=== PATIENT | female | born 1940 | race American Indian/Alaskan Native ===

== ENCOUNTER 2017-02-20 14:07 | Inpatient (IN) | payer OTHER, MEDICARE ==
[~2017-02-20 14:07] MED LIST: NACL 0.9% IR ONE; NEO SYNEPHRINE/NS Syringe(OR USE) IV ONE
--- NOTE | 2017-02-20 14:57 | Emergency Department Report ---
Chief Complaint: Abdominal Pain Stated Complaint: ABD PAIN Time Seen by Provider: 02/20/17 14:52 - HPI History of Present Illness: PT c/o constipation and intermittent abd pain x 1 week pt states she took a laxative but did not have relief - ROS Review of Systems: - vomiting + constipation - Exam Vital Signs: Vital Signs 02/20/17 14:32 Temperature 98 F Pulse Rate 111 H Respiratory 18 Rate Blood Pressure 106/73 O2 Sat by Pulse 98 Oximetry Physical Exam: pt looks well, non toxic abd is soft and non tender to palpation MSE screening note: Focused history and physical exam performed. Due to findings the following was ordered: labs, xr ED Disposition for MSE Condition: Stable Instructions: Abdominal Pain (ED)
[2017-02-20 15:29] LABS: Hematocrit 35.2 % (30.3-42.9); Hemoglobin 11.7 gm/dl (10.1-14.3); Mean Corpuscular HGB Conc 33 % (30-34); Mean Corpuscular Hemoglobin 28 pg (28-32); Mean Corpuscular Volume 85 fl (79-97); Platelet Count 322 K/mm3 (140-440); Red Blood Count 4.13 M/mm3 (3.65-5.03); Red Cell Distribution Width 15.8 % (13.2-15.2)
[2017-02-20 15:33] LABS: White Blood Count 38.5 K/mm3 (4.5-11.0)
[2017-02-20 15:38] LABS: Albumin 3.6 g/dL (3.9-5); Albumin/Globulin Ratio 1.1 %; BUN/Creatinine Ratio 29.37; Bilirubin,Total 1.2 mg/dL (0.1-1.2); Calcium 8.9 mg/dL (8.4-10.2); Chloride 93.4 mmol/L (98-107); Potassium 3.5 mmol/L (3.6-5.0); Total Protein 6.9 g/dL (6.3-8.2)
[2017-02-20 15:40] LABS: Bilirubin,Urine NEG (Negative); Blood,Urine MOD (Negative); Ketones,Urine TR mg/dL (Negative); Leukocyte Esterase,Urine MOD (Negative); Mucus,Urine FEW /HPF; Nitrite,Urine NEG (Negative)
[2017-02-20] MEDS ORDERED: NACL 0.9% 1000 ML 1,000 ML IV ONE ×2 (16:48→20:09)
[2017-02-20 17:43] LABS: Basophils % (Manual) 0 % (0.0-1.8); Blastocytes % (Manual) 0 %; Eosinophils % (Manual) 0 % (0.0-4.3)
[2017-02-20 17:49] LABS: Anisocytosis 1+; Diff Status Complete; Platelet Estimate Consistent w Auto; Poikilocytosis Few
[2017-02-20 17:50] LABS: Smudge Cells 2+
--- NOTE | 2017-02-20 19:50 | Emergency Department Report ---
HPI - General Chief Complaint: Abdominal Pain Time Seen by Provider: 02/20/17 14:52 - HPI HPI: Abdominal pain for the past 3 days, accompanied by constipation. she describes the pain as 10/10, aching, right lower quadrant, radiating to periumbilical area. Patient denies any vomiting but has nausea. Patient with history of leukemia, not yet started on chemotherapy, her oncologist is DR. Pascual Barcenas, she also has high blood pressure stated 3 days ago she started having constipation first took some laxative for constipation and then started having bad severe abdominal pain, unable to be relieved with otc medications. Patient denies any fever, chills she is compliant with her medications. ED Past Medical Hx - Past Medical History Previous Medical History?: Yes Hx Hypertension: Yes Hx Asthma: Yes Additional medical history: Leukemia - Surgical History Past Surgical History?: Yes Additional Surgical History: Thyroidectomy, Hysterectomy - Social History Smoking Status: Former Smoker Substance Use Type: Alcohol, Prescribed - Medications Home Medications: Home Medications Medication Instructions Recorded Confirmed Last Taken Type Fluticasone/Salmeterol [Advair 1 puff IH BID 02/20/17 02/20/17 Unknown History Diskus 100-50 mcg] Losartan [Cozaar] 125 mg PO QDAY 02/20/17 02/20/17 Unknown History ED Review of Systems ROS: Stated complaint: ABD PAIN Other details as noted in HPI Physical Exam - Physical Exam Vital Signs: Vital Signs 02/20/17 02/20/17 02/20/17 14:32 17:52 19:09 Temperature 98 F 98.9 F 99.5 F Pulse Rate 111 H 96 H 88 Respiratory 18 18 20 Rate Blood Pressure 106/73 Blood Pressure 115/65 123/61 [Right] O2 Sat by Pulse 98 98 98 Oximetry Physical Exam: Gen. alert and oriented 3 in no distress Head atraumatic normocephalic Eyes PERR LA EOMI Chest regular rate and rhythm normal S1-S2 lungs clear bilaterally Abdomen soft nondistended, or right lower quadrant tenderness, no guarding Back no point tenderness paravertebral tenderness Neuro no focal deficit. Psych normal mood. ED Course Vital Signs 02/20/17 02/20/17 02/20/17 14:32 17:52 19:09 Temperature 98 F 98.9 F 99.5 F Pulse Rate 111 H 96 H 88 Respiratory 18 18 20 Rate Blood Pressure 106/73 Blood Pressure 115/65 123/61 [Right] O2 Sat by Pulse 98 98 98 Oximetry - Reevaluation(s) Reevaluation #1: 02/20/17 20:08 Spoke with the radiologist on the phone, he suspects acute appendicitis with abscess. I will consult general surgery. 02/20/17 21:29 I discussed this case with surgery on-call Dr. Anthony, who recommended taking the patient to the operating room. He also asked hospitalist to admit patient. ED Medical Decision Making - Lab Data Result diagrams: 02/20/17 15:05 02/20/17 15:05 Critical Care Time: Yes Critical care time in (mins) excluding proc time.: 45 Critical care attestation.: If time is entered above; I have spent that time in minutes in the direct care of this critically ill patient, excluding procedure time. ED Disposition Clinical Impression: Acute appendicitis Disposition: DC-09 OP ADMIT IP TO THIS HOSP Is pt being admited?: Yes Does the pt Need Aspirin: No Condition: Stable Instructions: Abdominal Pain (ED) Referrals: LOTUS SEGOVIA MD [Primary Care Provider] - 3-5 Days
--- NOTE | 2017-02-20 20:04 | Cat Scan Report ---
FINAL REPORT PROCEDURE: CT ABDOMEN PELVIS WO CON TECHNIQUE: Computerized axial tomography of the abdomen and pelvis was performed without intravenous contrast. This study is performed without intravascular contrast material and its sensitivity for abdominal and pelvic pathology, including neoplasms, inflammation, abscess, free fluid, thrombosis, arterial dissection and infarction, is reduced compared with a contrast enhanced study. HISTORY: abd pain COMPARISON: No prior studies are available for comparison. FINDINGS: Lower Lung lozano: Minimal dependent atelectasis visualized. Lung bases otherwise are clear. There is a small amount of pericardial fluid or pericardial thickening partially visualized. Upper Abdomen: There is a low-density nodule anteriorly in the left lobe of the liver measuring 2.5 centimeters which appears to represent a hepatic cyst. Two low-density nodules are also seen in the right lobe of the liver, 1 centrally inferiorly measuring 12 millimeters and a 3rd inferiorly adjacent to the gallbladder fossa measuring 8 millimeters both of which appear to represent small hepatic cysts. The gallbladder, the adrenal glands, the pancreas and the spleen are unremarkable. Kidneys, Ureters and Urinary bladder: 9 millimeter low-density nodule seen in the midportion of the renal cortex of the right kidney laterally which appears represent a small renal cortical cyst. Kidneys ureters and urinary bladder otherwise are unremarkable. Retroperitoneum: Atherosclerotic changes are seen in the abdominal aorta. No aneurysm is visualized. Nonspecific subcentimeter lymph nodes are seen in the retroperitoneum. No pathologically enlarged lymph nodes are identified. Bowel: There is a large amount of inflammatory change in the mesentery in the mid pelvis posteriorly. There is wall thickening seen in the sigmoid colon. There is a tubular structure projecting medially from the cecum which may represent a markedly distended appendix with wall thickening and diffuse inflammatory change. The diameter of this structure measures 1.6 centimeters. At the tip of this structure presumed to be the appendix there is a fluid collection with an air-fluid level extending over approximately 3.3 x 5.1 centimeters suggesting an abscess. I do not see free intraperitoneal gas. There is additional small density with an air-fluid level seen on image 174 series 2 measuring approximately 1.4 centimeters which may represent additional abscess or extension of the above-mentioned abscess. There is moderate mesenteric adenopathy. This may be reactive. I do not see evidence of bowel obstruction. No ascites is visualized. Reproductive organs: Uterus is surgically absent. No abnormal adnexal masses are seen. Other: There is moderate thoracolumbar scoliosis convex the left apex in the lower thoracic spine convex to the right apex mid lumbar spine. IMPRESSION: Inflammatory process seen in the pelvis as described. This may represent appendicitis with abscess as described. Malignancy in a loop of bowel with perforation and abscess formation is felt to be less likely. As described above 3.3 x 5.1 centimeter abscess is suspected although there may be a smaller daughter abscess or extension of the larger abscess. Please see above image reference number. Oscar of the sigmoid colon and rectum are thickened suggesting reactive process. Moderate mesenteric adenopathy may be reactive. Lymphoma or metastatic disease cannot be excluded. Small amount of pericardial fluid or pericardial thickening present. Hepatic and renal cortical cysts are suspected as described. Prior hysterectomy. Scoliosis..
[2017-02-20] MEDS ORDERED: ZOSYN/NS 4.5GM/100ML 4.5 GM/100 ML VIAL IV ONE (20:08)
[2017-02-20 21:31] LABS: INR 1.1 (0.87-1.13)
[2017-02-20 21:32] LABS: Partial Thromboplastin Time 26.4 Sec. (24.2-36.6)
--- NOTE | 2017-02-20 21:33 | History and Physical Report ---
History of Present Illness Date of examination: 02/20/17 Date of admission: 02/20/17 Chief complaint: Abdominal pain History of present illness: Patient is 76-year-old history of hypertension, asthma and leukemia. She presents with abdominal pain. Abdominal pain is sharp, of intensity 10 out of 10, generalized abdominal pain. There was no radiation. Abdominal pain associated with nausea but no vomiting. Pain was getting worse therefore went to see primary care physician, who was unavailable. She eventually came to the emergency department for evaluation. In ED, a CT of the abdomen showed abnormal findings suggesting for related appendicitis with abscess formation. She is being admitted for urgent surgery and further management. Past History Past Medical History: hypertension, other (asthma, leukemia) Past Surgical History: thyroidectomy, hysterectomy Social history: Lives alone, full code. denies: smoking, alcohol abuse Family history: no significant family history Medications and Allergies Allergies Allergy/AdvReac Type Severity Reaction Status Date / Time No Known Allergies Allergy Verified 02/20/17 17:36 Home Medications Medication Instructions Recorded Confirmed Last Taken Type Fluticasone/Salmeterol [Advair 1 puff IH BID 02/20/17 02/20/17 Unknown History Diskus 100-50 mcg] Losartan [Cozaar] 125 mg PO QDAY 02/20/17 02/20/17 Unknown History Active Meds: Active Medications Sodium Chloride (Nacl 0.9% 1000 Ml) 1,000 mls @ 125 mls/hr IV ONCE ONE Stop: 02/21/17 04:08 Last Admin: 02/20/17 20:34 Dose: 125 mls/hr Review of Systems All systems: negative (no fever, no chest pain, no cough, no vomiting. All other systems reviewed and are negative) Exam - Physical Exam Narrative exam: Gen appearance: ot in acute distress HEENT: normocephalic, atraumatic Neck:supple, no JVD, ADRIANA Lungs: clear to auscultation bilaterally, no crackles or wheezes Heart :S1 and S2 regular, no murmurs, rubs or gallop Abdomen: Soft, mild tender mid abdomen, no rebound tenderness, bowel sounds present Extremities :no edema no clubbing or cyanosis Neuro: Awake, alert oriented 3, no focal neurological signs Psych: normal mood - Constitutional Vitals: Temp Pulse Resp BP Pulse Ox 99.5 F 103 H 19 120/67 98 02/20/17 19:09 02/20/17 20:40 02/20/17 20:40 02/20/17 20:40 02/20/17 20:40 Results - Labs CBC & Chem 7: 02/20/17 15:05 02/20/17 15:05 Labs: Laboratory Last Values WBC 38.5 K/mm3 (4.5-11.0) H 02/20/17 15:05 RBC 4.13 M/mm3 (3.65-5.03) 02/20/17 15:05 Hgb 11.7 gm/dl (10.1-14.3) 02/20/17 15:05 Hct 35.2 % (30.3-42.9) 02/20/17 15:05 MCV 85 fl (79-97) 02/20/17 15:05 MCH 28 pg (28-32) 02/20/17 15:05 MCHC 33 % (30-34) 02/20/17 15:05 RDW 15.8 % (13.2-15.2) H 02/20/17 15:05 Plt Count 322 K/mm3 (140-440) 02/20/17 15:05 Lymph % (Auto) [place] 02/20/17 15:05 Lymph # [place] 02/20/17 15:05 Add Manual Diff Complete 02/20/17 15:05 Total Counted 200 02/20/17 15:05 Seg Neuts % (Manual) 10.5 % (40.0-70.0) L 02/20/17 15:05 Band Neutrophils % 14.5 % 02/20/17 15:05 Lymphocytes % (Manual) 59.0 % (13.4-35.0) H 02/20/17 15:05 Reactive Lymphs % (Man) 11.5 % 02/20/17 15:05 Monocytes % (Manual) 4.5 % (0.0-7.3) 02/20/17 15:05 Eosinophils % (Manual) 0 % (0.0-4.3) 02/20/17 15:05 Basophils % (Manual) 0 % (0.0-1.8) 02/20/17 15:05 Metamyelocytes % 0 % 02/20/17 15:05 Myelocytes % 0 % 02/20/17 15:05 Promyelocytes % 0 % 02/20/17 15:05 Blast Cells % 0 % 02/20/17 15:05 Nucleated RBC % Not Reportable 02/20/17 15:05 Seg Neutrophils # Man 4.0 K/mm3 (1.8-7.7) 02/20/17 15:05 Band Neutrophils # 5.6 K/mm3 02/20/17 15:05 Lymphocytes # (Manual) 22.7 K/mm3 (1.2-5.4) H 02/20/17 15:05 Abs React Lymphs (Man) 4.4 K/mm3 02/20/17 15:05 Monocytes # (Manual) 1.7 K/mm3 (0.0-0.8) H 02/20/17 15:05 Eosinophils # (Manual) 0.0 K/mm3 (0.0-0.4) 02/20/17 15:05 Basophils # (Manual) 0.0 K/mm3 (0.0-0.1) 02/20/17 15:05 Metamyelocytes # 0.0 K/mm3 02/20/17 15:05 Myelocytes # 0.0 K/mm3 02/20/17 15:05 Promyelocytes # 0.0 K/mm3 02/20/17 15:05 Blast Cells # 0.0 K/mm3 02/20/17 15:05 WBC Morphology Not Reportable 02/20/17 15:05 Hypersegmented Neuts Not Reportable 02/20/17 15:05 Hyposegmented Neuts Not Reportable 02/20/17 15:05 Hypogranular Neuts Not Reportable 02/20/17 15:05 Smudge Cells 2+ 02/20/17 15:05 Toxic Granulation Not Reportable 02/20/17 15:05 Toxic Vacuolation Not Reportable 02/20/17 15:05 Dohle Bodies Not Reportable 02/20/17 15:05 Pelger-Huet Anomaly Not Reportable 02/20/17 15:05 Glo Rods Not Reportable 02/20/17 15:05 Platelet Estimate Consistent w auto 02/20/17 15:05 Clumped Platelets Not Reportable 02/20/17 15:05 Plt Clumps, EDTA Not Reportable 02/20/17 15:05 Large Platelets Not Reportable 02/20/17 15:05 Giant Platelets Not Reportable 02/20/17 15:05 Platelet Satelliting Not Reportable 02/20/17 15:05 Plt Morphology Comment Not Reportable 02/20/17 15:05 RBC Morphology Not Reportable 02/20/17 15:05 Dimorphic RBCs Not Reportable 02/20/17 15:05 Polychromasia Not Reportable 02/20/17 15:05 Hypochromasia Not Reportable 02/20/17 15:05 Poikilocytosis Few 02/20/17 15:05 Anisocytosis 1+ 02/20/17 15:05 Microcytosis Not Reportable 02/20/17 15:05 Macrocytosis Not Reportable 02/20/17 15:05 Spherocytes Not Reportable 02/20/17 15:05 Pappenheimer Bodies Not Reportable 02/20/17 15:05 Sickle Cells Not Reportable 02/20/17 15:05 Target Cells Not Reportable 02/20/17 15:05 Tear Drop Cells Not Reportable 02/20/17 15:05 Ovalocytes Not Reportable 02/20/17 15:05 Helmet Cells Not Reportable 02/20/17 15:05 [place] Bodies Not Reportable 02/20/17 15:05 [place] Rings Not Reportable 02/20/17 15:05 Johnson Cells Not Reportable 02/20/17 15:05 Bite Cells Not Reportable 02/20/17 15:05 Crenated Cell Not Reportable 02/20/17 15:05 Elliptocytes Not Reportable 02/20/17 15:05 Acanthocytes (Spur) Not Reportable 02/20/17 15:05 Rouleaux Not Reportable 02/20/17 15:05 Hemoglobin C Crystals Not Reportable 02/20/17 15:05 Schistocytes Not Reportable 02/20/17 15:05 Malaria parasites Not Reportable 02/20/17 15:05 Carrington Bodies Not Reportable 02/20/17 15:05 Hem Pathologist Commnt Sent to pathology 02/20/17 15:05 PT 14.8 Sec. (12.2-14.9) 02/20/17 21:00 INR 1.10 (0.87-1.13) 02/20/17 21:00 APTT 26.4 Sec. (24.2-36.6) 02/20/17 21:00 Sodium 138 mmol/L (137-145) 02/20/17 15:05 Potassium 3.5 mmol/L (3.6-5.0) L 02/20/17 15:05 Chloride 93.4 mmol/L (98-107) L 02/20/17 15:05 Carbon Dioxide 24 mmol/L (22-30) 02/20/17 15:05 Anion Gap 24 mmol/L 02/20/17 15:05 BUN 47 mg/dL (7-17) H 02/20/17 15:05 Creatinine 1.6 mg/dL (0.7-1.2) H 02/20/17 15:05 Estimated GFR 38 ml/min 02/20/17 15:05 BUN/Creatinine Ratio 29.37 % 02/20/17 15:05 Glucose 115 mg/dL (65-100) H 02/20/17 15:05 Calcium 8.9 mg/dL (8.4-10.2) 02/20/17 15:05 Total Bilirubin 1.20 mg/dL (0.1-1.2) 02/20/17 15:05 AST 30 units/L (5-40) 02/20/17 15:05 ALT 23 units/L (7-56) 02/20/17 15:05 Alkaline Phosphatase 69 units/L (35-129) 02/20/17 15:05 Total Protein 6.9 g/dL (6.3-8.2) 02/20/17 15:05 Albumin 3.6 g/dL (3.9-5) L 02/20/17 15:05 Albumin/Globulin Ratio 1.1 % 02/20/17 15:05 Lipase 19 units/L (13-60) 02/20/17 15:05 Urine Color Yellow (Yellow) 02/20/17 15:05 Urine Turbidity Slightly-cloudy (Clear) 02/20/17 15:05 Urine pH 5.0 (5.0-7.0) 02/20/17 15:05 Ur Specific [place] 1.016 (1.003-1.030) 02/20/17 15:05 Urine Protein 30 mg/dl mg/dL (Negative) 02/20/17 15:05 Urine Glucose (UA) Neg mg/dL (Negative) 02/20/17 15:05 Urine Ketones Tr mg/dL (Negative) 02/20/17 15:05 Urine Blood Mod (Negative) 02/20/17 15:05 Urine Nitrite Neg (Negative) 02/20/17 15:05 Urine Bilirubin Neg (Negative) 02/20/17 15:05 Urine Urobilinogen 2.0 mg/dL (<2.0) 02/20/17 15:05 Ur Leukocyte Esterase Mod (Negative) 02/20/17 15:05 Urine WBC (Auto) 26.0 /HPF (0.0-6.0) H 02/20/17 15:05 Urine RBC (Auto) 12.0 /HPF (0.0-6.0) 02/20/17 15:05 U Epithel Cells (Auto) 2.0 /HPF (0-13.0) 02/20/17 15:05 Hyaline Casts 1 /LPF 02/20/17 15:05 Urine Mucus Few /HPF 02/20/17 15:05 Assessment and Plan Assessment and plan: Acute appendicitis with rupture with intra-abdominal abscess. This is suggested by CT abdomen. Admit to medical/surgical floor. Dr. Anthony consulted and ED physician discussed case with him. He will take patient to OR tonight for exploratory laparotomy. keep NPO. Give iv fluids. pain management Marked leukocytosis. This may be secondary to combination of leukemia and intraabdominal abscess. Hypertension. BP stable. Will monitor. Leukemia. This is managed by Dr. EVANS. DVT prophylaxis SCDs only because of anticipated surgery - no anticoagulation for now Full CODE STATUS Advance Directives: Yes VTE prophylaxis?: Not ordered Contraindication Mechanical VTE Prophylaxis: Contraindicated Reason for no VTE Prophylaxis: Surgical contraindication Plan of care discussed with patient/family: Yes
[2017-02-20] MEDS ORDERED: MORPHINE IV PRN (21:34)
[2017-02-20] MEDS ORDERED: TYLENOL PO PRN (21:34)
[2017-02-20] MEDS ORDERED: ZOFRAN IV PRN (21:34)
[2017-02-20] MEDS ORDERED: ZEMURON IV ONE (21:57)
[2017-02-20] MEDS ORDERED: DIPRIVAN 10 MG/ML IV ONE ×2 (21:57→23:55)
[2017-02-20] MEDS ORDERED: SUBLIMAZE ONE (21:57)
[2017-02-20] MEDS ORDERED: XYLOCAINE MPF 2% ONE (21:57)
[2017-02-20] MEDS ORDERED: D5NS 1,000 ML IV SCH (22:00)
[2017-02-20] MEDS ORDERED: ZOSYN/NS 4.5GM/100ML 4.5 GM/100 ML VIAL IV SCH (22:00)
[2017-02-20] MEDS ORDERED: DILAUDID IV PRN (22:25)
--- NOTE | 2017-02-20 22:25 | Anesthesia Consultation ---
Anesthesia Consult and Med Hx Date of service: 02/20/17 - Airway Anesthetic Teeth Evaluation: Poor ROM Head & Neck: Adequate Mental/Hyoid Distance: Adequate Mallampati Class: Class II Intubation Access Assessment: Probably Good - Pulmonary Exam CTA: Yes - Cardiac Exam Cardiac Exam: RRR - Pre-Operative Health Status ASA Pre-Surgery Classification: ASA3 Proposed Anesthetic Plan: General (Leukemia ) - Pulmonary Hx Asthma: Yes - Cardiovascular System Hx Hypertension: Yes
--- NOTE | 2017-02-20 22:25 | Anesthesia Day of Surgery ---
Anesthesia Day of Surgery - Day of Surgery Patient Examined: Yes Patient H&P Reviewed: Yes Patient is NPO: Yes
[2017-02-20] MEDS ORDERED: ZOFRAN ONE (23:00)
[2017-02-20] MEDS ORDERED: DECADRON ONE (23:00)
[2017-02-20] MEDS ORDERED: BLOXIVERZ ONE (23:11)
[2017-02-20] MEDS ORDERED: ROBINUL ONE ×2 (23:11)
[2017-02-20] MEDS ORDERED: DILAUDID ONE (23:31)
[2017-02-21] MEDS ORDERED: D5W/0.45% NACL/KCL 30 MEQ 30 MEQ/1,000 ML BAG IV SCH (01:00)
--- NOTE | 2017-02-21 01:00 | Operative Report ---
PREOPERATIVE DIAGNOSIS: Rule out perforated appendix. POSTOPERATIVE DIAGNOSIS: Ruptured gangrenous retrocecal appendix with abscess formation. PROCEDURE: Emergency exploratory laparotomy and appendectomy. SURGEON: Sreekanth Anthony M.D. ANESTHESIA: General. ESTIMATED BLOOD LOSS: Minimal. DRAINS: One 19 Sam drain left. COMPLICATIONS: None. DESCRIPTION OF PROCEDURE: The patient was taken up to the operating room, prepped and draped in usual sterile fashion. Midline incision was made and abdomen entered. The patient was then placed in a steep Trendelenburg left lateral decubitus position. Attention was then focused to the cecum where a large fixed retrocecal mass was palpated. The right colon was then slowly mobilized. Mass was then slowly dissected free until a gangrenous perforated appendix was noted. Appendix was grasped gently with a [place] at its tip and brought up into the operative field. The mesoappendix was secured with 2-0 Vicryl ties. The base of the appendix was eventually able to be identified and doubly ligated and transected. The appendix was swabbed for cultures. The area was then copiously irrigated and dried. Checked for hemostasis and noted to be dry. A 19-Sam was left draining the pelvic floor. The drain was secured to the skin with a 2-0 silk suture. The entire abdomen was once again irrigated copiously and dry. Once again checked for hemostasis and noted to be dry. The fascia was then closed with interrupted #1 Vicryl suture. Subcutaneous tissues irrigated and skin closed loosely with neema and packed with Betadine soaked Telfa janice. The patient tolerated the procedure well and left the OR in stable condition. [facility]# [id number] FP/DIAN
--- NOTE | 2017-02-21 01:00 | Post Anesthesia Evaluation ---
- Post Anesthesia Evaluation Patient Participated: Yes Airway Patent: Yes Stable Respiratory Function: Yes Nausea/Vomiting: No Temp > 96.8F: Yes Pain Manageable: Yes Adequeate Hydration: Yes Anesthesia Complications: No Block Receding Appropriately: Not Applicable Patient on Ventilator: No
[2017-02-21] MEDS: DILAUDID IV PRN ×4 (01:05→01:45)
[2017-02-21] MEDS ORDERED: DILAUDID ONE (01:28)
[2017-02-21] MEDS ORDERED: MORPHINE IV PRN (01:48)
[2017-02-21] MEDS ORDERED: MORPHINE ONE ×3 (01:51→06:20)
[2017-02-21] MEDS: MORPHINE IV PRN ×6 (01:55→17:12)
[2017-02-21] MEDS: ZOSYN/NS 2.25 GM/50ML 2.25 GM/50 ML BAG IV SCH ×4 (04:18→21:14)
[2017-02-21] MEDS: ZOFRAN IV PRN ×2 (04:19→06:27)
[2017-02-21 05:03] LABS: Hemoglobin 11.2 gm/dl (10.1-14.3); Mean Corpuscular HGB Conc 33 % (30-34); Mean Corpuscular Hemoglobin 29 pg (28-32); Mean Corpuscular Volume 86 fl (79-97); Platelet Count 294 K/mm3 (140-440); Red Blood Count 3.95 M/mm3 (3.65-5.03); Red Cell Distribution Width 16.2 % (13.2-15.2)
[2017-02-21 05:06] LABS: White Blood Count 26.4 K/mm3 (4.5-11.0)
[2017-02-21 05:26] LABS: Albumin 2.9 g/dL (3.9-5); Albumin/Globulin Ratio 0.8 %; Bilirubin,Total 1.2 mg/dL (0.1-1.2); Calcium 7.7 mg/dL (8.4-10.2); Chloride 101.9 mmol/L (98-107); Potassium 4.2 mmol/L (3.6-5.0); Total Protein 6.6 g/dL (6.3-8.2)
[2017-02-21 05:58] LABS: Anisocytosis 1+; Basophils % (Manual) 0 % (0.0-1.8); Blastocytes % (Manual) 0 %; Diff Status Complete; Eosinophils % (Manual) 0 % (0.0-4.3); Platelet Estimate Consistent w Auto; Smudge Cells 2+
[2017-02-21] MEDS ORDERED: ZOSYN/NS 4.5GM/100ML 4.5 GM/100 ML VIAL IV SCH (06:00)
--- NOTE | 2017-02-21 06:00 | Consultation ---
REASON FOR CONSULTATION: Rule out appendicitis with perforation and abscess formation. HISTORY OF PRESENT ILLNESS: The patient is a pleasant 76-year-old female who presents to Emergency Room with a 1-week history of lower abdominal pain, \\"which has not improved,\\" but denies any nausea or vomiting. PAST MEDICAL HISTORY: Pertinent for asthma, hypertension and leukemia. PAST SURGICAL HISTORY: Status post partial thyroidectomy and complete hysterectomy (TAHBSO). ALLERGIES: No known allergies. MEDICATIONS: Include losartan and Advair. FAMILY HISTORY: Negative. SOCIAL HISTORY: Denies any smoking or drinking. REVIEW OF SYSTEMS: Noncontributory. PHYSICAL EXAMINATION: GENERAL: At this time reveals the patient to be awake, alert, cooperative, in moderate discomfort, but no acute distress. VITAL SIGNS: Show her to be running a low grade temperature of 99.9, blood pressure 125/69, pulse of 106, respirations 16. ABDOMEN: Examination of the abdomen reveals it to be slightly distended. There is lower diffuse abdominal tenderness. Bowel sounds are hypoactive to absent. LABORATORY DATA: Lab work at present includes a CBC which shows a white count of 38,000 consistent with the patient's history of leukemia. H and H is 11.7 and 35.2. Platelet count is 322. Electrolytes are essentially within normal limits. BUN is high at 47 and creatinine is 1.6. LFTs are normal. Lipase is 19. A CT scan of the abdomen was performed which reveals inflammatory process seen in the pelvis, which may represent appendicitis with abscess formation. Also, malignancy in loops of small bowel is less likely, but cannot be excluded. IMPRESSION: At this time is that of a 76-year-old female with a past medical history as previously mentioned. Rule out perforated appendix, rule out other causes for pelvic abscess formation. PLAN: To proceed with emergency exploratory laparotomy, possible bowel resection. Risk, indication and complications have been reviewed with the patient who understands and has signed her consent. [facility]OB# [id number] FP/NTS
--- NOTE | 2017-02-21 07:18 | XRay Report ---
SUPINE KUB: History: Abdominal pain, constipation. The abdominal gas pattern is unremarkable. No masses or organomegaly is identified and there is no gross evidence of free air or fluid. No significant soft tissue calcifications are noted. IMPRESSION: Normal study. No significant fecal retention.
--- NOTE | 2017-02-21 07:46 | Admit Criteria Form ---
Admission Criteria Documentation: ABDOMINAL PAIN Clinical Indications for Admission to Inpatient Care (Place 'X' for any and all applicable criteria): Admission is indicated for ANY ONE of the following(1)(2)(3)(4)(5): [X ]I. Inpatient admission required rather than observation care (Also use Abdominal Pain: Observation Care, as appropriate) because of ANY ONE of the following: [ ]a) Severe pain requiring acute inpatient management [X]b) Identification of etiology/finding that requires inpatient care (eg, aortic dissection, free air) [ ]c) Absent bowel sounds with complete ileus(6) [ ]d) Suspected toxic megacolon [ ]e) Severe electrolyte abnormalities requiring inpatient care [ ]f) High fever or infection requiring inpatient admission as indicated by ANY ONE of following(7)(8): [ ] i) Appropriate outpatient or observational care antimicrobial treatment unavailable, not effective, or not feasible [ ] ii) Documented bacteremia [ ] iii) Temperature > 104.9 degrees F (oral) [ ] iv) T >103.1 F (oral) or < 96.8 F(rectal) that does not respond to all emergency treatment measures [ ]g) Signs of intestinal obstruction [B] [ ]h) Hemodynamic instability [ ]i) IV fluid to replace significant ongoing losses (greater than 3 L/m2 per day) (12)(13) [ ]j) Percutaneous or open drainage (eg, abscess, biliary tract ) procedures [ ]k) Parenteral nutrition regimen that must be implemented on inpatient basis [ ]l) Other condition,treatment or monitoring requiring inpatient admission. [ ]II. Peritoneal signs present [ ]III. Surgery needed that cannot be performed on an ambulatory basis. [ ]IV. Evaluation requires patient to not eat or drink for extended period ( eg, more than 24 hours). [ ]V. Contraindications and/or Inappropriate clinical situations for Observational Care in patients with abdominal pain, when ANY ONE of the following is required: [ ]a) Thorough evaluation is required to prevent catastrophic events due to delays in diagnosing (e.g.Mesenteric ischemia) 1,3 [ ]b) Patient with severe pathology or with chronic symptoms unlikely to improve in the ED stay (3) [ X]. General contraindications and/or Inappropriate clinical situations for Observational Care in patients with abdominal pain, when ANY ONE of the following is required: [X ]a) Prediction of prolongation of LOS based on ANY ONE of the following may be considered as a contraindication for observational care 2, 3, 4, 5, 6, 7, 8, 9, 10, 11 [X ]i) Age > 65 yrs. [ ]ii) Patient arriving by ambulance [ ]iii) Patient with high acuity [ ]iv) Patient requiring vital sign monitoring [ ]v) Patient on IV medication [ ]b) Systolic blood pressures 180mmHg 3,12 [ ]c) Patient with altered mental status including delirium and other alteration of consciousness, (3) [ ]d) Patient whose discharge disposition will be to a intermediate home or rehabilitation home should not be managed in Emergency Department Observation Unit. CMS rule requires 3 days hospital stay before such placement.3,13 [ ]e) Patient with failure to thrive due to broad array of etiologies 3,16,17 [ ]f) Inability to ambulate 3,14 Extended stay beyond goal length of stay may be needed for(2)(3): [ ]a) Persistent abdominal pain with suspected intra-abdominal process [ ]b) Diagnosed condition requiring continued stay (e.g., pancreatitis, complicated diverticulitis) [ ]c) Surgery (e.g., colectomy) The original [employer] content created by [employer] has been revised. The portions of the content which have been revised are identified through the use of italic text or in bold, and [facility] has neither reviewed nor approved the modified material.All other unmodified content is copyright [employer] [facility]. Please see references footnoted in the original [facility] edition 2016 Admission Criteria Met: Yes
--- NOTE | 2017-02-21 11:41 | Consultation ---
History of Present Illness - Reason for Consult Consult date: 02/21/17 Peritonitis; Perforated Appendicitis Requesting physician: LENA BURTON - History of Present Illness Ms. Zheng is a 76-year-old woman admitted with severe abdominal pain. A CT abdomen showed a possible appendiceal abscess measuring 3.3 X 5.1 cm. She was taken to the OR for open appendectomy. A gangrenous appendix was noted and surgically removed. Cultures were taken of the area. She is on Zosyn empirically. ID consultation is requested for further treatment recommendations. Past History Past Medical History: hypertension, other (asthma, leukemia) Past Surgical History: thyroidectomy, hysterectomy Social history: Lives alone, full code. denies: smoking, alcohol abuse Family history: no significant family history Medications and Allergies Allergies Allergy/AdvReac Type Severity Reaction Status Date / Time No Known Allergies Allergy Verified 02/20/17 17:36 Home Medications Medication Instructions Recorded Confirmed Last Taken Type Fluticasone/Salmeterol [Advair 1 puff IH BID 02/20/17 02/20/17 Unknown History Diskus 100-50 mcg] Losartan [Cozaar] 125 mg PO QDAY 02/20/17 02/20/17 Unknown History Active Meds: Active Medications Acetaminophen (Tylenol) 650 mg PO Q4H PRN PRN Reason: Pain MILD(1-3)/Fever >100.5/KEENE Piperacillin Sod/Tazobactam Sod (Zosyn/Ns 2.25 Gm/50ml) 2.25 gm in 50 mls @ 100 mls/hr IV Q6H JOSE PRN Reason: Protocol Last Admin: 02/21/17 09:43 Dose: 100 mls/hr Potassium Chloride/Dextrose/Sod Cl (D5w/0.45% Nacl/Kcl 30 Meq) 30 meq in 1,000 mls @ 125 mls/hr IV DIRECT JOSE Last Admin: 02/21/17 04:10 Dose: 125 mls/hr Morphine Sulfate (Morphine) 2 mg IV Q3H PRN PRN Reason: Pain, Moderate (4-6) Last Admin: 02/21/17 09:40 Dose: 2 mg Ondansetron HCl (Zofran) 4 mg IV Q4H PRN PRN Reason: N/V unrelieved by Carmella Last Admin: 02/21/17 06:27 Dose: 4 mg Review of Systems All systems: negative Constitutional: weakness, no fever, no sweats Cardiovascular: no chest pain, no shortness of breath Respiratory: no cough, no wheezing Gastrointestinal: abdominal pain, no nausea, no vomiting, no diarrhea Rectal: no bleeding Integumentary: no rash, no pruritis Physical Examination - Constitutional Vitals: Vital Signs Temp Pulse Resp BP Pulse Ox 97.7 F 87 29 H 140/71 99 02/21/17 08:00 02/21/17 11:00 02/21/17 11:00 02/21/17 11:00 02/21/17 11:00 Temperature -Last 24 Hours Temperature 97.7 F Temperature 98.0 F Temperature 98.0 F Temperature 98.2 F General appearance: Present: no acute distress - EENT Eyes: Absent: scleral icterus - Respiratory Respiratory effort: normal Respiratory: bilateral: CTA - Cardiovascular Rhythm: regular Heart Sounds: Present: S1 & S2 - Extremities Extremities: No edema - Abdominal General gastrointestinal: Present: soft, non-distended, hypoactive bowel sounds , other (surgical drain at RLQ with serosanguinous contents) - Integumentary Integumentary: Present: clear. Absent: jaundice - Psychiatric Psychiatric: appropriate mood/affect - Neurologic Neurologic: no focal deficits Results - Labs CBC & Chem 7: 02/21/17 04:37 02/21/17 04:37 Labs: Abnormal lab results 02/21/17 02/21/17 Range/Units 04:37 04:37 WBC 26.4 H (4.5-11.0) K/mm3 RDW 16.2 H (13.2-15.2) % Seg Neuts % (Manual) 38.0 L (40.0-70.0) % Lymphocytes % (Manual) 37.0 H (13.4-35.0) % Seg Neutrophils # Man 10.0 H (1.8-7.7) K/mm3 Lymphocytes # (Manual) 9.8 H (1.2-5.4) K/mm3 Monocytes # (Manual) 1.1 H (0.0-0.8) K/mm3 Carbon Dioxide 18 L (22-30) mmol/L BUN 39 H (7-17) mg/dL Creatinine 1.5 H (0.7-1.2) mg/dL Glucose 177 H (65-100) mg/dL Calcium 7.7 L (8.4-10.2) mg/dL Albumin 2.9 L (3.9-5) g/dL Microbiology 02/21/17 00:00 Appendix Surgical Culture - Preliminary 02/20/17 21:47 Peripheral/Venous Blood Culture - Preliminary Culture in Progress 02/20/17 21:47 Peripheral/Venous Blood Culture - Preliminary Culture in Progress Assessment and Plan - Patient Problems (1) Appendiceal abscess Current Visit: Yes Status: Acute Plan to address problem: 1. Zosyn is appropriate empiric therapy pending further micro data. 2. Continue same for now with hopeful oral options once patient can take PO meds.
--- NOTE | 2017-02-21 13:27 | Progress Note ---
Assessment and Plan POD #1 Pt feeling well. -flatus Abd soft. dressings dry. -BS K+, BUN & creatinine improved surgically stable ID eval appreciated ambulation continue hydration keep NPO until + flatus (probably another 48 - 72 hrs) begin wd care in am. Dr. Coughlin covering me thru Sunday Selected Entries 02/21/17 11:00 Pulse Rate 87 Blood Pressure 140/71 Laboratory Tests 02/20/17 02/20/17 02/21/17 15:05 15:05 04:37 WBC 38.5 H 26.4 H Hgb 11.7 11.2 Hct 35.2 34.0 Sodium Potassium Chloride Carbon Dioxide BUN 47 H Creatinine 1.6 H 02/21/17 04:37 WBC Hgb Hct Sodium 139 Potassium 4.2 Chloride 101.9 Carbon Dioxide 18 L BUN 39 H Creatinine 1.5 H Objective Vital Signs - 12hr 02/21/17 02/21/17 02/21/17 01:30 01:31 01:45 Temperature Pulse Rate 86 86 Respiratory 21 24 19 Rate Respiratory Rate [Abdomen] Blood Pressure 132/67 131/66 O2 Sat by Pulse 98 98 Oximetry 02/21/17 02/21/17 02/21/17 01:55 02:00 02:15 Temperature Pulse Rate 88 85 Respiratory 24 22 22 Rate Respiratory Rate [Abdomen] Blood Pressure 134/70 124/67 O2 Sat by Pulse 99 99 Oximetry 02/21/17 02/21/17 02/21/17 02:20 02:30 02:41 Temperature Pulse Rate 83 84 Respiratory 22 20 22 Rate Respiratory Rate [Abdomen] Blood Pressure 129/67 133/73 O2 Sat by Pulse 98 98 Oximetry 02/21/17 02/21/17 02/21/17 02:50 02:51 03:00 Temperature 98.0 F Pulse Rate 87 Respiratory 19 22 Rate Respiratory Rate [Abdomen] Blood Pressure 128/70 129/74 O2 Sat by Pulse 97 Oximetry 02/21/17 02/21/17 02/21/17 03:10 03:11 03:21 Temperature Pulse Rate 88 88 85 Respiratory 19 22 20 Rate Respiratory Rate [Abdomen] Blood Pressure 128/70 129/74 128/70 O2 Sat by Pulse 96 97 97 Oximetry 02/21/17 02/21/17 02/21/17 03:31 03:41 03:51 Temperature Pulse Rate 87 85 82 Respiratory 21 24 24 Rate Respiratory Rate [Abdomen] Blood Pressure 128/70 128/70 128/70 O2 Sat by Pulse 97 97 98 Oximetry 02/21/17 02/21/17 02/21/17 04:00 04:05 04:11 Temperature Pulse Rate 83 80 Respiratory 26 H 22 25 H Rate Respiratory Rate [Abdomen] Blood Pressure 127/71 127/71 O2 Sat by Pulse 99 99 Oximetry 02/21/17 02/21/17 02/21/17 04:16 04:21 04:31 Temperature 98.0 F Pulse Rate 83 81 Respiratory 27 H 26 H Rate Respiratory Rate [Abdomen] Blood Pressure 127/71 127/71 O2 Sat by Pulse 99 99 Oximetry 02/21/17 02/21/17 02/21/17 04:41 04:50 05:00 Temperature Pulse Rate 84 83 81 Respiratory 23 27 H 27 H Rate Respiratory Rate [Abdomen] Blood Pressure 127/71 127/71 138/75 O2 Sat by Pulse 99 99 99 Oximetry 02/21/17 02/21/17 02/21/17 05:11 05:21 05:31 Temperature Pulse Rate 82 83 82 Respiratory 31 H 28 H 28 H Rate Respiratory Rate [Abdomen] Blood Pressure 138/75 138/75 138/75 O2 Sat by Pulse 99 99 99 Oximetry 02/21/17 02/21/17 02/21/17 05:41 05:51 06:00 Temperature Pulse Rate 85 84 92 H Respiratory 28 H 28 H 26 H Rate Respiratory Rate [Abdomen] Blood Pressure 138/75 138/75 133/89 O2 Sat by Pulse 100 99 99 Oximetry 02/21/17 02/21/17 02/21/17 06:11 06:21 06:31 Temperature Pulse Rate 86 87 83 Respiratory 32 H 26 H 28 H Rate Respiratory Rate [Abdomen] Blood Pressure 133/89 133/89 133/89 O2 Sat by Pulse 99 99 99 Oximetry 02/21/17 02/21/17 02/21/17 06:41 06:51 07:00 Temperature Pulse Rate 84 83 83 Respiratory 27 H 25 H 26 H Rate Respiratory Rate [Abdomen] Blood Pressure 133/89 133/89 149/78 O2 Sat by Pulse 99 99 99 Oximetry 02/21/17 02/21/17 02/21/17 08:00 09:00 09:40 Temperature 97.7 F Pulse Rate 78 85 Respiratory 28 H 26 H 28 H Rate Respiratory Rate [Abdomen] Blood Pressure 128/70 129/73 O2 Sat by Pulse 99 99 Oximetry 02/21/17 02/21/17 02/21/17 10:00 11:00 13:03 Temperature Pulse Rate 85 87 Respiratory 29 H 29 H 28 H Rate Respiratory 28 H Rate [Abdomen] Blood Pressure 131/72 140/71 O2 Sat by Pulse 100 99 Oximetry - Labs 02/21/17 04:37 02/21/17 04:37 Diabetes panel 02/21/17 Range/Units 04:37 Sodium 139 (137-145) mmol/L Potassium 4.2 (3.6-5.0) mmol/L Chloride 101.9 (98-107) mmol/L Carbon Dioxide 18 L (22-30) mmol/L BUN 39 H (7-17) mg/dL Creatinine 1.5 H (0.7-1.2) mg/dL Glucose 177 H (65-100) mg/dL Calcium 7.7 L (8.4-10.2) mg/dL AST 35 (5-40) units/L ALT 20 (7-56) units/L Alkaline Phosphatase 63 (35-129) units/L Total Protein 6.6 (6.3-8.2) g/dL Albumin 2.9 L (3.9-5) g/dL Calcium panel 02/21/17 Range/Units 04:37 Calcium 7.7 L (8.4-10.2) mg/dL Albumin 2.9 L (3.9-5) g/dL Pituitary panel 02/21/17 Range/Units 04:37 Sodium 139 (137-145) mmol/L Potassium 4.2 (3.6-5.0) mmol/L Chloride 101.9 (98-107) mmol/L Carbon Dioxide 18 L (22-30) mmol/L BUN 39 H (7-17) mg/dL Creatinine 1.5 H (0.7-1.2) mg/dL Glucose 177 H (65-100) mg/dL Calcium 7.7 L (8.4-10.2) mg/dL Adrenal panel 02/21/17 Range/Units 04:37 Sodium 139 (137-145) mmol/L Potassium 4.2 (3.6-5.0) mmol/L Chloride 101.9 (98-107) mmol/L Carbon Dioxide 18 L (22-30) mmol/L BUN 39 H (7-17) mg/dL Creatinine 1.5 H (0.7-1.2) mg/dL Glucose 177 H (65-100) mg/dL Calcium 7.7 L (8.4-10.2) mg/dL Total Bilirubin 1.20 (0.1-1.2) mg/dL AST 35 (5-40) units/L ALT 20 (7-56) units/L Alkaline Phosphatase 63 (35-129) units/L Total Protein 6.6 (6.3-8.2) g/dL Albumin 2.9 L (3.9-5) g/dL
[2017-02-21] MEDS: D5/0.45NS 1,000 ML IV SCH (14:04)
[2017-02-21] MEDS: PEPCID IV SCH (14:05)
--- NOTE | 2017-02-21 14:10 | Consultation ---
History of Present Illness Consult date: 02/21/17 Requesting physician: RAJINDER ROBERT Reason for consult: other (Sepsis Syndrome; Ruptured Viscus) History of present illness: PULMONARY/CCM CONSULT NOTE (Full dictation # [id number]) Please see dictated notes for full details Past History Past Medical History: hypertension, other (asthma, leukemia) Past Surgical History: thyroidectomy, hysterectomy Social history: Lives alone, full code. denies: smoking, alcohol abuse Family history: no significant family history Medications and Allergies Allergies Allergy/AdvReac Type Severity Reaction Status Date / Time No Known Allergies Allergy Verified 02/20/17 17:36 Home Medications Medication Instructions Recorded Confirmed Last Taken Type Fluticasone/Salmeterol [Advair 1 puff IH BID 02/20/17 02/20/17 Unknown History Diskus 100-50 mcg] Losartan [Cozaar] 125 mg PO QDAY 02/20/17 02/20/17 Unknown History Active Meds: Active Medications Acetaminophen (Tylenol) 650 mg PO Q4H PRN PRN Reason: Pain MILD(1-3)/Fever >100.5/KEENE Famotidine (Pepcid) 20 mg IV QDAY [facility] Last Admin: 02/21/17 14:05 Dose: 20 mg Piperacillin Sod/Tazobactam Sod (Zosyn/Ns 2.25 Gm/50ml) 2.25 gm in 50 mls @ 100 mls/hr IV Q6H [facility] PRN Reason: Protocol Last Admin: 02/21/17 09:43 Dose: 100 mls/hr Dextrose/Sodium Chloride (D5/0.45ns) 1,000 mls @ 125 mls/hr IV DIRECT [facility] Last Admin: 02/21/17 14:04 Dose: 125 mls/hr Morphine Sulfate (Morphine) 2 mg IV Q3H PRN PRN Reason: Pain, Moderate (4-6) Last Admin: 02/21/17 13:03 Dose: 2 mg Ondansetron HCl (Zofran) 4 mg IV Q4H PRN PRN Reason: N/V unrelieved by Carmella Last Admin: 02/21/17 06:27 Dose: 4 mg Physical Examination Vital signs: Vital Signs Temp Pulse Resp BP Pulse Ox 98 F 111 H 18 106/73 98 02/20/17 14:32 02/20/17 14:32 02/20/17 14:32 02/20/17 14:32 02/20/17 14:32 Results - Laboratory Findings CBC and BMP: 02/21/17 04:37 02/21/17 04:37 PT/INR, D-dimer PT 14.8 Sec. (12.2-14.9) 02/20/17 21:00 INR 1.10 (0.87-1.13) 02/20/17 21:00 Abnormal lab findings: Abnormal Labs 02/21/17 02/21/17 04:37 04:37 WBC 26.4 H RDW 16.2 H Seg Neuts % (Manual) 38.0 L Lymphocytes % (Manual) 37.0 H Seg Neutrophils # Man 10.0 H Lymphocytes # (Manual) 9.8 H Monocytes # (Manual) 1.1 H Carbon Dioxide 18 L BUN 39 H Creatinine 1.5 H Glucose 177 H Calcium 7.7 L Albumin 2.9 L
--- NOTE | 2017-02-21 14:18 | Progress Note ---
Assessment and Plan Assessment and plan: --Acute appendicitis/with appendix perforation and abscess formation Status post exploratory laparotomy, appendectomy, drainage placement Continue postop care, nothing by mouth, IV fluids and IV antibiotics and supportive care ID evaluation and recommendations noted. Surgery following --Leukocytosis; secondary to sepsis, Trending down --Sepsis secondary to intra-abdominal abscess formation Closely monitor, IV antibiotics and supportive care --Acute kidney injury; secondary to vasomotor nephropathy, ATN Gentle hydration, closely monitor renal function, avoid nephrotoxic medications --History of leukemia follows --Hypertension; moderate control, continue current antihypertensives and when necessary medications --DVT prophylaxis SCDs, no pharmacologic anticoagulation in view of postop state --Full CODE STATUS full code --DC planning per case management This closely monitor the patient and adjust management as needed Patient's condition treatment plan discussed in detail with the patient's family at the bedside Critical care time 32 minutes The high probability of a clinically significant, sudden or life threatening deterioration of the [32] infectious, gastrointestinal] system(s) required my full and direct attention, intervention and personal management. The aggregate critical care time was [32] minutes. This time is in addition to time spent performing reported procedures but includes the following: [x] Data Review and interpretation [x] Patient assessment and monitoring of vital signs [x] Documentation [x] Medication orders and management History Interval history: Patient seen and evaluated in ICU this morning medical records reviewed Patient was admitted with ruptured appendix, underwent exploratory laparotomy, found ruptured gangrenous retrocecal appendix with abscess formation, patient underwent appendectomy and continuous drainage. Today patient feels better, complains of generalized weakness Alert and awake and responding appropriately, vitals signs reviewed Hospitalist Physical - Constitutional Vitals: Temp Pulse Resp BP Pulse Ox 97.7 F 87 28 H 140/71 99 02/21/17 08:00 02/21/17 11:00 02/21/17 13:03 02/21/17 11:00 02/21/17 13:25 General appearance: Present: no acute distress, well-nourished, other (tired looking) - EENT Eyes: Present: PERRL, EOM intact - Neck Neck: Present: supple, normal ROM - Respiratory Respiratory effort: normal Respiratory: bilateral: diminished, negative: rales, rhonchi, wheezing - Cardiovascular Rhythm: regular Heart Sounds: Present: S1 & S2 - Extremities Extremities: no ischemia, No edema - Abdominal General gastrointestinal: soft, tender, non-distended, absent bowel sounds, other (drainage in place) - Integumentary Integumentary: Present: clear, warm - Psychiatric Psychiatric: appropriate mood/affect, cooperative - Neurologic Neurologic: CNII-XII intact, moves all extremities Results - Labs CBC & Chem 7: 02/21/17 04:37 02/21/17 04:37 Labs: Laboratory Last Values WBC 26.4 K/mm3 (4.5-11.0) H 02/21/17 04:37 RBC 3.95 M/mm3 (3.65-5.03) 02/21/17 04:37 Hgb 11.2 gm/dl (10.1-14.3) 02/21/17 04:37 Hct 34.0 % (30.3-42.9) 02/21/17 04:37 MCV 86 fl (79-97) 02/21/17 04:37 MCH 29 pg (28-32) 02/21/17 04:37 MCHC 33 % (30-34) 02/21/17 04:37 RDW 16.2 % (13.2-15.2) H 02/21/17 04:37 Plt Count 294 K/mm3 (140-440) 02/21/17 04:37 Lymph % (Auto) Computer Aided Design Technician 02/21/17 04:37 Lymph # Computer Aided Design Technician 02/21/17 04:37 Add Manual Diff Complete 02/21/17 04:37 Total Counted 100 02/21/17 04:37 Seg Neuts % (Manual) 38.0 % (40.0-70.0) L 02/21/17 04:37 Band Neutrophils % 18.0 % 02/21/17 04:37 Lymphocytes % (Manual) 37.0 % (13.4-35.0) H 02/21/17 04:37 Reactive Lymphs % (Man) 0 % 02/21/17 04:37 Monocytes % (Manual) 4.0 % (0.0-7.3) 02/21/17 04:37 Eosinophils % (Manual) 0 % (0.0-4.3) 02/21/17 04:37 Basophils % (Manual) 0 % (0.0-1.8) 02/21/17 04:37 Metamyelocytes % 3.0 % 02/21/17 04:37 Myelocytes % 0 % 02/21/17 04:37 Promyelocytes % 0 % 02/21/17 04:37 Blast Cells % 0 % 02/21/17 04:37 Nucleated RBC % Not Reportable 02/21/17 04:37 Seg Neutrophils # Man 10.0 K/mm3 (1.8-7.7) H 02/21/17 04:37 Band Neutrophils # 4.8 K/mm3 02/21/17 04:37 Lymphocytes # (Manual) 9.8 K/mm3 (1.2-5.4) H 02/21/17 04:37 Abs React Lymphs (Man) 0.0 K/mm3 02/21/17 04:37 Monocytes # (Manual) 1.1 K/mm3 (0.0-0.8) H 02/21/17 04:37 Eosinophils # (Manual) 0.0 K/mm3 (0.0-0.4) 02/21/17 04:37 Basophils # (Manual) 0.0 K/mm3 (0.0-0.1) 02/21/17 04:37 Metamyelocytes # 0.8 K/mm3 02/21/17 04:37 Myelocytes # 0.0 K/mm3 02/21/17 04:37 Promyelocytes # 0.0 K/mm3 02/21/17 04:37 Blast Cells # 0.0 K/mm3 02/21/17 04:37 Pathologist Review 02/20/17 15:05 WBC Morphology Not Reportable 02/21/17 04:37 Hypersegmented Neuts Not Reportable 02/21/17 04:37 Hyposegmented Neuts Not Reportable 02/21/17 04:37 Hypogranular Neuts Not Reportable 02/21/17 04:37 Smudge Cells 2+ 02/21/17 04:37 Toxic Granulation Not Reportable 02/21/17 04:37 Toxic Vacuolation Not Reportable 02/21/17 04:37 Dohle Bodies Not Reportable 02/21/17 04:37 Pelger-Huet Anomaly Not Reportable 02/21/17 04:37 Glo Rods Not Reportable 02/21/17 04:37 Platelet Estimate Consistent w auto 02/21/17 04:37 Clumped Platelets Not Reportable 02/21/17 04:37 Plt Clumps, EDTA Not Reportable 02/21/17 04:37 Large Platelets Not Reportable 02/21/17 04:37 Giant Platelets Not Reportable 02/21/17 04:37 Platelet Satelliting Not Reportable 02/21/17 04:37 Plt Morphology Comment Not Reportable 02/21/17 04:37 RBC Morphology Not Reportable 02/21/17 04:37 Dimorphic RBCs Not Reportable 02/21/17 04:37 Polychromasia Not Reportable 02/21/17 04:37 Hypochromasia Not Reportable 02/21/17 04:37 Poikilocytosis Not Reportable 02/21/17 04:37 Anisocytosis 1+ 02/21/17 04:37 Microcytosis Not Reportable 02/21/17 04:37 Macrocytosis Not Reportable 02/21/17 04:37 Spherocytes Not Reportable 02/21/17 04:37 Pappenheimer Bodies Not Reportable 02/21/17 04:37 Sickle Cells Not Reportable 02/21/17 04:37 Target Cells Not Reportable 02/21/17 04:37 Tear Drop Cells Not Reportable 02/21/17 04:37 Ovalocytes Not Reportable 02/21/17 04:37 Helmet Cells Not Reportable 02/21/17 04:37 [place] Bodies Not Reportable 02/21/17 04:37 [place] Rings Not Reportable 02/21/17 04:37 Johnson Cells Not Reportable 02/21/17 04:37 Bite Cells Not Reportable 02/21/17 04:37 Crenated Cell Not Reportable 02/21/17 04:37 Elliptocytes Not Reportable 02/21/17 04:37 Acanthocytes (Spur) Not Reportable 02/21/17 04:37 Rouleaux Not Reportable 02/21/17 04:37 Hemoglobin C Crystals Not Reportable 02/21/17 04:37 Schistocytes Not Reportable 02/21/17 04:37 Malaria parasites Not Reportable 02/21/17 04:37 Carrington Bodies Not Reportable 02/21/17 04:37 Hem Pathologist Commnt No 02/21/17 04:37 PT 14.8 Sec. (12.2-14.9) 02/20/17 21:00 INR 1.10 (0.87-1.13) 02/20/17 21:00 APTT 26.4 Sec. (24.2-36.6) 02/20/17 21:00 Sodium 139 mmol/L (137-145) 02/21/17 04:37 Potassium 4.2 mmol/L (3.6-5.0) 02/21/17 04:37 Chloride 101.9 mmol/L (98-107) 02/21/17 04:37 Carbon Dioxide 18 mmol/L (22-30) L 02/21/17 04:37 Anion Gap 23 mmol/L 02/21/17 04:37 BUN 39 mg/dL (7-17) H 02/21/17 04:37 Creatinine 1.5 mg/dL (0.7-1.2) H 02/21/17 04:37 Estimated GFR 41 ml/min 02/21/17 04:37 BUN/Creatinine Ratio 26.00 % 02/21/17 04:37 Glucose 177 mg/dL (65-100) H 02/21/17 04:37 Lactic Acid 1.00 mmol/L (0.7-2.0) 02/21/17 13:35 Calcium 7.7 mg/dL (8.4-10.2) L 02/21/17 04:37 Total Bilirubin 1.20 mg/dL (0.1-1.2) 02/21/17 04:37 AST 35 units/L (5-40) 02/21/17 04:37 ALT 20 units/L (7-56) 02/21/17 04:37 Alkaline Phosphatase 63 units/L (35-129) 02/21/17 04:37 Total Protein 6.6 g/dL (6.3-8.2) 02/21/17 04:37 Albumin 2.9 g/dL (3.9-5) L 02/21/17 04:37 Albumin/Globulin Ratio 0.8 % 02/21/17 04:37 Lipase 19 units/L (13-60) 02/20/17 15:05 Urine Color Yellow (Yellow) 02/20/17 15:05 Urine Turbidity Slightly-cloudy (Clear) 02/20/17 15:05 Urine pH 5.0 (5.0-7.0) 02/20/17 15:05 Ur Specific [place] 1.016 (1.003-1.030) 02/20/17 15:05 Urine Protein 30 mg/dl mg/dL (Negative) 02/20/17 15:05 Urine Glucose (UA) Neg mg/dL (Negative) 02/20/17 15:05 Urine Ketones Tr mg/dL (Negative) 02/20/17 15:05 Urine Blood Mod (Negative) 02/20/17 15:05 Urine Nitrite Neg (Negative) 02/20/17 15:05 Urine Bilirubin Neg (Negative) 02/20/17 15:05 Urine Urobilinogen 2.0 mg/dL (<2.0) 02/20/17 15:05 Ur Leukocyte Esterase Mod (Negative) 02/20/17 15:05 Urine WBC (Auto) 26.0 /HPF (0.0-6.0) H 02/20/17 15:05 Urine RBC (Auto) 12.0 /HPF (0.0-6.0) 02/20/17 15:05 U Epithel Cells (Auto) 2.0 /HPF (0-13.0) 02/20/17 15:05 Hyaline Casts 1 /LPF 02/20/17 15:05 Urine Mucus Few /HPF 02/20/17 15:05 Blood Type O POSITIVE 02/20/17 21:10 Antibody Screen TNR 02/20/17 21:10 SHARON Antibody Screen Negative 02/20/17 21:10
[2017-02-21] MEDS: PULMICORT IH SCH (20:52)
[2017-02-21] MEDS: BROVANA NEBU IH SCH (20:52)
--- NOTE | 2017-02-21 22:24 | Consultation ---
PULMONARY CRITICAL CARE CONSULT NOTE CONSULTING PHYSICIAN VERSUS SURGEON: Dr. Anthony as well as Dr. Wilcox. REASON FOR CONSULTATION: Critical care management, status post ruptured appendicitis, status post exploratory laparotomy. CHIEF COMPLAINT AND HISTORY OF PRESENT ILLNESS: As follows: The patient is a 76-year-old female with past medical history significant I guess in this ontext for what she described as newly diagnosed early leukemia, presented fairly after about 5 days of abdominal pain that started suddenly, it was sharp, it was 10/10. She did not have a bowel movement for a couple of days, but some laxity. She had a BM. It was nonbloody. It was not black, but then again, she did not have any BMs. She tried to see if she could continue to take laxatives. She was eating liquid diet and on the day of presentation, her overall pain was increasing. She had spoken with the nurse over the phone and was advised to come to the Emergency Room in the area. CT of the abdomen revealed an acute appendicitis with abscess formation because of her background diagnosis of leukemia. She was taken into the OR for immediate exploratory laparotomy and removal. She did relatively well, but postoperative surgeon required Intensive Care Unit evaluation due to overall status and age. When I stopped by to see her, she was doing better. She was feeling okay. She was using her incentive spirometer the abdominal pain was improved. She denied any nausea or vomiting. She was hungry, but had not passed any bowel movement or gas yet. Now with regards to her tobacco use/abuse history, she had denied any history of tobacco use. That really is as much of the history of presentation. PAST MEDICAL HISTORY: Hypertension. She has a history of asthma, for which she is on Advair at home. She also has a history of the newly diagnosed leukemia. PAST SURGICAL HISTORY: She has had a thyroidectomy. She has had a hysterectomy. MEDICATIONS: She was on at the time I stopped by to see her, according to the medication administration record included the following: She was on Tylenol 650 mg p.o. q. 4 hours p.r.n. mild pain. She was on Pepcid 20 mg IV daily, morphine sulfate 2 mg IV q. 3 hours p.r.n. moderate pain. She was on D5 half NS at 125 mL per hour, Zosyn 2.25 grams IV q. 6 hours and Zofran 4 mg IV q. 4 hours p.r.n. pain. She had received a dose of Decadron earlier. ALLERGIES: No known drug allergies. DIET: Petite lady. Denies acute weight loss or gain in the preceding few weeks to months. FAMILY AND SOCIAL HISTORY: Lives in the community, lives alone. Denies alcohol, tobacco or illicit drug use or abuse. Denies any contributory family history. REVIEW OF SYSTEMS: No loss of consciousness. No new onset of seizures. No new onset of focal weakness. No gross hematochezia or melena. No gross hematuria. She had the abdominal pain. She denies any seizures. A complete 13-system review of systems was obtained. Pertinent positives and/or negatives as in body of history above, otherwise they are noncontributory. PHYSICAL EXAMINATION: VITAL SIGNS: At presentation, she was afebrile, temperature 98.0 Fahrenheit with a pulse of 111, respiratory rate 18, blood pressure 106/73, oxygen sats were 98%, inspired oxygen concentration was not recorded. HEAD, EYES, EARS, NOSE AND THROAT: Pupils are equal, round, about 3 mm, reactive to light. Extraocular muscle movements are intact. NECK: Grossly, there were no palpable lymph nodes in the supraclavicular or submandibular lymph node chains. LUNGS: Auscultation of both lung lozano, diminished bilateral breath sounds, but clear. HEART: Heart sounds 1 and 2 were heard. They were regular rate and rhythm at time of my evaluation. ABDOMEN: Soft, full, bowel sounds were hypoactive. She was mildly tender diffusely. EXTREMITIES: Without overt digital clubbing, cyanosis, or pedal edema. NEUROLOGIC: The exam was grossly nonfocal. LABORATORY DATA: From my review as follows: White cell count on admission 38,500 with a hemoglobin of 11.7, hematocrit of 35.2, platelet count 322. INR was 1.10. Serum sodium was 138, potassium 3.5, chloride 93, bicarbonate 24, BUN 47, creatinine 1.6, glucose was 150 and lactic acid was within normal limits. Liver function test within normal limits. Urinalysis was negative for nitrites. She had moderate leukocyte esterase and about 26 white cells per high power field. Blood cultures, no growth to date. Appendix culture, no growth to date. I have reviewed the radiologist's interpretation. I am putting up the films. The CT of the abdomen and pelvis shows the main findings with 3.3 x 5.1 cm abscess along the appendix as she mentioned. Moderate mesenteric adenopathy, small pericardial fluid or thickening. Some nodules in the liver, nothing was mentioned about the lung lozano except for mild dependent atelectasis. ASSESSMENT AND PLAN: We have an elderly lady status post appendicitis and status post exploratory laparotomy, actually doing very well. I do note also a history of asthma and she is asking for her Advair, but is actually not wheezing, which is good. From a respiratory standpoint, we will prescribe Brovana and Pulmicort. Oxygen will be weaned as necessary. to keep sats greater than or equal to about 90-94%. Aspiration precautions will be maintained. She is appropriately on broad-spectrum anti-infective therapy. I believe the infectious disease doctor has been consulted. I will defer to them. The normal lactic acidosis is encouraging. She will remain n.p.o. for now until cleared by the surgeon. She has been started on GI prophylaxis today. DVT prophylaxis will be started with subcutaneous Lovenox tomorrow, but she has SCDs on now. Flu and pneumonia vaccination will be per protocol. Thank you very much for the consult, Dr. Anthony. We will follow along and make further recommendations as picture progresses/becomes clearer. At this point, she is doing better and I will recommend transfer to the surgical floor. JOB# [id number] CHAPIN/DIAN
[2017-02-22] MEDS: D5/0.45NS 1,000 ML IV SCH ×2 (01:06→09:10)
[2017-02-22] MEDS: ZOSYN/NS 2.25 GM/50ML 2.25 GM/50 ML BAG IV SCH ×4 (04:03→22:33)
[2017-02-22 06:56] LABS: Hematocrit 31.8 % (30.3-42.9); Hemoglobin 10.1 gm/dl (10.1-14.3); Mean Corpuscular HGB Conc 32 % (30-34); Mean Corpuscular Hemoglobin 28 pg (28-32); Mean Corpuscular Volume 87 fl (79-97); Platelet Count 328 K/mm3 (140-440); Red Blood Count 3.65 M/mm3 (3.65-5.03); Red Cell Distribution Width 16.1 % (13.2-15.2)
[2017-02-22 07:11] LABS: White Blood Count 45.2 K/mm3 (4.5-11.0)
[2017-02-22 07:24] LABS: Albumin 2.2 g/dL (3.9-5); Albumin/Globulin Ratio 0.6 %; BUN/Creatinine Ratio 16.36; Calcium 7.6 mg/dL (8.4-10.2); Chloride 103.9 mmol/L (98-107); Potassium 3.6 mmol/L (3.6-5.0); Total Protein 5.7 g/dL (6.3-8.2)
[2017-02-22] MEDS: PULMICORT IH SCH ×2 (07:44→19:15)
[2017-02-22] MEDS: BROVANA NEBU IH SCH ×2 (07:44→19:15)
--- NOTE | 2017-02-22 08:35 | Progress Note ---
Assessment and Plan - Patient Problems (1) Appendiceal abscess Current Visit: Yes Status: Acute Plan to address problem: 1. GNRs on surgical culture. Will continue Zosyn, but also add anti-fungal coverage. 2. Await final micro data. 3. If WBC remains markedly elevated, recommend repeat abdominal imaging. Subjective Date of service: 02/22/17 Principal diagnosis: Appendiceal Abscess Interval history: Afebrile, though significantly elevated WBC count. Patient notes cough with mucus, but denies nausea, emesis or diarrhea. Objective - Constitutional Vitals: Vital Signs Temp Pulse Resp BP Pulse Ox 97.9 F 92 H 18 132/72 97 02/22/17 08:03 02/22/17 08:03 02/22/17 08:03 02/22/17 08:03 02/22/17 08:03 Temperature -Last 24 Hours Temperature 97.9 F Temperature 98.8 F Temperature 98.3 F Temperature 98.4 F Temperature 98.4 F Temperature 98.3 F Temperature 98.3 F General appearance: Present: no acute distress, other (non-toxic appearance) - EENT Eyes: no scleral icterus - Neck Neck: supple - Respiratory Respiratory effort: normal Respiratory: bilateral: CTA - Cardiovascular Rhythm: regular Heart Sounds: Present: S1 & S2 Extremities: No edema - Gastrointestinal General gastrointestinal: Present: soft, non-distended, hypoactive bowel sounds , other (drain with serosanguinous output, no purulence seen) - Integumentary Integumentary: no jaundice, no rash - Neurologic Neurologic: moves all extremities - Psychiatric Psychiatric: appropriate mood/affect - Labs CBC & Chem 7: 02/22/17 06:10 02/22/17 06:10 Labs: Abnormal lab results 02/22/17 02/22/17 Range/Units 06:10 06:10 WBC 45.2 H* (4.5-11.0) K/mm3 RDW 16.1 H (13.2-15.2) % Carbon Dioxide 21 L (22-30) mmol/L BUN 18 H (7-17) mg/dL Glucose 191 H (65-100) mg/dL Calcium 7.6 L (8.4-10.2) mg/dL Total Protein 5.7 L (6.3-8.2) g/dL Albumin 2.2 L (3.9-5) g/dL Microbiology 02/20/17 Unknown Urine,Clean Catch Urine Culture - Preliminary 02/20/17 21:47 Peripheral/Venous Blood Culture - Preliminary NO GROWTH AFTER 24 HOURS 02/20/17 21:47 Peripheral/Venous Blood Culture - Preliminary NO GROWTH AFTER 24 HOURS 02/21/17 00:00 Appendix Surgical Culture - Preliminary
[2017-02-22] MEDS: PEPCID IV SCH (09:11)
[2017-02-22 09:23] LABS: Basophils % (Manual) 0 % (0.0-1.8); Blastocytes % (Manual) 0 %; Eosinophils % (Manual) 0 % (0.0-4.3)
[2017-02-22 09:24] LABS: Anisocytosis 1+; Diff Status Complete; Smudge Cells 2+
[2017-02-22] MEDS: DIFLUCAN 200 ML IV SCH (10:49)
--- NOTE | 2017-02-22 12:25 | Progress Note ---
Assessment and Plan - Patient Problems (1) History of asthma Current Visit: Yes Status: Acute Plan to address problem: - continue brovana & pulmoicort - prn oxygen therapy - prn albuterol (2) Leucocytosis Current Visit: Yes Status: Acute Qualifiers: Leukocytosis type: L Plan to address problem: - continue AB's per ID recs - lactic acid level unremarkable - follow clinically (3) Acute appendicitis Current Visit: Yes Status: Acute Qualifiers: Acute appendicitis type: A Plan to address problem: - continue AB's per ID recs - s/p appendectomy - NPO for now (4) Discharge planning issues Current Visit: Yes Status: Acute Plan to address problem: - out of ICU but not yet ready for discharge ...home at discharge hopefully Subjective Date of service: 02/22/17 Principal diagnosis: Appendiceal Abscess; H/O Asthma Interval history: Seen and examined at bedside; 24 hour events reviewed; nursing and respiratory care staff consulted; no adverse overnight events reported to me; resting peacefully in bed; no BM's yet and has not passed gas; states that hr breathing is fine; denies acute chest pains or increased SOB Objective Vital Signs - 12hr 02/22/17 02/22/17 04:59 08:03 Temperature 98.8 F 97.9 F Pulse Rate 92 H Pulse Rate [ 95 H Right] Respiratory 16 18 Rate Blood Pressure 112/65 132/72 O2 Sat by Pulse 97 Oximetry Constitutional: no acute distress, alert Eyes: non-icteric ENT: oropharynx moist Neck: supple Effort: normal Ascultation: Bilateral: clear, diminished breath sounds Cardiovascular: regular rate and rhythm Gastrointestinal: hypoactive bowel sounds, soft, non-tender, non-distended Integumentary: normal Extremities: no cyanosis, no edema, pulses normal, no ischemia or petechiae Neurologic: normal mental status, non-focal exam, pupils equal and round, motor strength normal and Psychiatric: mood appropriate, affect normal CBC and BMP: 02/23/17 03:33 02/23/17 04:56 ABG, PT/INR, D-dimer: PT/INR, D-dimer PT 14.8 Sec. (12.2-14.9) 02/20/17 21:00 INR 1.10 (0.87-1.13) 02/20/17 21:00 Abnormal lab findings: Abnormal Labs 02/21/17 02/21/17 02/22/17 04:37 04:37 06:10 WBC 26.4 H 45.2 H* RDW 16.2 H 16.1 H Seg Neuts % (Manual) 38.0 L Lymphocytes % (Manual) 37.0 H 39.0 H Seg Neutrophils # Man 10.0 H 22.1 H Lymphocytes # (Manual) 9.8 H 17.6 H Monocytes # (Manual) 1.1 H 0.9 H Carbon Dioxide 18 L BUN 39 H Creatinine 1.5 H Glucose 177 H Calcium 7.7 L Total Protein Albumin 2.9 L 02/22/17 06:10 WBC RDW Seg Neuts % (Manual) Lymphocytes % (Manual) Seg Neutrophils # Man Lymphocytes # (Manual) Monocytes # (Manual) Carbon Dioxide 21 L BUN 18 H Creatinine Glucose 191 H Calcium 7.6 L Total Protein 5.7 L Albumin 2.2 L
--- NOTE | 2017-02-22 13:07 | Progress Note ---
Assessment and Plan Assessment and plan: --Acute appendicitis/with appendix perforation and abscess formation Status post exploratory laparotomy, appendectomy, drainage placement Continue postop care, nothing by mouth, IV fluids and IV antibiotics and supportive care ID evaluation and recommendations noted. Surgery following --Peritonitis, secondary to perforated appendix, continue IV fluids and antibiotics supportive care --Gram Negative rods in surgical culture, continue Zosyn, ID following --Leukocytosis; secondary to sepsis, Trending down --History of leukemia with WBC in 40,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 EVANS --Sepsis secondary to intra-abdominal abscess formation Closely monitor, IV antibiotics and supportive care --Acute kidney injury; secondary to vasomotor nephropathy, ATN Gentle hydration, closely monitor renal function, avoid nephrotoxic medications --History of leukemia follows . --Hypertension; moderate control, continue current antihypertensives and when necessary medications --DVT prophylaxis SCDs, no pharmacologic anticoagulation in view of postop state --Full CODE STATUS full code This closely monitor the patient and adjust management as needed DC Root, incentive spirometry, out of bed to chair as tolerated History Interval history: Patient feels better, no new complaints Wants food, did not have flatus Hospitalist Physical - Constitutional Vitals: Temp Pulse Resp BP Pulse Ox 97.9 F 92 H 18 132/72 97 02/22/17 08:03 02/22/17 08:03 02/22/17 08:03 02/22/17 08:03 02/22/17 08:03 General appearance: Present: no acute distress, cachectic, other (dehydrated) - EENT Eyes: Present: PERRL, EOM intact - Neck Neck: Present: supple, normal ROM - Respiratory Respiratory effort: normal Respiratory: bilateral: diminished, negative: rales, rhonchi, wheezing - Cardiovascular Rhythm: regular Heart Sounds: Present: S1 & S2 - Extremities Extremities: no ischemia, No edema - Abdominal General gastrointestinal: soft, tender (no guarding no rigidity), non-distended , absent bowel sounds, other (drainage in place, draining well) - Integumentary Integumentary: Present: clear, warm - Psychiatric Psychiatric: appropriate mood/affect, cooperative - Neurologic Neurologic: CNII-XII intact, moves all extremities Results - Labs CBC & Chem 7: 02/22/17 06:10 02/22/17 06:10 Labs: Laboratory Last Values WBC 45.2 K/mm3 (4.5-11.0) H* 02/22/17 06:10 RBC 3.65 M/mm3 (3.65-5.03) 02/22/17 06:10 Hgb 10.1 gm/dl (10.1-14.3) 02/22/17 06:10 Hct 31.8 % (30.3-42.9) 02/22/17 06:10 MCV 87 fl (79-97) 02/22/17 06:10 MCH 28 pg (28-32) 02/22/17 06:10 MCHC 32 % (30-34) 02/22/17 06:10 RDW 16.1 % (13.2-15.2) H 02/22/17 06:10 Plt Count 328 K/mm3 (140-440) 02/22/17 06:10 Lymph % (Auto) Construction Safety Consultant 02/22/17 06:10 Lymph # Construction Safety Consultant 02/22/17 06:10 Add Manual Diff Complete 02/22/17 06:10 Total Counted 200 02/22/17 06:10 Seg Neutrophils % Construction Safety Consultant 02/22/17 06:10 Seg Neuts % (Manual) 49.0 % (40.0-70.0) 02/22/17 06:10 Band Neutrophils % 7.5 % 02/22/17 06:10 Lymphocytes % (Manual) 39.0 % (13.4-35.0) H 02/22/17 06:10 Reactive Lymphs % (Man) 0.5 % 02/22/17 06:10 Monocytes % (Manual) 2.0 % (0.0-7.3) 02/22/17 06:10 Eosinophils % (Manual) 0 % (0.0-4.3) 02/22/17 06:10 Basophils % (Manual) 0 % (0.0-1.8) 02/22/17 06:10 Metamyelocytes % 1.5 % 02/22/17 06:10 Myelocytes % 0.5 % 02/22/17 06:10 Promyelocytes % 0 % 02/22/17 06:10 Blast Cells % 0 % 02/22/17 06:10 Nucleated RBC % Not Reportable 02/22/17 06:10 Seg Neutrophils # Man 22.1 K/mm3 (1.8-7.7) H 02/22/17 06:10 Band Neutrophils # 3.4 K/mm3 02/22/17 06:10 Lymphocytes # (Manual) 17.6 K/mm3 (1.2-5.4) H 02/22/17 06:10 Abs React Lymphs (Man) 0.2 K/mm3 02/22/17 06:10 Monocytes # (Manual) 0.9 K/mm3 (0.0-0.8) H 02/22/17 06:10 Eosinophils # (Manual) 0.0 K/mm3 (0.0-0.4) 02/22/17 06:10 Basophils # (Manual) 0.0 K/mm3 (0.0-0.1) 02/22/17 06:10 Metamyelocytes # 0.7 K/mm3 02/22/17 06:10 Myelocytes # 0.2 K/mm3 02/22/17 06:10 Promyelocytes # 0.0 K/mm3 02/22/17 06:10 Blast Cells # 0.0 K/mm3 02/22/17 06:10 Pathologist Review 02/20/17 15:05 WBC Morphology Not Reportable 02/22/17 06:10 Hypersegmented Neuts Not Reportable 02/22/17 06:10 Hyposegmented Neuts Not Reportable 02/22/17 06:10 Hypogranular Neuts Not Reportable 02/22/17 06:10 Smudge Cells 2+ 02/22/17 06:10 Toxic Granulation Not Reportable 02/22/17 06:10 Toxic Vacuolation Not Reportable 02/22/17 06:10 Dohle Bodies Not Reportable 02/22/17 06:10 Pelger-Huet Anomaly Not Reportable 02/22/17 06:10 Glo Rods Not Reportable 02/22/17 06:10 Platelet Estimate Appears normal 02/22/17 06:10 Clumped Platelets Not Reportable 02/22/17 06:10 Plt Clumps, EDTA Not Reportable 02/22/17 06:10 Large Platelets Not Reportable 02/22/17 06:10 Giant Platelets Not Reportable 02/22/17 06:10 Platelet Satelliting Not Reportable 02/22/17 06:10 Plt Morphology Comment Not Reportable 02/22/17 06:10 RBC Morphology Not Reportable 02/22/17 06:10 Dimorphic RBCs Not Reportable 02/22/17 06:10 Polychromasia Not Reportable 02/22/17 06:10 Hypochromasia Not Reportable 02/22/17 06:10 Poikilocytosis Not Reportable 02/22/17 06:10 Anisocytosis 1+ 02/22/17 06:10 Microcytosis Not Reportable 02/22/17 06:10 Macrocytosis Not Reportable 02/22/17 06:10 Spherocytes Not Reportable 02/22/17 06:10 Pappenheimer Bodies Not Reportable 02/22/17 06:10 Sickle Cells Not Reportable 02/22/17 06:10 Target Cells Not Reportable 02/22/17 06:10 Tear Drop Cells Not Reportable 02/22/17 06:10 Ovalocytes Not Reportable 02/22/17 06:10 Helmet Cells Not Reportable 02/22/17 06:10 [place] Bodies Not Reportable 02/22/17 06:10 [place] Rings Not Reportable 02/22/17 06:10 Johnson Cells Not Reportable 02/22/17 06:10 Bite Cells Not Reportable 02/22/17 06:10 Crenated Cell Not Reportable 02/22/17 06:10 Elliptocytes Not Reportable 02/22/17 06:10 Acanthocytes (Spur) Not Reportable 02/22/17 06:10 Rouleaux Not Reportable 02/22/17 06:10 Hemoglobin C Crystals Not Reportable 02/22/17 06:10 Schistocytes Not Reportable 02/22/17 06:10 Malaria parasites Not Reportable 02/22/17 06:10 Carrington Bodies Not Reportable 02/22/17 06:10 Hem Pathologist Commnt No 02/22/17 06:10 PT 14.8 Sec. (12.2-14.9) 02/20/17 21:00 INR 1.10 (0.87-1.13) 02/20/17 21:00 APTT 26.4 Sec. (24.2-36.6) 02/20/17 21:00 Sodium 138 mmol/L (137-145) 02/22/17 06:10 Potassium 3.6 mmol/L (3.6-5.0) 02/22/17 06:10 Chloride 103.9 mmol/L (98-107) 02/22/17 06:10 Carbon Dioxide 21 mmol/L (22-30) L 02/22/17 06:10 Anion Gap 17 mmol/L 02/22/17 06:10 BUN 18 mg/dL (7-17) H 02/22/17 06:10 Creatinine 1.1 mg/dL (0.7-1.2) 02/22/17 06:10 Estimated GFR 59 ml/min 02/22/17 06:10 BUN/Creatinine Ratio 16.36 % 02/22/17 06:10 Glucose 191 mg/dL (65-100) H 02/22/17 06:10 Lactic Acid 1.00 mmol/L (0.7-2.0) 02/21/17 13:35 Calcium 7.6 mg/dL (8.4-10.2) L 02/22/17 06:10 Magnesium 2.10 mg/dL (1.7-2.3) 02/22/17 06:10 Total Bilirubin 1.00 mg/dL (0.1-1.2) 02/22/17 06:10 AST 12 units/L (5-40) 02/22/17 06:10 ALT 13 units/L (7-56) 02/22/17 06:10 Alkaline Phosphatase 51 units/L (35-129) 02/22/17 06:10 Total Protein 5.7 g/dL (6.3-8.2) L 02/22/17 06:10 Albumin 2.2 g/dL (3.9-5) L 02/22/17 06:10 Albumin/Globulin Ratio 0.6 % 02/22/17 06:10 Lipase 19 units/L (13-60) 02/20/17 15:05 Urine Color Yellow (Yellow) 02/20/17 15:05 Urine Turbidity Slightly-cloudy (Clear) 02/20/17 15:05 Urine pH 5.0 (5.0-7.0) 02/20/17 15:05 Ur Specific [place] 1.016 (1.003-1.030) 02/20/17 15:05 Urine Protein 30 mg/dl mg/dL (Negative) 02/20/17 15:05 Urine Glucose (UA) Neg mg/dL (Negative) 02/20/17 15:05 Urine Ketones Tr mg/dL (Negative) 02/20/17 15:05 Urine Blood Mod (Negative) 02/20/17 15:05 Urine Nitrite Neg (Negative) 02/20/17 15:05 Urine Bilirubin Neg (Negative) 02/20/17 15:05 Urine Urobilinogen 2.0 mg/dL (<2.0) 02/20/17 15:05 Ur Leukocyte Esterase Mod (Negative) 02/20/17 15:05 Urine WBC (Auto) 26.0 /HPF (0.0-6.0) H 02/20/17 15:05 Urine RBC (Auto) 12.0 /HPF (0.0-6.0) 02/20/17 15:05 U Epithel Cells (Auto) 2.0 /HPF (0-13.0) 02/20/17 15:05 Hyaline Casts 1 /LPF 02/20/17 15:05 Urine Mucus Few /HPF 02/20/17 15:05 Blood Type O POSITIVE 02/20/17 21:10 Antibody Screen TNR 02/20/17 21:10 SHARON Antibody Screen Negative 02/20/17 21:10
[2017-02-22] MEDS: MORPHINE IV PRN (16:32)
--- NOTE | 2017-02-22 16:43 | Consultation ---
History of Present Illness - Reason for Consult Consult date: 02/22/17 Leukemia Requesting physician: RAJINDER ROBERT - History of Present Illness Chief complaint: Abdominal pain History of present illness: Patient is 76-year-old history of hypertension, asthma and leukemia. She presents with abdominal pain. Abdominal pain is sharp, of intensity 10 out of 10, generalized abdominal pain. There was no radiation. Abdominal pain associated with nausea but no vomiting. Pain was getting worse therefore went to see primary care physician, who was unavailable. She eventually came to the emergency department for evaluation. In ED, a CT of the abdomen showed abnormal findings suggesting for related appendicitis with abscess formation. She is being admitted for urgent surgery and further management. Past History Past Medical History: hypertension, other (asthma, leukemia) Past Surgical History: thyroidectomy, hysterectomy Social history: Lives alone, full code. denies: smoking, alcohol abuse Family history: no significant family history Medications and Allergies Allergies Allergy/AdvReac Type Severity Reaction Status Date / Time No Known Allergies Allergy Verified 02/20/17 17:36 Home Medications Medication Instructions Recorded Confirmed Last Taken Type Fluticasone/Salmeterol [Advair 1 puff IH BID 02/20/17 02/20/17 Unknown History Diskus 100-50 mcg] Losartan [Cozaar] 125 mg PO QDAY 02/20/17 02/20/17 Unknown History Active Meds: Active Medications Acetaminophen (Tylenol) 650 mg PO Q4H PRN PRN Reason: Pain MILD(1-3)/Fever >100.5/KEENE Arformoterol Tartrate (Brovana Nebu) 15 mcg IH Q12HRT [facility] Last Admin: 02/22/17 07:44 Dose: 15 mcg Budesonide (Pulmicort) 0.5 mg IH Q12HRT JOSE Last Admin: 02/22/17 07:44 Dose: 0.5 mg Famotidine (Pepcid) 20 mg IV QDAY [facility] Last Admin: 02/22/17 09:11 Dose: 20 mg Piperacillin Sod/Tazobactam Sod (Zosyn/Ns 2.25 Gm/50ml) 2.25 gm in 50 mls @ 100 mls/hr IV Q6H JOSE PRN Reason: Protocol Last Admin: 02/22/17 16:05 Dose: 100 mls/hr Dextrose/Sodium Chloride (D5/0.45ns) 1,000 mls @ 125 mls/hr IV DIRECT JOSE Last Admin: 02/22/17 09:10 Dose: 125 mls/hr Fluconazole (Diflucan) 200 mls @ 100 mls/hr IV Q24HR JOSE PRN Reason: Protocol Last Admin: 02/22/17 10:49 Dose: 100 mls/hr Morphine Sulfate (Morphine) 2 mg IV Q3H PRN PRN Reason: Pain, Moderate (4-6) Last Admin: 02/22/17 16:32 Dose: 2 mg Ondansetron HCl (Zofran) 4 mg IV Q4H PRN PRN Reason: N/V unrelieved by Reglan Last Admin: 02/21/17 06:27 Dose: 4 mg Exam - Constitutional Vitals: Temp Pulse Resp BP Pulse Ox 97.9 F 92 H 18 132/72 97 02/22/17 08:03 02/22/17 08:03 02/22/17 08:03 02/22/17 08:03 02/22/17 08:03 Results - Labs CBC & Chem 7: 02/22/17 06:10 02/22/17 06:10 Labs: Abnormal lab results 02/22/17 02/22/17 Range/Units 06:10 06:10 WBC 45.2 H* (4.5-11.0) K/mm3 RDW 16.1 H (13.2-15.2) % Lymphocytes % (Manual) 39.0 H (13.4-35.0) % Seg Neutrophils # Man 22.1 H (1.8-7.7) K/mm3 Lymphocytes # (Manual) 17.6 H (1.2-5.4) K/mm3 Monocytes # (Manual) 0.9 H (0.0-0.8) K/mm3 Carbon Dioxide 21 L (22-30) mmol/L BUN 18 H (7-17) mg/dL Glucose 191 H (65-100) mg/dL Calcium 7.6 L (8.4-10.2) mg/dL Total Protein 5.7 L (6.3-8.2) g/dL Albumin 2.2 L (3.9-5) g/dL Assessment and Plan Assessment: CLL. Chronic Lymphocytic Leukemia. Dxd in 10/2014. * Triplett's stage: Zero. On Watch and Wait mode with out chemotherapy * 13q depleion and 17p depletion: Not present. [place]-70: positive. 12 trisomy positive. * Intermediate risk group. * [place]: [place] [address] - [address]. * On observation only. Acute appendicitis/with appendix perforation and abscess formation * Status post exploratory laparotomy, appendectomy, drainage placement --Peritonitis, secondary to perforated appendix. --Gram Negative rods in surgical culture. --Acute kidney injury; secondary to vasomotor nephropathy, ATN. * improving with treatment. -Hypertension; controlled. Plan: Regarding CLL/Chronic leukemia: No need for any special treatment. Continue antibiotics and hydration and supportive care. DVT prophylaxis - SCDs will follow with you. Coming to our office q 6 months. Last visit: 10/05/16
[2017-02-23 03:56] LABS: Hematocrit 30.1 % (30.3-42.9); Hemoglobin 9.8 gm/dl (10.1-14.3); Mean Corpuscular HGB Conc 32 % (30-34); Mean Corpuscular Hemoglobin 28 pg (28-32); Mean Corpuscular Volume 86 fl (79-97); Platelet Count 361 K/mm3 (140-440); Red Cell Distribution Width 16.1 % (13.2-15.2)
[2017-02-23 04:10] LABS: Alanine Aminotransferase 9 units/L (7-56); Albumin 1.8 g/dL (3.9-5); Albumin/Globulin Ratio 0.6 %; Alkaline Phosphatase 47 units/L (35-129); Anion Gap 18 mmol/L; Blood Urea Nitrogen 10 mg/dL (7-17); Calcium 6.7 mg/dL (8.4-10.2); Carbon Dioxide 18 mmol/L (22-30); Chloride 98.5 mmol/L (98-107); Sodium 131 mmol/L (137-145); Total Protein 4.9 g/dL (6.3-8.2)
[2017-02-23 04:14] LABS: Glucose 747 mg/dL (65-100); White Blood Count 45.2 K/mm3 (4.5-11.0)
[2017-02-23 05:40] LABS: Anion Gap 18 mmol/L; BUN/Creatinine Ratio 13.33; Blood Urea Nitrogen 12 mg/dL (7-17); Calcium 7.8 mg/dL (8.4-10.2); Carbon Dioxide 22 mmol/L (22-30); Chloride 105.4 mmol/L (98-107); Glucose 190 mg/dL (65-100); Potassium 3.8 mmol/L (3.6-5.0); Sodium 142 mmol/L (137-145)
[2017-02-23] MEDS: ZOSYN/NS 2.25 GM/50ML 2.25 GM/50 ML BAG IV SCH ×4 (05:45→22:42)
[2017-02-23] MEDS: BROVANA NEBU IH SCH ×2 (07:31→23:06)
[2017-02-23] MEDS: PULMICORT IH SCH ×2 (07:31→23:06)
[2017-02-23 07:32] LABS: Anisocytosis 1+; Blastocytes % (Manual) 0 %
[2017-02-23 07:33] LABS: Diff Status Complete; Elliptocytes Rare; Polychromasia Rare; Smudge Cells 2+
--- NOTE | 2017-02-23 08:09 | Progress Note ---
Assessment and Plan Assessment and plan: --Acute appendicitis/with appendix perforation and abscess formation Status post exploratory laparotomy, appendectomy, drainage placement Continue postop care, nothing by mouth, IV fluids and IV antibiotics and supportive care Follow-up CT requested --Acute Peritonitis, secondary to perforated appendix, continue IV fluids and antibiotics supportive care --Gram Negative sepsis /Escherichia coli , enterococcus pansensitive surgical culture, continue Zosyn, ID following --Leukocytosis; secondary to sepsis, Trending down --History of leukemia with WBC in 40,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 EVANS --Sepsis secondary to intra-abdominal abscess formation Closely monitor, IV antibiotics and supportive care --Acute kidney injury; secondary to vasomotor nephropathy, ATN Gentle hydration, closely monitor renal function, avoid nephrotoxic medications --History of leukemia follows , no intervention at this point, hematology evaluation noted and appreciated --Hypertension; moderate control, continue current antihypertensives and when necessary medications --DVT prophylaxis SCDs, no pharmacologic anticoagulation in view of postop state --Full CODE STATUS full code Out of bed to chair as tolerated, plan of care discussed with the patient and her nurse History Interval history: Patient seen and examined in her room Did not pass flatus No new complaints Hospitalist Physical - Constitutional Vitals: Temp Pulse Resp BP Pulse Ox 98.3 F 84 18 140/80 98 02/23/17 07:52 02/23/17 07:52 02/23/17 07:52 02/23/17 07:52 02/23/17 07:52 General appearance: Present: no acute distress, cachectic, other (dehydrated) - EENT Eyes: Present: PERRL, EOM intact - Neck Neck: Present: supple, normal ROM - Respiratory Respiratory effort: normal Respiratory: bilateral: diminished, negative: rales, rhonchi, wheezing - Cardiovascular Rhythm: regular Heart Sounds: Present: S1 & S2 - Extremities Extremities: no ischemia, No edema - Abdominal General gastrointestinal: soft, non-distended, absent bowel sounds - Integumentary Integumentary: Present: clear, warm - Psychiatric Psychiatric: appropriate mood/affect, cooperative - Neurologic Neurologic: CNII-XII intact, moves all extremities Results - Labs CBC & Chem 7: 02/23/17 03:33 02/23/17 04:56 Labs: Laboratory Last Values WBC 45.2 K/mm3 (4.5-11.0) H* 02/23/17 03:33 RBC 3.50 M/mm3 (3.65-5.03) L 02/23/17 03:33 Hgb 9.8 gm/dl (10.1-14.3) L 02/23/17 03:33 Hct 30.1 % (30.3-42.9) L 02/23/17 03:33 MCV 86 fl (79-97) 02/23/17 03:33 MCH 28 pg (28-32) 02/23/17 03:33 MCHC 32 % (30-34) 02/23/17 03:33 RDW 16.1 % (13.2-15.2) H 02/23/17 03:33 Plt Count 361 K/mm3 (140-440) 02/23/17 03:33 Lymph % (Auto) Healthcare Interpreter 02/23/17 03:33 Lymph # Healthcare Interpreter 02/23/17 03:33 Add Manual Diff Complete 02/23/17 03:33 Total Counted 100 02/23/17 03:33 Seg Neutrophils % Healthcare Interpreter 02/22/17 06:10 Seg Neuts % (Manual) 44.0 % (40.0-70.0) 02/23/17 03:33 Band Neutrophils % 24.0 % 02/23/17 03:33 Lymphocytes % (Manual) 15.0 % (13.4-35.0) 02/23/17 03:33 Reactive Lymphs % (Man) 5.0 % 02/23/17 03:33 Monocytes % (Manual) 5.0 % (0.0-7.3) 02/23/17 03:33 Eosinophils % (Manual) 1.0 % (0.0-4.3) 02/23/17 03:33 Basophils % (Manual) 1.0 % (0.0-1.8) 02/23/17 03:33 Metamyelocytes % 5.0 % 02/23/17 03:33 Myelocytes % 0 % 02/23/17 03:33 Promyelocytes % 0 % 02/23/17 03:33 Blast Cells % 0 % 02/23/17 03:33 Nucleated RBC % Not Reportable 02/23/17 03:33 Seg Neutrophils # Man 19.9 K/mm3 (1.8-7.7) H 02/23/17 03:33 Band Neutrophils # 10.8 K/mm3 02/23/17 03:33 Lymphocytes # (Manual) 6.8 K/mm3 (1.2-5.4) H 02/23/17 03:33 Abs React Lymphs (Man) 2.3 K/mm3 02/23/17 03:33 Monocytes # (Manual) 2.3 K/mm3 (0.0-0.8) H 02/23/17 03:33 Eosinophils # (Manual) 0.5 K/mm3 (0.0-0.4) H 02/23/17 03:33 Basophils # (Manual) 0.5 K/mm3 (0.0-0.1) H 02/23/17 03:33 Metamyelocytes # 2.3 K/mm3 02/23/17 03:33 Myelocytes # 0.0 K/mm3 02/23/17 03:33 Promyelocytes # 0.0 K/mm3 02/23/17 03:33 Blast Cells # 0.0 K/mm3 02/23/17 03:33 Pathologist Review 02/20/17 15:05 WBC Morphology Not Reportable 02/23/17 03:33 Hypersegmented Neuts Not Reportable 02/23/17 03:33 Hyposegmented Neuts Not Reportable 02/23/17 03:33 Hypogranular Neuts Not Reportable 02/23/17 03:33 Smudge Cells 2+ 02/23/17 03:33 Toxic Granulation Not Reportable 02/23/17 03:33 Toxic Vacuolation Not Reportable 02/23/17 03:33 Dohle Bodies Not Reportable 02/23/17 03:33 Pelger-Huet Anomaly Not Reportable 02/23/17 03:33 Glo Rods Not Reportable 02/23/17 03:33 Platelet Estimate Appears normal 02/23/17 03:33 Clumped Platelets Not Reportable 02/23/17 03:33 Plt Clumps, EDTA Not Reportable 02/23/17 03:33 Large Platelets Not Reportable 02/23/17 03:33 Giant Platelets Not Reportable 02/23/17 03:33 Platelet Satelliting Not Reportable 02/23/17 03:33 Plt Morphology Comment Not Reportable 02/23/17 03:33 RBC Morphology Not Reportable 02/23/17 03:33 Dimorphic RBCs Not Reportable 02/23/17 03:33 Polychromasia Rare 02/23/17 03:33 Hypochromasia Not Reportable 02/23/17 03:33 Poikilocytosis Not Reportable 02/23/17 03:33 Anisocytosis 1+ 02/23/17 03:33 Microcytosis Not Reportable 02/23/17 03:33 Macrocytosis Not Reportable 02/23/17 03:33 Spherocytes Not Reportable 02/23/17 03:33 Pappenheimer Bodies Not Reportable 02/23/17 03:33 Sickle Cells Not Reportable 02/23/17 03:33 Target Cells Not Reportable 02/23/17 03:33 Tear Drop Cells Not Reportable 02/23/17 03:33 Ovalocytes Not Reportable 02/23/17 03:33 Helmet Cells Not Reportable 02/23/17 03:33 Court[place] Bodies Not Reportable 02/23/17 03:33 [place] Rings Not Reportable 02/23/17 03:33 Johnson Cells Not Reportable 02/23/17 03:33 Bite Cells Not Reportable 02/23/17 03:33 Crenated Cell Not Reportable 02/23/17 03:33 Elliptocytes Rare 02/23/17 03:33 Acanthocytes (Spur) Not Reportable 02/23/17 03:33 Rouleaux Not Reportable 02/23/17 03:33 Hemoglobin C Crystals Not Reportable 02/23/17 03:33 Schistocytes Not Reportable 02/23/17 03:33 Malaria parasites Not Reportable 02/23/17 03:33 [place]rington Bodies Not Reportable 02/23/17 03:33 Hem Pathologist Commnt No 02/23/17 03:33 PT 14.8 Sec. (12.2-14.9) 02/20/17 21:00 INR 1.10 (0.87-1.13) 02/20/17 21:00 APTT 26.4 Sec. (24.2-36.6) 02/20/17 21:00 Sodium 142 mmol/L (137-145) D 02/23/17 04:56 Potassium 3.8 mmol/L (3.6-5.0) D 02/23/17 04:56 Chloride 105.4 mmol/L (98-107) 02/23/17 04:56 Carbon Dioxide 22 mmol/L (22-30) 02/23/17 04:56 Anion Gap 18 mmol/L 02/23/17 04:56 BUN 12 mg/dL (7-17) 02/23/17 04:56 Creatinine 0.9 mg/dL (0.7-1.2) 02/23/17 04:56 Estimated GFR > 60 ml/min 02/23/17 04:56 BUN/Creatinine Ratio 13.33 % 02/23/17 04:56 Glucose 190 mg/dL (65-100) H 02/23/17 04:56 POC Glucose 212 (70-105) H 02/23/17 04:21 Lactic Acid 1.00 mmol/L (0.7-2.0) 02/21/17 13:35 Calcium 7.8 mg/dL (8.4-10.2) L D 02/23/17 04:56 Magnesium 1.60 mg/dL (1.7-2.3) L 02/23/17 03:33 Total Bilirubin 0.80 mg/dL (0.1-1.2) 02/23/17 03:33 AST 10 units/L (5-40) 02/23/17 03:33 ALT 9 units/L (7-56) 02/23/17 03:33 Alkaline Phosphatase 47 units/L (35-129) 02/23/17 03:33 Total Protein 4.9 g/dL (6.3-8.2) L 02/23/17 03:33 Albumin 1.8 g/dL (3.9-5) L 02/23/17 03:33 Albumin/Globulin Ratio 0.6 % 02/23/17 03:33 Lipase 19 units/L (13-60) 02/20/17 15:05 Urine Color Yellow (Yellow) 02/20/17 15:05 Urine Turbidity Slightly-cloudy (Clear) 02/20/17 15:05 Urine pH 5.0 (5.0-7.0) 02/20/17 15:05 Ur Specific [place] 1.016 (1.003-1.030) 02/20/17 15:05 Urine Protein 30 mg/dl mg/dL (Negative) 02/20/17 15:05 Urine Glucose (UA) Neg mg/dL (Negative) 02/20/17 15:05 Urine Ketones Tr mg/dL (Negative) 02/20/17 15:05 Urine Blood Mod (Negative) 02/20/17 15:05 Urine Nitrite Neg (Negative) 02/20/17 15:05 Urine Bilirubin Neg (Negative) 02/20/17 15:05 Urine Urobilinogen 2.0 mg/dL (<2.0) 02/20/17 15:05 Ur Leukocyte Esterase Mod (Negative) 02/20/17 15:05 Urine WBC (Auto) 26.0 /HPF (0.0-6.0) H 02/20/17 15:05 Urine RBC (Auto) 12.0 /HPF (0.0-6.0) 02/20/17 15:05 U Epithel Cells (Auto) 2.0 /HPF (0-13.0) 02/20/17 15:05 Hyaline Casts 1 /LPF 02/20/17 15:05 Urine Mucus Few /HPF 02/20/17 15:05 Blood Type O POSITIVE 02/20/17 21:10 Antibody Screen TNR 02/20/17 21:10 SHARON Antibody Screen Negative 02/20/17 21:10
[2017-02-23] MEDS: PEPCID IV SCH (10:35)
--- NOTE | 2017-02-23 11:45 | Progress Note ---
Assessment and Plan - Patient Problems (1) Appendiceal abscess Current Visit: Yes Status: Acute Plan to address problem: 1. Continue current management for now as patient remains NPO. 2. Will repeat CT imaging of abdomen given fluid drainage from abdomen, elevated WBC count, recent surgery. 3. An oral regimen of Ciprofloxacin +/- Zyvox OR Augmentin is feasible when patient is ready for discharge. 4. Would continue antibiotics through ~ 2016. Subjective Date of service: 02/23/17 Principal diagnosis: Appendiceal Abscess Interval history: Remains stable. NPO. Had drainage catheter removed. Fluid drainage onto gown afterwards. Objective - Constitutional Vitals: Vital Signs Temp Pulse Resp BP Pulse Ox 98.3 F 84 18 140/80 98 02/23/17 07:52 02/23/17 07:52 02/23/17 07:52 02/23/17 07:52 02/23/17 07:52 Temperature -Last 24 Hours Temperature 98.3 F Temperature 98.5 F Temperature 99.0 F Temperature 100.1 F General appearance: Present: no acute distress, other (non-toxic appearance) - EENT Eyes: no scleral icterus - Neck Neck: supple - Respiratory Respiratory effort: normal Respiratory: bilateral: CTA - Cardiovascular Rhythm: regular Heart Sounds: Present: S1 & S2 Extremities: No edema - Gastrointestinal General gastrointestinal: Present: soft, distended (mildly distended, seroud fluid from abdominal wall dressing, no purulence seen) - Integumentary Integumentary: clear, no jaundice - Neurologic Neurologic: no focal deficits - Labs CBC & Chem 7: 02/23/17 03:33 02/23/17 04:56 Labs: Abnormal lab results 02/23/17 02/23/17 02/23/17 Range/Units 03:33 03:33 04:21 WBC 45.2 H* (4.5-11.0) K/mm3 RBC 3.50 L (3.65-5.03) M/mm3 Hgb 9.8 L (10.1-14.3) gm/dl Hct 30.1 L (30.3-42.9) % RDW 16.1 H (13.2-15.2) % Seg Neutrophils # Man 19.9 H (1.8-7.7) K/mm3 Lymphocytes # (Manual) 6.8 H (1.2-5.4) K/mm3 Monocytes # (Manual) 2.3 H (0.0-0.8) K/mm3 Eosinophils # (Manual) 0.5 H (0.0-0.4) K/mm3 Basophils # (Manual) 0.5 H (0.0-0.1) K/mm3 Sodium 131 L D (137-145) mmol/L Potassium 3.0 L (3.6-5.0) mmol/L Carbon Dioxide 18 L (22-30) mmol/L Glucose 747 H* (65-100) mg/dL POC Glucose 212 H (70-105) Calcium 6.7 L (8.4-10.2) mg/dL Magnesium 1.60 L (1.7-2.3) mg/dL Total Protein 4.9 L (6.3-8.2) g/dL Albumin 1.8 L (3.9-5) g/dL 02/23/17 Range/Units 04:56 WBC (4.5-11.0) K/mm3 RBC (3.65-5.03) M/mm3 Hgb (10.1-14.3) gm/dl Hct (30.3-42.9) % RDW (13.2-15.2) % Seg Neutrophils # Man (1.8-7.7) K/mm3 Lymphocytes # (Manual) (1.2-5.4) K/mm3 Monocytes # (Manual) (0.0-0.8) K/mm3 Eosinophils # (Manual) (0.0-0.4) K/mm3 Basophils # (Manual) (0.0-0.1) K/mm3 Sodium (137-145) mmol/L Potassium (3.6-5.0) mmol/L Carbon Dioxide (22-30) mmol/L Glucose 190 H (65-100) mg/dL POC Glucose (70-105) Calcium 7.8 L D (8.4-10.2) mg/dL Magnesium (1.7-2.3) mg/dL Total Protein (6.3-8.2) g/dL Albumin (3.9-5) g/dL Microbiology 02/20/17 Unknown Urine,Clean Catch Urine Culture - Final 02/21/17 00:00 Appendix Surgical Culture - Preliminary Escherichia Coli Enterococcus Faecium 02/21/17 00:00 Appendix Anaerobic Culture - Preliminary 02/20/17 21:47 Peripheral/Venous Blood Culture - Preliminary NO GROWTH AFTER 48 HOURS 02/20/17 21:47 Peripheral/Venous Blood Culture - Preliminary NO GROWTH AFTER 48 HOURS
--- NOTE | 2017-02-23 12:38 | Progress Note ---
Assessment and Plan (1) History of asthma Current Visit: Yes Status: Acute Plan to address problem: - continue brovana & pulmoicort - prn oxygen therapy - prn albuterol (2) Leucocytosis Current Visit: Yes Status: Acute Qualifiers: Leukocytosis type: L Plan to address problem: - continue AB's per ID recs - lactic acid level unremarkable - repeat abdominopelvic imaging re: ? anscess collection - will order CRP level in am - follow clinically (3) Acute appendicitis Current Visit: Yes Status: Acute Qualifiers: Acute appendicitis type: A Plan to address problem: - continue AB's per ID recs - s/p appendectomy - NPO for now (4) Discharge planning issues Current Visit: Yes Status: Acute Plan to address problem: - out of ICU but not yet ready for discharge ...home at discharge hopefully Subjective Date of service: 02/23/17 Principal diagnosis: Appendiceal Abscess; H/O Asthma Interval history: Seen and examined at bedside; 24 hour events reviewed; nursing and respiratory care staff consulted; no adverse overnight events reported to me; resting in bed ; remains NPO but states that she has started passing gas; No N/V/F/C; denies acute chest pains or increased SOB Objective Vital Signs - 12hr 02/23/17 02/23/17 02/23/17 03:35 07:31 07:32 Temperature 98.5 F Pulse Rate 84 Pulse Rate [ 89 Anterior Bilateral Throughout] Respiratory 18 Rate Respiratory 19 Rate [Anterior Bilateral Throughout] Blood Pressure 129/70 O2 Sat by Pulse 96 96 Oximetry 02/23/17 07:52 Temperature 98.3 F Pulse Rate 84 Pulse Rate [ Anterior Bilateral Throughout] Respiratory 18 Rate Respiratory Rate [Anterior Bilateral Throughout] Blood Pressure 140/80 O2 Sat by Pulse 98 Oximetry Constitutional: no acute distress, alert Eyes: non-icteric ENT: oropharynx moist Neck: supple, no lymphadenopathy Effort: normal Ascultation: Bilateral: clear, diminished breath sounds Cardiovascular: regular rate and rhythm Gastrointestinal: normoactive bowel sounds, soft, non-tender, non-distended Integumentary: normal Extremities: no cyanosis, no edema, pulses normal, no ischemia or petechiae Neurologic: normal mental status, non-focal exam Psychiatric: mood appropriate, affect normal CBC and BMP: 02/23/17 03:33 02/23/17 04:56 ABG, PT/INR, D-dimer: PT/INR, D-dimer PT 14.8 Sec. (12.2-14.9) 02/20/17 21:00 INR 1.10 (0.87-1.13) 02/20/17 21:00 Abnormal lab findings: Abnormal Labs 02/21/17 02/21/17 02/22/17 04:37 04:37 06:10 WBC 26.4 H 45.2 H* RBC Hgb Hct RDW 16.2 H 16.1 H Seg Neuts % (Manual) 38.0 L Lymphocytes % (Manual) 37.0 H 39.0 H Seg Neutrophils # Man 10.0 H 22.1 H Lymphocytes # (Manual) 9.8 H 17.6 H Monocytes # (Manual) 1.1 H 0.9 H Eosinophils # (Manual) Basophils # (Manual) Sodium Potassium Carbon Dioxide 18 L BUN 39 H Creatinine 1.5 H Glucose 177 H POC Glucose Calcium 7.7 L Magnesium Total Protein Albumin 2.9 L 02/22/17 02/23/17 02/23/17 06:10 03:33 03:33 WBC 45.2 H* RBC 3.50 L Hgb 9.8 L Hct 30.1 L RDW 16.1 H Seg Neuts % (Manual) Lymphocytes % (Manual) Seg Neutrophils # Man 19.9 H Lymphocytes # (Manual) 6.8 H Monocytes # (Manual) 2.3 H Eosinophils # (Manual) 0.5 H Basophils # (Manual) 0.5 H Sodium 131 L D Potassium 3.0 L Carbon Dioxide 21 L 18 L BUN 18 H Creatinine Glucose 191 H 747 H* POC Glucose Calcium 7.6 L 6.7 L Magnesium 1.60 L Total Protein 5.7 L 4.9 L Albumin 2.2 L 1.8 L 02/23/17 02/23/17 04:21 04:56 WBC RBC Hgb Hct RDW Seg Neuts % (Manual) Lymphocytes % (Manual) Seg Neutrophils # Man Lymphocytes # (Manual) Monocytes # (Manual) Eosinophils # (Manual) Basophils # (Manual) Sodium Potassium Carbon Dioxide BUN Creatinine Glucose 190 H POC Glucose 212 H Calcium 7.8 L D Magnesium Total Protein Albumin
[2017-02-23] MEDS ORDERED: MILK OF MAGNESIA PO ONE (13:08)
[2017-02-23] MEDS: DIFLUCAN 200 ML IV SCH (14:06)
[2017-02-23] MEDS: ZOFRAN IV PRN (19:40)
[2017-02-23] MEDS: MORPHINE IV PRN (19:40)
--- NOTE | 2017-02-23 22:21 | Cat Scan Report ---
FINAL REPORT PROCEDURE: CT ABDOMEN PELVIS W CON TECHNIQUE: Computerized axial tomography of the abdomen and pelvis was performed after the IV injection of iodinated nonionic contrast. HISTORY: Appendiceal Abscess COMPARISON: No prior studies are available for comparison. FINDINGS: There are distended and distorted loops of small bowel suggesting ileus. There is mucosal thickening of the sigmoid colon suggesting colitis. There is no mechanical bowel obstruction or mass. The appendix is not seen. There has been recent abdominal surgery. There is postoperative pneumoperitoneum. There is induration and adenopathy of the mesentery possibly due to peritonitis. There are multiple mesenteric abscesses. The largest is in the left lower quadrant on image 103 measuring 3 centimeters in diameter. These have worsened since the prior examination. There is retroperitoneal lymphadenopathy. There adenopathy in the luis hepatis, portacaval space and gastrohepatic ligament. Visualized lower thorax: There is a pericardial effusion. There are bilateral pleural effusions and lower lobe atelectasis. Liver: There are multiple hepatic cysts.. Spleen: Normal size and attenuation. Gallbladder and biliary system: Normal. Pancreas: Normal. Adrenals: Normal. Kidneys: There is a 1 centimeters cyst in the right kidney. There are no kidney stones.. Vasculature: Normal. Bladder: Normal. Reproductive organs: There has been a hysterectomy.. Musculoskeletal structures: No significant abnormality. . IMPRESSION: There are distended and distorted loops of small bowel suggesting ileus. There is mucosal thickening of the sigmoid colon suggesting colitis. There is no mechanical bowel obstruction or mass. The appendix is not seen. There has been recent abdominal surgery. There is postoperative pneumoperitoneum. There is induration and adenopathy of the mesentery possibly due to peritonitis. There are multiple mesenteric abscesses. The largest is in the left lower quadrant on image 103 measuring 3 centimeters in diameter. These have worsened since the prior examination. There is retroperitoneal lymphadenopathy. There adenopathy in the luis hepatis, portacaval space and gastrohepatic ligament. There are multiple hepatic cysts.. There has been a hysterectomy.. There is a pericardial effusion. There are bilateral pleural effusions and lower lobe atelectasis.
[2017-02-24] MEDS: MORPHINE IV PRN ×3 (01:17→22:02)
[2017-02-24] MEDS: D5/0.45NS 1,000 ML IV SCH ×2 (03:08→21:05)
[2017-02-24] MEDS: ZOSYN/NS 2.25 GM/50ML 2.25 GM/50 ML BAG IV SCH ×4 (05:41→22:37)
[2017-02-24 05:57] LABS: Hematocrit 33.3 % (30.3-42.9); Hemoglobin 10.4 gm/dl (10.1-14.3); Mean Corpuscular HGB Conc 31 % (30-34); Mean Corpuscular Hemoglobin 27 pg (28-32); Mean Corpuscular Volume 86 fl (79-97); Platelet Count 526 K/mm3 (140-440); Red Blood Count 3.85 M/mm3 (3.65-5.03); Red Cell Distribution Width 15.6 % (13.2-15.2)
[2017-02-24 06:08] LABS: Anion Gap 19 mmol/L; Blood Urea Nitrogen 11 mg/dL (7-17); Calcium 7.9 mg/dL (8.4-10.2); Carbon Dioxide 23 mmol/L (22-30); Chloride 104.6 mmol/L (98-107); Glucose 184 mg/dL (65-100); Potassium 4.2 mmol/L (3.6-5.0); Sodium 142 mmol/L (137-145)
[2017-02-24 06:24] LABS: White Blood Count 62.5 K/mm3 (4.5-11.0)
[2017-02-24] MEDS: PULMICORT IH SCH ×2 (08:44→20:45)
[2017-02-24] MEDS: BROVANA NEBU IH SCH ×2 (08:46→20:45)
[2017-02-24] MEDS: PEPCID IV SCH (09:58)
[2017-02-24 10:35] LABS: Anisocytosis 1+; Basophils % (Manual) 0 % (0.0-1.8); Blastocytes % (Manual) 0 %; Eosinophils % (Manual) 0.5 % (0.0-4.3); Total Cells Counted Percent 5.5
[2017-02-24 10:36] LABS: Diff Status Complete; Platelet Estimate Consistent w Auto
[2017-02-24] MEDS: DIFLUCAN 200 ML IV SCH (11:01)
--- NOTE | 2017-02-24 11:14 | Progress Note ---
Assessment and Plan Assessment and plan: --Severe Leukocytosis; /leukemia, hematology oncology following, No intervention at this point --Gram Negative sepsis /Escherichia coli , enterococcus pansensitive surgical culture, secondary to intra-abdominal sepsis /abscesses continue Zosyn, ID following --Acute Peritonitis, secondary to perforated appendix, continue IV fluids and antibiotics supportive care --Severe Protein calorie malnutrition; secondary to underlying disease process, patient is nothing by mouth, supportive care and consider TPN --Acute appendicitis/with appendix perforation and abscess formation Status post exploratory laparotomy, appendectomy, drainage placement Continue postop care, nothing by mouth, IV fluids and IV antibiotics and supportive care Repeat CT abdomen findings reviewed, ileus, multiple abscesses surgery following , --Acute kidney injury; secondary to vasomotor nephropathy, ATN, Resolved --History of leukemia worsening leukocytosis , hematology oncology following . --Hypertension; moderate control, continue current antihypertensives and when necessary medications --DVT prophylaxis SCDs, no pharmacologic anticoagulation in view of postop state --Full CODE STATUS Out of bed to chair as tolerated, plan of care discussed with the patient and her nurse History Interval history: Patient seen and evaluated medical records reviewed Patient did not have flatulence Nothing by mouth status, complaints of tiredness and weakness on street food Vital signs reviewed Hospitalist Physical - Constitutional Vitals: Temp Pulse Resp BP Pulse Ox 98.9 F 77 16 116/68 96 02/24/17 07:53 02/24/17 08:47 02/24/17 08:47 02/24/17 07:53 02/24/17 07:53 General appearance: Present: no acute distress, cachectic, other (dehydrated) - EENT Eyes: Present: PERRL, EOM intact - Neck Neck: Present: supple, normal ROM - Respiratory Respiratory effort: normal Respiratory: bilateral: diminished, negative: rales, rhonchi, wheezing - Cardiovascular Rhythm: regular Heart Sounds: Present: S1 & S2 - Extremities Extremities: no ischemia, No edema - Abdominal General gastrointestinal: soft, tender (no guarding no rigidity), distended, absent bowel sounds - Integumentary Integumentary: Present: clear, warm - Psychiatric Psychiatric: appropriate mood/affect, cooperative - Neurologic Neurologic: CNII-XII intact, moves all extremities Results - Labs CBC & Chem 7: 02/24/17 05:40 02/24/17 05:40 Labs: Laboratory Last Values WBC 62.5 K/mm3 (4.5-11.0) H* 02/24/17 05:40 RBC 3.85 M/mm3 (3.65-5.03) 02/24/17 05:40 Hgb 10.4 gm/dl (10.1-14.3) 02/24/17 05:40 Hct 33.3 % (30.3-42.9) 02/24/17 05:40 MCV 86 fl (79-97) 02/24/17 05:40 MCH 27 pg (28-32) L 02/24/17 05:40 MCHC 31 % (30-34) 02/24/17 05:40 RDW 15.6 % (13.2-15.2) H 02/24/17 05:40 Plt Count 526 K/mm3 (140-440) H 02/24/17 05:40 Lymph % (Auto) Gear Shaver Set Up Operator 02/24/17 05:40 Lymph # Gear Shaver Set Up Operator 02/24/17 05:40 Add Manual Diff Complete 02/24/17 05:40 Total Counted 200 02/24/17 05:40 Seg Neutrophils % Gear Shaver Set Up Operator 02/24/17 05:40 Seg Neuts % (Manual) 26.0 % (40.0-70.0) L 02/24/17 05:40 Band Neutrophils % 0 % 02/24/17 05:40 Lymphocytes % (Manual) 68.5 % (13.4-35.0) H 02/24/17 05:40 Reactive Lymphs % (Man) 2.0 % 02/24/17 05:40 Monocytes % (Manual) 3.0 % (0.0-7.3) 02/24/17 05:40 Eosinophils % (Manual) 0.5 % (0.0-4.3) 02/24/17 05:40 Basophils % (Manual) 0 % (0.0-1.8) 02/24/17 05:40 Metamyelocytes % 0 % 02/24/17 05:40 Myelocytes % 0 % 02/24/17 05:40 Promyelocytes % 0 % 02/24/17 05:40 Blast Cells % 0 % 02/24/17 05:40 Nucleated RBC % Not Reportable 02/24/17 05:40 Seg Neutrophils # Man 16.3 K/mm3 (1.8-7.7) H 02/24/17 05:40 Band Neutrophils # 0.0 K/mm3 02/24/17 05:40 Lymphocytes # (Manual) 42.8 K/mm3 (1.2-5.4) H 02/24/17 05:40 Abs React Lymphs (Man) 1.3 K/mm3 02/24/17 05:40 Monocytes # (Manual) 1.9 K/mm3 (0.0-0.8) H 02/24/17 05:40 Eosinophils # (Manual) 0.3 K/mm3 (0.0-0.4) 02/24/17 05:40 Basophils # (Manual) 0.0 K/mm3 (0.0-0.1) 02/24/17 05:40 Metamyelocytes # 0.0 K/mm3 02/24/17 05:40 Myelocytes # 0.0 K/mm3 02/24/17 05:40 Promyelocytes # 0.0 K/mm3 02/24/17 05:40 Blast Cells # 0.0 K/mm3 02/24/17 05:40 Pathologist Review 02/20/17 15:05 WBC Morphology Not Reportable 02/24/17 05:40 Hypersegmented Neuts Not Reportable 02/24/17 05:40 Hyposegmented Neuts Not Reportable 02/24/17 05:40 Hypogranular Neuts Not Reportable 02/24/17 05:40 Smudge Cells Not Reportable 02/24/17 05:40 Toxic Granulation Not Reportable 02/24/17 05:40 Toxic Vacuolation Not Reportable 02/24/17 05:40 Dohle Bodies Not Reportable 02/24/17 05:40 Pelger-Huet Anomaly Not Reportable 02/24/17 05:40 Glo Rods Not Reportable 02/24/17 05:40 Platelet Estimate Consistent w auto 02/24/17 05:40 Clumped Platelets Not Reportable 02/24/17 05:40 Plt Clumps, EDTA Not Reportable 02/24/17 05:40 Large Platelets Not Reportable 02/24/17 05:40 Giant Platelets Not Reportable 02/24/17 05:40 Platelet Satelliting Not Reportable 02/24/17 05:40 Plt Morphology Comment Not Reportable 02/24/17 05:40 RBC Morphology Not Reportable 02/24/17 05:40 Dimorphic RBCs Not Reportable 02/24/17 05:40 Polychromasia Not Reportable 02/24/17 05:40 Hypochromasia Not Reportable 02/24/17 05:40 Poikilocytosis Not Reportable 02/24/17 05:40 Anisocytosis 1+ 02/24/17 05:40 Microcytosis Not Reportable 02/24/17 05:40 Macrocytosis Not Reportable 02/24/17 05:40 Spherocytes Not Reportable 02/24/17 05:40 Pappenheimer Bodies Not Reportable 02/24/17 05:40 Sickle Cells Not Reportable 02/24/17 05:40 Target Cells Not Reportable 02/24/17 05:40 Tear Drop Cells Not Reportable 02/24/17 05:40 Ovalocytes Not Reportable 02/24/17 05:40 Helmet Cells Not Reportable 02/24/17 05:40 [place] Bodies Not Reportable 02/24/17 05:40 [place] Rings Not Reportable 02/24/17 05:40 Johnson Cells Not Reportable 02/24/17 05:40 Bite Cells Not Reportable 02/24/17 05:40 Crenated Cell Not Reportable 02/24/17 05:40 Elliptocytes Not Reportable 02/24/17 05:40 Acanthocytes (Spur) Not Reportable 02/24/17 05:40 Rouleaux Not Reportable 02/24/17 05:40 Hemoglobin C Crystals Not Reportable 02/24/17 05:40 Schistocytes Not Reportable 02/24/17 05:40 Malaria parasites Not Reportable 02/24/17 05:40 Carrington Bodies Not Reportable 02/24/17 05:40 Hem Pathologist Commnt No 02/24/17 05:40 PT 14.8 Sec. (12.2-14.9) 02/20/17 21:00 INR 1.10 (0.87-1.13) 02/20/17 21:00 APTT 26.4 Sec. (24.2-36.6) 02/20/17 21:00 Sodium 142 mmol/L (137-145) 02/24/17 05:40 Potassium 4.2 mmol/L (3.6-5.0) 02/24/17 05:40 Chloride 104.6 mmol/L (98-107) 02/24/17 05:40 Carbon Dioxide 23 mmol/L (22-30) 02/24/17 05:40 Anion Gap 19 mmol/L 02/24/17 05:40 BUN 11 mg/dL (7-17) 02/24/17 05:40 Creatinine 1.0 mg/dL (0.7-1.2) 02/24/17 05:40 Estimated GFR > 60 ml/min 02/24/17 05:40 BUN/Creatinine Ratio 11.00 % 02/24/17 05:40 Glucose 184 mg/dL (65-100) H 02/24/17 05:40 POC Glucose 212 (70-105) H 02/23/17 04:21 Lactic Acid 1.00 mmol/L (0.7-2.0) 02/21/17 13:35 Calcium 7.9 mg/dL (8.4-10.2) L 02/24/17 05:40 Magnesium 1.60 mg/dL (1.7-2.3) L 02/23/17 03:33 Total Bilirubin 0.80 mg/dL (0.1-1.2) 02/23/17 03:33 AST 10 units/L (5-40) 02/23/17 03:33 ALT 9 units/L (7-56) 02/23/17 03:33 Alkaline Phosphatase 47 units/L (35-129) 02/23/17 03:33 Total Protein 4.9 g/dL (6.3-8.2) L 02/23/17 03:33 Albumin 1.8 g/dL (3.9-5) L 02/23/17 03:33 Albumin/Globulin Ratio 0.6 % 02/23/17 03:33 Lipase 19 units/L (13-60) 02/20/17 15:05 Urine Color Yellow (Yellow) 02/20/17 15:05 Urine Turbidity Slightly-cloudy (Clear) 02/20/17 15:05 Urine pH 5.0 (5.0-7.0) 02/20/17 15:05 Ur Specific [place] 1.016 (1.003-1.030) 02/20/17 15:05 Urine Protein 30 mg/dl mg/dL (Negative) 02/20/17 15:05 Urine Glucose (UA) Neg mg/dL (Negative) 02/20/17 15:05 Urine Ketones Tr mg/dL (Negative) 02/20/17 15:05 Urine Blood Mod (Negative) 02/20/17 15:05 Urine Nitrite Neg (Negative) 02/20/17 15:05 Urine Bilirubin Neg (Negative) 02/20/17 15:05 Urine Urobilinogen 2.0 mg/dL (<2.0) 02/20/17 15:05 Ur Leukocyte Esterase Mod (Negative) 02/20/17 15:05 Urine WBC (Auto) 26.0 /HPF (0.0-6.0) H 02/20/17 15:05 Urine RBC (Auto) 12.0 /HPF (0.0-6.0) 02/20/17 15:05 U Epithel Cells (Auto) 2.0 /HPF (0-13.0) 02/20/17 15:05 Hyaline Casts 1 /LPF 02/20/17 15:05 Urine Mucus Few /HPF 02/20/17 15:05 Blood Type O POSITIVE 02/20/17 21:10 Antibody Screen TNR 02/20/17 21:10 SHARON Antibody Screen Negative 02/20/17 21:10
--- NOTE | 2017-02-24 15:01 | Progress Note ---
Subjective Patient Reports: Positive: still having pain Narrative: minimal improvement in the last 24 hours , wbc 65thousand . Leukomoid RXN ? Hematology to see.Abd distended . passed some flatus .CT at least 3 small abcseses small , hope antibiots may resolve this problem on Ice chips , will start TPN , Objective Vital Signs - 12hr 02/24/17 02/24/17 02/24/17 05:24 06:36 07:53 Temperature 98.7 F 98.7 F 98.9 F Pulse Rate 85 85 89 Pulse Rate [ Anterior Bilateral Throughout] Respiratory 18 18 20 Rate Respiratory Rate [Anterior Bilateral Throughout] Blood Pressure 130/66 130/66 116/68 O2 Sat by Pulse 96 96 96 Oximetry 02/24/17 08:47 Temperature Pulse Rate Pulse Rate [ 77 Anterior Bilateral Throughout] Respiratory Rate Respiratory 16 Rate [Anterior Bilateral Throughout] Blood Pressure O2 Sat by Pulse Oximetry - Labs 02/24/17 05:40 02/24/17 05:40 Diabetes panel 02/24/17 Range/Units 05:40 Sodium 142 (137-145) mmol/L Potassium 4.2 (3.6-5.0) mmol/L Chloride 104.6 (98-107) mmol/L Carbon Dioxide 23 (22-30) mmol/L BUN 11 (7-17) mg/dL Creatinine 1.0 (0.7-1.2) mg/dL Glucose 184 H (65-100) mg/dL Calcium 7.9 L (8.4-10.2) mg/dL Calcium panel 02/24/17 Range/Units 05:40 Calcium 7.9 L (8.4-10.2) mg/dL Pituitary panel 02/24/17 Range/Units 05:40 Sodium 142 (137-145) mmol/L Potassium 4.2 (3.6-5.0) mmol/L Chloride 104.6 (98-107) mmol/L Carbon Dioxide 23 (22-30) mmol/L BUN 11 (7-17) mg/dL Creatinine 1.0 (0.7-1.2) mg/dL Glucose 184 H (65-100) mg/dL Calcium 7.9 L (8.4-10.2) mg/dL Adrenal panel 02/24/17 Range/Units 05:40 Sodium 142 (137-145) mmol/L Potassium 4.2 (3.6-5.0) mmol/L Chloride 104.6 (98-107) mmol/L Carbon Dioxide 23 (22-30) mmol/L BUN 11 (7-17) mg/dL Creatinine 1.0 (0.7-1.2) mg/dL Glucose 184 H (65-100) mg/dL Calcium 7.9 L (8.4-10.2) mg/dL
--- NOTE | 2017-02-24 18:24 | Progress Note ---
Assessment and Plan - Patient Problems (1) Intra-abdominal abscess Current Visit: Yes Status: Acute Plan to address problem: 1. Multiple abscesses are now seen intra-abdominally. 2. I will add Daptomycin to the patient's regimen. 3. Medical management alone is not expected to resolve the collections due to the size. Surgical management is likely necessary. (2) Appendiceal abscess Current Visit: Yes Status: Acute Plan to address problem: Patient is s/p open appendectomy. Continue broad antibiotics. (3) Leukemoid reaction Current Visit: Yes Status: Acute Plan to address problem: Likely due to ongoing intra-abdominal infection. Monitor clinically. Subjective Date of service: 02/24/17 Principal diagnosis: Appendiceal Abscess; H/O Asthma Interval history: Afebrile. No new clinical changes. Objective - Constitutional Vitals: Vital Signs Temp Pulse Resp BP Pulse Ox 98.9 F 77 16 116/68 96 02/24/17 07:53 02/24/17 08:47 02/24/17 08:47 02/24/17 07:53 02/24/17 07:53 Temperature -Last 24 Hours Temperature 98.9 F Temperature 98.7 F Temperature 98.7 F Temperature 97.7 F Temperature 98.2 F General appearance: Present: no acute distress, other (non-toxic appearance) - Respiratory Respiratory effort: normal Respiratory: bilateral: CTA - Cardiovascular Rhythm: regular Heart Sounds: Present: S1 & S2 Extremities: No edema - Gastrointestinal General gastrointestinal: Present: soft, tender, non-distended, hypoactive bowel sounds - Integumentary Integumentary: clear, no jaundice - Neurologic Neurologic: no focal deficits, moves all extremities - Psychiatric Psychiatric: appropriate mood/affect - Labs CBC & Chem 7: 02/24/17 05:40 02/24/17 05:40 Labs: Abnormal lab results 02/24/17 02/24/17 Range/Units 05:40 05:40 WBC 62.5 H* (4.5-11.0) K/mm3 MCH 27 L (28-32) pg RDW 15.6 H (13.2-15.2) % Plt Count 526 H (140-440) K/mm3 Seg Neuts % (Manual) 26.0 L (40.0-70.0) % Lymphocytes % (Manual) 68.5 H (13.4-35.0) % Seg Neutrophils # Man 16.3 H (1.8-7.7) K/mm3 Lymphocytes # (Manual) 42.8 H (1.2-5.4) K/mm3 Monocytes # (Manual) 1.9 H (0.0-0.8) K/mm3 Glucose 184 H (65-100) mg/dL Calcium 7.9 L (8.4-10.2) mg/dL - Imaging and cardiology CT scan - abdomen: report reviewed (multiple mesenteric abscess, largest 3cm in diameter)
--- NOTE | 2017-02-24 19:04 | Progress Note ---
Assessment and Plan Patient resting on room air. No acute respiratory distress.O2 saturation 96%. - Patient Problems (1) History of asthma Current Visit: Yes Status: Acute Plan to address problem: Patient says breathing alright. No complaint of chest pain or shortness of breath. On room air. O2 saturation 96%. Brovanna/Budenoside aerosol treatments q 12 hours. (2) Intra-abdominal abscess Current Visit: Yes Status: Acute Plan to address problem: S/P Laparotomy and surgical removal of ruptured and Gangrenous appendex. Patient is on Zosyn , Fluconazole and daptomycin. Subjective Date of service: 02/24/17 Principal diagnosis: Appendiceal Abscess; H/O Asthma Interval history: Patient resting on room air. No acute respiratory distress.O2 saturation 96%. Objective Vital Signs - 12hr 02/24/17 02/24/17 07:53 08:47 Temperature 98.9 F Pulse Rate 89 Pulse Rate [ 77 Anterior Bilateral Throughout] Respiratory 20 Rate Respiratory 16 Rate [Anterior Bilateral Throughout] Blood Pressure 116/68 O2 Sat by Pulse 96 Oximetry Constitutional: no acute distress, alert Eyes: non-icteric ENT: oropharynx moist Neck: supple, no lymphadenopathy Effort: normal Ascultation: Bilateral: diminished breath sounds Cardiovascular: regular rate and rhythm Gastrointestinal: normoactive bowel sounds, soft, non-tender, non-distended Integumentary: normal Extremities: no cyanosis, no edema, pulses normal, no ischemia or petechiae Neurologic: normal mental status, non-focal exam Psychiatric: mood appropriate, affect normal CBC and BMP: 02/24/17 05:40 02/24/17 05:40 ABG, PT/INR, D-dimer: PT/INR, D-dimer PT 14.8 Sec. (12.2-14.9) 02/20/17 21:00 INR 1.10 (0.87-1.13) 02/20/17 21:00 Abnormal lab findings: Abnormal Labs 02/21/17 02/21/17 02/22/17 04:37 04:37 06:10 WBC 26.4 H 45.2 H* RBC Hgb Hct MCH RDW 16.2 H 16.1 H Plt Count Seg Neuts % (Manual) 38.0 L Lymphocytes % (Manual) 37.0 H 39.0 H Seg Neutrophils # Man 10.0 H 22.1 H Lymphocytes # (Manual) 9.8 H 17.6 H Monocytes # (Manual) 1.1 H 0.9 H Eosinophils # (Manual) Basophils # (Manual) Sodium Potassium Carbon Dioxide 18 L BUN 39 H Creatinine 1.5 H Glucose 177 H POC Glucose Calcium 7.7 L Magnesium Total Protein Albumin 2.9 L 02/22/17 02/23/17 02/23/17 06:10 03:33 03:33 WBC 45.2 H* RBC 3.50 L Hgb 9.8 L Hct 30.1 L MCH RDW 16.1 H Plt Count Seg Neuts % (Manual) Lymphocytes % (Manual) Seg Neutrophils # Man 19.9 H Lymphocytes # (Manual) 6.8 H Monocytes # (Manual) 2.3 H Eosinophils # (Manual) 0.5 H Basophils # (Manual) 0.5 H Sodium 131 L D Potassium 3.0 L Carbon Dioxide 21 L 18 L BUN 18 H Creatinine Glucose 191 H 747 H* POC Glucose Calcium 7.6 L 6.7 L Magnesium 1.60 L Total Protein 5.7 L 4.9 L Albumin 2.2 L 1.8 L 02/23/17 02/23/17 02/24/17 04:21 04:56 05:40 WBC 62.5 H* RBC Hgb Hct MCH 27 L RDW 15.6 H Plt Count 526 H Seg Neuts % (Manual) 26.0 L Lymphocytes % (Manual) 68.5 H Seg Neutrophils # Man 16.3 H Lymphocytes # (Manual) 42.8 H Monocytes # (Manual) 1.9 H Eosinophils # (Manual) Basophils # (Manual) Sodium Potassium Carbon Dioxide BUN Creatinine Glucose 190 H POC Glucose 212 H Calcium 7.8 L D Magnesium Total Protein Albumin 02/24/17 05:40 WBC RBC Hgb Hct MCH RDW Plt Count Seg Neuts % (Manual) Lymphocytes % (Manual) Seg Neutrophils # Man Lymphocytes # (Manual) Monocytes # (Manual) Eosinophils # (Manual) Basophils # (Manual) Sodium Potassium Carbon Dioxide BUN Creatinine Glucose 184 H POC Glucose Calcium 7.9 L Magnesium Total Protein Albumin
[2017-02-24] MEDS: NACL 0.9% IV SCH (20:45)
[2017-02-24] MEDS: CUBICIN IV SCH (20:45)
[2017-02-25 05:15] LABS: Hematocrit 27.7 % (30.3-42.9); Hemoglobin 9.1 gm/dl (10.1-14.3); Mean Corpuscular HGB Conc 33 % (30-34); Mean Corpuscular Hemoglobin 28 pg (28-32); Mean Corpuscular Volume 86 fl (79-97); Platelet Count 485 K/mm3 (140-440); Red Blood Count 3.24 M/mm3 (3.65-5.03); Red Cell Distribution Width 15.6 % (13.2-15.2)
[2017-02-25 05:38] LABS: Anion Gap 16 mmol/L; Blood Urea Nitrogen 9 mg/dL (7-17); Carbon Dioxide 25 mmol/L (22-30); Chloride 105.3 mmol/L (98-107); Glucose 162 mg/dL (65-100); Potassium 3.2 mmol/L (3.6-5.0); Sodium 143 mmol/L (137-145)
[2017-02-25 06:23] LABS: Basophils % (Manual) 0.5 % (0.0-1.8); Blastocytes % (Manual) 0 %; Eosinophils % (Manual) 0.5 % (0.0-4.3); Total Cells Counted Percent 6.5
[2017-02-25 06:24] LABS: Anisocytosis 1+; Target Cells Few
[2017-02-25 06:25] LABS: Diff Status Complete; Platelet Estimate Appears Increased; Smudge Cells 2+
[2017-02-25 06:26] LABS: Elliptocytes Rare; Polychromasia Rare
[2017-02-25 06:34] LABS: White Blood Count 49.5 K/mm3 (4.5-11.0)
[2017-02-25] MEDS: D5/0.45NS 1,000 ML IV SCH ×2 (06:34→23:58)
[2017-02-25] MEDS: ZOSYN/NS 2.25 GM/50ML 2.25 GM/50 ML BAG IV SCH ×2 (06:35→12:14)
--- NOTE | 2017-02-25 07:58 | XRay Report ---
FINAL REPORT EXAM: XR ABDOMEN 1V AP HISTORY: Postoperative evaluation. TECHNIQUE: Two frontal radiographs of the abdomen were obtained. Comparison is made with a CT 02/23/2017. FINDINGS: Multiple surgical skin neema are seen along the anterior midline. There is a nonspecific bowel gas pattern, with borderline distended small bowel loops in the mid abdomen, measuring up to 3 cm in diameter, likely adynamic ileus. There is residual contrast seen in nondistended air-filled loops of colon. There is no evidence of high-grade intestinal obstruction. There is a slight S shaped thoracolumbar scoliosis, convex to the left in the lower thoracic region, and convex to the right in the lumbar region. There are small bilateral pleural effusions, with left basilar consolidation representing atelectasis and/or infiltrate. IMPRESSION: 1. Probable adynamic ileus, with no evidence of high-grade intestinal obstruction. 2. Small bilateral pleural effusions with associated left basilar consolidation.
[2017-02-25] MEDS: PULMICORT IH SCH ×2 (09:22→20:23)
[2017-02-25] MEDS: BROVANA NEBU IH SCH ×2 (09:22→20:23)
[2017-02-25 09:34] LABS: ISTAT Base Excess 3; ISTAT DEVICE 0; ISTAT HCO3 26.6; ISTAT PCO2 34.7 (35-45); ISTAT PH 7.493 (7.35-7.45); ISTAT PO2 63 (80-105); ISTAT SO2 94; ISTAT TCO2 28
[2017-02-25] MEDS: DIFLUCAN 200 ML IV SCH (10:00)
--- NOTE | 2017-02-25 10:58 | XRay Report ---
Chest 2 views: History: Bronchial asthma. Findings: Borderline cardiomegaly. Trachea is midline. Blunting of left CP angle probably due to pleural effusion. Flattening of the right diaphragm may represent right infrapulmonary pleural effusion. Impression: Early CHF cannot be excluded. No consolidation
[2017-02-25] MEDS: PEPCID IV SCH (11:26)
[2017-02-25] MEDS: KCL 10MEQ/100ML 10 MEQ/100 ML BAG IV SCH ×4 (13:05→18:05)
--- NOTE | 2017-02-25 15:53 | Progress Note ---
Subjective Patient Reports: Positive: feels better, pain is less, flatus, bowel movement Narrative: had a huge BM today will start PO slowly . Objective Vital Signs - 12hr 02/25/17 02/25/17 02/25/17 08:23 09:22 09:25 Temperature 99.8 F H Pulse Rate 87 Pulse Rate [ 84 Anterior Bilateral Throughout] Respiratory 20 Rate Respiratory 20 Rate [Anterior Bilateral Throughout] Blood Pressure 138/68 O2 Sat by Pulse 96 Oximetry 02/25/17 09:37 Temperature Pulse Rate Pulse Rate [ 78 Anterior Bilateral Throughout] Respiratory Rate Respiratory 20 Rate [Anterior Bilateral Throughout] Blood Pressure O2 Sat by Pulse Oximetry - Labs 02/25/17 04:46 02/25/17 04:46 Diabetes panel 02/25/17 Range/Units 04:46 Sodium 143 (137-145) mmol/L Potassium 3.2 L D (3.6-5.0) mmol/L Chloride 105.3 (98-107) mmol/L Carbon Dioxide 25 (22-30) mmol/L BUN 9 (7-17) mg/dL Creatinine 0.9 (0.7-1.2) mg/dL Glucose 162 H (65-100) mg/dL Calcium 8.0 L (8.4-10.2) mg/dL Calcium panel 02/25/17 Range/Units 04:46 Calcium 8.0 L (8.4-10.2) mg/dL Phosphorus 2.70 (2.5-4.5) mg/dL Pituitary panel 02/25/17 Range/Units 04:46 Sodium 143 (137-145) mmol/L Potassium 3.2 L D (3.6-5.0) mmol/L Chloride 105.3 (98-107) mmol/L Carbon Dioxide 25 (22-30) mmol/L BUN 9 (7-17) mg/dL Creatinine 0.9 (0.7-1.2) mg/dL Glucose 162 H (65-100) mg/dL Calcium 8.0 L (8.4-10.2) mg/dL Adrenal panel 02/25/17 Range/Units 04:46 Sodium 143 (137-145) mmol/L Potassium 3.2 L D (3.6-5.0) mmol/L Chloride 105.3 (98-107) mmol/L Carbon Dioxide 25 (22-30) mmol/L BUN 9 (7-17) mg/dL Creatinine 0.9 (0.7-1.2) mg/dL Glucose 162 H (65-100) mg/dL Calcium 8.0 L (8.4-10.2) mg/dL
--- NOTE | 2017-02-25 17:13 | Progress Note ---
Assessment and Plan Assessment and plan: --Acute Peritonitis, secondary to perforated appendix, continue IV fluids and antibiotics supportive care She had bowel movement today, may start oral clear liquids tomorrow if stable --Acute appendicitis/with appendix perforation and abscess formation ,Status post exploratory laparotomy, appendectomy, drainage placement Continue postop care, nothing by mouth, IV fluids and IV antibiotics and supportive care --Severe Leukocytosis; h/o leukemia, hematology oncology following, No intervention at this point --Gram Negative sepsis /Escherichia coli , enterococcus pansensitive surgical culture, secondary to intra-abdominal sepsis /abscesses continue Zosyn, ID following --Severe Protein calorie malnutrition; secondary to underlying disease process, patient is nothing by mouth, supportive care and consider TPN --Acute kidney injury; secondary to vasomotor nephropathy, ATN, Resolved --History of leukemia worsening leukocytosis , hematology oncology following . --Hypertension; moderate control, continue current antihypertensives and when necessary medications --DVT prophylaxis SCDs, no pharmacologic anticoagulation in view of postop state --Full CODE STATUS Out of bed to chair as tolerated, plan of care discussed with the patient and her nurse Physical therapy evaluation and treatment History Interval history: Patient feels better and had a bowel movement No new complaints, still nothing by mouth status Alert awake oriented 3 not in acute distress vital signs reviewed Hospitalist Physical - Constitutional Vitals: Temp Pulse Resp BP Pulse Ox 99.8 F H 78 20 138/68 96 02/25/17 08:23 02/25/17 09:37 02/25/17 09:37 02/25/17 08:23 02/25/17 09:25 General appearance: Present: no acute distress, well-nourished - EENT Eyes: Present: PERRL, EOM intact - Neck Neck: Present: supple, normal ROM - Respiratory Respiratory effort: normal Respiratory: bilateral: diminished, negative: rales, rhonchi, wheezing - Cardiovascular Rhythm: regular Heart Sounds: Present: S1 & S2 - Extremities Extremities: no ischemia, No edema - Abdominal General gastrointestinal: soft, tender, non-distended, hypoactive bowel sounds - Integumentary Integumentary: Present: clear, warm - Psychiatric Psychiatric: appropriate mood/affect, cooperative - Neurologic Neurologic: CNII-XII intact, moves all extremities Results - Labs CBC & Chem 7: 02/25/17 04:46 02/25/17 04:46 Labs: Laboratory Last Values WBC 49.5 K/mm3 (4.5-11.0) H* 02/25/17 04:46 RBC 3.24 M/mm3 (3.65-5.03) L 02/25/17 04:46 Hgb 9.1 gm/dl (10.1-14.3) L 02/25/17 04:46 Hct 27.7 % (30.3-42.9) L 02/25/17 04:46 MCV 86 fl (79-97) 02/25/17 04:46 MCH 28 pg (28-32) 02/25/17 04:46 MCHC 33 % (30-34) 02/25/17 04:46 RDW 15.6 % (13.2-15.2) H 02/25/17 04:46 Plt Count 485 K/mm3 (140-440) H 02/25/17 04:46 Lymph % (Auto) Office Rep 02/25/17 04:46 Lymph # Office Rep 02/25/17 04:46 Add Manual Diff Complete 02/25/17 04:46 Total Counted 200 02/25/17 04:46 Seg Neutrophils % Office Rep 02/25/17 04:46 Seg Neuts % (Manual) 67.5 % (40.0-70.0) 02/25/17 04:46 Band Neutrophils % 0 % 02/25/17 04:46 Lymphocytes % (Manual) 23.5 % (13.4-35.0) 02/25/17 04:46 Reactive Lymphs % (Man) 0.5 % 02/25/17 04:46 Monocytes % (Manual) 4.5 % (0.0-7.3) 02/25/17 04:46 Eosinophils % (Manual) 0.5 % (0.0-4.3) 02/25/17 04:46 Basophils % (Manual) 0.5 % (0.0-1.8) 02/25/17 04:46 Metamyelocytes % 0.5 % 02/25/17 04:46 Myelocytes % 2.0 % 02/25/17 04:46 Promyelocytes % 0.5 % 02/25/17 04:46 Blast Cells % 0 % 02/25/17 04:46 Nucleated RBC % Not Reportable 02/25/17 04:46 Seg Neutrophils # Man 33.4 K/mm3 (1.8-7.7) H 02/25/17 04:46 Band Neutrophils # 0.0 K/mm3 02/25/17 04:46 Lymphocytes # (Manual) 11.6 K/mm3 (1.2-5.4) H 02/25/17 04:46 Abs React Lymphs (Man) 0.2 K/mm3 02/25/17 04:46 Monocytes # (Manual) 2.2 K/mm3 (0.0-0.8) H 02/25/17 04:46 Eosinophils # (Manual) 0.2 K/mm3 (0.0-0.4) 02/25/17 04:46 Basophils # (Manual) 0.2 K/mm3 (0.0-0.1) H 02/25/17 04:46 Metamyelocytes # 0.2 K/mm3 02/25/17 04:46 Myelocytes # 1.0 K/mm3 02/25/17 04:46 Promyelocytes # 0.2 K/mm3 02/25/17 04:46 Blast Cells # 0.0 K/mm3 02/25/17 04:46 Pathologist Review 02/20/17 15:05 WBC Morphology Not Reportable 02/25/17 04:46 Hypersegmented Neuts Not Reportable 02/25/17 04:46 Hyposegmented Neuts Not Reportable 02/25/17 04:46 Hypogranular Neuts Not Reportable 02/25/17 04:46 Smudge Cells 2+ 02/25/17 04:46 Toxic Granulation Not Reportable 02/25/17 04:46 Toxic Vacuolation Not Reportable 02/25/17 04:46 Dohle Bodies Not Reportable 02/25/17 04:46 Pelger-Huet Anomaly Not Reportable 02/25/17 04:46 Glo Rods Not Reportable 02/25/17 04:46 Platelet Estimate Appears increased 02/25/17 04:46 Clumped Platelets Not Reportable 02/25/17 04:46 Plt Clumps, EDTA Not Reportable 02/25/17 04:46 Large Platelets Not Reportable 02/25/17 04:46 Giant Platelets Not Reportable 02/25/17 04:46 Platelet Satelliting Not Reportable 02/25/17 04:46 Plt Morphology Comment Not Reportable 02/25/17 04:46 RBC Morphology Not Reportable 02/25/17 04:46 Dimorphic RBCs Not Reportable 02/25/17 04:46 Polychromasia Rare 02/25/17 04:46 Hypochromasia Not Reportable 02/25/17 04:46 Poikilocytosis Not Reportable 02/25/17 04:46 Anisocytosis 1+ 02/25/17 04:46 Microcytosis Not Reportable 02/25/17 04:46 Macrocytosis Not Reportable 02/25/17 04:46 Spherocytes Not Reportable 02/25/17 04:46 Pappenheimer Bodies Not Reportable 02/25/17 04:46 Sickle Cells Not Reportable 02/25/17 04:46 Target Cells Few 02/25/17 04:46 Tear Drop Cells Not Reportable 02/25/17 04:46 Ovalocytes Not Reportable 02/25/17 04:46 Helmet Cells Not Reportable 02/25/17 04:46 [place] Bodies Not Reportable 02/25/17 04:46 [place] Rings Not Reportable 02/25/17 04:46 [place] Cells Not Reportable 02/25/17 04:46 Bite Cells Not Reportable 02/25/17 04:46 Crenated Cell Not Reportable 02/25/17 04:46 Elliptocytes Rare 02/25/17 04:46 Acanthocytes (Spur) Not Reportable 02/25/17 04:46 Rouleaux Not Reportable 02/25/17 04:46 Hemoglobin C Crystals Not Reportable 02/25/17 04:46 Schistocytes Not Reportable 02/25/17 04:46 Malaria parasites Not Reportable 02/25/17 04:46 Carrington Bodies Not Reportable 02/25/17 04:46 Hem Pathologist Commnt Sent to pathology 02/25/17 04:46 PT 14.8 Sec. (12.2-14.9) 02/20/17 21:00 INR 1.10 (0.87-1.13) 02/20/17 21:00 APTT 26.4 Sec. (24.2-36.6) 02/20/17 21:00 POC ABG pH 7.493 (7.35-7.45) H 02/25/17 09:21 POC ABG pCO2 34.7 (35-45) L 02/25/17 09:21 POC ABG pO2 63 (80-105) L 02/25/17 09:21 POC ABG HCO3 26.6 02/25/17 09:21 POC ABG Total CO2 28 02/25/17 09:21 POC ABG O2 Sat 94 02/25/17 09:21 POC ABG Base Excess 3 02/25/17 09:21 FiO2 21 % 02/25/17 09:21 Sodium 143 mmol/L (137-145) 02/25/17 04:46 Potassium 3.2 mmol/L (3.6-5.0) L D 02/25/17 04:46 Chloride 105.3 mmol/L (98-107) 02/25/17 04:46 Carbon Dioxide 25 mmol/L (22-30) 02/25/17 04:46 Anion Gap 16 mmol/L 02/25/17 04:46 BUN 9 mg/dL (7-17) 02/25/17 04:46 Creatinine 0.9 mg/dL (0.7-1.2) 02/25/17 04:46 Estimated GFR > 60 ml/min 02/25/17 04:46 BUN/Creatinine Ratio 10.00 % 02/25/17 04:46 Glucose 162 mg/dL (65-100) H 02/25/17 04:46 POC Glucose 212 (70-105) H 02/23/17 04:21 Lactic Acid 1.00 mmol/L (0.7-2.0) 02/21/17 13:35 Calcium 8.0 mg/dL (8.4-10.2) L 02/25/17 04:46 Phosphorus 2.70 mg/dL (2.5-4.5) 02/25/17 04:46 Magnesium 2.00 mg/dL (1.7-2.3) 02/25/17 04:46 Total Bilirubin 0.80 mg/dL (0.1-1.2) 02/23/17 03:33 AST 10 units/L (5-40) 02/23/17 03:33 ALT 9 units/L (7-56) 02/23/17 03:33 Alkaline Phosphatase 47 units/L (35-129) 02/23/17 03:33 Total Protein 4.9 g/dL (6.3-8.2) L 02/23/17 03:33 Albumin 1.8 g/dL (3.9-5) L 02/23/17 03:33 Albumin/Globulin Ratio 0.6 % 02/23/17 03:33 Lipase 26 units/L (13-60) 02/24/17 15:13 Urine Color Yellow (Yellow) 02/20/17 15:05 Urine Turbidity Slightly-cloudy (Clear) 02/20/17 15:05 Urine pH 5.0 (5.0-7.0) 02/20/17 15:05 Ur Specific [place] 1.016 (1.003-1.030) 02/20/17 15:05 Urine Protein 30 mg/dl mg/dL (Negative) 02/20/17 15:05 Urine Glucose (UA) Neg mg/dL (Negative) 02/20/17 15:05 Urine Ketones Tr mg/dL (Negative) 02/20/17 15:05 Urine Blood Mod (Negative) 02/20/17 15:05 Urine Nitrite Neg (Negative) 02/20/17 15:05 Urine Bilirubin Neg (Negative) 02/20/17 15:05 Urine Urobilinogen 2.0 mg/dL (<2.0) 02/20/17 15:05 Ur Leukocyte Esterase Mod (Negative) 02/20/17 15:05 Urine WBC (Auto) 26.0 /HPF (0.0-6.0) H 02/20/17 15:05 Urine RBC (Auto) 12.0 /HPF (0.0-6.0) 02/20/17 15:05 U Epithel Cells (Auto) 2.0 /HPF (0-13.0) 02/20/17 15:05 Hyaline Casts 1 /LPF 02/20/17 15:05 Urine Mucus Few /HPF 02/20/17 15:05 Blood Type O POSITIVE 02/20/17 21:10 Antibody Screen TNR 02/20/17 21:10 SHARON Antibody Screen Negative 02/20/17 21:10
--- NOTE | 2017-02-25 19:34 | Progress Note ---
Assessment and Plan Patients condition same.Patient resting on room air. No acute respiratory distress.O2 saturation 96%.Running low grade temp. - Patient Problems (1) History of asthma Current Visit: Yes Status: Acute Plan to address problem: Patient says breathing alright. No complaint of chest pain or shortness of breath. On room air. O2 saturation 96%. Brovanna/Budenoside aerosol treatments q 12 hours. (2) Intra-abdominal abscess Current Visit: Yes Status: Acute Plan to address problem: S/P Laparotomy and surgical removal of ruptured and Gangrenous appendex. Running low grade temp. Patient also has marked leukocytosis. Patient is on Zosyn , Fluconazole and daptomycin. Subjective Date of service: 02/25/17 Principal diagnosis: Appendiceal Abscess; H/O Asthma Interval history: Patients condition same.Patient resting on room air. No acute respiratory distress.O2 saturation 96%.Running low grade temp. Objective Vital Signs - 12hr 02/25/17 02/25/17 02/25/17 08:23 09:22 09:25 Temperature 99.8 F H Pulse Rate 87 Pulse Rate [ 84 Anterior Bilateral Throughout] Respiratory 20 Rate Respiratory 20 Rate [Anterior Bilateral Throughout] Blood Pressure 138/68 O2 Sat by Pulse 96 Oximetry 02/25/17 09:37 Temperature Pulse Rate Pulse Rate [ 78 Anterior Bilateral Throughout] Respiratory Rate Respiratory 20 Rate [Anterior Bilateral Throughout] Blood Pressure O2 Sat by Pulse Oximetry Constitutional: no acute distress, alert Eyes: non-icteric ENT: oropharynx moist Neck: supple, no lymphadenopathy Effort: normal Ascultation: Bilateral: diminished breath sounds Cardiovascular: regular rate and rhythm Gastrointestinal: normoactive bowel sounds, soft, non-tender, non-distended Integumentary: normal Extremities: no cyanosis, no edema, pulses normal, no ischemia or petechiae Neurologic: normal mental status, non-focal exam Psychiatric: mood appropriate, affect normal CBC and BMP: 02/25/17 04:46 02/25/17 04:46 ABG, PT/INR, D-dimer: ABG POC ABG pH 7.493 (7.35-7.45) H 02/25/17 09:21 POC ABG pCO2 34.7 (35-45) L 02/25/17 09:21 POC ABG pO2 63 (80-105) L 02/25/17 09:21 POC ABG HCO3 26.6 02/25/17 09:21 POC ABG Total CO2 28 02/25/17 09:21 POC ABG O2 Sat 94 02/25/17 09:21 PT/INR, D-dimer PT 14.8 Sec. (12.2-14.9) 02/20/17 21:00 INR 1.10 (0.87-1.13) 02/20/17 21:00 Abnormal lab findings: Abnormal Labs 02/21/17 02/21/17 02/22/17 04:37 04:37 06:10 WBC 26.4 H 45.2 H* RBC Hgb Hct MCH RDW 16.2 H 16.1 H Plt Count Seg Neuts % (Manual) 38.0 L Lymphocytes % (Manual) 37.0 H 39.0 H Seg Neutrophils # Man 10.0 H 22.1 H Lymphocytes # (Manual) 9.8 H 17.6 H Monocytes # (Manual) 1.1 H 0.9 H Eosinophils # (Manual) Basophils # (Manual) POC ABG pH POC ABG pCO2 POC ABG pO2 Sodium Potassium Carbon Dioxide 18 L BUN 39 H Creatinine 1.5 H Glucose 177 H POC Glucose Calcium 7.7 L Magnesium Total Protein Albumin 2.9 L 02/22/17 02/23/17 02/23/17 06:10 03:33 03:33 WBC 45.2 H* RBC 3.50 L Hgb 9.8 L Hct 30.1 L MCH RDW 16.1 H Plt Count Seg Neuts % (Manual) Lymphocytes % (Manual) Seg Neutrophils # Man 19.9 H Lymphocytes # (Manual) 6.8 H Monocytes # (Manual) 2.3 H Eosinophils # (Manual) 0.5 H Basophils # (Manual) 0.5 H POC ABG pH POC ABG pCO2 POC ABG pO2 Sodium 131 L D Potassium 3.0 L Carbon Dioxide 21 L 18 L BUN 18 H Creatinine Glucose 191 H 747 H* POC Glucose Calcium 7.6 L 6.7 L Magnesium 1.60 L Total Protein 5.7 L 4.9 L Albumin 2.2 L 1.8 L 02/23/17 02/23/17 02/24/17 04:21 04:56 05:40 WBC 62.5 H* RBC Hgb Hct MCH 27 L RDW 15.6 H Plt Count 526 H Seg Neuts % (Manual) 26.0 L Lymphocytes % (Manual) 68.5 H Seg Neutrophils # Man 16.3 H Lymphocytes # (Manual) 42.8 H Monocytes # (Manual) 1.9 H Eosinophils # (Manual) Basophils # (Manual) POC ABG pH POC ABG pCO2 POC ABG pO2 Sodium Potassium Carbon Dioxide BUN Creatinine Glucose 190 H POC Glucose 212 H Calcium 7.8 L D Magnesium Total Protein Albumin 02/24/17 02/25/17 02/25/17 05:40 04:46 04:46 WBC 49.5 H* RBC 3.24 L Hgb 9.1 L Hct 27.7 L MCH RDW 15.6 H Plt Count 485 H Seg Neuts % (Manual) Lymphocytes % (Manual) Seg Neutrophils # Man 33.4 H Lymphocytes # (Manual) 11.6 H Monocytes # (Manual) 2.2 H Eosinophils # (Manual) Basophils # (Manual) 0.2 H POC ABG pH POC ABG pCO2 POC ABG pO2 Sodium Potassium 3.2 L D Carbon Dioxide BUN Creatinine Glucose 184 H 162 H POC Glucose Calcium 7.9 L 8.0 L Magnesium Total Protein Albumin 02/25/17 09:21 WBC RBC Hgb Hct MCH RDW Plt Count Seg Neuts % (Manual) Lymphocytes % (Manual) Seg Neutrophils # Man Lymphocytes # (Manual) Monocytes # (Manual) Eosinophils # (Manual) Basophils # (Manual) POC ABG pH 7.493 H POC ABG pCO2 34.7 L POC ABG pO2 63 L Sodium Potassium Carbon Dioxide BUN Creatinine Glucose POC Glucose Calcium Magnesium Total Protein Albumin Chest x-ray: report reviewed (early CHF cano exclude has been reported.), image reviewed
[2017-02-25] MEDS: CUBICIN IV SCH (21:00)
[2017-02-25] MEDS: NACL 0.9% IV SCH (21:00)
[2017-02-26] MEDS: ZOSYN/NS 2.25 GM/50ML 2.25 GM/50 ML BAG IV SCH ×3 (00:02→05:01)
[2017-02-26 05:04] LABS: Anion Gap 16 mmol/L; BUN/Creatinine Ratio 7.77; Blood Urea Nitrogen 7 mg/dL (7-17); Calcium 7.8 mg/dL (8.4-10.2); Carbon Dioxide 24 mmol/L (22-30); Chloride 104.8 mmol/L (98-107); Glucose 138 mg/dL (65-100); Potassium 3.3 mmol/L (3.6-5.0); Sodium 141 mmol/L (137-145)
[2017-02-26] MEDS: DIFLUCAN 200 ML IV SCH (09:53)
[2017-02-26] MEDS: PEPCID IV SCH (09:54)
[2017-02-26] MEDS: D5/0.45NS 1,000 ML IV SCH ×2 (09:59→22:47)
--- NOTE | 2017-02-26 10:16 | Progress Note ---
Assessment and Plan Assessment and plan: --Acute Peritonitis, secondary to perforated appendix, continue IV fluids and antibiotics supportive care She had bowel movement today, on full liquids, advance diet as tolerated --Acute appendicitis/with appendix perforation and abscess formation ,Status post exploratory laparotomy, appendectomy, drainage placement Continue postop care, advance diet as tolerated, antibiotics and supportive care --Severe Leukocytosis; h/o leukemia, hematology oncology following, No intervention at this point --Gram Negative sepsis /Escherichia coli , enterococcus pansensitive surgical culture, secondary to intra-abdominal sepsis /abscesses continue Zosyn, ID following --Severe Protein calorie malnutrition; secondary to underlying disease process, patient is nothing by mouth, supportive care and consider TPN --Acute kidney injury; secondary to vasomotor nephropathy, ATN, Resolved --Hypertension; moderate control, continue current antihypertensives and when necessary medications --DVT prophylaxis SCDs, no pharmacologic anticoagulation in view of postop state --Full CODE STATUS Out of bed to chair as tolerated, plan of care discussed with the patient and her nurse Physical therapy evaluation and treatment History Interval history: Patient feels better Tolerating full liquid diet No new complaints Hospitalist Physical - Constitutional Vitals: Temp Pulse Resp BP Pulse Ox 98.9 F 88 20 133/87 99 02/25/17 22:00 02/25/17 22:00 02/25/17 22:00 02/25/17 22:00 02/25/17 22:00 General appearance: Present: no acute distress, well-nourished - EENT Eyes: Present: PERRL, EOM intact - Neck Neck: Present: supple, normal ROM - Respiratory Respiratory effort: normal Respiratory: bilateral: diminished, negative: rales, rhonchi, wheezing - Cardiovascular Rhythm: regular Heart Sounds: Present: S1 & S2 - Extremities Extremities: no ischemia, No edema - Abdominal General gastrointestinal: soft, non-tender, non-distended, normal bowel sounds - Integumentary Integumentary: Present: clear, warm - Psychiatric Psychiatric: appropriate mood/affect, cooperative - Neurologic Neurologic: CNII-XII intact, moves all extremities Results - Labs CBC & Chem 7: 02/25/17 04:46 02/26/17 04:08 Labs: Laboratory Last Values WBC 49.5 K/mm3 (4.5-11.0) H* 02/25/17 04:46 RBC 3.24 M/mm3 (3.65-5.03) L 02/25/17 04:46 Hgb 9.1 gm/dl (10.1-14.3) L 02/25/17 04:46 Hct 27.7 % (30.3-42.9) L 02/25/17 04:46 MCV 86 fl (79-97) 02/25/17 04:46 MCH 28 pg (28-32) 02/25/17 04:46 MCHC 33 % (30-34) 02/25/17 04:46 RDW 15.6 % (13.2-15.2) H 02/25/17 04:46 Plt Count 485 K/mm3 (140-440) H 02/25/17 04:46 Lymph % (Auto) Dye Blender 02/25/17 04:46 Lymph # Dye Blender 02/25/17 04:46 Add Manual Diff Complete 02/25/17 04:46 Total Counted 200 02/25/17 04:46 Seg Neutrophils % Dye Blender 02/25/17 04:46 Seg Neuts % (Manual) 67.5 % (40.0-70.0) 02/25/17 04:46 Band Neutrophils % 0 % 02/25/17 04:46 Lymphocytes % (Manual) 23.5 % (13.4-35.0) 02/25/17 04:46 Reactive Lymphs % (Man) 0.5 % 02/25/17 04:46 Monocytes % (Manual) 4.5 % (0.0-7.3) 02/25/17 04:46 Eosinophils % (Manual) 0.5 % (0.0-4.3) 02/25/17 04:46 Basophils % (Manual) 0.5 % (0.0-1.8) 02/25/17 04:46 Metamyelocytes % 0.5 % 02/25/17 04:46 Myelocytes % 2.0 % 02/25/17 04:46 Promyelocytes % 0.5 % 02/25/17 04:46 Blast Cells % 0 % 02/25/17 04:46 Nucleated RBC % Not Reportable 02/25/17 04:46 Seg Neutrophils # Man 33.4 K/mm3 (1.8-7.7) H 02/25/17 04:46 Band Neutrophils # 0.0 K/mm3 02/25/17 04:46 Lymphocytes # (Manual) 11.6 K/mm3 (1.2-5.4) H 02/25/17 04:46 Abs React Lymphs (Man) 0.2 K/mm3 02/25/17 04:46 Monocytes # (Manual) 2.2 K/mm3 (0.0-0.8) H 02/25/17 04:46 Eosinophils # (Manual) 0.2 K/mm3 (0.0-0.4) 02/25/17 04:46 Basophils # (Manual) 0.2 K/mm3 (0.0-0.1) H 02/25/17 04:46 Metamyelocytes # 0.2 K/mm3 02/25/17 04:46 Myelocytes # 1.0 K/mm3 02/25/17 04:46 Promyelocytes # 0.2 K/mm3 02/25/17 04:46 Blast Cells # 0.0 K/mm3 02/25/17 04:46 Pathologist Review 02/20/17 15:05 WBC Morphology Not Reportable 02/25/17 04:46 Hypersegmented Neuts Not Reportable 02/25/17 04:46 Hyposegmented Neuts Not Reportable 02/25/17 04:46 Hypogranular Neuts Not Reportable 02/25/17 04:46 Smudge Cells 2+ 02/25/17 04:46 Toxic Granulation Not Reportable 02/25/17 04:46 Toxic Vacuolation Not Reportable 02/25/17 04:46 Dohle Bodies Not Reportable 02/25/17 04:46 Pelger-Huet Anomaly Not Reportable 02/25/17 04:46 Glo Rods Not Reportable 02/25/17 04:46 Platelet Estimate Appears increased 02/25/17 04:46 Clumped Platelets Not Reportable 02/25/17 04:46 Plt Clumps, EDTA Not Reportable 02/25/17 04:46 Large Platelets Not Reportable 02/25/17 04:46 Giant Platelets Not Reportable 02/25/17 04:46 Platelet Satelliting Not Reportable 02/25/17 04:46 Plt Morphology Comment Not Reportable 02/25/17 04:46 RBC Morphology Not Reportable 02/25/17 04:46 Dimorphic RBCs Not Reportable 02/25/17 04:46 Polychromasia Rare 02/25/17 04:46 Hypochromasia Not Reportable 02/25/17 04:46 Poikilocytosis Not Reportable 02/25/17 04:46 Anisocytosis 1+ 02/25/17 04:46 Microcytosis Not Reportable 02/25/17 04:46 Macrocytosis Not Reportable 02/25/17 04:46 Spherocytes Not Reportable 02/25/17 04:46 Pappenheimer Bodies Not Reportable 02/25/17 04:46 Sickle Cells Not Reportable 02/25/17 04:46 Target Cells Few 02/25/17 04:46 Tear Drop Cells Not Reportable 02/25/17 04:46 Ovalocytes Not Reportable 02/25/17 04:46 Helmet Cells Not Reportable 02/25/17 04:46 [place] Bodies Not Reportable 02/25/17 04:46 [place] Rings Not Reportable 02/25/17 04:46 Johnson Cells Not Reportable 02/25/17 04:46 Bite Cells Not Reportable 02/25/17 04:46 Crenated Cell Not Reportable 02/25/17 04:46 Elliptocytes Rare 02/25/17 04:46 Acanthocytes (Spur) Not Reportable 02/25/17 04:46 Rouleaux Not Reportable 02/25/17 04:46 Hemoglobin C Crystals Not Reportable 02/25/17 04:46 Schistocytes Not Reportable 02/25/17 04:46 Malaria parasites Not Reportable 02/25/17 04:46 Carrington Bodies Not Reportable 02/25/17 04:46 Hem Pathologist Commnt Sent to pathology 02/25/17 04:46 PT 14.8 Sec. (12.2-14.9) 02/20/17 21:00 INR 1.10 (0.87-1.13) 02/20/17 21:00 APTT 26.4 Sec. (24.2-36.6) 02/20/17 21:00 POC ABG pH 7.493 (7.35-7.45) H 02/25/17 09:21 POC ABG pCO2 34.7 (35-45) L 02/25/17 09:21 POC ABG pO2 63 (80-105) L 02/25/17 09:21 POC ABG HCO3 26.6 02/25/17 09:21 POC ABG Total CO2 28 02/25/17 09:21 POC ABG O2 Sat 94 02/25/17 09:21 POC ABG Base Excess 3 02/25/17 09:21 FiO2 21 % 02/25/17 09:21 Sodium 141 mmol/L (137-145) 02/26/17 04:08 Potassium 3.3 mmol/L (3.6-5.0) L 02/26/17 04:08 Chloride 104.8 mmol/L (98-107) 02/26/17 04:08 Carbon Dioxide 24 mmol/L (22-30) 02/26/17 04:08 Anion Gap 16 mmol/L 02/26/17 04:08 BUN 7 mg/dL (7-17) 02/26/17 04:08 Creatinine 0.9 mg/dL (0.7-1.2) 02/26/17 04:08 Estimated GFR > 60 ml/min 02/26/17 04:08 BUN/Creatinine Ratio 7.77 % 02/26/17 04:08 Glucose 138 mg/dL (65-100) H 02/26/17 04:08 POC Glucose 212 (70-105) H 02/23/17 04:21 Lactic Acid 1.00 mmol/L (0.7-2.0) 02/21/17 13:35 Calcium 7.8 mg/dL (8.4-10.2) L 02/26/17 04:08 Phosphorus 2.70 mg/dL (2.5-4.5) 02/26/17 04:08 Magnesium 1.90 mg/dL (1.7-2.3) 02/26/17 04:08 Total Bilirubin 0.80 mg/dL (0.1-1.2) 02/23/17 03:33 AST 10 units/L (5-40) 02/23/17 03:33 ALT 9 units/L (7-56) 02/23/17 03:33 Alkaline Phosphatase 47 units/L (35-129) 02/23/17 03:33 Total Protein 4.9 g/dL (6.3-8.2) L 02/23/17 03:33 Albumin 1.8 g/dL (3.9-5) L 02/23/17 03:33 Albumin/Globulin Ratio 0.6 % 02/23/17 03:33 Lipase 26 units/L (13-60) 02/24/17 15:13 Urine Color Yellow (Yellow) 02/20/17 15:05 Urine Turbidity Slightly-cloudy (Clear) 02/20/17 15:05 Urine pH 5.0 (5.0-7.0) 02/20/17 15:05 Ur Specific [place] 1.016 (1.003-1.030) 02/20/17 15:05 Urine Protein 30 mg/dl mg/dL (Negative) 02/20/17 15:05 Urine Glucose (UA) Neg mg/dL (Negative) 02/20/17 15:05 Urine Ketones Tr mg/dL (Negative) 02/20/17 15:05 Urine Blood Mod (Negative) 02/20/17 15:05 Urine Nitrite Neg (Negative) 02/20/17 15:05 Urine Bilirubin Neg (Negative) 02/20/17 15:05 Urine Urobilinogen 2.0 mg/dL (<2.0) 02/20/17 15:05 Ur Leukocyte Esterase Mod (Negative) 02/20/17 15:05 Urine WBC (Auto) 26.0 /HPF (0.0-6.0) H 02/20/17 15:05 Urine RBC (Auto) 12.0 /HPF (0.0-6.0) 02/20/17 15:05 U Epithel Cells (Auto) 2.0 /HPF (0-13.0) 02/20/17 15:05 Hyaline Casts 1 /LPF 02/20/17 15:05 Urine Mucus Few /HPF 02/20/17 15:05 Blood Type O POSITIVE 02/20/17 21:10 Antibody Screen TNR 02/20/17 21:10 SHARON Antibody Screen Negative 02/20/17 21:10
[2017-02-26] MEDS: BROVANA NEBU IH SCH ×2 (11:18→21:30)
[2017-02-26] MEDS: PULMICORT IH SCH ×2 (11:18→21:31)
--- NOTE | 2017-02-26 12:31 | Progress Note ---
Assessment and Plan - Patient Problems (1) Intra-abdominal abscess Current Visit: Yes Status: Acute Plan to address problem: 1. Continue broad coverage pending surgical plan for drainage of collections. 2. Recommend repeat CT imaging later this week to follow collections. (2) Appendiceal abscess Current Visit: Yes Status: Acute Plan to address problem: Per above. Patient is s/p open appendectomy. (3) Leukemoid reaction Current Visit: Yes Status: Acute Plan to address problem: Continue elevationo f WBC count, though improved over prior. Subjective Date of service: 02/26/17 Principal diagnosis: Appendiceal Abscess; H/O Asthma Interval history: Patient is tolerating PO. Having loos BMs. Objective - Constitutional Vitals: Vital Signs Temp Pulse Resp BP Pulse Ox 99.0 F 83 20 134/66 99 02/26/17 10:20 02/26/17 11:33 02/26/17 11:33 02/26/17 10:20 02/25/17 22:00 Temperature -Last 24 Hours Temperature 99.0 F Temperature 98.9 F General appearance: Present: no acute distress, other (eating lunch) - EENT Eyes: no scleral icterus - Neck Neck: supple - Respiratory Respiratory effort: normal Respiratory: bilateral: CTA - Cardiovascular Rhythm: regular Heart Sounds: Present: S1 & S2 Extremities: No edema - Gastrointestinal General gastrointestinal: Present: soft, tender, distended (mild distention), hypoactive bowel sounds, other (stapled midline incision with serous drainage from previous site of drain) - Integumentary Integumentary: no jaundice, no rash - Neurologic Neurologic: moves all extremities - Psychiatric Psychiatric: appropriate mood/affect - Labs CBC & Chem 7: 02/25/17 04:46 02/26/17 04:08 Labs: Abnormal lab results 02/26/17 Range/Units 04:08 Potassium 3.3 L (3.6-5.0) mmol/L Glucose 138 H (65-100) mg/dL Calcium 7.8 L (8.4-10.2) mg/dL Microbiology 02/20/17 21:47 Peripheral/Venous Blood Culture - Final NO GROWTH AFTER 5 DAYS 02/20/17 21:47 Peripheral/Venous Blood Culture - Final NO GROWTH AFTER 5 DAYS 02/21/17 00:00 Appendix Surgical Culture - Final Escherichia Coli Enterococcus Faecium 02/21/17 00:00 Appendix Anaerobic Culture - Final 02/20/17 Unknown Urine,Clean Catch Urine Culture - Final
--- NOTE | 2017-02-26 12:49 | Progress Note ---
Assessment and Plan Pt feeling well. no compl. sitting in chair eating cl liq lunch. Had large BM yesterday PM Abd soft, non tender CT reviewed - no walled off collection amenable for drainage surgically stable continue cl liq no carbonated may transfer to surgical floor from surg perspective d/c neema today continue IV antibiotics Selected Entries 02/26/17 02/26/17 10:20 11:33 Temperature 99.0 F Pulse Rate [ 83 Anterior Bilateral Throughout] Respiratory 20 Rate [Anterior Bilateral Throughout] Blood Pressure 134/66 Laboratory Tests 02/25/17 02/26/17 04:46 04:08 WBC 49.5 H* Hgb 9.1 L Hct 27.7 L Sodium 141 Potassium 3.3 L Chloride 104.8 Carbon Dioxide 24 BUN 7 Creatinine 0.9 Glucose 138 H Objective Vital Signs - 12hr 02/26/17 02/26/17 02/26/17 10:20 11:15 11:33 Temperature 99.0 F Pulse Rate 76 Pulse Rate [ 78 83 Anterior Bilateral Throughout] Respiratory 20 Rate Respiratory 20 20 Rate [Anterior Bilateral Throughout] Blood Pressure 134/66 - Labs 02/25/17 04:46 02/26/17 04:08 Diabetes panel 02/26/17 Range/Units 04:08 Sodium 141 (137-145) mmol/L Potassium 3.3 L (3.6-5.0) mmol/L Chloride 104.8 (98-107) mmol/L Carbon Dioxide 24 (22-30) mmol/L BUN 7 (7-17) mg/dL Creatinine 0.9 (0.7-1.2) mg/dL Glucose 138 H (65-100) mg/dL Calcium 7.8 L (8.4-10.2) mg/dL Calcium panel 02/26/17 Range/Units 04:08 Calcium 7.8 L (8.4-10.2) mg/dL Phosphorus 2.70 (2.5-4.5) mg/dL Pituitary panel 02/26/17 Range/Units 04:08 Sodium 141 (137-145) mmol/L Potassium 3.3 L (3.6-5.0) mmol/L Chloride 104.8 (98-107) mmol/L Carbon Dioxide 24 (22-30) mmol/L BUN 7 (7-17) mg/dL Creatinine 0.9 (0.7-1.2) mg/dL Glucose 138 H (65-100) mg/dL Calcium 7.8 L (8.4-10.2) mg/dL Adrenal panel 02/26/17 Range/Units 04:08 Sodium 141 (137-145) mmol/L Potassium 3.3 L (3.6-5.0) mmol/L Chloride 104.8 (98-107) mmol/L Carbon Dioxide 24 (22-30) mmol/L BUN 7 (7-17) mg/dL Creatinine 0.9 (0.7-1.2) mg/dL Glucose 138 H (65-100) mg/dL Calcium 7.8 L (8.4-10.2) mg/dL
[2017-02-26] MEDS ORDERED: K-DUR PO ONE (13:35)
--- NOTE | 2017-02-26 13:56 | Progress Note ---
Assessment and Plan Patient alert, awake..Patient resting on room air. No acute respiratory distress.O2 saturation 99%.Running low grade temp.Patient hypokalemic. K+ supplemented - Patient Problems (1) History of asthma Current Visit: Yes Status: Acute Plan to address problem: Patient says breathing alright. No complaint of chest pain or shortness of breath. On room air. O2 saturation 99%. Brovanna/Budenoside aerosol treatments q 12 hours. (2) Intra-abdominal abscess Current Visit: Yes Status: Acute Plan to address problem: S/P Laparotomy and surgical removal of ruptured and Gangrenous appendex. Running low grade temp. Patient also has marked leukocytosis. Patient is on Zosyn , Fluconazole and daptomycin. Subjective Date of service: 02/26/17 Principal diagnosis: Appendiceal Abscess; H/O Asthma Interval history: Patient alert, awake.Patient resting on room air. No acute respiratory distress.O2 saturation 99%.Running low grade temp.Patient hypokalemic. K+ supplemented. Objective Vital Signs - 12hr 02/26/17 02/26/17 02/26/17 10:20 11:15 11:33 Temperature 99.0 F Pulse Rate 76 Pulse Rate [ 78 83 Anterior Bilateral Throughout] Respiratory 20 Rate Respiratory 20 20 Rate [Anterior Bilateral Throughout] Blood Pressure 134/66 Constitutional: no acute distress, alert Eyes: non-icteric ENT: oropharynx moist Neck: supple, no lymphadenopathy Effort: normal Ascultation: Bilateral: diminished breath sounds Cardiovascular: regular rate and rhythm Gastrointestinal: normoactive bowel sounds, soft, non-tender, non-distended Integumentary: normal Extremities: no cyanosis, no edema, pulses normal, no ischemia or petechiae Neurologic: normal mental status, non-focal exam Psychiatric: mood appropriate, affect normal CBC and BMP: 02/25/17 04:46 02/26/17 04:08 ABG, PT/INR, D-dimer: ABG POC ABG pH 7.493 (7.35-7.45) H 02/25/17 09:21 POC ABG pCO2 34.7 (35-45) L 02/25/17 09:21 POC ABG pO2 63 (80-105) L 02/25/17 09:21 POC ABG HCO3 26.6 02/25/17 09:21 POC ABG Total CO2 28 02/25/17 09:21 POC ABG O2 Sat 94 02/25/17 09:21 PT/INR, D-dimer PT 14.8 Sec. (12.2-14.9) 02/20/17 21:00 INR 1.10 (0.87-1.13) 02/20/17 21:00 Abnormal lab findings: Abnormal Labs 02/21/17 02/21/17 02/22/17 04:37 04:37 06:10 WBC 26.4 H 45.2 H* RBC Hgb Hct MCH RDW 16.2 H 16.1 H Plt Count Seg Neuts % (Manual) 38.0 L Lymphocytes % (Manual) 37.0 H 39.0 H Seg Neutrophils # Man 10.0 H 22.1 H Lymphocytes # (Manual) 9.8 H 17.6 H Monocytes # (Manual) 1.1 H 0.9 H Eosinophils # (Manual) Basophils # (Manual) POC ABG pH POC ABG pCO2 POC ABG pO2 Sodium Potassium Carbon Dioxide 18 L BUN 39 H Creatinine 1.5 H Glucose 177 H POC Glucose Calcium 7.7 L Magnesium Total Protein Albumin 2.9 L 02/22/17 02/23/17 02/23/17 06:10 03:33 03:33 WBC 45.2 H* RBC 3.50 L Hgb 9.8 L Hct 30.1 L MCH RDW 16.1 H Plt Count Seg Neuts % (Manual) Lymphocytes % (Manual) Seg Neutrophils # Man 19.9 H Lymphocytes # (Manual) 6.8 H Monocytes # (Manual) 2.3 H Eosinophils # (Manual) 0.5 H Basophils # (Manual) 0.5 H POC ABG pH POC ABG pCO2 POC ABG pO2 Sodium 131 L D Potassium 3.0 L Carbon Dioxide 21 L 18 L BUN 18 H Creatinine Glucose 191 H 747 H* POC Glucose Calcium 7.6 L 6.7 L Magnesium 1.60 L Total Protein 5.7 L 4.9 L Albumin 2.2 L 1.8 L 02/23/17 02/23/17 02/24/17 04:21 04:56 05:40 WBC 62.5 H* RBC Hgb Hct MCH 27 L RDW 15.6 H Plt Count 526 H Seg Neuts % (Manual) 26.0 L Lymphocytes % (Manual) 68.5 H Seg Neutrophils # Man 16.3 H Lymphocytes # (Manual) 42.8 H Monocytes # (Manual) 1.9 H Eosinophils # (Manual) Basophils # (Manual) POC ABG pH POC ABG pCO2 POC ABG pO2 Sodium Potassium Carbon Dioxide BUN Creatinine Glucose 190 H POC Glucose 212 H Calcium 7.8 L D Magnesium Total Protein Albumin 02/24/17 02/25/17 02/25/17 05:40 04:46 04:46 WBC 49.5 H* RBC 3.24 L Hgb 9.1 L Hct 27.7 L MCH RDW 15.6 H Plt Count 485 H Seg Neuts % (Manual) Lymphocytes % (Manual) Seg Neutrophils # Man 33.4 H Lymphocytes # (Manual) 11.6 H Monocytes # (Manual) 2.2 H Eosinophils # (Manual) Basophils # (Manual) 0.2 H POC ABG pH POC ABG pCO2 POC ABG pO2 Sodium Potassium 3.2 L D Carbon Dioxide BUN Creatinine Glucose 184 H 162 H POC Glucose Calcium 7.9 L 8.0 L Magnesium Total Protein Albumin 02/25/17 02/26/17 09:21 04:08 WBC RBC Hgb Hct MCH RDW Plt Count Seg Neuts % (Manual) Lymphocytes % (Manual) Seg Neutrophils # Man Lymphocytes # (Manual) Monocytes # (Manual) Eosinophils # (Manual) Basophils # (Manual) POC ABG pH 7.493 H POC ABG pCO2 34.7 L POC ABG pO2 63 L Sodium Potassium 3.3 L Carbon Dioxide BUN Creatinine Glucose 138 H POC Glucose Calcium 7.8 L Magnesium Total Protein Albumin
[2017-02-26] MEDS: MORPHINE IV PRN (16:19)
[2017-02-26] MEDS: CUBICIN IV SCH (22:46)
[2017-02-26] MEDS: NACL 0.9% IV SCH (22:46)
[2017-02-27] MEDS: ZOSYN/NS 2.25 GM/50ML 2.25 GM/50 ML BAG IV SCH ×5 (04:59→21:37)
[2017-02-27] MEDS: BROVANA NEBU IH SCH ×2 (07:58→19:36)
[2017-02-27] MEDS: PULMICORT IH SCH ×2 (07:58→19:36)
[2017-02-27] MEDS: DIFLUCAN 200 ML IV SCH (10:00)
[2017-02-27] MEDS: PEPCID IV SCH (10:00)
--- NOTE | 2017-02-27 13:02 | Progress Note ---
Assessment and Plan Pt feeling well without compl. sathya cl liq diet. continued BM's Abd soft, non tender. incision clean & dry pt "does not feel like advancing diet" but not nauseated will supplement with po Ensure may transfer to surgical floor f/u labs in am Selected Entries 02/26/17 02/26/17 10:20 22:20 Temperature 99.0 F Pulse Rate [ 78 Anterior Bilateral Throughout] Respiratory 20 Rate Blood Pressure 134/66 Objective - Labs 02/25/17 04:46 02/26/17 04:08
--- NOTE | 2017-02-27 13:09 | Progress Note ---
Assessment and Plan Patient alert, awake..Patient resting on room air. No acute respiratory distress.O2 saturation 98%.Patient afebrile today..Patient hypokalemic. K+ supplemented - Patient Problems (1) History of asthma Current Visit: Yes Status: Acute Plan to address problem: Patient says breathing alright. No complaint of chest pain or shortness of breath. On room air. O2 saturation 98%. Brovanna/Budenoside aerosol treatments q 12 hours. (2) Intra-abdominal abscess Current Visit: Yes Status: Acute Plan to address problem: S/P Laparotomy and surgical removal of ruptured and Gangrenous appendex. Running low grade temp. Patient also has marked leukocytosis. Patient is on Zosyn , Fluconazole and daptomycin. CBC and CMP tomorrow. Subjective Date of service: 02/27/17 Principal diagnosis: Appendiceal Abscess; H/O Asthma Interval history: Patient alert, awake.Patient resting on room air. No acute respiratory distress.O2 saturation 98%.Running low grade temp.Patient hypokalemic. K+ supplemented. Objective Constitutional: no acute distress, alert Eyes: non-icteric ENT: oropharynx moist Neck: supple, no lymphadenopathy Effort: normal Ascultation: Bilateral: diminished breath sounds Cardiovascular: regular rate and rhythm Gastrointestinal: normoactive bowel sounds, soft, non-tender, non-distended Integumentary: normal Extremities: no cyanosis, no edema, pulses normal, no ischemia or petechiae Neurologic: normal mental status, non-focal exam Psychiatric: mood appropriate, affect normal CBC and BMP: 02/25/17 04:46 02/26/17 04:08 ABG, PT/INR, D-dimer: ABG POC ABG pH 7.493 (7.35-7.45) H 02/25/17 09:21 POC ABG pCO2 34.7 (35-45) L 02/25/17 09:21 POC ABG pO2 63 (80-105) L 02/25/17 09:21 POC ABG HCO3 26.6 02/25/17 09:21 POC ABG Total CO2 28 02/25/17 09:21 POC ABG O2 Sat 94 02/25/17 09:21 PT/INR, D-dimer PT 14.8 Sec. (12.2-14.9) 02/20/17 21:00 INR 1.10 (0.87-1.13) 02/20/17 21:00 Abnormal lab findings: Abnormal Labs 02/21/17 02/21/17 02/22/17 04:37 04:37 06:10 WBC 26.4 H 45.2 H* RBC Hgb Hct MCH RDW 16.2 H 16.1 H Plt Count Seg Neuts % (Manual) 38.0 L Lymphocytes % (Manual) 37.0 H 39.0 H Seg Neutrophils # Man 10.0 H 22.1 H Lymphocytes # (Manual) 9.8 H 17.6 H Monocytes # (Manual) 1.1 H 0.9 H Eosinophils # (Manual) Basophils # (Manual) POC ABG pH POC ABG pCO2 POC ABG pO2 Sodium Potassium Carbon Dioxide 18 L BUN 39 H Creatinine 1.5 H Glucose 177 H POC Glucose Calcium 7.7 L Magnesium Total Protein Albumin 2.9 L 02/22/17 02/23/17 02/23/17 06:10 03:33 03:33 WBC 45.2 H* RBC 3.50 L Hgb 9.8 L Hct 30.1 L MCH RDW 16.1 H Plt Count Seg Neuts % (Manual) Lymphocytes % (Manual) Seg Neutrophils # Man 19.9 H Lymphocytes # (Manual) 6.8 H Monocytes # (Manual) 2.3 H Eosinophils # (Manual) 0.5 H Basophils # (Manual) 0.5 H POC ABG pH POC ABG pCO2 POC ABG pO2 Sodium 131 L D Potassium 3.0 L Carbon Dioxide 21 L 18 L BUN 18 H Creatinine Glucose 191 H 747 H* POC Glucose Calcium 7.6 L 6.7 L Magnesium 1.60 L Total Protein 5.7 L 4.9 L Albumin 2.2 L 1.8 L 02/23/17 02/23/17 02/24/17 04:21 04:56 05:40 WBC 62.5 H* RBC Hgb Hct MCH 27 L RDW 15.6 H Plt Count 526 H Seg Neuts % (Manual) 26.0 L Lymphocytes % (Manual) 68.5 H Seg Neutrophils # Man 16.3 H Lymphocytes # (Manual) 42.8 H Monocytes # (Manual) 1.9 H Eosinophils # (Manual) Basophils # (Manual) POC ABG pH POC ABG pCO2 POC ABG pO2 Sodium Potassium Carbon Dioxide BUN Creatinine Glucose 190 H POC Glucose 212 H Calcium 7.8 L D Magnesium Total Protein Albumin 02/24/17 02/25/17 02/25/17 05:40 04:46 04:46 WBC 49.5 H* RBC 3.24 L Hgb 9.1 L Hct 27.7 L MCH RDW 15.6 H Plt Count 485 H Seg Neuts % (Manual) Lymphocytes % (Manual) Seg Neutrophils # Man 33.4 H Lymphocytes # (Manual) 11.6 H Monocytes # (Manual) 2.2 H Eosinophils # (Manual) Basophils # (Manual) 0.2 H POC ABG pH POC ABG pCO2 POC ABG pO2 Sodium Potassium 3.2 L D Carbon Dioxide BUN Creatinine Glucose 184 H 162 H POC Glucose Calcium 7.9 L 8.0 L Magnesium Total Protein Albumin 02/25/17 02/26/17 02/26/17 09:21 04:08 22:40 WBC RBC Hgb Hct MCH RDW Plt Count Seg Neuts % (Manual) Lymphocytes % (Manual) Seg Neutrophils # Man Lymphocytes # (Manual) Monocytes # (Manual) Eosinophils # (Manual) Basophils # (Manual) POC ABG pH 7.493 H POC ABG pCO2 34.7 L POC ABG pO2 63 L Sodium Potassium 3.3 L Carbon Dioxide BUN Creatinine Glucose 138 H POC Glucose 125 H Calcium 7.8 L Magnesium Total Protein Albumin 02/27/17 06:51 WBC RBC Hgb Hct MCH RDW Plt Count Seg Neuts % (Manual) Lymphocytes % (Manual) Seg Neutrophils # Man Lymphocytes # (Manual) Monocytes # (Manual) Eosinophils # (Manual) Basophils # (Manual) POC ABG pH POC ABG pCO2 POC ABG pO2 Sodium Potassium Carbon Dioxide BUN Creatinine Glucose POC Glucose 152 H Calcium Magnesium Total Protein Albumin
[2017-02-27] MEDS ORDERED: POTASSIUM CHLORIDE PO NR (15:00)
[2017-02-27] MEDS ORDERED: K-DUR PO ONE (15:00)
--- NOTE | 2017-02-27 17:32 | Progress Note ---
Assessment and Plan - Patient Problems (1) Intra-abdominal abscess Current Visit: Yes Status: Acute Plan to address problem: 1. Continue current broad antimicrobials. 2. Await surgical plan. 3. Repeat abdominal imaging at ~qweek intervals. (2) Appendiceal abscess Current Visit: Yes Status: Acute Plan to address problem: Per above. (3) Leukemoid reaction Current Visit: Yes Status: Acute Plan to address problem: Repeating CBC and BMP. Subjective Date of service: 02/27/17 Principal diagnosis: Appendiceal Abscess; H/O Asthma Interval history: Tolerating PO intake and having loose, infrequent bowel movements. No new complaints. Objective - Constitutional Vitals: Vital Signs Temp Pulse Resp BP Pulse Ox 98.2 F 79 20 151/69 98 02/27/17 13:57 02/27/17 13:57 02/27/17 13:57 02/27/17 13:57 02/26/17 22:00 Temperature -Last 24 Hours Temperature 98.2 F General appearance: Present: no acute distress, other (non-toxic appearance) - EENT Eyes: no scleral icterus - Respiratory Respiratory effort: normal Respiratory: bilateral: CTA - Cardiovascular Rhythm: regular Heart Sounds: Present: S1 & S2 Extremities: No edema - Gastrointestinal General gastrointestinal: Present: soft, tender, distended (mildly), hypoactive bowel sounds - Integumentary Integumentary: clear, no jaundice - Psychiatric Psychiatric: appropriate mood/affect - Labs CBC & Chem 7: 02/25/17 04:46 02/26/17 04:08 Labs: Abnormal lab results 02/26/17 02/27/17 Range/Units 22:40 06:51 POC Glucose 125 H 152 H (70-105) Microbiology 02/20/17 21:47 Peripheral/Venous Blood Culture - Final NO GROWTH AFTER 5 DAYS 02/20/17 21:47 Peripheral/Venous Blood Culture - Final NO GROWTH AFTER 5 DAYS 02/21/17 00:00 Appendix Surgical Culture - Final Escherichia Coli Enterococcus Faecium 02/21/17 00:00 Appendix Anaerobic Culture - Final 02/20/17 Unknown Urine,Clean Catch Urine Culture - Final
--- NOTE | 2017-02-27 17:39 | Progress Note ---
Assessment and Plan Assessment and plan: --Acute Peritonitis, secondary to perforated appendix, continue IV fluids and antibiotics supportive care She had bowel movement today, on full liquids, advance diet as tolerated --Acute appendicitis/with appendix perforation and abscess formation,Status post exploratory laparotomy, appendectomy, drainage placement Continue postop care, advance diet as tolerated, antibiotics and supportive care --Severe Leukocytosis; h/o leukemia, hematology oncology following, No intervention at this point --Gram Negative sepsis /Escherichia coli , enterococcus pansensitive surgical culture, secondary to intra-abdominal sepsis /abscesses continue Zosyn, ID following --Severe Protein calorie malnutrition; secondary to underlying disease process, patient is nothing by mouth, supportive care and consider TPN --Acute kidney injury; secondary to vasomotor nephropathy, ATN, Resolved --Hypertension; moderate control, continue current antihypertensives and when necessary medications --DVT prophylaxis SCDs, no pharmacologic anticoagulation in view of postop state --Full CODE STATUS Out of bed to chair as tolerated, plan of care discussed with the patient and her nurse Physical therapy evaluation and treatment Patient had a bowel movement today History Interval history: Patient seen and examined. Follow up on current diagnosis/abdominal pain. Overnight uneventful. No cp, sob, n/v or severe headaches. Imaging, old records , testing, labs, nursing notes reviewed. shas finally Hospitalist Physical - Physical exam Narrative exam: GEN: WDWN, NAD, AWAKE, ALERT, ORIENTATED x 3 HEENT: NCAT, PERRL, EOMI, OP CLEAR NECK: SUPPLE, NO THYROMEGALY, NO JVD, NO LAD CVS: RRR, NORMAL S1S2 LUNGS/CHEST: CTA B, NORMAL CHEST EXPANSION B, GOOD AIR ENTRY B ABD: SOFT, surgical incisions intact GBS, NO REBOUND OR GUARDING EXT/SKIN: NO SIGNIFICANT EDEMA OR RASH MSK: FROM X 4 EXTREMITIES NEURO: CN 2-12 GROSSLY INTACT, NO FOCAL DEFICITS PSY: CALM - Constitutional Vitals: Temp Pulse Resp BP Pulse Ox 98.2 F 79 20 151/69 98 02/27/17 13:57 02/27/17 13:57 02/27/17 13:57 02/27/17 13:57 02/26/17 22:00 General appearance: Present: no acute distress, well-nourished Results - Labs CBC & Chem 7: 02/25/17 04:46 02/26/17 04:08 Labs: Laboratory Last Values WBC 49.5 K/mm3 (4.5-11.0) H* 02/25/17 04:46 RBC 3.24 M/mm3 (3.65-5.03) L 02/25/17 04:46 Hgb 9.1 gm/dl (10.1-14.3) L 02/25/17 04:46 Hct 27.7 % (30.3-42.9) L 02/25/17 04:46 MCV 86 fl (79-97) 02/25/17 04:46 MCH 28 pg (28-32) 02/25/17 04:46 MCHC 33 % (30-34) 02/25/17 04:46 RDW 15.6 % (13.2-15.2) H 02/25/17 04:46 Plt Count 485 K/mm3 (140-440) H 02/25/17 04:46 Lymph % (Auto) Final Inspection Supervisor 02/25/17 04:46 Lymph # Final Inspection Supervisor 02/25/17 04:46 Add Manual Diff Complete 02/25/17 04:46 Total Counted 200 02/25/17 04:46 Seg Neutrophils % Final Inspection Supervisor 02/25/17 04:46 Seg Neuts % (Manual) 67.5 % (40.0-70.0) 02/25/17 04:46 Band Neutrophils % 0 % 02/25/17 04:46 Lymphocytes % (Manual) 23.5 % (13.4-35.0) 02/25/17 04:46 Reactive Lymphs % (Man) 0.5 % 02/25/17 04:46 Monocytes % (Manual) 4.5 % (0.0-7.3) 02/25/17 04:46 Eosinophils % (Manual) 0.5 % (0.0-4.3) 02/25/17 04:46 Basophils % (Manual) 0.5 % (0.0-1.8) 02/25/17 04:46 Metamyelocytes % 0.5 % 02/25/17 04:46 Myelocytes % 2.0 % 02/25/17 04:46 Promyelocytes % 0.5 % 02/25/17 04:46 Blast Cells % 0 % 02/25/17 04:46 Nucleated RBC % Not Reportable 02/25/17 04:46 Seg Neutrophils # Man 33.4 K/mm3 (1.8-7.7) H 02/25/17 04:46 Band Neutrophils # 0.0 K/mm3 02/25/17 04:46 Lymphocytes # (Manual) 11.6 K/mm3 (1.2-5.4) H 02/25/17 04:46 Abs React Lymphs (Man) 0.2 K/mm3 02/25/17 04:46 Monocytes # (Manual) 2.2 K/mm3 (0.0-0.8) H 02/25/17 04:46 Eosinophils # (Manual) 0.2 K/mm3 (0.0-0.4) 02/25/17 04:46 Basophils # (Manual) 0.2 K/mm3 (0.0-0.1) H 02/25/17 04:46 Metamyelocytes # 0.2 K/mm3 02/25/17 04:46 Myelocytes # 1.0 K/mm3 02/25/17 04:46 Promyelocytes # 0.2 K/mm3 02/25/17 04:46 Blast Cells # 0.0 K/mm3 02/25/17 04:46 Pathologist Review 02/25/17 04:46 WBC Morphology Not Reportable 02/25/17 04:46 Hypersegmented Neuts Not Reportable 02/25/17 04:46 Hyposegmented Neuts Not Reportable 02/25/17 04:46 Hypogranular Neuts Not Reportable 02/25/17 04:46 Smudge Cells 2+ 02/25/17 04:46 Toxic Granulation Not Reportable 02/25/17 04:46 Toxic Vacuolation Not Reportable 02/25/17 04:46 Dohle Bodies Not Reportable 02/25/17 04:46 Pelger-Huet Anomaly Not Reportable 02/25/17 04:46 Glo Rods Not Reportable 02/25/17 04:46 Platelet Estimate Appears increased 02/25/17 04:46 Clumped Platelets Not Reportable 02/25/17 04:46 Plt Clumps, EDTA Not Reportable 02/25/17 04:46 Large Platelets Not Reportable 02/25/17 04:46 Giant Platelets Not Reportable 02/25/17 04:46 Platelet Satelliting Not Reportable 02/25/17 04:46 Plt Morphology Comment Not Reportable 02/25/17 04:46 RBC Morphology Not Reportable 02/25/17 04:46 Dimorphic RBCs Not Reportable 02/25/17 04:46 Polychromasia Rare 02/25/17 04:46 Hypochromasia Not Reportable 02/25/17 04:46 Poikilocytosis Not Reportable 02/25/17 04:46 Anisocytosis 1+ 02/25/17 04:46 Microcytosis Not Reportable 02/25/17 04:46 Macrocytosis Not Reportable 02/25/17 04:46 Spherocytes Not Reportable 02/25/17 04:46 Pappenheimer Bodies Not Reportable 02/25/17 04:46 Sickle Cells Not Reportable 02/25/17 04:46 Target Cells Few 02/25/17 04:46 Tear Drop Cells Not Reportable 02/25/17 04:46 Ovalocytes Not Reportable 02/25/17 04:46 Helmet Cells Not Reportable 02/25/17 04:46 [place] Bodies Not Reportable 02/25/17 04:46 Le[place]ey Rings Not Reportable 02/25/17 04:46 Johnson Cells Not Reportable 02/25/17 04:46 Bite Cells Not Reportable 02/25/17 04:46 Crenated Cell Not Reportable 02/25/17 04:46 Elliptocytes Rare 02/25/17 04:46 Acanthocytes (Spur) Not Reportable 02/25/17 04:46 Rouleaux Not Reportable 02/25/17 04:46 Hemoglobin C Crystals Not Reportable 02/25/17 04:46 Schistocytes Not Reportable 02/25/17 04:46 Malaria parasites Not Reportable 02/25/17 04:46 Carrington Bodies Not Reportable 02/25/17 04:46 Hem Pathologist Commnt Sent to pathology 02/25/17 04:46 PT 14.8 Sec. (12.2-14.9) 02/20/17 21:00 INR 1.10 (0.87-1.13) 02/20/17 21:00 APTT 26.4 Sec. (24.2-36.6) 02/20/17 21:00 POC ABG pH 7.493 (7.35-7.45) H 02/25/17 09:21 POC ABG pCO2 34.7 (35-45) L 02/25/17 09:21 POC ABG pO2 63 (80-105) L 02/25/17 09:21 POC ABG HCO3 26.6 02/25/17 09:21 POC ABG Total CO2 28 02/25/17 09:21 POC ABG O2 Sat 94 02/25/17 09:21 POC ABG Base Excess 3 02/25/17 09:21 FiO2 21 % 02/25/17 09:21 Sodium 141 mmol/L (137-145) 02/26/17 04:08 Potassium 3.3 mmol/L (3.6-5.0) L 02/26/17 04:08 Chloride 104.8 mmol/L (98-107) 02/26/17 04:08 Carbon Dioxide 24 mmol/L (22-30) 02/26/17 04:08 Anion Gap 16 mmol/L 02/26/17 04:08 BUN 7 mg/dL (7-17) 02/26/17 04:08 Creatinine 0.9 mg/dL (0.7-1.2) 02/26/17 04:08 Estimated GFR > 60 ml/min 02/26/17 04:08 BUN/Creatinine Ratio 7.77 % 02/26/17 04:08 Glucose 138 mg/dL (65-100) H 02/26/17 04:08 POC Glucose 152 (70-105) H 02/27/17 06:51 Lactic Acid 1.00 mmol/L (0.7-2.0) 02/21/17 13:35 Calcium 7.8 mg/dL (8.4-10.2) L 02/26/17 04:08 Phosphorus 2.70 mg/dL (2.5-4.5) 02/26/17 04:08 Magnesium 1.90 mg/dL (1.7-2.3) 02/26/17 04:08 Total Bilirubin 0.80 mg/dL (0.1-1.2) 02/23/17 03:33 AST 10 units/L (5-40) 02/23/17 03:33 ALT 9 units/L (7-56) 02/23/17 03:33 Alkaline Phosphatase 47 units/L (35-129) 02/23/17 03:33 Total Protein 4.9 g/dL (6.3-8.2) L 02/23/17 03:33 Albumin 1.8 g/dL (3.9-5) L 02/23/17 03:33 Albumin/Globulin Ratio 0.6 % 02/23/17 03:33 Lipase 26 units/L (13-60) 02/24/17 15:13 Urine Color Yellow (Yellow) 02/20/17 15:05 Urine Turbidity Slightly-cloudy (Clear) 02/20/17 15:05 Urine pH 5.0 (5.0-7.0) 02/20/17 15:05 Ur Specific [place] 1.016 (1.003-1.030) 02/20/17 15:05 Urine Protein 30 mg/dl mg/dL (Negative) 02/20/17 15:05 Urine Glucose (UA) Neg mg/dL (Negative) 02/20/17 15:05 Urine Ketones Tr mg/dL (Negative) 02/20/17 15:05 Urine Blood Mod (Negative) 02/20/17 15:05 Urine Nitrite Neg (Negative) 02/20/17 15:05 Urine Bilirubin Neg (Negative) 02/20/17 15:05 Urine Urobilinogen 2.0 mg/dL (<2.0) 02/20/17 15:05 Ur Leukocyte Esterase Mod (Negative) 02/20/17 15:05 Urine WBC (Auto) 26.0 /HPF (0.0-6.0) H 02/20/17 15:05 Urine RBC (Auto) 12.0 /HPF (0.0-6.0) 02/20/17 15:05 U Epithel Cells (Auto) 2.0 /HPF (0-13.0) 02/20/17 15:05 Hyaline Casts 1 /LPF 02/20/17 15:05 Urine Mucus Few /HPF 02/20/17 15:05 Blood Type O POSITIVE 02/20/17 21:10 Antibody Screen TNR 02/20/17 21:10 SHARON Antibody Screen Negative 02/20/17 21:10
[2017-02-28] MEDS: NACL 0.9% IV SCH (00:32)
[2017-02-28] MEDS: CUBICIN IV SCH (00:32)
[2017-02-28] MEDS: ZOSYN/NS 2.25 GM/50ML 2.25 GM/50 ML BAG IV SCH ×5 (00:43→23:34)
[2017-02-28] MEDS: MORPHINE IV PRN (01:36)
[2017-02-28] MEDS: D5/0.45NS 1,000 ML IV SCH (03:38)
[2017-02-28 05:59] LABS: Hematocrit 24.5 % (30.3-42.9); Hemoglobin 8.2 gm/dl (10.1-14.3); Mean Corpuscular HGB Conc 33 % (30-34); Mean Corpuscular Hemoglobin 29 pg (28-32); Mean Corpuscular Volume 87 fl (79-97); Platelet Count 455 K/mm3 (140-440); Red Blood Count 2.83 M/mm3 (3.65-5.03); Red Cell Distribution Width 15.9 % (13.2-15.2)
[2017-02-28 06:05] LABS: White Blood Count 36.3 K/mm3 (4.5-11.0)
[2017-02-28 06:12] LABS: Anion Gap 16 mmol/L; Blood Urea Nitrogen 4 mg/dL (7-17); Calcium 7.7 mg/dL (8.4-10.2); Carbon Dioxide 24 mmol/L (22-30); Chloride 105.9 mmol/L (98-107); Glucose 105 mg/dL (65-100); Potassium 3.7 mmol/L (3.6-5.0); Sodium 142 mmol/L (137-145)
[2017-02-28 06:33] LABS: Alanine Aminotransferase 11 units/L (7-56); Albumin 2.4 g/dL (3.9-5); Albumin/Globulin Ratio 0.9 %; Alkaline Phosphatase 52 units/L (35-129); Anion Gap 16 mmol/L; BUN/Creatinine Ratio 4.44; Blood Urea Nitrogen 4 mg/dL (7-17); Calcium 7.7 mg/dL (8.4-10.2); Carbon Dioxide 25 mmol/L (22-30); Chloride 106.2 mmol/L (98-107); Glucose 105 mg/dL (65-100); Potassium 3.8 mmol/L (3.6-5.0); Sodium 143 mmol/L (137-145); Total Protein 5.2 g/dL (6.3-8.2)
[2017-02-28 06:56] LABS: Basophils % (Manual) 0 % (0.0-1.8); Blastocytes % (Manual) 0 %; Smudge Cells 2+
[2017-02-28 06:57] LABS: Anisocytosis 1+; Diff Status Complete; Platelet Estimate Consistent w Auto; Polychromasia Rare; Target Cells Few
--- NOTE | 2017-02-28 08:14 | Progress Note ---
Assessment and Plan Pt feeling well without compl. stahya cl liq diet. BM's Abd soft non tender BS surgically stable low h/h transf 2 units prbc advance diet Selected Entries 02/27/17 23:00 Temperature 98.2 F Respiratory 20 Rate Blood Pressure 163/73 Laboratory Tests 02/28/17 02/28/17 05:10 05:10 Hgb 8.2 L Hct 24.5 L Sodium 143 Potassium 3.8 Objective Vital Signs - 12hr 02/27/17 23:00 Temperature 98.2 F Pulse Rate 80 Respiratory 20 Rate Blood Pressure 163/73 O2 Sat by Pulse 97 Oximetry - Labs 02/28/17 05:10 02/28/17 05:10 Diabetes panel 02/28/17 02/28/17 Range/Units 05:10 05:10 Sodium 143 142 (137-145) mmol/L Potassium 3.8 3.7 (3.6-5.0) mmol/L Chloride 106.2 105.9 (98-107) mmol/L Carbon Dioxide 25 24 (22-30) mmol/L BUN 4 L 4 L (7-17) mg/dL Creatinine 0.9 1.0 (0.7-1.2) mg/dL Glucose 105 H 105 H (65-100) mg/dL Calcium 7.7 L 7.7 L (8.4-10.2) mg/dL AST 16 (5-40) units/L ALT 11 (7-56) units/L Alkaline Phosphatase 52 (35-129) units/L Total Protein 5.2 L (6.3-8.2) g/dL Albumin 2.4 L (3.9-5) g/dL Calcium panel 02/28/17 02/28/17 Range/Units 05:10 05:10 Calcium 7.7 L 7.7 L (8.4-10.2) mg/dL Albumin 2.4 L (3.9-5) g/dL Pituitary panel 02/28/17 02/28/17 Range/Units 05:10 05:10 Sodium 143 142 (137-145) mmol/L Potassium 3.8 3.7 (3.6-5.0) mmol/L Chloride 106.2 105.9 (98-107) mmol/L Carbon Dioxide 25 24 (22-30) mmol/L BUN 4 L 4 L (7-17) mg/dL Creatinine 0.9 1.0 (0.7-1.2) mg/dL Glucose 105 H 105 H (65-100) mg/dL Calcium 7.7 L 7.7 L (8.4-10.2) mg/dL Adrenal panel 02/28/17 02/28/17 Range/Units 05:10 05:10 Sodium 143 142 (137-145) mmol/L Potassium 3.8 3.7 (3.6-5.0) mmol/L Chloride 106.2 105.9 (98-107) mmol/L Carbon Dioxide 25 24 (22-30) mmol/L BUN 4 L 4 L (7-17) mg/dL Creatinine 0.9 1.0 (0.7-1.2) mg/dL Glucose 105 H 105 H (65-100) mg/dL Calcium 7.7 L 7.7 L (8.4-10.2) mg/dL Total Bilirubin 0.60 (0.1-1.2) mg/dL AST 16 (5-40) units/L ALT 11 (7-56) units/L Alkaline Phosphatase 52 (35-129) units/L Total Protein 5.2 L (6.3-8.2) g/dL Albumin 2.4 L (3.9-5) g/dL
[2017-02-28] MEDS ORDERED: NACL 0.9% 500 ML 500 ML IV NR (08:30)
[2017-02-28] MEDS: BROVANA NEBU IH SCH ×2 (08:45→19:50)
[2017-02-28] MEDS: PULMICORT IH SCH ×2 (08:45→19:50)
[2017-02-28] MEDS: PEPCID IV SCH (12:29)
[2017-02-28] MEDS: DIFLUCAN 200 ML IV SCH (12:30)
--- NOTE | 2017-02-28 14:50 | Progress Note ---
Assessment and Plan Patient alert, awake..Patient resting on room air. No acute respiratory distress.O2 saturation 95%.Patient afebrile today..Leukocyte count improving.Patients HGB 8.2, K+ 3.7. - Patient Problems (1) History of asthma Current Visit: Yes Status: Acute Plan to address problem: Patient says breathing alright. No complaint of chest pain or shortness of breath. On room air. O2 saturation 95%. Brovanna/Budenoside aerosol treatments q 12 hours. (2) Intra-abdominal abscess Current Visit: Yes Status: Acute Plan to address problem: S/P Laparotomy and surgical removal of ruptured and Gangrenous appendex. Patient afebrile, Leukocyte count improving. Patient is on Zosyn , Fluconazole and daptomycin. Subjective Date of service: 02/28/17 Principal diagnosis: Appendiceal Abscess; H/O Asthma Interval history: Patient alert, awake.Patient resting on room air. No acute respiratory distress.O2 saturation 95%.Patient afebrile today. Leukocyte count coming down.Patients HGB 8.2, K+ 3.7. Objective Vital Signs - 12hr 02/28/17 02/28/17 02/28/17 08:45 09:00 10:00 Temperature 98.2 F Pulse Rate 78 Pulse Rate [ 86 84 Anterior Bilateral Throughout] Respiratory 18 Rate Respiratory 16 16 Rate [Anterior Bilateral Throughout] Blood Pressure 150/69 O2 Sat by Pulse 95 Oximetry Constitutional: no acute distress, alert Eyes: non-icteric ENT: oropharynx moist Neck: supple, no lymphadenopathy Effort: normal Ascultation: Bilateral: diminished breath sounds Cardiovascular: regular rate and rhythm Gastrointestinal: normoactive bowel sounds, soft, non-tender, non-distended Integumentary: normal Extremities: no cyanosis, no edema, pulses normal, no ischemia or petechiae Neurologic: normal mental status, non-focal exam Psychiatric: mood appropriate, affect normal CBC and BMP: 02/28/17 05:10 02/28/17 05:10 ABG, PT/INR, D-dimer: ABG POC ABG pH 7.493 (7.35-7.45) H 02/25/17 09:21 POC ABG pCO2 34.7 (35-45) L 02/25/17 09:21 POC ABG pO2 63 (80-105) L 02/25/17 09:21 POC ABG HCO3 26.6 02/25/17 09:21 POC ABG Total CO2 28 02/25/17 09:21 POC ABG O2 Sat 94 02/25/17 09:21 PT/INR, D-dimer PT 14.8 Sec. (12.2-14.9) 02/20/17 21:00 INR 1.10 (0.87-1.13) 02/20/17 21:00 Abnormal lab findings: Abnormal Labs 02/21/17 02/21/17 02/22/17 04:37 04:37 06:10 WBC 26.4 H 45.2 H* RBC Hgb Hct MCH RDW 16.2 H 16.1 H Plt Count Seg Neuts % (Manual) 38.0 L Lymphocytes % (Manual) 37.0 H 39.0 H Seg Neutrophils # Man 10.0 H 22.1 H Lymphocytes # (Manual) 9.8 H 17.6 H Monocytes # (Manual) 1.1 H 0.9 H Eosinophils # (Manual) Basophils # (Manual) POC ABG pH POC ABG pCO2 POC ABG pO2 Sodium Potassium Carbon Dioxide 18 L BUN 39 H Creatinine 1.5 H Glucose 177 H POC Glucose Calcium 7.7 L Magnesium Total Protein Albumin 2.9 L Crossmatch 02/22/17 02/23/17 02/23/17 06:10 03:33 03:33 WBC 45.2 H* RBC 3.50 L Hgb 9.8 L Hct 30.1 L MCH RDW 16.1 H Plt Count Seg Neuts % (Manual) Lymphocytes % (Manual) Seg Neutrophils # Man 19.9 H Lymphocytes # (Manual) 6.8 H Monocytes # (Manual) 2.3 H Eosinophils # (Manual) 0.5 H Basophils # (Manual) 0.5 H POC ABG pH POC ABG pCO2 POC ABG pO2 Sodium 131 L D Potassium 3.0 L Carbon Dioxide 21 L 18 L BUN 18 H Creatinine Glucose 191 H 747 H* POC Glucose Calcium 7.6 L 6.7 L Magnesium 1.60 L Total Protein 5.7 L 4.9 L Albumin 2.2 L 1.8 L Crossmatch 02/23/17 02/23/17 02/24/17 04:21 04:56 05:40 WBC 62.5 H* RBC Hgb Hct MCH 27 L RDW 15.6 H Plt Count 526 H Seg Neuts % (Manual) 26.0 L Lymphocytes % (Manual) 68.5 H Seg Neutrophils # Man 16.3 H Lymphocytes # (Manual) 42.8 H Monocytes # (Manual) 1.9 H Eosinophils # (Manual) Basophils # (Manual) POC ABG pH POC ABG pCO2 POC ABG pO2 Sodium Potassium Carbon Dioxide BUN Creatinine Glucose 190 H POC Glucose 212 H Calcium 7.8 L D Magnesium Total Protein Albumin Crossmatch 02/24/17 02/25/17 02/25/17 05:40 04:46 04:46 WBC 49.5 H* RBC 3.24 L Hgb 9.1 L Hct 27.7 L MCH RDW 15.6 H Plt Count 485 H Seg Neuts % (Manual) Lymphocytes % (Manual) Seg Neutrophils # Man 33.4 H Lymphocytes # (Manual) 11.6 H Monocytes # (Manual) 2.2 H Eosinophils # (Manual) Basophils # (Manual) 0.2 H POC ABG pH POC ABG pCO2 POC ABG pO2 Sodium Potassium 3.2 L D Carbon Dioxide BUN Creatinine Glucose 184 H 162 H POC Glucose Calcium 7.9 L 8.0 L Magnesium Total Protein Albumin Crossmatch 02/25/17 02/26/17 02/26/17 09:21 04:08 22:40 WBC RBC Hgb Hct MCH RDW Plt Count Seg Neuts % (Manual) Lymphocytes % (Manual) Seg Neutrophils # Man Lymphocytes # (Manual) Monocytes # (Manual) Eosinophils # (Manual) Basophils # (Manual) POC ABG pH 7.493 H POC ABG pCO2 34.7 L POC ABG pO2 63 L Sodium Potassium 3.3 L Carbon Dioxide BUN Creatinine Glucose 138 H POC Glucose 125 H Calcium 7.8 L Magnesium Total Protein Albumin Crossmatch 02/27/17 02/28/17 02/28/17 06:51 01:44 05:10 WBC 36.3 H RBC 2.83 L Hgb 8.2 L Hct 24.5 L MCH RDW 15.9 H Plt Count 455 H Seg Neuts % (Manual) 28.0 L Lymphocytes % (Manual) 65.0 H Seg Neutrophils # Man 10.2 H Lymphocytes # (Manual) 23.6 H Monocytes # (Manual) 2.2 H Eosinophils # (Manual) Basophils # (Manual) POC ABG pH POC ABG pCO2 POC ABG pO2 Sodium Potassium Carbon Dioxide BUN Creatinine Glucose POC Glucose 152 H 114 H Calcium Magnesium Total Protein Albumin Crossmatch 02/28/17 02/28/17 02/28/17 05:10 05:10 06:35 WBC RBC Hgb Hct MCH RDW Plt Count Seg Neuts % (Manual) Lymphocytes % (Manual) Seg Neutrophils # Man Lymphocytes # (Manual) Monocytes # (Manual) Eosinophils # (Manual) Basophils # (Manual) POC ABG pH POC ABG pCO2 POC ABG pO2 Sodium Potassium Carbon Dioxide BUN 4 L 4 L Creatinine Glucose 105 H 105 H POC Glucose 112 H Calcium 7.7 L 7.7 L Magnesium 1.60 L Total Protein 5.2 L Albumin 2.4 L Crossmatch 02/28/17 02/28/17 08:30 11:56 WBC RBC Hgb Hct MCH RDW Plt Count Seg Neuts % (Manual) Lymphocytes % (Manual) Seg Neutrophils # Man Lymphocytes # (Manual) Monocytes # (Manual) Eosinophils # (Manual) Basophils # (Manual) POC ABG pH POC ABG pCO2 POC ABG pO2 Sodium Potassium Carbon Dioxide BUN Creatinine Glucose POC Glucose 157 H Calcium Magnesium Total Protein Albumin Crossmatch See Detail
[2017-02-28] MEDS ORDERED: MAGNESIUM SULFATE 2GM/50ML 2 GM/50 ML BAG IV ONE (19:03)
--- NOTE | 2017-02-28 19:04 | Progress Note ---
Assessment and Plan Assessment and plan: --Acute Peritonitis, secondary to perforated appendix, continue IV fluids and antibiotics supportive care She had bowel movement today, on full liquids, advance diet as tolerated --Acute appendicitis/with appendix perforation and abscess formation,Status post exploratory laparotomy, appendectomy, drainage placement Continue postop care, advance diet as tolerated, antibiotics and supportive care --Severe Leukocytosis; h/o leukemia, hematology oncology following, No intervention at this point --Gram Negative sepsis /Escherichia coli , enterococcus pansensitive surgical culture, secondary to intra-abdominal sepsis /abscesses continue Zosyn, ID following --Severe Protein calorie malnutrition; secondary to underlying disease process, patient is nothing by mouth, supportive care and consider TPN --Acute kidney injury; secondary to vasomotor nephropathy, ATN, Resolved --Hypertension; moderate control, continue current antihypertensives and when necessary medications --DVT prophylaxis SCDs, no pharmacologic anticoagulation in view of postop state --Full CODE STATUS Out of bed to chair as tolerated, plan of care discussed with the patient and her nurse Physical therapy evaluation and treatment Patient had a bowel movement 02/27/17 blood transfusion today Hypomagnesemia: Replace magnesium today and recheck in a.m. Disposition: Once patient is stabilized and cleared by general surgery she can be discharge History Interval history: Patient seen and examined. Follow up on current diagnosis/abdominal pain. Overnight uneventful. No cp, sob, n/v or severe headaches. Imaging, old records , testing, labs, nursing notes reviewed. shas finally Hospitalist Physical - Physical exam Narrative exam: GEN: WDWN, NAD, AWAKE, ALERT, ORIENTATED x 3 HEENT: NCAT, PERRL, EOMI, OP CLEAR NECK: SUPPLE, NO THYROMEGALY, NO JVD, NO LAD CVS: RRR, NORMAL S1S2 LUNGS/CHEST: CTA B, NORMAL CHEST EXPANSION B, GOOD AIR ENTRY B ABD: SOFT, surgical incisions intact with fluid drainage GBS, NO REBOUND OR GUARDING EXT/SKIN: NO SIGNIFICANT EDEMA OR RASH MSK: FROM X 4 EXTREMITIES NEURO: CN 2-12 GROSSLY INTACT, NO FOCAL DEFICITS PSY: CALM - Constitutional Vitals: Temp Pulse Resp BP Pulse Ox 98.5 F 95 H 18 165/74 96 02/28/17 15:12 02/28/17 15:12 02/28/17 15:12 02/28/17 15:12 02/28/17 15:12 General appearance: Present: no acute distress, other (non-toxic appearance) Results - Labs CBC & Chem 7: 02/28/17 05:10 02/28/17 05:10 Labs: Laboratory Last Values WBC 36.3 K/mm3 (4.5-11.0) H 02/28/17 05:10 RBC 2.83 M/mm3 (3.65-5.03) L 02/28/17 05:10 Hgb 8.2 gm/dl (10.1-14.3) L 02/28/17 05:10 Hct 24.5 % (30.3-42.9) L 02/28/17 05:10 MCV 87 fl (79-97) 02/28/17 05:10 MCH 29 pg (28-32) 02/28/17 05:10 MCHC 33 % (30-34) 02/28/17 05:10 RDW 15.9 % (13.2-15.2) H 02/28/17 05:10 Plt Count 455 K/mm3 (140-440) H 02/28/17 05:10 Lymph % (Auto) Telemarketer Supervisor 02/28/17 05:10 Lymph # Telemarketer Supervisor 02/28/17 05:10 Add Manual Diff Complete 02/28/17 05:10 Total Counted 100 02/28/17 05:10 Seg Neutrophils % Telemarketer Supervisor 02/28/17 05:10 Seg Neuts % (Manual) 28.0 % (40.0-70.0) L 02/28/17 05:10 Band Neutrophils % 0 % 02/28/17 05:10 Lymphocytes % (Manual) 65.0 % (13.4-35.0) H 02/28/17 05:10 Reactive Lymphs % (Man) 0 % 02/28/17 05:10 Monocytes % (Manual) 6.0 % (0.0-7.3) 02/28/17 05:10 Eosinophils % (Manual) 1.0 % (0.0-4.3) 02/28/17 05:10 Basophils % (Manual) 0 % (0.0-1.8) 02/28/17 05:10 Metamyelocytes % 0 % 02/28/17 05:10 Myelocytes % 0 % 02/28/17 05:10 Promyelocytes % 0 % 02/28/17 05:10 Blast Cells % 0 % 02/28/17 05:10 Nucleated RBC % Not Reportable 02/28/17 05:10 Seg Neutrophils # Man 10.2 K/mm3 (1.8-7.7) H 02/28/17 05:10 Band Neutrophils # 0.0 K/mm3 02/28/17 05:10 Lymphocytes # (Manual) 23.6 K/mm3 (1.2-5.4) H 02/28/17 05:10 Abs React Lymphs (Man) 0.0 K/mm3 02/28/17 05:10 Monocytes # (Manual) 2.2 K/mm3 (0.0-0.8) H 02/28/17 05:10 Eosinophils # (Manual) 0.4 K/mm3 (0.0-0.4) 02/28/17 05:10 Basophils # (Manual) 0.0 K/mm3 (0.0-0.1) 02/28/17 05:10 Metamyelocytes # 0.0 K/mm3 02/28/17 05:10 Myelocytes # 0.0 K/mm3 02/28/17 05:10 Promyelocytes # 0.0 K/mm3 02/28/17 05:10 Blast Cells # 0.0 K/mm3 02/28/17 05:10 Pathologist Review 02/25/17 04:46 WBC Morphology Not Reportable 02/28/17 05:10 Hypersegmented Neuts Not Reportable 02/28/17 05:10 Hyposegmented Neuts Not Reportable 02/28/17 05:10 Hypogranular Neuts Not Reportable 02/28/17 05:10 Smudge Cells 2+ 02/28/17 05:10 Toxic Granulation Not Reportable 02/28/17 05:10 Toxic Vacuolation Not Reportable 02/28/17 05:10 Dohle Bodies Not Reportable 02/28/17 05:10 Pelger-Huet Anomaly Not Reportable 02/28/17 05:10 Lgo Rods Not Reportable 02/28/17 05:10 Platelet Estimate Consistent w auto 02/28/17 05:10 Clumped Platelets Not Reportable 02/28/17 05:10 Plt Clumps, EDTA Not Reportable 02/28/17 05:10 Large Platelets Not Reportable 02/28/17 05:10 Giant Platelets Not Reportable 02/28/17 05:10 Platelet Satelliting Not Reportable 02/28/17 05:10 Plt Morphology Comment Not Reportable 02/28/17 05:10 RBC Morphology Not Reportable 02/28/17 05:10 Dimorphic RBCs Not Reportable 02/28/17 05:10 Polychromasia Rare 02/28/17 05:10 Hypochromasia Not Reportable 02/28/17 05:10 Poikilocytosis Not Reportable 02/28/17 05:10 Anisocytosis 1+ 02/28/17 05:10 Microcytosis Not Reportable 02/28/17 05:10 Macrocytosis Not Reportable 02/28/17 05:10 Spherocytes Not Reportable 02/28/17 05:10 Pappenheimer Bodies Not Reportable 02/28/17 05:10 Sickle Cells Not Reportable 02/28/17 05:10 Target Cells Few 02/28/17 05:10 Tear Drop Cells Not Reportable 02/28/17 05:10 Ovalocytes Not Reportable 02/28/17 05:10 Helmet Cells Not Reportable 02/28/17 05:10 Courtney-[place] Bodies Not Reportable 02/28/17 05:10 [place] Rings Not Reportable 02/28/17 05:10 Johnson Cells Not Reportable 02/28/17 05:10 Bite Cells Not Reportable 02/28/17 05:10 Crenated Cell Not Reportable 02/28/17 05:10 Elliptocytes Not Reportable 02/28/17 05:10 Acanthocytes (Spur) Not Reportable 02/28/17 05:10 Rouleaux Not Reportable 02/28/17 05:10 Hemoglobin C Crystals Not Reportable 02/28/17 05:10 Schistocytes Not Reportable 02/28/17 05:10 Malaria parasites Not Reportable 02/28/17 05:10 Carrington Bodies Not Reportable 02/28/17 05:10 Hem Pathologist Commnt No 02/28/17 05:10 PT 14.8 Sec. (12.2-14.9) 02/20/17 21:00 INR 1.10 (0.87-1.13) 02/20/17 21:00 APTT 26.4 Sec. (24.2-36.6) 02/20/17 21:00 POC ABG pH 7.493 (7.35-7.45) H 02/25/17 09:21 POC ABG pCO2 34.7 (35-45) L 02/25/17 09:21 POC ABG pO2 63 (80-105) L 02/25/17 09:21 POC ABG HCO3 26.6 02/25/17 09:21 POC ABG Total CO2 28 02/25/17 09:21 POC ABG O2 Sat 94 02/25/17 09:21 POC ABG Base Excess 3 02/25/17 09:21 FiO2 21 % 02/25/17 09:21 Sodium 143 mmol/L (137-145) 02/28/17 05:10 Potassium 3.8 mmol/L (3.6-5.0) 02/28/17 05:10 Chloride 106.2 mmol/L (98-107) 02/28/17 05:10 Carbon Dioxide 25 mmol/L (22-30) 02/28/17 05:10 Anion Gap 16 mmol/L 02/28/17 05:10 BUN 4 mg/dL (7-17) L 02/28/17 05:10 Creatinine 0.9 mg/dL (0.7-1.2) 02/28/17 05:10 Estimated GFR > 60 ml/min 02/28/17 05:10 BUN/Creatinine Ratio 4.44 % 02/28/17 05:10 Glucose 105 mg/dL (65-100) H 02/28/17 05:10 POC Glucose 157 (70-105) H 02/28/17 11:56 Lactic Acid 1.00 mmol/L (0.7-2.0) 02/21/17 13:35 Calcium 7.7 mg/dL (8.4-10.2) L 02/28/17 05:10 Phosphorus 2.70 mg/dL (2.5-4.5) 02/26/17 04:08 Magnesium 1.60 mg/dL (1.7-2.3) L 02/28/17 05:10 Total Bilirubin 0.60 mg/dL (0.1-1.2) 02/28/17 05:10 AST 16 units/L (5-40) 02/28/17 05:10 ALT 11 units/L (7-56) 02/28/17 05:10 Alkaline Phosphatase 52 units/L (35-129) 02/28/17 05:10 Total Protein 5.2 g/dL (6.3-8.2) L 02/28/17 05:10 Albumin 2.4 g/dL (3.9-5) L 02/28/17 05:10 Albumin/Globulin Ratio 0.9 % 02/28/17 05:10 Lipase 26 units/L (13-60) 02/24/17 15:13 Urine Color Yellow (Yellow) 02/20/17 15:05 Urine Turbidity Slightly-cloudy (Clear) 02/20/17 15:05 Urine pH 5.0 (5.0-7.0) 02/20/17 15:05 Ur Specific [place] 1.016 (1.003-1.030) 02/20/17 15:05 Urine Protein 30 mg/dl mg/dL (Negative) 02/20/17 15:05 Urine Glucose (UA) Neg mg/dL (Negative) 02/20/17 15:05 Urine Ketones Tr mg/dL (Negative) 02/20/17 15:05 Urine Blood Mod (Negative) 02/20/17 15:05 Urine Nitrite Neg (Negative) 02/20/17 15:05 Urine Bilirubin Neg (Negative) 02/20/17 15:05 Urine Urobilinogen 2.0 mg/dL (<2.0) 02/20/17 15:05 Ur Leukocyte Esterase Mod (Negative) 02/20/17 15:05 Urine WBC (Auto) 26.0 /HPF (0.0-6.0) H 02/20/17 15:05 Urine RBC (Auto) 12.0 /HPF (0.0-6.0) 02/20/17 15:05 U Epithel Cells (Auto) 2.0 /HPF (0-13.0) 02/20/17 15:05 Hyaline Casts 1 /LPF 02/20/17 15:05 Urine Mucus Few /HPF 02/20/17 15:05 Blood Type O POSITIVE 02/28/17 08:30 Antibody Screen Negative 02/28/17 08:30 SHARON Antibody Screen Negative 02/20/17 21:10 Crossmatch See Detail 02/28/17 08:30
[2017-03-01] MEDS: D5/0.45NS 1,000 ML IV SCH ×3 (00:37→21:50)
[2017-03-01] MEDS: CUBICIN IV SCH ×2 (00:42→23:45)
[2017-03-01] MEDS: NACL 0.9% IV SCH ×2 (00:42→23:45)
[2017-03-01] MEDS: ZOSYN/NS 2.25 GM/50ML 2.25 GM/50 ML BAG IV SCH ×4 (04:22→21:50)
[2017-03-01 05:11] LABS: Hematocrit 26.2 % (30.3-42.9); Hemoglobin 8.5 gm/dl (10.1-14.3); Mean Corpuscular HGB Conc 32 % (30-34); Mean Corpuscular Hemoglobin 28 pg (28-32); Mean Corpuscular Volume 86 fl (79-97); Platelet Count 477 K/mm3 (140-440); Red Blood Count 3.04 M/mm3 (3.65-5.03); Red Cell Distribution Width 16.1 % (13.2-15.2)
[2017-03-01 05:23] LABS: Anion Gap 18 mmol/L; BUN/Creatinine Ratio 3.75; Blood Urea Nitrogen 3 mg/dL (7-17); Calcium 7.5 mg/dL (8.4-10.2); Carbon Dioxide 22 mmol/L (22-30); Chloride 106.7 mmol/L (98-107); Glucose 121 mg/dL (65-100); Potassium 3.4 mmol/L (3.6-5.0); Sodium 143 mmol/L (137-145); White Blood Count 35.7 K/mm3 (4.5-11.0)
[2017-03-01] MEDS: BROVANA NEBU IH SCH ×2 (07:00→21:02)
[2017-03-01] MEDS: PULMICORT IH SCH ×2 (07:00→21:02)
[2017-03-01 07:27] LABS: Anisocytosis 1+; Blastocytes % (Manual) 0 %; Eosinophils % (Manual) 0 % (0.0-4.3); Polychromasia Few; Target Cells Few
[2017-03-01 07:28] LABS: Giant Platelets Few; Smudge Cells 2+
[2017-03-01 07:29] LABS: Diff Status Complete
--- NOTE | 2017-03-01 07:55 | Progress Note ---
Assessment and Plan - Patient Problems (1) Intra-abdominal abscess Current Visit: Yes Status: Acute Plan to address problem: 1. Continue current antimicrobials. 2. Recommend re-imaging abdomen to determine evolution of collections. 3. Treatment plan/ duration per repeat CT findings. (2) Appendiceal abscess Current Visit: Yes Status: Acute Plan to address problem: Per above. (3) Leukemoid reaction Current Visit: Yes Status: Acute Plan to address problem: Improving WBC count. Subjective Date of service: 03/01/17 Principal diagnosis: Appendiceal Abscess; H/O Asthma Interval history: Remains afebrile, stable. No new events. Objective - Constitutional Vitals: Vital Signs Temp Pulse Resp BP Pulse Ox 98.7 F 76 20 163/79 96 02/28/17 23:41 02/28/17 23:41 02/28/17 23:41 02/28/17 23:41 02/28/17 15:12 Temperature -Last 24 Hours Temperature 98.7 F Temperature 98.5 F Temperature 98.2 F - Labs CBC & Chem 7: 03/01/17 04:44 03/01/17 04:44 Labs: Abnormal lab results 02/28/17 02/28/17 03/01/17 Range/Units 08:30 11:56 04:44 WBC 35.7 H (4.5-11.0) K/mm3 RBC 3.04 L (3.65-5.03) M/mm3 Hgb 8.5 L (10.1-14.3) gm/dl Hct 26.2 L (30.3-42.9) % RDW 16.1 H (13.2-15.2) % Plt Count 477 H (140-440) K/mm3 Basophils % (Manual) 2.0 H (0.0-1.8) % Seg Neutrophils # Man 17.1 H (1.8-7.7) K/mm3 Lymphocytes # (Manual) 10.7 H (1.2-5.4) K/mm3 Monocytes # (Manual) 1.4 H (0.0-0.8) K/mm3 Basophils # (Manual) 0.7 H (0.0-0.1) K/mm3 Potassium (3.6-5.0) mmol/L BUN (7-17) mg/dL Glucose (65-100) mg/dL POC Glucose 157 H (70-105) Calcium (8.4-10.2) mg/dL Crossmatch See Detail 03/01/17 Range/Units 04:44 WBC (4.5-11.0) K/mm3 RBC (3.65-5.03) M/mm3 Hgb (10.1-14.3) gm/dl Hct (30.3-42.9) % RDW (13.2-15.2) % Plt Count (140-440) K/mm3 Basophils % (Manual) (0.0-1.8) % Seg Neutrophils # Man (1.8-7.7) K/mm3 Lymphocytes # (Manual) (1.2-5.4) K/mm3 Monocytes # (Manual) (0.0-0.8) K/mm3 Basophils # (Manual) (0.0-0.1) K/mm3 Potassium 3.4 L (3.6-5.0) mmol/L BUN 3 L (7-17) mg/dL Glucose 121 H (65-100) mg/dL POC Glucose (70-105) Calcium 7.5 L (8.4-10.2) mg/dL Crossmatch Microbiology 02/20/17 21:47 Peripheral/Venous Blood Culture - Final NO GROWTH AFTER 5 DAYS 02/20/17 21:47 Peripheral/Venous Blood Culture - Final NO GROWTH AFTER 5 DAYS 02/21/17 00:00 Appendix Surgical Culture - Final Escherichia Coli Enterococcus Faecium 02/21/17 00:00 Appendix Anaerobic Culture - Final 02/20/17 Unknown Urine,Clean Catch Urine Culture - Final - Imaging and cardiology CT scan - abdomen: pending
[2017-03-01] MEDS ORDERED: POTASSIUM CHLORIDE PO NR (08:30)
[2017-03-01] MEDS ORDERED: NACL ONE (08:32)
--- NOTE | 2017-03-01 09:17 | Cat Scan Report ---
CT SCAN OF THE ABDOMEN AND PELVIS WITH CONTRAST: HISTORY: Followup intra-abdominal abscess, abdominal pain. TECHNIQUE: Helical CT in 1.25mm intervals following IV contrast. Sagittal and coronal reconstructions. FINDINGS: Compared to 02/23/17. Heart size is within normal limits. Moderate layering bilateral pleural effusions and compressive atelectasis in the lower lobes are stable. Small ascites has nearly resolved. Small mesenteric collection in the left lower quadrant has decreased from 6.4 x 2.3 cm to 5.0 x 1.7 cm. The presacral collection has decreased from 3.6 x 2.0 cm to 2.2 x 1.9 cm. No additional mesenteric collections are appreciated. Scattered cysts and hemangiomas in the liver are stable. The spleen is homogeneous. The biliary system, pancreas, kidneys and adrenal glands are unremarkable. The aorta is normal caliber. No evidence for bowel obstruction or focal inflammation. The appendix is not confidently identified. Hysterectomy changes. IMPRESSION: Improvement in the mesenteric fluid collections since 02/23/17 as described. Decreased ascites. Bilateral pleural effusions and compressive atelectasis in the lower lobes, stable.
[2017-03-01] MEDS: PEPCID IV SCH (09:55)
[2017-03-01] MEDS: DIFLUCAN 200 ML IV SCH (09:57)
--- NOTE | 2017-03-01 11:01 | Progress Note ---
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 This may represent appendicitis with abscess....Operative Report 02/20/17: post operative diagnosis: Ruptured gangrenous retrocecal appendix with abscess formation. Procedure: Emergency exploratory laparotomy and appendectomy by Dr. Anthony Diagnoses: --Acute Peritonitis with sepsis, POA, secondary to perforated appendix: continue IV fluids and antibiotics supportive care, most likely --Acute appendicitis/with appendix perforation and abscess formation: Status post exploratory laparotomy, appendectomy, drainage placement Continue postop care, advance diet as tolerated, antibiotics and supportive care --Severe Leukocytosis; h/o leukemia, hematology oncology evaluated, No intervention at this point --Severe Protein calorie malnutrition, poa; secondary to underlying disease process, patient is nothing by mouth, supportive care and consider TPN --Acute kidney injury; secondary to vasomotor nephropathy, ATN, Resolved --Hypokalemia: continue to monitor --Hypertension; moderate control, continue current antihypertensives and when necessary medications --DVT prophylaxis SCDs, no pharmacologic anticoagulation in view of postop state --Full CODE STATUS Patient had a bowel movement 02/27/17 blood transfusion today Hypomagnesemia: Replace magnesium today and recheck in a.m. Disposition: Once patient is stabilized and cleared by general surgery she can be discharge 03/01/17: Repeat CT a/p, ordered, mag level stable, replace potassium, recheck in am History Interval history: Patient seen and examined. Follow up on current diagnosis/abdominal pain. Overnight uneventful. No cp, sob, n/v or severe headaches. Imaging, old records , testing, labs, nursing notes reviewed. shas finally Hospitalist Physical - Physical exam Narrative exam: GEN: WDWN, NAD, AWAKE, ALERT, ORIENTATED x 3 HEENT: NCAT, PERRL, EOMI, OP CLEAR NECK: SUPPLE, NO THYROMEGALY, NO JVD, NO LAD CVS: RRR, NORMAL S1S2 LUNGS/CHEST: CTA B, NORMAL CHEST EXPANSION B, GOOD AIR ENTRY B ABD: SOFT, surgical incisions intact with fluid drainage GBS, NO REBOUND OR GUARDING EXT/SKIN: NO SIGNIFICANT EDEMA OR RASH MSK: FROM X 4 EXTREMITIES NEURO: CN 2-12 GROSSLY INTACT, NO FOCAL DEFICITS PSY: CALM - Constitutional Vitals: Temp Pulse Resp BP Pulse Ox 98.3 F 77 18 149/66 96 03/01/17 09:28 03/01/17 09:28 03/01/17 09:28 03/01/17 09:28 03/01/17 09:28 General appearance: Present: no acute distress, other (non-toxic appearance) Results - Labs CBC & Chem 7: 03/01/17 04:44 03/01/17 04:44 Labs: Laboratory Last Values WBC 35.7 K/mm3 (4.5-11.0) H 03/01/17 04:44 RBC 3.04 M/mm3 (3.65-5.03) L 03/01/17 04:44 Hgb 8.5 gm/dl (10.1-14.3) L 03/01/17 04:44 Hct 26.2 % (30.3-42.9) L 03/01/17 04:44 MCV 86 fl (79-97) 03/01/17 04:44 MCH 28 pg (28-32) 03/01/17 04:44 MCHC 32 % (30-34) 03/01/17 04:44 RDW 16.1 % (13.2-15.2) H 03/01/17 04:44 Plt Count 477 K/mm3 (140-440) H 03/01/17 04:44 Lymph % (Auto) Alarm Installation Technician 03/01/17 04:44 Lymph # Alarm Installation Technician 03/01/17 04:44 Add Manual Diff Complete 03/01/17 04:44 Total Counted 100 03/01/17 04:44 Seg Neutrophils % Alarm Installation Technician 03/01/17 04:44 Seg Neuts % (Manual) 48.0 % (40.0-70.0) 03/01/17 04:44 Band Neutrophils % 14.0 % 03/01/17 04:44 Lymphocytes % (Manual) 30.0 % (13.4-35.0) 03/01/17 04:44 Reactive Lymphs % (Man) 0 % 03/01/17 04:44 Monocytes % (Manual) 4.0 % (0.0-7.3) 03/01/17 04:44 Eosinophils % (Manual) 0 % (0.0-4.3) 03/01/17 04:44 Basophils % (Manual) 2.0 % (0.0-1.8) H 03/01/17 04:44 Metamyelocytes % 2.0 % 03/01/17 04:44 Myelocytes % 0 % 03/01/17 04:44 Promyelocytes % 0 % 03/01/17 04:44 Blast Cells % 0 % 03/01/17 04:44 Nucleated RBC % Not Reportable 03/01/17 04:44 Seg Neutrophils # Man 17.1 K/mm3 (1.8-7.7) H 03/01/17 04:44 Band Neutrophils # 5.0 K/mm3 03/01/17 04:44 Lymphocytes # (Manual) 10.7 K/mm3 (1.2-5.4) H 03/01/17 04:44 Abs React Lymphs (Man) 0.0 K/mm3 03/01/17 04:44 Monocytes # (Manual) 1.4 K/mm3 (0.0-0.8) H 03/01/17 04:44 Eosinophils # (Manual) 0.0 K/mm3 (0.0-0.4) 03/01/17 04:44 Basophils # (Manual) 0.7 K/mm3 (0.0-0.1) H 03/01/17 04:44 Metamyelocytes # 0.7 K/mm3 03/01/17 04:44 Myelocytes # 0.0 K/mm3 03/01/17 04:44 Promyelocytes # 0.0 K/mm3 03/01/17 04:44 Blast Cells # 0.0 K/mm3 03/01/17 04:44 Pathologist Review 02/25/17 04:46 WBC Morphology Not Reportable 03/01/17 04:44 Hypersegmented Neuts Not Reportable 03/01/17 04:44 Hyposegmented Neuts Not Reportable 03/01/17 04:44 Hypogranular Neuts Not Reportable 03/01/17 04:44 Smudge Cells 2+ 03/01/17 04:44 Toxic Granulation Not Reportable 03/01/17 04:44 Toxic Vacuolation Not Reportable 03/01/17 04:44 Dohle Bodies Not Reportable 03/01/17 04:44 Pelger-Huet Anomaly Not Reportable 03/01/17 04:44 Glo Rods Not Reportable 03/01/17 04:44 Platelet Estimate Appears normal 03/01/17 04:44 Clumped Platelets Not Reportable 03/01/17 04:44 Plt Clumps, EDTA Not Reportable 03/01/17 04:44 Large Platelets Not Reportable 03/01/17 04:44 Giant Platelets Few 03/01/17 04:44 Platelet Satelliting Not Reportable 03/01/17 04:44 Plt Morphology Comment Not Reportable 03/01/17 04:44 RBC Morphology Not Reportable 03/01/17 04:44 Dimorphic RBCs Not Reportable 03/01/17 04:44 Polychromasia Few 03/01/17 04:44 Hypochromasia Not Reportable 03/01/17 04:44 Poikilocytosis Not Reportable 03/01/17 04:44 Anisocytosis 1+ 03/01/17 04:44 Microcytosis Not Reportable 03/01/17 04:44 Macrocytosis Not Reportable 03/01/17 04:44 Spherocytes Not Reportable 03/01/17 04:44 Pappenheimer Bodies Not Reportable 03/01/17 04:44 Sickle Cells Not Reportable 03/01/17 04:44 Target Cells Few 03/01/17 04:44 Tear Drop Cells Not Reportable 03/01/17 04:44 Ovalocytes Not Reportable 03/01/17 04:44 Helmet Cells Not Reportable 03/01/17 04:44 Courtney-[place] Bodies Not Reportable 03/01/17 04:44 [place] Rings Not Reportable 03/01/17 04:44 Johnson Cells Not Reportable 03/01/17 04:44 Bite Cells Not Reportable 03/01/17 04:44 Crenated Cell Not Reportable 03/01/17 04:44 Elliptocytes Not Reportable 03/01/17 04:44 Acanthocytes (Spur) Not Reportable 03/01/17 04:44 Rouleaux Not Reportable 03/01/17 04:44 Hemoglobin C Crystals Not Reportable 03/01/17 04:44 Schistocytes Not Reportable 03/01/17 04:44 Malaria parasites Not Reportable 03/01/17 04:44 Carrington Bodies Not Reportable 03/01/17 04:44 Hem Pathologist Commnt No 03/01/17 04:44 PT 14.8 Sec. (12.2-14.9) 02/20/17 21:00 INR 1.10 (0.87-1.13) 02/20/17 21:00 APTT 26.4 Sec. (24.2-36.6) 02/20/17 21:00 POC ABG pH 7.493 (7.35-7.45) H 02/25/17 09:21 POC ABG pCO2 34.7 (35-45) L 02/25/17 09:21 POC ABG pO2 63 (80-105) L 02/25/17 09:21 POC ABG HCO3 26.6 02/25/17 09:21 POC ABG Total CO2 28 02/25/17 09:21 POC ABG O2 Sat 94 02/25/17 09:21 POC ABG Base Excess 3 02/25/17 09:21 FiO2 21 % 02/25/17 09:21 Sodium 143 mmol/L (137-145) 03/01/17 04:44 Potassium 3.4 mmol/L (3.6-5.0) L 03/01/17 04:44 Chloride 106.7 mmol/L (98-107) 03/01/17 04:44 Carbon Dioxide 22 mmol/L (22-30) 03/01/17 04:44 Anion Gap 18 mmol/L 03/01/17 04:44 BUN 3 mg/dL (7-17) L 03/01/17 04:44 Creatinine 0.8 mg/dL (0.7-1.2) 03/01/17 04:44 Estimated GFR > 60 ml/min 03/01/17 04:44 BUN/Creatinine Ratio 3.75 % 03/01/17 04:44 Glucose 121 mg/dL (65-100) H 03/01/17 04:44 POC Glucose 157 (70-105) H 02/28/17 11:56 Lactic Acid 1.00 mmol/L (0.7-2.0) 02/21/17 13:35 Calcium 7.5 mg/dL (8.4-10.2) L 03/01/17 04:44 Phosphorus 2.70 mg/dL (2.5-4.5) 02/26/17 04:08 Magnesium 2.10 mg/dL (1.7-2.3) 03/01/17 04:44 Total Bilirubin 0.60 mg/dL (0.1-1.2) 02/28/17 05:10 AST 16 units/L (5-40) 02/28/17 05:10 ALT 11 units/L (7-56) 02/28/17 05:10 Alkaline Phosphatase 52 units/L (35-129) 02/28/17 05:10 Total Protein 5.2 g/dL (6.3-8.2) L 02/28/17 05:10 Albumin 2.4 g/dL (3.9-5) L 02/28/17 05:10 Albumin/Globulin Ratio 0.9 % 02/28/17 05:10 Lipase 26 units/L (13-60) 02/24/17 15:13 Urine Color Yellow (Yellow) 02/20/17 15:05 Urine Turbidity Slightly-cloudy (Clear) 02/20/17 15:05 Urine pH 5.0 (5.0-7.0) 02/20/17 15:05 Ur Specific [place] 1.016 (1.003-1.030) 02/20/17 15:05 Urine Protein 30 mg/dl mg/dL (Negative) 02/20/17 15:05 Urine Glucose (UA) Neg mg/dL (Negative) 02/20/17 15:05 Urine Ketones Tr mg/dL (Negative) 02/20/17 15:05 Urine Blood Mod (Negative) 02/20/17 15:05 Urine Nitrite Neg (Negative) 02/20/17 15:05 Urine Bilirubin Neg (Negative) 02/20/17 15:05 Urine Urobilinogen 2.0 mg/dL (<2.0) 02/20/17 15:05 Ur Leukocyte Esterase Mod (Negative) 02/20/17 15:05 Urine WBC (Auto) 26.0 /HPF (0.0-6.0) H 02/20/17 15:05 Urine RBC (Auto) 12.0 /HPF (0.0-6.0) 02/20/17 15:05 U Epithel Cells (Auto) 2.0 /HPF (0-13.0) 02/20/17 15:05 Hyaline Casts 1 /LPF 02/20/17 15:05 Urine Mucus Few /HPF 02/20/17 15:05 Blood Type O POSITIVE 02/28/17 08:30 Antibody Screen Negative 02/28/17 08:30 SHARON Antibody Screen Negative 02/20/17 21:10 Crossmatch See Detail 02/28/17 08:30
--- NOTE | 2017-03-01 12:08 | Progress Note ---
Assessment and Plan (1) History of asthma Current Visit: Yes Status: Acute Plan to address problem: - continue brovana & pulmoicort - prn oxygen therapy - prn albuterol (2) Leucocytosis Current Visit: Yes Status: Acute Qualifiers: Leukocytosis type: L Plan to address problem: - continue AB's per ID recs - lactic acid level unremarkable - follow clinically (3) Acute appendicitis Current Visit: Yes Status: Acute Qualifiers: Acute appendicitis type: A Plan to address problem: - complete AB's per ID recs - s/p appendectomy - tolerating p.o. meals now (4) Discharge planning issues Current Visit: Yes Status: Acute Plan to address problem: ...home at discharge Subjective Date of service: 03/01/17 Principal diagnosis: Appendiceal Abscess; H/O Asthma Interval history: Seen and examined at bedside; 24 hour events reviewed; nursing and respiratory care staff consulted; no adverse overnight events reported to me; remains on IV antibiotics; slowly advancing diet; denies acute chest pains or increased SOB; NAD Objective Vital Signs - 12hr 03/01/17 09:28 Temperature 98.3 F Pulse Rate 77 Respiratory 18 Rate Blood Pressure 149/66 O2 Sat by Pulse 96 Oximetry Constitutional: no acute distress, alert Eyes: non-icteric ENT: oropharynx moist Neck: supple, no lymphadenopathy Effort: normal Ascultation: Bilateral: clear, diminished breath sounds Cardiovascular: regular rate and rhythm Gastrointestinal: normoactive bowel sounds, soft, non-tender, non-distended Integumentary: normal Extremities: no cyanosis, no edema, pulses normal, no ischemia or petechiae Neurologic: normal mental status, non-focal exam Psychiatric: mood appropriate, affect normal CBC and BMP: 03/03/17 06:37 03/03/17 06:37 ABG, PT/INR, D-dimer: ABG POC ABG pH 7.493 (7.35-7.45) H 02/25/17 09:21 POC ABG pCO2 34.7 (35-45) L 02/25/17 09:21 POC ABG pO2 63 (80-105) L 02/25/17 09:21 POC ABG HCO3 26.6 02/25/17 09:21 POC ABG Total CO2 28 02/25/17 09:21 POC ABG O2 Sat 94 02/25/17 09:21 PT/INR, D-dimer PT 14.8 Sec. (12.2-14.9) 02/20/17 21:00 INR 1.10 (0.87-1.13) 02/20/17 21:00 Abnormal lab findings: Abnormal Labs 02/21/17 02/21/17 02/22/17 04:37 04:37 06:10 WBC 26.4 H 45.2 H* RBC Hgb Hct MCH RDW 16.2 H 16.1 H Plt Count Seg Neuts % (Manual) 38.0 L Lymphocytes % (Manual) 37.0 H 39.0 H Basophils % (Manual) Seg Neutrophils # Man 10.0 H 22.1 H Lymphocytes # (Manual) 9.8 H 17.6 H Monocytes # (Manual) 1.1 H 0.9 H Eosinophils # (Manual) Basophils # (Manual) POC ABG pH POC ABG pCO2 POC ABG pO2 Sodium Potassium Carbon Dioxide 18 L BUN 39 H Creatinine 1.5 H Glucose 177 H POC Glucose Calcium 7.7 L Magnesium Total Protein Albumin 2.9 L Crossmatch 02/22/17 02/23/17 02/23/17 06:10 03:33 03:33 WBC 45.2 H* RBC 3.50 L Hgb 9.8 L Hct 30.1 L MCH RDW 16.1 H Plt Count Seg Neuts % (Manual) Lymphocytes % (Manual) Basophils % (Manual) Seg Neutrophils # Man 19.9 H Lymphocytes # (Manual) 6.8 H Monocytes # (Manual) 2.3 H Eosinophils # (Manual) 0.5 H Basophils # (Manual) 0.5 H POC ABG pH POC ABG pCO2 POC ABG pO2 Sodium 131 L D Potassium 3.0 L Carbon Dioxide 21 L 18 L BUN 18 H Creatinine Glucose 191 H 747 H* POC Glucose Calcium 7.6 L 6.7 L Magnesium 1.60 L Total Protein 5.7 L 4.9 L Albumin 2.2 L 1.8 L Crossmatch 02/23/17 02/23/17 02/24/17 04:21 04:56 05:40 WBC 62.5 H* RBC Hgb Hct MCH 27 L RDW 15.6 H Plt Count 526 H Seg Neuts % (Manual) 26.0 L Lymphocytes % (Manual) 68.5 H Basophils % (Manual) Seg Neutrophils # Man 16.3 H Lymphocytes # (Manual) 42.8 H Monocytes # (Manual) 1.9 H Eosinophils # (Manual) Basophils # (Manual) POC ABG pH POC ABG pCO2 POC ABG pO2 Sodium Potassium Carbon Dioxide BUN Creatinine Glucose 190 H POC Glucose 212 H Calcium 7.8 L D Magnesium Total Protein Albumin Crossmatch 02/24/17 02/25/17 02/25/17 05:40 04:46 04:46 WBC 49.5 H* RBC 3.24 L Hgb 9.1 L Hct 27.7 L MCH RDW 15.6 H Plt Count 485 H Seg Neuts % (Manual) Lymphocytes % (Manual) Basophils % (Manual) Seg Neutrophils # Man 33.4 H Lymphocytes # (Manual) 11.6 H Monocytes # (Manual) 2.2 H Eosinophils # (Manual) Basophils # (Manual) 0.2 H POC ABG pH POC ABG pCO2 POC ABG pO2 Sodium Potassium 3.2 L D Carbon Dioxide BUN Creatinine Glucose 184 H 162 H POC Glucose Calcium 7.9 L 8.0 L Magnesium Total Protein Albumin Crossmatch 02/25/17 02/26/17 02/26/17 09:21 04:08 22:40 WBC RBC Hgb Hct MCH RDW Plt Count Seg Neuts % (Manual) Lymphocytes % (Manual) Basophils % (Manual) Seg Neutrophils # Man Lymphocytes # (Manual) Monocytes # (Manual) Eosinophils # (Manual) Basophils # (Manual) POC ABG pH 7.493 H POC ABG pCO2 34.7 L POC ABG pO2 63 L Sodium Potassium 3.3 L Carbon Dioxide BUN Creatinine Glucose 138 H POC Glucose 125 H Calcium 7.8 L Magnesium Total Protein Albumin Crossmatch 02/27/17 02/28/17 02/28/17 06:51 01:44 05:10 WBC 36.3 H RBC 2.83 L Hgb 8.2 L Hct 24.5 L MCH RDW 15.9 H Plt Count 455 H Seg Neuts % (Manual) 28.0 L Lymphocytes % (Manual) 65.0 H Basophils % (Manual) Seg Neutrophils # Man 10.2 H Lymphocytes # (Manual) 23.6 H Monocytes # (Manual) 2.2 H Eosinophils # (Manual) Basophils # (Manual) POC ABG pH POC ABG pCO2 POC ABG pO2 Sodium Potassium Carbon Dioxide BUN Creatinine Glucose POC Glucose 152 H 114 H Calcium Magnesium Total Protein Albumin Crossmatch 02/28/17 02/28/17 02/28/17 05:10 05:10 06:35 WBC RBC Hgb Hct MCH RDW Plt Count Seg Neuts % (Manual) Lymphocytes % (Manual) Basophils % (Manual) Seg Neutrophils # Man Lymphocytes # (Manual) Monocytes # (Manual) Eosinophils # (Manual) Basophils # (Manual) POC ABG pH POC ABG pCO2 POC ABG pO2 Sodium Potassium Carbon Dioxide BUN 4 L 4 L Creatinine Glucose 105 H 105 H POC Glucose 112 H Calcium 7.7 L 7.7 L Magnesium 1.60 L Total Protein 5.2 L Albumin 2.4 L Crossmatch 02/28/17 02/28/17 03/01/17 08:30 11:56 04:44 WBC 35.7 H RBC 3.04 L Hgb 8.5 L Hct 26.2 L MCH RDW 16.1 H Plt Count 477 H Seg Neuts % (Manual) Lymphocytes % (Manual) Basophils % (Manual) 2.0 H Seg Neutrophils # Man 17.1 H Lymphocytes # (Manual) 10.7 H Monocytes # (Manual) 1.4 H Eosinophils # (Manual) Basophils # (Manual) 0.7 H POC ABG pH POC ABG pCO2 POC ABG pO2 Sodium Potassium Carbon Dioxide BUN Creatinine Glucose POC Glucose 157 H Calcium Magnesium Total Protein Albumin Crossmatch See Detail 03/01/17 04:44 WBC RBC Hgb Hct MCH RDW Plt Count Seg Neuts % (Manual) Lymphocytes % (Manual) Basophils % (Manual) Seg Neutrophils # Man Lymphocytes # (Manual) Monocytes # (Manual) Eosinophils # (Manual) Basophils # (Manual) POC ABG pH POC ABG pCO2 POC ABG pO2 Sodium Potassium 3.4 L Carbon Dioxide BUN 3 L Creatinine Glucose 121 H POC Glucose Calcium 7.5 L Magnesium Total Protein Albumin Crossmatch
--- NOTE | 2017-03-01 12:35 | Progress Note ---
Assessment and Plan Pt feeling well without compl. sathya full liq. sitting by bedside eating. refused blood transf Abd soft CT - fluid collections much improved and almost resolved h/h as below surgically stable attempt reg diet po MVI & Fe antibiotics as per ID Selected Entries 03/01/17 09:28 Temperature 98.3 F Pulse Rate 77 Respiratory 18 Rate Blood Pressure 149/66 Laboratory Tests 02/28/17 03/01/17 05:10 04:44 Hgb 8.2 L 8.5 L Hct 24.5 L 26.2 L Objective Vital Signs - 12hr 03/01/17 09:28 Temperature 98.3 F Pulse Rate 77 Respiratory 18 Rate Blood Pressure 149/66 O2 Sat by Pulse 96 Oximetry - Labs 03/01/17 04:44 03/01/17 04:44 Diabetes panel 03/01/17 Range/Units 04:44 Sodium 143 (137-145) mmol/L Potassium 3.4 L (3.6-5.0) mmol/L Chloride 106.7 (98-107) mmol/L Carbon Dioxide 22 (22-30) mmol/L BUN 3 L (7-17) mg/dL Creatinine 0.8 (0.7-1.2) mg/dL Glucose 121 H (65-100) mg/dL Calcium 7.5 L (8.4-10.2) mg/dL Calcium panel 03/01/17 Range/Units 04:44 Calcium 7.5 L (8.4-10.2) mg/dL Pituitary panel 03/01/17 Range/Units 04:44 Sodium 143 (137-145) mmol/L Potassium 3.4 L (3.6-5.0) mmol/L Chloride 106.7 (98-107) mmol/L Carbon Dioxide 22 (22-30) mmol/L BUN 3 L (7-17) mg/dL Creatinine 0.8 (0.7-1.2) mg/dL Glucose 121 H (65-100) mg/dL Calcium 7.5 L (8.4-10.2) mg/dL Adrenal panel 03/01/17 Range/Units 04:44 Sodium 143 (137-145) mmol/L Potassium 3.4 L (3.6-5.0) mmol/L Chloride 106.7 (98-107) mmol/L Carbon Dioxide 22 (22-30) mmol/L BUN 3 L (7-17) mg/dL Creatinine 0.8 (0.7-1.2) mg/dL Glucose 121 H (65-100) mg/dL Calcium 7.5 L (8.4-10.2) mg/dL
[2017-03-01] MEDS: FEOSOL PO SCH (18:41)
[2017-03-01] MEDS: THERAGRAN Tab PO SCH (18:41)
[2017-03-02] MEDS: ZOSYN/NS 2.25 GM/50ML 2.25 GM/50 ML BAG IV SCH ×4 (03:56→22:00)
[2017-03-02] MEDS: APRESOLINE IV PRN ×2 (06:29→14:24)
[2017-03-02 06:35] LABS: Hematocrit 25.6 % (30.3-42.9); Hemoglobin 8.4 gm/dl (10.1-14.3); Mean Corpuscular HGB Conc 33 % (30-34); Mean Corpuscular Hemoglobin 28 pg (28-32); Mean Corpuscular Volume 86 fl (79-97); Platelet Count 442 K/mm3 (140-440); Red Blood Count 2.97 M/mm3 (3.65-5.03); Red Cell Distribution Width 16.2 % (13.2-15.2)
[2017-03-02 06:41] LABS: White Blood Count 31.9 K/mm3 (4.5-11.0)
[2017-03-02] MEDS: D5/0.45NS 1,000 ML IV SCH ×2 (07:37→22:26)
[2017-03-02 08:51] LABS: Basophils % (Manual) 0 % (0.0-1.8); Blastocytes % (Manual) 0 %; Eosinophils % (Manual) 0 % (0.0-4.3); Total Cells Counted Percent 2.5
[2017-03-02 08:52] LABS: Anisocytosis 1+; Diff Status Complete; Polychromasia Few; Smudge Cells 2+; Target Cells Few
[2017-03-02] MEDS: DIFLUCAN 200 ML IV SCH (09:43)
[2017-03-02] MEDS: FEOSOL PO SCH (09:44)
[2017-03-02] MEDS: THERAGRAN Tab PO SCH (09:44)
[2017-03-02] MEDS: PEPCID IV SCH (09:44)
[2017-03-02] MEDS: PULMICORT IH SCH ×2 (11:12→21:18)
[2017-03-02] MEDS: BROVANA NEBU IH SCH ×2 (11:13→21:18)
--- NOTE | 2017-03-02 12:18 | Progress Note ---
Assessment and Plan (1) History of asthma Current Visit: Yes Status: Acute Plan to address problem: - continue brovana & pulmoicort - prn oxygen therapy - prn albuterol (2) Leucocytosis Current Visit: Yes Status: Acute Qualifiers: Leukocytosis type: L Plan to address problem: - continue AB's per ID recs - lactic acid level unremarkable - follow clinically (3) Acute appendicitis Current Visit: Yes Status: Acute Qualifiers: Acute appendicitis type: A Plan to address problem: - complete AB's per ID recs - s/p appendectomy - tolerating p.o. meals now (4) Leg swelling Current Visit: Yes Status: Acute Plan to address problem: - not on VTE prophylaxis re: surgical issues - get dopplers to r/o VTE as this is new this hospitalization (5) Discharge planning issues Current Visit: Yes Status: Acute Plan to address problem: ...home at discharge Subjective Date of service: 03/02/17 Principal diagnosis: Appendiceal Abscess; H/O Asthma Interval history: Seen and examined at bedside; 24 hour events reviewed; nursing and respiratory care staff consulted; no adverse overnight events reported to me; resting peacefully in bed; happy to possibly be going home today; no N/V/F/C and no chest pains or increased SOB Objective Vital Signs - 12hr 03/02/17 03/02/17 03/02/17 05:00 06:29 07:25 Temperature 99.3 F 98.0 F Pulse Rate 100 H 100 H 91 H Pulse Rate [ Anterior Bilateral Throughout] Respiratory 18 22 Rate Respiratory Rate [Anterior Bilateral Throughout] Blood Pressure 173/77 173/77 160/70 O2 Sat by Pulse 96 Oximetry 03/02/17 03/02/17 03/02/17 11:00 11:10 11:37 Temperature 98.2 F Pulse Rate 80 Pulse Rate [ 72 76 Anterior Bilateral Throughout] Respiratory 20 Rate Respiratory 14 14 Rate [Anterior Bilateral Throughout] Blood Pressure 143/61 O2 Sat by Pulse Oximetry Constitutional: no acute distress, alert Eyes: non-icteric ENT: oropharynx moist Neck: supple, no lymphadenopathy Effort: normal Ascultation: Bilateral: clear, diminished breath sounds Cardiovascular: regular rate and rhythm Gastrointestinal: normoactive bowel sounds, soft, non-tender, non-distended Integumentary: normal Extremities: no cyanosis, pulses normal, no ischemia or petechiae, edema (1+ bipedal edema) Neurologic: normal mental status, non-focal exam Psychiatric: mood appropriate, affect normal CBC and BMP: 03/02/17 06:17 03/01/17 04:44 ABG, PT/INR, D-dimer: ABG POC ABG pH 7.493 (7.35-7.45) H 02/25/17 09:21 POC ABG pCO2 34.7 (35-45) L 02/25/17 09:21 POC ABG pO2 63 (80-105) L 02/25/17 09:21 POC ABG HCO3 26.6 02/25/17 09:21 POC ABG Total CO2 28 02/25/17 09:21 POC ABG O2 Sat 94 02/25/17 09:21 PT/INR, D-dimer PT 14.8 Sec. (12.2-14.9) 02/20/17 21:00 INR 1.10 (0.87-1.13) 02/20/17 21:00 Abnormal lab findings: Abnormal Labs 02/21/17 02/21/17 02/22/17 04:37 04:37 06:10 WBC 26.4 H 45.2 H* RBC Hgb Hct MCH RDW 16.2 H 16.1 H Plt Count Seg Neuts % (Manual) 38.0 L Lymphocytes % (Manual) 37.0 H 39.0 H Basophils % (Manual) Seg Neutrophils # Man 10.0 H 22.1 H Lymphocytes # (Manual) 9.8 H 17.6 H Monocytes # (Manual) 1.1 H 0.9 H Eosinophils # (Manual) Basophils # (Manual) POC ABG pH POC ABG pCO2 POC ABG pO2 Sodium Potassium Carbon Dioxide 18 L BUN 39 H Creatinine 1.5 H Glucose 177 H POC Glucose Calcium 7.7 L Magnesium Total Protein Albumin 2.9 L Crossmatch 02/22/17 02/23/17 02/23/17 06:10 03:33 03:33 WBC 45.2 H* RBC 3.50 L Hgb 9.8 L Hct 30.1 L MCH RDW 16.1 H Plt Count Seg Neuts % (Manual) Lymphocytes % (Manual) Basophils % (Manual) Seg Neutrophils # Man 19.9 H Lymphocytes # (Manual) 6.8 H Monocytes # (Manual) 2.3 H Eosinophils # (Manual) 0.5 H Basophils # (Manual) 0.5 H POC ABG pH POC ABG pCO2 POC ABG pO2 Sodium 131 L D Potassium 3.0 L Carbon Dioxide 21 L 18 L BUN 18 H Creatinine Glucose 191 H 747 H* POC Glucose Calcium 7.6 L 6.7 L Magnesium 1.60 L Total Protein 5.7 L 4.9 L Albumin 2.2 L 1.8 L Crossmatch 02/23/17 02/23/17 02/24/17 04:21 04:56 05:40 WBC 62.5 H* RBC Hgb Hct MCH 27 L RDW 15.6 H Plt Count 526 H Seg Neuts % (Manual) 26.0 L Lymphocytes % (Manual) 68.5 H Basophils % (Manual) Seg Neutrophils # Man 16.3 H Lymphocytes # (Manual) 42.8 H Monocytes # (Manual) 1.9 H Eosinophils # (Manual) Basophils # (Manual) POC ABG pH POC ABG pCO2 POC ABG pO2 Sodium Potassium Carbon Dioxide BUN Creatinine Glucose 190 H POC Glucose 212 H Calcium 7.8 L D Magnesium Total Protein Albumin Crossmatch 02/24/17 02/25/17 02/25/17 05:40 04:46 04:46 WBC 49.5 H* RBC 3.24 L Hgb 9.1 L Hct 27.7 L MCH RDW 15.6 H Plt Count 485 H Seg Neuts % (Manual) Lymphocytes % (Manual) Basophils % (Manual) Seg Neutrophils # Man 33.4 H Lymphocytes # (Manual) 11.6 H Monocytes # (Manual) 2.2 H Eosinophils # (Manual) Basophils # (Manual) 0.2 H POC ABG pH POC ABG pCO2 POC ABG pO2 Sodium Potassium 3.2 L D Carbon Dioxide BUN Creatinine Glucose 184 H 162 H POC Glucose Calcium 7.9 L 8.0 L Magnesium Total Protein Albumin Crossmatch 02/25/17 02/26/17 02/26/17 09:21 04:08 22:40 WBC RBC Hgb Hct MCH RDW Plt Count Seg Neuts % (Manual) Lymphocytes % (Manual) Basophils % (Manual) Seg Neutrophils # Man Lymphocytes # (Manual) Monocytes # (Manual) Eosinophils # (Manual) Basophils # (Manual) POC ABG pH 7.493 H POC ABG pCO2 34.7 L POC ABG pO2 63 L Sodium Potassium 3.3 L Carbon Dioxide BUN Creatinine Glucose 138 H POC Glucose 125 H Calcium 7.8 L Magnesium Total Protein Albumin Crossmatch 02/27/17 02/28/17 02/28/17 06:51 01:44 05:10 WBC 36.3 H RBC 2.83 L Hgb 8.2 L Hct 24.5 L MCH RDW 15.9 H Plt Count 455 H Seg Neuts % (Manual) 28.0 L Lymphocytes % (Manual) 65.0 H Basophils % (Manual) Seg Neutrophils # Man 10.2 H Lymphocytes # (Manual) 23.6 H Monocytes # (Manual) 2.2 H Eosinophils # (Manual) Basophils # (Manual) POC ABG pH POC ABG pCO2 POC ABG pO2 Sodium Potassium Carbon Dioxide BUN Creatinine Glucose POC Glucose 152 H 114 H Calcium Magnesium Total Protein Albumin Crossmatch 02/28/17 02/28/17 02/28/17 05:10 05:10 06:35 WBC RBC Hgb Hct MCH RDW Plt Count Seg Neuts % (Manual) Lymphocytes % (Manual) Basophils % (Manual) Seg Neutrophils # Man Lymphocytes # (Manual) Monocytes # (Manual) Eosinophils # (Manual) Basophils # (Manual) POC ABG pH POC ABG pCO2 POC ABG pO2 Sodium Potassium Carbon Dioxide BUN 4 L 4 L Creatinine Glucose 105 H 105 H POC Glucose 112 H Calcium 7.7 L 7.7 L Magnesium 1.60 L Total Protein 5.2 L Albumin 2.4 L Crossmatch 02/28/17 02/28/17 03/01/17 08:30 11:56 04:44 WBC 35.7 H RBC 3.04 L Hgb 8.5 L Hct 26.2 L MCH RDW 16.1 H Plt Count 477 H Seg Neuts % (Manual) Lymphocytes % (Manual) Basophils % (Manual) 2.0 H Seg Neutrophils # Man 17.1 H Lymphocytes # (Manual) 10.7 H Monocytes # (Manual) 1.4 H Eosinophils # (Manual) Basophils # (Manual) 0.7 H POC ABG pH POC ABG pCO2 POC ABG pO2 Sodium Potassium Carbon Dioxide BUN Creatinine Glucose POC Glucose 157 H Calcium Magnesium Total Protein Albumin Crossmatch See Detail 03/01/17 03/02/17 04:44 06:17 WBC 31.9 H RBC 2.97 L Hgb 8.4 L Hct 25.6 L MCH RDW 16.2 H Plt Count 442 H Seg Neuts % (Manual) Lymphocytes % (Manual) 53.5 H Basophils % (Manual) Seg Neutrophils # Man 13.7 H Lymphocytes # (Manual) 17.1 H Monocytes # (Manual) Eosinophils # (Manual) Basophils # (Manual) POC ABG pH POC ABG pCO2 POC ABG pO2 Sodium Potassium 3.4 L Carbon Dioxide BUN 3 L Creatinine Glucose 121 H POC Glucose Calcium 7.5 L Magnesium Total Protein Albumin Crossmatch
--- NOTE | 2017-03-02 13:49 | Progress Note ---
Assessment and Plan Pt feeling well. no compl. sathya reg diet. Reg BM's. eager to go home Abd soft, non tender surgically stable may d/c from surg perspective RTO this Sunday. should be given MVI & Fe. po antibiotics as per ID Selected Entries 03/02/17 03/02/17 11:10 11:37 Temperature 98.2 F Pulse Rate [ 76 Anterior Bilateral Throughout] Respiratory 20 Rate Laboratory Tests 03/02/17 06:17 WBC 31.9 H Hgb 8.4 L Hct 25.6 L Objective Vital Signs - 12hr 03/02/17 03/02/17 03/02/17 05:00 06:29 07:25 Temperature 99.3 F 98.0 F Pulse Rate 100 H 100 H 91 H Pulse Rate [ Anterior Bilateral Throughout] Respiratory 18 22 Rate Respiratory Rate [Anterior Bilateral Throughout] Blood Pressure 173/77 173/77 160/70 O2 Sat by Pulse 96 Oximetry 03/02/17 03/02/17 03/02/17 11:00 11:10 11:37 Temperature 98.2 F Pulse Rate 80 Pulse Rate [ 72 76 Anterior Bilateral Throughout] Respiratory 20 Rate Respiratory 14 14 Rate [Anterior Bilateral Throughout] Blood Pressure 143/61 O2 Sat by Pulse Oximetry - Labs 03/02/17 06:17 03/01/17 04:44
[2017-03-02] MEDS: CUBICIN IV SCH (18:15)
[2017-03-02] MEDS: NACL 0.9% IV SCH (18:15)
--- NOTE | 2017-03-02 19:12 | Progress Note ---
Assessment and Plan Assessment and plan: Assessment and plan: 76-year-old AAF with hypertension, asthma and chronic leukocytosis from Leukemia who presented with abdominal pain, found to have ruptured gangrenous retrocecal appendix with abscess formation. Procedure: Emergency exploratory laparotomy and appendectomy by Dr. Anthony 1. Acute peritonitis due to appendix perforation with abscess formation - status post laparotomy and appendectomy; surgery following 2. Sepsis - secondary to #1 ; on broad-spectrum antibiotics per ID recommendation; repeat CT abdomen showed 2 collections that have decreased in size, though one still remains of significant size; ID recommended 2 more weeks of broad-spectrum IV antibiotic therapy 3. Leukocytosis - secondary to sepsis pain post on chronic leukemia; slowly trending down; no intervention needed per hematology 4. Acute kidney injury - secondary to vasomotor nephropathy/HTN; resolved 5. Hypokalemia - repleted 6. Hypertension 7. Asthma - inhaled BD 8. Anemia - chronic inflammation + blood loss; on iron supplementation 9. DVT - SCDs 10. Patient cleared by surgery for discharge today and eager to go, but she needs 2 weeks of current IV antibiotics which will require insurance approval; manager case consulted; explained that this process most likely will not be completed until Sunday morning History Interval history: doing well, no complaints, tolerating diet Hospitalist Physical - Constitutional Vitals: Temp Pulse Resp BP Pulse Ox 99.0 F 85 20 165/77 98 03/02/17 17:25 03/02/17 17:25 03/02/17 17:25 03/02/17 17:25 03/02/17 14:04 General appearance: Present: no acute distress, well-nourished - EENT Eyes: Present: PERRL, EOM intact. Absent: scleral icterus, conjunctival injection - Neck Neck: Present: supple, normal ROM. Absent: masses or JVD - Respiratory Respiratory effort: normal Respiratory: bilateral: CTA, negative: rhonchi, wheezing - Cardiovascular Rhythm: regular Heart Sounds: Present: S1 & S2. Absent: systolic murmur - Extremities Extremities: no ischemia - Abdominal General gastrointestinal: soft, non-tender, non-distended, normal bowel sounds - Psychiatric Psychiatric: cooperative - Neurologic Neurologic: CNII-XII intact, no focal deficits Results - Labs CBC & Chem 7: 03/04/17 04:24 03/04/17 04:24 Labs: Laboratory Last Values WBC 31.9 K/mm3 (4.5-11.0) H 03/02/17 06:17 RBC 2.97 M/mm3 (3.65-5.03) L 03/02/17 06:17 Hgb 8.4 gm/dl (10.1-14.3) L 03/02/17 06:17 Hct 25.6 % (30.3-42.9) L 03/02/17 06:17 MCV 86 fl (79-97) 03/02/17 06:17 MCH 28 pg (28-32) 03/02/17 06:17 MCHC 33 % (30-34) 03/02/17 06:17 RDW 16.2 % (13.2-15.2) H 03/02/17 06:17 Plt Count 442 K/mm3 (140-440) H 03/02/17 06:17 Lymph % (Auto) [employer] 03/02/17 06:17 Lymph # [employer] 03/02/17 06:17 Add Manual Diff Complete 03/02/17 06:17 Total Counted 200 03/02/17 06:17 Seg Neutrophils % [employer] 03/02/17 06:17 Seg Neuts % (Manual) 43.0 % (40.0-70.0) 03/02/17 06:17 Band Neutrophils % 0 % 03/02/17 06:17 Lymphocytes % (Manual) 53.5 % (13.4-35.0) H 03/02/17 06:17 Reactive Lymphs % (Man) 0 % 03/02/17 06:17 Monocytes % (Manual) 2.5 % (0.0-7.3) 03/02/17 06:17 Eosinophils % (Manual) 0 % (0.0-4.3) 03/02/17 06:17 Basophils % (Manual) 0 % (0.0-1.8) 03/02/17 06:17 Metamyelocytes % 0 % 03/02/17 06:17 Myelocytes % 0.5 % 03/02/17 06:17 Promyelocytes % 0.5 % 03/02/17 06:17 Blast Cells % 0 % 03/02/17 06:17 Nucleated RBC % Not Reportable 03/02/17 06:17 Seg Neutrophils # Man 13.7 K/mm3 (1.8-7.7) H 03/02/17 06:17 Band Neutrophils # 0.0 K/mm3 03/02/17 06:17 Lymphocytes # (Manual) 17.1 K/mm3 (1.2-5.4) H 03/02/17 06:17 Abs React Lymphs (Man) 0.0 K/mm3 03/02/17 06:17 Monocytes # (Manual) 0.8 K/mm3 (0.0-0.8) 03/02/17 06:17 Eosinophils # (Manual) 0.0 K/mm3 (0.0-0.4) 03/02/17 06:17 Basophils # (Manual) 0.0 K/mm3 (0.0-0.1) 03/02/17 06:17 Metamyelocytes # 0.0 K/mm3 03/02/17 06:17 Myelocytes # 0.2 K/mm3 03/02/17 06:17 Promyelocytes # 0.2 K/mm3 03/02/17 06:17 Blast Cells # 0.0 K/mm3 03/02/17 06:17 Pathologist Review 02/25/17 04:46 WBC Morphology Not Reportable 03/02/17 06:17 Hypersegmented Neuts Not Reportable 03/02/17 06:17 Hyposegmented Neuts Not Reportable 03/02/17 06:17 Hypogranular Neuts Not Reportable 03/02/17 06:17 Smudge Cells 2+ 03/02/17 06:17 Toxic Granulation Not Reportable 03/02/17 06:17 Toxic Vacuolation Not Reportable 03/02/17 06:17 Dohle Bodies Not Reportable 03/02/17 06:17 Pelger-Huet Anomaly Not Reportable 03/02/17 06:17 Glo Rods Not Reportable 03/02/17 06:17 Platelet Estimate Appears normal 03/02/17 06:17 Clumped Platelets Not Reportable 03/02/17 06:17 Plt Clumps, EDTA Not Reportable 03/02/17 06:17 Large Platelets Not Reportable 03/02/17 06:17 Giant Platelets Not Reportable 03/02/17 06:17 Platelet Satelliting Not Reportable 03/02/17 06:17 Plt Morphology Comment Not Reportable 03/02/17 06:17 RBC Morphology Not Reportable 03/02/17 06:17 Dimorphic RBCs Not Reportable 03/02/17 06:17 Polychromasia Few 03/02/17 06:17 Hypochromasia Not Reportable 03/02/17 06:17 Poikilocytosis Not Reportable 03/02/17 06:17 Anisocytosis 1+ 03/02/17 06:17 Microcytosis Not Reportable 03/02/17 06:17 Macrocytosis Not Reportable 03/02/17 06:17 Spherocytes Not Reportable 03/02/17 06:17 Pappenheimer Bodies Not Reportable 03/02/17 06:17 Sickle Cells Not Reportable 03/02/17 06:17 Target Cells Few 03/02/17 06:17 Tear Drop Cells Not Reportable 03/02/17 06:17 Ovalocytes Not Reportable 03/02/17 06:17 Helmet Cells Not Reportable 03/02/17 06:17 [place] Bodies Not Reportable 03/02/17 06:17 [place] Rings Not Reportable 03/02/17 06:17 [place] Cells Not Reportable 03/02/17 06:17 Bite Cells Not Reportable 03/02/17 06:17 Crenated Cell Not Reportable 03/02/17 06:17 Elliptocytes Not Reportable 03/02/17 06:17 Acanthocytes (Spur) Not Reportable 03/02/17 06:17 Rouleaux Not Reportable 03/02/17 06:17 Hemoglobin C Crystals Not Reportable 03/02/17 06:17 Schistocytes Not Reportable 03/02/17 06:17 Malaria parasites Not Reportable 03/02/17 06:17 [place] Bodies Not Reportable 03/02/17 06:17 Hem Pathologist Commnt No 03/02/17 06:17 PT 14.8 Sec. (12.2-14.9) 02/20/17 21:00 INR 1.10 (0.87-1.13) 02/20/17 21:00 APTT 26.4 Sec. (24.2-36.6) 02/20/17 21:00 POC ABG pH 7.493 (7.35-7.45) H 02/25/17 09:21 POC ABG pCO2 34.7 (35-45) L 02/25/17 09:21 POC ABG pO2 63 (80-105) L 02/25/17 09:21 POC ABG HCO3 26.6 02/25/17 09:21 POC ABG Total CO2 28 02/25/17 09:21 POC ABG O2 Sat 94 02/25/17 09:21 POC ABG Base Excess 3 02/25/17 09:21 FiO2 21 % 02/25/17 09:21 Sodium 143 mmol/L (137-145) 03/01/17 04:44 Potassium 3.4 mmol/L (3.6-5.0) L 03/01/17 04:44 Chloride 106.7 mmol/L (98-107) 03/01/17 04:44 Carbon Dioxide 22 mmol/L (22-30) 03/01/17 04:44 Anion Gap 18 mmol/L 03/01/17 04:44 BUN 3 mg/dL (7-17) L 03/01/17 04:44 Creatinine 0.8 mg/dL (0.7-1.2) 03/01/17 04:44 Estimated GFR > 60 ml/min 03/01/17 04:44 BUN/Creatinine Ratio 3.75 % 03/01/17 04:44 Glucose 121 mg/dL (65-100) H 03/01/17 04:44 POC Glucose 157 (70-105) H 02/28/17 11:56 Lactic Acid 1.00 mmol/L (0.7-2.0) 02/21/17 13:35 Calcium 7.5 mg/dL (8.4-10.2) L 03/01/17 04:44 Phosphorus 2.70 mg/dL (2.5-4.5) 02/26/17 04:08 Magnesium 2.10 mg/dL (1.7-2.3) 03/01/17 04:44 Total Bilirubin 0.60 mg/dL (0.1-1.2) 02/28/17 05:10 AST 16 units/L (5-40) 02/28/17 05:10 ALT 11 units/L (7-56) 02/28/17 05:10 Alkaline Phosphatase 52 units/L (35-129) 02/28/17 05:10 Total Protein 5.2 g/dL (6.3-8.2) L 02/28/17 05:10 Albumin 2.4 g/dL (3.9-5) L 02/28/17 05:10 Albumin/Globulin Ratio 0.9 % 02/28/17 05:10 Lipase 26 units/L (13-60) 02/24/17 15:13 Urine Color Yellow (Yellow) 02/20/17 15:05 Urine Turbidity Slightly-cloudy (Clear) 02/20/17 15:05 Urine pH 5.0 (5.0-7.0) 02/20/17 15:05 Ur Specific [place] 1.016 (1.003-1.030) 02/20/17 15:05 Urine Protein 30 mg/dl mg/dL (Negative) 02/20/17 15:05 Urine Glucose (UA) Neg mg/dL (Negative) 02/20/17 15:05 Urine Ketones Tr mg/dL (Negative) 02/20/17 15:05 Urine Blood Mod (Negative) 02/20/17 15:05 Urine Nitrite Neg (Negative) 02/20/17 15:05 Urine Bilirubin Neg (Negative) 02/20/17 15:05 Urine Urobilinogen 2.0 mg/dL (<2.0) 02/20/17 15:05 Ur Leukocyte Esterase Mod (Negative) 02/20/17 15:05 Urine WBC (Auto) 26.0 /HPF (0.0-6.0) H 02/20/17 15:05 Urine RBC (Auto) 12.0 /HPF (0.0-6.0) 02/20/17 15:05 U Epithel Cells (Auto) 2.0 /HPF (0-13.0) 02/20/17 15:05 Hyaline Casts 1 /LPF 02/20/17 15:05 Urine Mucus Few /HPF 02/20/17 15:05 Blood Type O POSITIVE 02/28/17 08:30 Antibody Screen Negative 02/28/17 08:30 SHARON Antibody Screen Negative 02/20/17 21:10 Crossmatch See Detail 02/28/17 08:30
[2017-03-03] MEDS: ZOSYN/NS 2.25 GM/50ML 2.25 GM/50 ML BAG IV SCH ×4 (04:28→23:02)
[2017-03-03 07:08] LABS: Hemoglobin 8.3 gm/dl (10.1-14.3); Mean Corpuscular HGB Conc 32 % (30-34); Mean Corpuscular Hemoglobin 28 pg (28-32); Mean Corpuscular Volume 86 fl (79-97); Platelet Count 441 K/mm3 (140-440); Red Blood Count 3.03 M/mm3 (3.65-5.03); Red Cell Distribution Width 15.9 % (13.2-15.2)
[2017-03-03 07:15] LABS: White Blood Count 27.6 K/mm3 (4.5-11.0)
[2017-03-03] MEDS: D5/0.45NS 1,000 ML IV SCH (07:22)
[2017-03-03 07:33] LABS: Anion Gap 18 mmol/L; Blood Urea Nitrogen 3 mg/dL (7-17); Calcium 7.4 mg/dL (8.4-10.2); Carbon Dioxide 21 mmol/L (22-30); Glucose 128 mg/dL (65-100); Sodium 138 mmol/L (137-145)
[2017-03-03] MEDS: BROVANA NEBU IH SCH ×2 (09:10→19:47)
[2017-03-03] MEDS: PULMICORT IH SCH ×2 (09:10→19:47)
[2017-03-03 09:41] LABS: Anisocytosis 1+; Basophils % (Manual) 0 % (0.0-1.8); Blastocytes % (Manual) 0 %; Eosinophils % (Manual) 0.5 % (0.0-4.3); Polychromasia Few; Total Cells Counted Percent 1.5
[2017-03-03 09:42] LABS: Diff Status Complete; Target Cells Few
[2017-03-03] MEDS: THERAGRAN Tab PO SCH (09:48)
[2017-03-03] MEDS: FEOSOL PO SCH (09:48)
[2017-03-03] MEDS: PEPCID IV SCH (09:49)
[2017-03-03] MEDS: DIFLUCAN 200 ML IV SCH (10:40)
--- NOTE | 2017-03-03 11:06 | Vascular Lab Report ---
LOWER EXTREMITY VENOUS DUPLEX: REASON FOR EXAM: Swelling of the lower extremities. COMMENTS ON THE RIGHT: All veins visualized are freely compressible without evidence of internal echogenicity. Flow is spontaneous and phasic throughout. COMMENTS ON THE LEFT: All veins visualized are freely compressible without evidence of internal echogenicity. Flow is spontaneous and phasic throughout. IMPRESSION: No evidence of acute or chronic deep venous thrombosis in either lower extremity.
--- NOTE | 2017-03-03 12:07 | Progress Note ---
Assessment and Plan (1) History of asthma Current Visit: Yes Status: Acute Plan to address problem: - continue brovana & pulmoicort - prn oxygen therapy - prn albuterol (2) Leucocytosis Current Visit: Yes Status: Acute Qualifiers: Leukocytosis type: L Plan to address problem: - continue AB's per ID recs (ID consulted re: change to p.o. meds - lactic acid level unremarkable - follow clinically (3) Acute appendicitis Current Visit: Yes Status: Acute Qualifiers: Acute appendicitis type: A Plan to address problem: - complete AB's per ID recs - s/p appendectomy - tolerating p.o. meals now (4) Leg swelling Current Visit: Yes Status: Acute Plan to address problem: - not on VTE prophylaxis re: surgical issues - dopplers negative for DVT - continue VTE prophylaxis (5) Discharge planning issues Current Visit: Yes Status: Acute Plan to address problem: ...home at discharge Subjective Date of service: 03/03/17 Principal diagnosis: Sepsis Syndrome; Appendiceal Abscess; H/O Asthma Interval history: Seen and examined at bedside; 24 hour events reviewed; nursing and respiratory care staff consulted; no adverse overnight events reported to me; resting peacefully in bed; No N/V/F/C; denies acute chest pains or increased SOB Objective Vital Signs - 12hr 03/03/17 03/03/17 08:00 09:10 Temperature 98.2 F Pulse Rate 80 Pulse Rate [ 92 H Anterior Bilateral Throughout] Respiratory 18 Rate Respiratory 16 Rate [Anterior Bilateral Throughout] Blood Pressure 165/68 O2 Sat by Pulse 100 Oximetry Constitutional: no acute distress, alert Eyes: non-icteric ENT: oropharynx moist Neck: supple, no lymphadenopathy Effort: normal Ascultation: Bilateral: clear, diminished breath sounds Cardiovascular: regular rate and rhythm Gastrointestinal: normoactive bowel sounds, soft, non-tender, non-distended Integumentary: normal Extremities: no cyanosis, pulses normal, no ischemia or petechiae, edema (1+ bipedal edema) Neurologic: normal mental status, non-focal exam Psychiatric: mood appropriate, affect normal CBC and BMP: 03/05/17 05:49 03/05/17 05:49 ABG, PT/INR, D-dimer: ABG POC ABG pH 7.493 (7.35-7.45) H 02/25/17 09:21 POC ABG pCO2 34.7 (35-45) L 02/25/17 09:21 POC ABG pO2 63 (80-105) L 02/25/17 09:21 POC ABG HCO3 26.6 02/25/17 09:21 POC ABG Total CO2 28 02/25/17 09:21 POC ABG O2 Sat 94 02/25/17 09:21 PT/INR, D-dimer PT 14.8 Sec. (12.2-14.9) 02/20/17 21:00 INR 1.10 (0.87-1.13) 02/20/17 21:00 Abnormal lab findings: Abnormal Labs 02/21/17 02/21/17 02/22/17 04:37 04:37 06:10 WBC 26.4 H 45.2 H* RBC Hgb Hct MCH RDW 16.2 H 16.1 H Plt Count Seg Neuts % (Manual) 38.0 L Lymphocytes % (Manual) 37.0 H 39.0 H Basophils % (Manual) Seg Neutrophils # Man 10.0 H 22.1 H Lymphocytes # (Manual) 9.8 H 17.6 H Monocytes # (Manual) 1.1 H 0.9 H Eosinophils # (Manual) Basophils # (Manual) POC ABG pH POC ABG pCO2 POC ABG pO2 Sodium Potassium Carbon Dioxide 18 L BUN 39 H Creatinine 1.5 H Glucose 177 H POC Glucose Calcium 7.7 L Magnesium Total Protein Albumin 2.9 L Crossmatch 02/22/17 02/23/17 02/23/17 06:10 03:33 03:33 WBC 45.2 H* RBC 3.50 L Hgb 9.8 L Hct 30.1 L MCH RDW 16.1 H Plt Count Seg Neuts % (Manual) Lymphocytes % (Manual) Basophils % (Manual) Seg Neutrophils # Man 19.9 H Lymphocytes # (Manual) 6.8 H Monocytes # (Manual) 2.3 H Eosinophils # (Manual) 0.5 H Basophils # (Manual) 0.5 H POC ABG pH POC ABG pCO2 POC ABG pO2 Sodium 131 L D Potassium 3.0 L Carbon Dioxide 21 L 18 L BUN 18 H Creatinine Glucose 191 H 747 H* POC Glucose Calcium 7.6 L 6.7 L Magnesium 1.60 L Total Protein 5.7 L 4.9 L Albumin 2.2 L 1.8 L Crossmatch 02/23/17 02/23/17 02/24/17 04:21 04:56 05:40 WBC 62.5 H* RBC Hgb Hct MCH 27 L RDW 15.6 H Plt Count 526 H Seg Neuts % (Manual) 26.0 L Lymphocytes % (Manual) 68.5 H Basophils % (Manual) Seg Neutrophils # Man 16.3 H Lymphocytes # (Manual) 42.8 H Monocytes # (Manual) 1.9 H Eosinophils # (Manual) Basophils # (Manual) POC ABG pH POC ABG pCO2 POC ABG pO2 Sodium Potassium Carbon Dioxide BUN Creatinine Glucose 190 H POC Glucose 212 H Calcium 7.8 L D Magnesium Total Protein Albumin Crossmatch 02/24/17 02/25/17 02/25/17 05:40 04:46 04:46 WBC 49.5 H* RBC 3.24 L Hgb 9.1 L Hct 27.7 L MCH RDW 15.6 H Plt Count 485 H Seg Neuts % (Manual) Lymphocytes % (Manual) Basophils % (Manual) Seg Neutrophils # Man 33.4 H Lymphocytes # (Manual) 11.6 H Monocytes # (Manual) 2.2 H Eosinophils # (Manual) Basophils # (Manual) 0.2 H POC ABG pH POC ABG pCO2 POC ABG pO2 Sodium Potassium 3.2 L D Carbon Dioxide BUN Creatinine Glucose 184 H 162 H POC Glucose Calcium 7.9 L 8.0 L Magnesium Total Protein Albumin Crossmatch 02/25/17 02/26/17 02/26/17 09:21 04:08 22:40 WBC RBC Hgb Hct MCH RDW Plt Count Seg Neuts % (Manual) Lymphocytes % (Manual) Basophils % (Manual) Seg Neutrophils # Man Lymphocytes # (Manual) Monocytes # (Manual) Eosinophils # (Manual) Basophils # (Manual) POC ABG pH 7.493 H POC ABG pCO2 34.7 L POC ABG pO2 63 L Sodium Potassium 3.3 L Carbon Dioxide BUN Creatinine Glucose 138 H POC Glucose 125 H Calcium 7.8 L Magnesium Total Protein Albumin Crossmatch 02/27/17 02/28/17 02/28/17 06:51 01:44 05:10 WBC 36.3 H RBC 2.83 L Hgb 8.2 L Hct 24.5 L MCH RDW 15.9 H Plt Count 455 H Seg Neuts % (Manual) 28.0 L Lymphocytes % (Manual) 65.0 H Basophils % (Manual) Seg Neutrophils # Man 10.2 H Lymphocytes # (Manual) 23.6 H Monocytes # (Manual) 2.2 H Eosinophils # (Manual) Basophils # (Manual) POC ABG pH POC ABG pCO2 POC ABG pO2 Sodium Potassium Carbon Dioxide BUN Creatinine Glucose POC Glucose 152 H 114 H Calcium Magnesium Total Protein Albumin Crossmatch 02/28/17 02/28/17 02/28/17 05:10 05:10 06:35 WBC RBC Hgb Hct MCH RDW Plt Count Seg Neuts % (Manual) Lymphocytes % (Manual) Basophils % (Manual) Seg Neutrophils # Man Lymphocytes # (Manual) Monocytes # (Manual) Eosinophils # (Manual) Basophils # (Manual) POC ABG pH POC ABG pCO2 POC ABG pO2 Sodium Potassium Carbon Dioxide BUN 4 L 4 L Creatinine Glucose 105 H 105 H POC Glucose 112 H Calcium 7.7 L 7.7 L Magnesium 1.60 L Total Protein 5.2 L Albumin 2.4 L Crossmatch 02/28/17 02/28/17 03/01/17 08:30 11:56 04:44 WBC 35.7 H RBC 3.04 L Hgb 8.5 L Hct 26.2 L MCH RDW 16.1 H Plt Count 477 H Seg Neuts % (Manual) Lymphocytes % (Manual) Basophils % (Manual) 2.0 H Seg Neutrophils # Man 17.1 H Lymphocytes # (Manual) 10.7 H Monocytes # (Manual) 1.4 H Eosinophils # (Manual) Basophils # (Manual) 0.7 H POC ABG pH POC ABG pCO2 POC ABG pO2 Sodium Potassium Carbon Dioxide BUN Creatinine Glucose POC Glucose 157 H Calcium Magnesium Total Protein Albumin Crossmatch See Detail 03/01/17 03/02/17 03/03/17 04:44 06:17 06:37 WBC 31.9 H 27.6 H RBC 2.97 L 3.03 L Hgb 8.4 L 8.3 L Hct 25.6 L 26.0 L MCH RDW 16.2 H 15.9 H Plt Count 442 H 441 H Seg Neuts % (Manual) 34.0 L Lymphocytes % (Manual) 53.5 H 59.0 H Basophils % (Manual) Seg Neutrophils # Man 13.7 H 9.4 H Lymphocytes # (Manual) 17.1 H 16.3 H Monocytes # (Manual) Eosinophils # (Manual) Basophils # (Manual) POC ABG pH POC ABG pCO2 POC ABG pO2 Sodium Potassium 3.4 L Carbon Dioxide BUN 3 L Creatinine Glucose 121 H POC Glucose Calcium 7.5 L Magnesium Total Protein Albumin Crossmatch 03/03/17 06:37 WBC RBC Hgb Hct MCH RDW Plt Count Seg Neuts % (Manual) Lymphocytes % (Manual) Basophils % (Manual) Seg Neutrophils # Man Lymphocytes # (Manual) Monocytes # (Manual) Eosinophils # (Manual) Basophils # (Manual) POC ABG pH POC ABG pCO2 POC ABG pO2 Sodium Potassium 3.0 L Carbon Dioxide 21 L BUN 3 L Creatinine Glucose 128 H POC Glucose Calcium 7.4 L Magnesium Total Protein Albumin Crossmatch
--- NOTE | 2017-03-03 13:55 | Progress Note ---
Assessment and Plan Pt surgically stable. no compl awaiting ins approval for po antibiotics needs K supplementation to d/c once d/c arrangements completed Selected Entries 03/03/17 03/03/17 08:00 09:10 Temperature 98.2 F Pulse Rate [ 92 H Anterior Bilateral Throughout] Blood Pressure 165/68 Laboratory Tests 03/03/17 03/03/17 06:37 06:37 WBC 27.6 H Hgb 8.3 L Hct 26.0 L Sodium 138 Potassium 3.0 L Chloride 102.0 Carbon Dioxide 21 L BUN 3 L Creatinine 1.0 Objective Vital Signs - 12hr 03/03/17 03/03/17 08:00 09:10 Temperature 98.2 F Pulse Rate 80 Pulse Rate [ 92 H Anterior Bilateral Throughout] Respiratory 18 Rate Respiratory 16 Rate [Anterior Bilateral Throughout] Blood Pressure 165/68 O2 Sat by Pulse 100 Oximetry - Labs 03/03/17 06:37 03/03/17 06:37 Diabetes panel 03/03/17 Range/Units 06:37 Sodium 138 (137-145) mmol/L Potassium 3.0 L (3.6-5.0) mmol/L Chloride 102.0 (98-107) mmol/L Carbon Dioxide 21 L (22-30) mmol/L BUN 3 L (7-17) mg/dL Creatinine 1.0 (0.7-1.2) mg/dL Glucose 128 H (65-100) mg/dL Calcium 7.4 L (8.4-10.2) mg/dL Calcium panel 03/03/17 Range/Units 06:37 Calcium 7.4 L (8.4-10.2) mg/dL Pituitary panel 03/03/17 Range/Units 06:37 Sodium 138 (137-145) mmol/L Potassium 3.0 L (3.6-5.0) mmol/L Chloride 102.0 (98-107) mmol/L Carbon Dioxide 21 L (22-30) mmol/L BUN 3 L (7-17) mg/dL Creatinine 1.0 (0.7-1.2) mg/dL Glucose 128 H (65-100) mg/dL Calcium 7.4 L (8.4-10.2) mg/dL Adrenal panel 03/03/17 Range/Units 06:37 Sodium 138 (137-145) mmol/L Potassium 3.0 L (3.6-5.0) mmol/L Chloride 102.0 (98-107) mmol/L Carbon Dioxide 21 L (22-30) mmol/L BUN 3 L (7-17) mg/dL Creatinine 1.0 (0.7-1.2) mg/dL Glucose 128 H (65-100) mg/dL Calcium 7.4 L (8.4-10.2) mg/dL
[2017-03-03] MEDS ORDERED: K-DUR PO ONE (16:00)
[2017-03-03] MEDS: NACL 0.9% IV SCH (18:01)
[2017-03-03] MEDS: CUBICIN IV SCH (18:01)
--- NOTE | 2017-03-03 20:31 | Progress Note ---
Assessment and Plan Assessment and plan: 76-year-old AAF with hypertension, asthma and chronic leukocytosis from Leukemia who presented with abdominal pain, found to have ruptured gangrenous retrocecal appendix with abscess formation. Procedure: Emergency exploratory laparotomy and appendectomy by Dr. Anthony 1. Acute peritonitis due to appendix perforation with abscess formation - status post laparotomy and appendectomy; surgery following 2. Sepsis - secondary to #1 ; on broad-spectrum antibiotics per ID recommendation; repeat CT abdomen showed 2 collections that have decreased in size, though one still remains of significant size; ID recommended 2 more weeks of broad-spectrum IV antibiotic therapy 3. Leukocytosis - secondary to sepsis superimposed on chronic leukemia; slowly trending down; no intervention needed per hematology 4. Acute kidney injury - secondary to vasomotor nephropathy/HTN; resolved 5. Hypokalemia - repleted 6. Hypertension 7. Asthma - inhaled BD 8. Anemia - chronic inflammation + blood loss; on iron supplementation 9. DVT - SCDs 10. Patient cleared by surgery for discharge today and eager to go, but she needs 2 weeks of current IV antibiotics which will require insurance approval; pillowcase cutter consulted; explained that this process most likely will not be completed until Sunday morning History Interval history: No complaints, no events; doing well Hospitalist Physical - Constitutional Vitals: Temp Pulse Resp BP Pulse Ox 98.3 F 81 18 149/63 100 03/03/17 16:01 03/03/17 19:49 03/03/17 20:19 03/03/17 16:01 03/03/17 08:00 General appearance: Present: no acute distress - EENT Eyes: Present: PERRL, EOM intact. Absent: scleral icterus, conjunctival injection - Neck Neck: Present: supple, normal ROM. Absent: masses or JVD - Respiratory Respiratory effort: normal Respiratory: bilateral: CTA, negative: rales, rhonchi - Cardiovascular Rhythm: regular Heart Sounds: Present: S1 & S2. Absent: systolic murmur - Extremities Extremities: no ischemia - Abdominal General gastrointestinal: soft, non-tender, non-distended, normal bowel sounds - Psychiatric Psychiatric: cooperative - Neurologic Neurologic: CNII-XII intact, no focal deficits Results - Labs CBC & Chem 7: 03/04/17 04:24 03/04/17 04:24 Labs: Laboratory Last Values WBC 27.6 K/mm3 (4.5-11.0) H 03/03/17 06:37 RBC 3.03 M/mm3 (3.65-5.03) L 03/03/17 06:37 Hgb 8.3 gm/dl (10.1-14.3) L 03/03/17 06:37 Hct 26.0 % (30.3-42.9) L 03/03/17 06:37 MCV 86 fl (79-97) 03/03/17 06:37 MCH 28 pg (28-32) 03/03/17 06:37 MCHC 32 % (30-34) 03/03/17 06:37 RDW 15.9 % (13.2-15.2) H 03/03/17 06:37 Plt Count 441 K/mm3 (140-440) H 03/03/17 06:37 Lymph % (Auto) Radioisotope Production Operator 03/03/17 06:37 Lymph # Radioisotope Production Operator 03/03/17 06:37 Add Manual Diff Complete 03/03/17 06:37 Total Counted 200 03/03/17 06:37 Seg Neutrophils % Radioisotope Production Operator 03/03/17 06:37 Seg Neuts % (Manual) 34.0 % (40.0-70.0) L 03/03/17 06:37 Band Neutrophils % 5.5 % 03/03/17 06:37 Lymphocytes % (Manual) 59.0 % (13.4-35.0) H 03/03/17 06:37 Reactive Lymphs % (Man) 0 % 03/03/17 06:37 Monocytes % (Manual) 1.0 % (0.0-7.3) 03/03/17 06:37 Eosinophils % (Manual) 0.5 % (0.0-4.3) 03/03/17 06:37 Basophils % (Manual) 0 % (0.0-1.8) 03/03/17 06:37 Metamyelocytes % 0 % 03/03/17 06:37 Myelocytes % 0 % 03/03/17 06:37 Promyelocytes % 0 % 03/03/17 06:37 Blast Cells % 0 % 03/03/17 06:37 Nucleated RBC % Not Reportable 03/03/17 06:37 Seg Neutrophils # Man 9.4 K/mm3 (1.8-7.7) H 03/03/17 06:37 Band Neutrophils # 1.5 K/mm3 03/03/17 06:37 Lymphocytes # (Manual) 16.3 K/mm3 (1.2-5.4) H 03/03/17 06:37 Abs React Lymphs (Man) 0.0 K/mm3 03/03/17 06:37 Monocytes # (Manual) 0.3 K/mm3 (0.0-0.8) 03/03/17 06:37 Eosinophils # (Manual) 0.1 K/mm3 (0.0-0.4) 03/03/17 06:37 Basophils # (Manual) 0.0 K/mm3 (0.0-0.1) 03/03/17 06:37 Metamyelocytes # 0.0 K/mm3 03/03/17 06:37 Myelocytes # 0.0 K/mm3 03/03/17 06:37 Promyelocytes # 0.0 K/mm3 03/03/17 06:37 Blast Cells # 0.0 K/mm3 03/03/17 06:37 Pathologist Review 02/25/17 04:46 WBC Morphology Not Reportable 03/03/17 06:37 Hypersegmented Neuts Not Reportable 03/03/17 06:37 Hyposegmented Neuts Not Reportable 03/03/17 06:37 Hypogranular Neuts Not Reportable 03/03/17 06:37 Smudge Cells Not Reportable 03/03/17 06:37 Toxic Granulation Not Reportable 03/03/17 06:37 Toxic Vacuolation Not Reportable 03/03/17 06:37 Dohle Bodies Not Reportable 03/03/17 06:37 Pelger-Huet Anomaly Not Reportable 03/03/17 06:37 Glo Rods Not Reportable 03/03/17 06:37 Platelet Estimate Appears normal 03/03/17 06:37 Clumped Platelets Not Reportable 03/03/17 06:37 Plt Clumps, EDTA Not Reportable 03/03/17 06:37 Large Platelets Not Reportable 03/03/17 06:37 Giant Platelets Not Reportable 03/03/17 06:37 Platelet Satelliting Not Reportable 03/03/17 06:37 Plt Morphology Comment Not Reportable 03/03/17 06:37 RBC Morphology Not Reportable 03/03/17 06:37 Dimorphic RBCs Not Reportable 03/03/17 06:37 Polychromasia Few 03/03/17 06:37 Hypochromasia Not Reportable 03/03/17 06:37 Poikilocytosis Not Reportable 03/03/17 06:37 Anisocytosis 1+ 03/03/17 06:37 Microcytosis Not Reportable 03/03/17 06:37 Macrocytosis Not Reportable 03/03/17 06:37 Spherocytes Not Reportable 03/03/17 06:37 Pappenheimer Bodies Not Reportable 03/03/17 06:37 Sickle Cells Not Reportable 03/03/17 06:37 Target Cells Few 03/03/17 06:37 Tear Drop Cells Not Reportable 03/03/17 06:37 Ovalocytes Not Reportable 03/03/17 06:37 Helmet Cells Not Reportable 03/03/17 06:37 [place] Bodies Not Reportable 03/03/17 06:37 [place] Rings Not Reportable 03/03/17 06:37 [place] Cells Not Reportable 03/03/17 06:37 Bite Cells Not Reportable 03/03/17 06:37 Crenated Cell Not Reportable 03/03/17 06:37 Elliptocytes Not Reportable 03/03/17 06:37 Acanthocytes (Spur) Not Reportable 03/03/17 06:37 Rouleaux Not Reportable 03/03/17 06:37 Hemoglobin C Crystals Not Reportable 03/03/17 06:37 Schistocytes Not Reportable 03/03/17 06:37 Malaria parasites Not Reportable 03/03/17 06:37 [place] Bodies Not Reportable 03/03/17 06:37 Hem Pathologist Commnt No 03/03/17 06:37 PT 14.8 Sec. (12.2-14.9) 02/20/17 21:00 INR 1.10 (0.87-1.13) 02/20/17 21:00 APTT 26.4 Sec. (24.2-36.6) 02/20/17 21:00 POC ABG pH 7.493 (7.35-7.45) H 02/25/17 09:21 POC ABG pCO2 34.7 (35-45) L 02/25/17 09:21 POC ABG pO2 63 (80-105) L 02/25/17 09:21 POC ABG HCO3 26.6 02/25/17 09:21 POC ABG Total CO2 28 02/25/17 09:21 POC ABG O2 Sat 94 02/25/17 09:21 POC ABG Base Excess 3 02/25/17 09:21 FiO2 21 % 02/25/17 09:21 Sodium 138 mmol/L (137-145) 03/03/17 06:37 Potassium 3.0 mmol/L (3.6-5.0) L 03/03/17 06:37 Chloride 102.0 mmol/L (98-107) 03/03/17 06:37 Carbon Dioxide 21 mmol/L (22-30) L 03/03/17 06:37 Anion Gap 18 mmol/L 03/03/17 06:37 BUN 3 mg/dL (7-17) L 03/03/17 06:37 Creatinine 1.0 mg/dL (0.7-1.2) 03/03/17 06:37 Estimated GFR > 60 ml/min 03/03/17 06:37 BUN/Creatinine Ratio 3.00 % 03/03/17 06:37 Glucose 128 mg/dL (65-100) H 03/03/17 06:37 POC Glucose 157 (70-105) H 02/28/17 11:56 Lactic Acid 1.00 mmol/L (0.7-2.0) 02/21/17 13:35 Calcium 7.4 mg/dL (8.4-10.2) L 03/03/17 06:37 Phosphorus 2.70 mg/dL (2.5-4.5) 02/26/17 04:08 Magnesium 2.10 mg/dL (1.7-2.3) 03/01/17 04:44 Total Bilirubin 0.60 mg/dL (0.1-1.2) 02/28/17 05:10 AST 16 units/L (5-40) 02/28/17 05:10 ALT 11 units/L (7-56) 02/28/17 05:10 Alkaline Phosphatase 52 units/L (35-129) 02/28/17 05:10 Total Protein 5.2 g/dL (6.3-8.2) L 02/28/17 05:10 Albumin 2.4 g/dL (3.9-5) L 02/28/17 05:10 Albumin/Globulin Ratio 0.9 % 02/28/17 05:10 Lipase 26 units/L (13-60) 02/24/17 15:13 Urine Color Yellow (Yellow) 02/20/17 15:05 Urine Turbidity Slightly-cloudy (Clear) 02/20/17 15:05 Urine pH 5.0 (5.0-7.0) 02/20/17 15:05 Ur Specific [place] 1.016 (1.003-1.030) 02/20/17 15:05 Urine Protein 30 mg/dl mg/dL (Negative) 02/20/17 15:05 Urine Glucose (UA) Neg mg/dL (Negative) 02/20/17 15:05 Urine Ketones Tr mg/dL (Negative) 02/20/17 15:05 Urine Blood Mod (Negative) 02/20/17 15:05 Urine Nitrite Neg (Negative) 02/20/17 15:05 Urine Bilirubin Neg (Negative) 02/20/17 15:05 Urine Urobilinogen 2.0 mg/dL (<2.0) 02/20/17 15:05 Ur Leukocyte Esterase Mod (Negative) 02/20/17 15:05 Urine WBC (Auto) 26.0 /HPF (0.0-6.0) H 02/20/17 15:05 Urine RBC (Auto) 12.0 /HPF (0.0-6.0) 02/20/17 15:05 U Epithel Cells (Auto) 2.0 /HPF (0-13.0) 02/20/17 15:05 Hyaline Casts 1 /LPF 02/20/17 15:05 Urine Mucus Few /HPF 02/20/17 15:05 Blood Type O POSITIVE 02/28/17 08:30 Antibody Screen Negative 02/28/17 08:30 SHARON Antibody Screen Negative 02/20/17 21:10 Crossmatch See Detail 02/28/17 08:30
[2017-03-03] MEDS: MORPHINE IV PRN (23:16)
[2017-03-04] MEDS: ZOSYN/NS 2.25 GM/50ML 2.25 GM/50 ML BAG IV SCH (04:38)
[2017-03-04 04:49] LABS: Hematocrit 26.4 % (30.3-42.9); Hemoglobin 8.5 gm/dl (10.1-14.3); Mean Corpuscular HGB Conc 32 % (30-34); Mean Corpuscular Hemoglobin 28 pg (28-32); Mean Corpuscular Volume 86 fl (79-97); Platelet Count 416 K/mm3 (140-440); Red Blood Count 3.07 M/mm3 (3.65-5.03); Red Cell Distribution Width 16.4 % (13.2-15.2)
[2017-03-04 04:51] LABS: White Blood Count 25.9 K/mm3 (4.5-11.0)
[2017-03-04 05:02] LABS: BUN/Creatinine Ratio 2.72; Calcium 7.7 mg/dL (8.4-10.2); Chloride 110.5 mmol/L (98-107)
[2017-03-04 05:35] LABS: Potassium 4.1 mmol/L (3.6-5.0)
[2017-03-04 06:26] LABS: Anisocytosis 1+; Basophils % (Manual) 0 % (0.0-1.8); Blastocytes % (Manual) 0 %; Hypochromasia Rare; Polychromasia Rare
[2017-03-04 06:27] LABS: Diff Status Complete; Platelet Estimate Consistent w Auto
[2017-03-04] MEDS: BROVANA NEBU IH SCH ×2 (07:33→20:52)
[2017-03-04] MEDS: PULMICORT IH SCH ×2 (07:34→20:52)
[2017-03-04] MEDS: FEOSOL PO SCH (09:51)
[2017-03-04] MEDS: THERAGRAN Tab PO SCH (09:51)
[2017-03-04] MEDS: PEPCID IV SCH (09:51)
[2017-03-04] MEDS: DIFLUCAN 200 ML IV SCH (09:56)
[2017-03-04] MEDS ORDERED: ZOSYN/NS 3.375GM/50ML 3.375 GM/50 ML BAG IV SCH (12:00)
--- NOTE | 2017-03-04 12:01 | Progress Note ---
Assessment and Plan - Patient Problems (1) Intra-abdominal abscess Current Visit: Yes Status: Acute Plan to address problem: 1. WBC continues to slowly decrease. 2. More recent abdominal CT imaging shows improvement of intra-abdominal abscesses, though one collection remains >5cm in largest diameter. 3. Preference is for continued IV antimicrobial management until collection' s size approaches 1.5-2 cm. However, Ms. hZeng explained that she has to go home and "pay my bills". I asked if she had someone who could manage her financial obligations for her and she said "no". I discussed the potential risks and benefits of transitioning to oral therapy, including suboptimal treatment response. She expressed an understanding of this. 4. I am requesting case management assistance with Linezolid approval. 5. Ms. Zheng should follow-up with her surgeon, but also with me in my office in [facility]. She is provided with the contact information to make the appointment. (2) Appendiceal abscess Current Visit: Yes Status: Acute Plan to address problem: Patient is s/p appendectomy. (3) Leukemoid reaction Current Visit: Yes Status: Acute Plan to address problem: Slowly downtrending. Continue to monitor. Subjective Date of service: 03/04/17 Principal diagnosis: Appendiceal Abscess; H/O Asthma Interval history: Remains stable. WBC count slowly trending down. Patient denies rash, pruritis or diarrhea. Objective - Constitutional Vitals: Vital Signs Temp Pulse Resp BP Pulse Ox 98.4 F 78 18 151/70 98 03/04/17 08:10 03/04/17 08:10 03/04/17 08:10 03/04/17 08:10 03/04/17 08:10 Temperature -Last 24 Hours Temperature 98.4 F Temperature 98.7 F Temperature 98.3 F General appearance: Present: no acute distress, other (non-toxic appearance) - Respiratory Respiratory effort: normal Respiratory: bilateral: CTA - Cardiovascular Rhythm: regular Heart Sounds: Present: S1 & S2 Extremities: No edema - Gastrointestinal General gastrointestinal: Present: soft, non-distended, hypoactive bowel sounds , other (mild serous drainage from prior AMBER drain site, no surrounding inflammation) - Integumentary Integumentary: clear, no rash - Psychiatric Psychiatric: appropriate mood/affect, intact judgment & insight - Labs CBC & Chem 7: 03/04/17 04:24 03/04/17 04:24 Labs: Abnormal lab results 03/04/17 03/04/17 Range/Units 04:24 04:24 WBC 25.9 H (4.5-11.0) K/mm3 RBC 3.07 L (3.65-5.03) M/mm3 Hgb 8.5 L (10.1-14.3) gm/dl Hct 26.4 L (30.3-42.9) % RDW 16.4 H (13.2-15.2) % Seg Neuts % (Manual) 25.0 L (40.0-70.0) % Lymphocytes % (Manual) 67.0 H (13.4-35.0) % Lymphocytes # (Manual) 17.4 H (1.2-5.4) K/mm3 Sodium 146 H D (137-145) mmol/L Chloride 110.5 H (98-107) mmol/L BUN 3 L (7-17) mg/dL Calcium 7.7 L (8.4-10.2) mg/dL Microbiology 02/20/17 21:47 Peripheral/Venous Blood Culture - Final NO GROWTH AFTER 5 DAYS 02/20/17 21:47 Peripheral/Venous Blood Culture - Final NO GROWTH AFTER 5 DAYS 02/21/17 00:00 Appendix Surgical Culture - Final Escherichia Coli Enterococcus Faecium 02/21/17 00:00 Appendix Anaerobic Culture - Final 02/20/17 Unknown Urine,Clean Catch Urine Culture - Final - Imaging and cardiology Venous US: report reviewed (no acute or chronic DVT in either lower extremity)
--- NOTE | 2017-03-04 14:04 | Progress Note ---
Assessment and Plan (1) History of asthma Current Visit: Yes Status: Acute Plan to address problem: - continue brovana & pulmoicort - prn oxygen therapy - prn albuterol (2) Leucocytosis Current Visit: Yes Status: Acute Qualifiers: Leukocytosis type: L Plan to address problem: - continue AB's per ID recs (ID consulted re: change to p.o. meds - lactic acid level unremarkable - follow clinically (3) Acute appendicitis Current Visit: Yes Status: Acute Qualifiers: Acute appendicitis type: A Plan to address problem: - complete AB's per ID recs - s/p appendectomy - tolerating p.o. meals now (4) Leg swelling Current Visit: Yes Status: Acute Plan to address problem: - not on VTE prophylaxis re: surgical issues - dopplers negative for DVT - continue VTE prophylaxis (5) Discharge planning issues Current Visit: Yes Status: Acute Plan to address problem: ...home at discharge Subjective Date of service: 03/04/17 Principal diagnosis: Appendiceal Abscess; H/O Asthma Interval history: Seen and examined at bedside; 24 hour events reviewed; nursing and respiratory care staff consulted; no adverse overnight events reported to me; continues to do well; PT/OT ongoing; no high grade fevers; denies any wheezing or BADILLO Objective Vital Signs - 12hr 03/04/17 03/04/17 03/04/17 07:35 07:48 08:10 Temperature 98.4 F Pulse Rate 78 Pulse Rate [ 84 85 Anterior Bilateral Throughout] Respiratory 18 Rate Respiratory 18 18 Rate [Anterior Bilateral Throughout] Blood Pressure 151/70 O2 Sat by Pulse 98 Oximetry Constitutional: no acute distress, alert Eyes: non-icteric ENT: oropharynx moist Neck: supple, no lymphadenopathy Effort: normal Ascultation: Bilateral: clear, diminished breath sounds Cardiovascular: regular rate and rhythm Gastrointestinal: normoactive bowel sounds, soft, non-tender, non-distended Integumentary: normal Extremities: no cyanosis, no edema, pulses normal, no ischemia or petechiae Neurologic: normal mental status, non-focal exam Psychiatric: mood appropriate, affect normal CBC and BMP: 03/05/17 05:49 03/05/17 05:49 ABG, PT/INR, D-dimer: ABG POC ABG pH 7.493 (7.35-7.45) H 02/25/17 09:21 POC ABG pCO2 34.7 (35-45) L 02/25/17 09:21 POC ABG pO2 63 (80-105) L 02/25/17 09:21 POC ABG HCO3 26.6 02/25/17 09:21 POC ABG Total CO2 28 02/25/17 09:21 POC ABG O2 Sat 94 02/25/17 09:21 PT/INR, D-dimer PT 14.8 Sec. (12.2-14.9) 02/20/17 21:00 INR 1.10 (0.87-1.13) 02/20/17 21:00 Abnormal lab findings: Abnormal Labs 02/21/17 02/21/17 02/22/17 04:37 04:37 06:10 WBC 26.4 H 45.2 H* RBC Hgb Hct MCH RDW 16.2 H 16.1 H Plt Count Seg Neuts % (Manual) 38.0 L Lymphocytes % (Manual) 37.0 H 39.0 H Basophils % (Manual) Seg Neutrophils # Man 10.0 H 22.1 H Lymphocytes # (Manual) 9.8 H 17.6 H Monocytes # (Manual) 1.1 H 0.9 H Eosinophils # (Manual) Basophils # (Manual) POC ABG pH POC ABG pCO2 POC ABG pO2 Sodium Potassium Chloride Carbon Dioxide 18 L BUN 39 H Creatinine 1.5 H Glucose 177 H POC Glucose Calcium 7.7 L Magnesium Total Protein Albumin 2.9 L Crossmatch 02/22/17 02/23/17 02/23/17 06:10 03:33 03:33 WBC 45.2 H* RBC 3.50 L Hgb 9.8 L Hct 30.1 L MCH RDW 16.1 H Plt Count Seg Neuts % (Manual) Lymphocytes % (Manual) Basophils % (Manual) Seg Neutrophils # Man 19.9 H Lymphocytes # (Manual) 6.8 H Monocytes # (Manual) 2.3 H Eosinophils # (Manual) 0.5 H Basophils # (Manual) 0.5 H POC ABG pH POC ABG pCO2 POC ABG pO2 Sodium 131 L D Potassium 3.0 L Chloride Carbon Dioxide 21 L 18 L BUN 18 H Creatinine Glucose 191 H 747 H* POC Glucose Calcium 7.6 L 6.7 L Magnesium 1.60 L Total Protein 5.7 L 4.9 L Albumin 2.2 L 1.8 L Crossmatch 02/23/17 02/23/17 02/24/17 04:21 04:56 05:40 WBC 62.5 H* RBC Hgb Hct MCH 27 L RDW 15.6 H Plt Count 526 H Seg Neuts % (Manual) 26.0 L Lymphocytes % (Manual) 68.5 H Basophils % (Manual) Seg Neutrophils # Man 16.3 H Lymphocytes # (Manual) 42.8 H Monocytes # (Manual) 1.9 H Eosinophils # (Manual) Basophils # (Manual) POC ABG pH POC ABG pCO2 POC ABG pO2 Sodium Potassium Chloride Carbon Dioxide BUN Creatinine Glucose 190 H POC Glucose 212 H Calcium 7.8 L D Magnesium Total Protein Albumin Crossmatch 02/24/17 02/25/17 02/25/17 05:40 04:46 04:46 WBC 49.5 H* RBC 3.24 L Hgb 9.1 L Hct 27.7 L MCH RDW 15.6 H Plt Count 485 H Seg Neuts % (Manual) Lymphocytes % (Manual) Basophils % (Manual) Seg Neutrophils # Man 33.4 H Lymphocytes # (Manual) 11.6 H Monocytes # (Manual) 2.2 H Eosinophils # (Manual) Basophils # (Manual) 0.2 H POC ABG pH POC ABG pCO2 POC ABG pO2 Sodium Potassium 3.2 L D Chloride Carbon Dioxide BUN Creatinine Glucose 184 H 162 H POC Glucose Calcium 7.9 L 8.0 L Magnesium Total Protein Albumin Crossmatch 02/25/17 02/26/17 02/26/17 09:21 04:08 22:40 WBC RBC Hgb Hct MCH RDW Plt Count Seg Neuts % (Manual) Lymphocytes % (Manual) Basophils % (Manual) Seg Neutrophils # Man Lymphocytes # (Manual) Monocytes # (Manual) Eosinophils # (Manual) Basophils # (Manual) POC ABG pH 7.493 H POC ABG pCO2 34.7 L POC ABG pO2 63 L Sodium Potassium 3.3 L Chloride Carbon Dioxide BUN Creatinine Glucose 138 H POC Glucose 125 H Calcium 7.8 L Magnesium Total Protein Albumin Crossmatch 02/27/17 02/28/17 02/28/17 06:51 01:44 05:10 WBC 36.3 H RBC 2.83 L Hgb 8.2 L Hct 24.5 L MCH RDW 15.9 H Plt Count 455 H Seg Neuts % (Manual) 28.0 L Lymphocytes % (Manual) 65.0 H Basophils % (Manual) Seg Neutrophils # Man 10.2 H Lymphocytes # (Manual) 23.6 H Monocytes # (Manual) 2.2 H Eosinophils # (Manual) Basophils # (Manual) POC ABG pH POC ABG pCO2 POC ABG pO2 Sodium Potassium Chloride Carbon Dioxide BUN Creatinine Glucose POC Glucose 152 H 114 H Calcium Magnesium Total Protein Albumin Crossmatch 02/28/17 02/28/17 02/28/17 05:10 05:10 06:35 WBC RBC Hgb Hct MCH RDW Plt Count Seg Neuts % (Manual) Lymphocytes % (Manual) Basophils % (Manual) Seg Neutrophils # Man Lymphocytes # (Manual) Monocytes # (Manual) Eosinophils # (Manual) Basophils # (Manual) POC ABG pH POC ABG pCO2 POC ABG pO2 Sodium Potassium Chloride Carbon Dioxide BUN 4 L 4 L Creatinine Glucose 105 H 105 H POC Glucose 112 H Calcium 7.7 L 7.7 L Magnesium 1.60 L Total Protein 5.2 L Albumin 2.4 L Crossmatch 02/28/17 02/28/17 03/01/17 08:30 11:56 04:44 WBC 35.7 H RBC 3.04 L Hgb 8.5 L Hct 26.2 L MCH RDW 16.1 H Plt Count 477 H Seg Neuts % (Manual) Lymphocytes % (Manual) Basophils % (Manual) 2.0 H Seg Neutrophils # Man 17.1 H Lymphocytes # (Manual) 10.7 H Monocytes # (Manual) 1.4 H Eosinophils # (Manual) Basophils # (Manual) 0.7 H POC ABG pH POC ABG pCO2 POC ABG pO2 Sodium Potassium Chloride Carbon Dioxide BUN Creatinine Glucose POC Glucose 157 H Calcium Magnesium Total Protein Albumin Crossmatch See Detail 03/01/17 03/02/17 03/03/17 04:44 06:17 06:37 WBC 31.9 H 27.6 H RBC 2.97 L 3.03 L Hgb 8.4 L 8.3 L Hct 25.6 L 26.0 L MCH RDW 16.2 H 15.9 H Plt Count 442 H 441 H Seg Neuts % (Manual) 34.0 L Lymphocytes % (Manual) 53.5 H 59.0 H Basophils % (Manual) Seg Neutrophils # Man 13.7 H 9.4 H Lymphocytes # (Manual) 17.1 H 16.3 H Monocytes # (Manual) Eosinophils # (Manual) Basophils # (Manual) POC ABG pH POC ABG pCO2 POC ABG pO2 Sodium Potassium 3.4 L Chloride Carbon Dioxide BUN 3 L Creatinine Glucose 121 H POC Glucose Calcium 7.5 L Magnesium Total Protein Albumin Crossmatch 03/03/17 03/04/17 03/04/17 06:37 04:24 04:24 WBC 25.9 H RBC 3.07 L Hgb 8.5 L Hct 26.4 L MCH RDW 16.4 H Plt Count Seg Neuts % (Manual) 25.0 L Lymphocytes % (Manual) 67.0 H Basophils % (Manual) Seg Neutrophils # Man Lymphocytes # (Manual) 17.4 H Monocytes # (Manual) Eosinophils # (Manual) Basophils # (Manual) POC ABG pH POC ABG pCO2 POC ABG pO2 Sodium 146 H D Potassium 3.0 L Chloride 110.5 H Carbon Dioxide 21 L BUN 3 L 3 L Creatinine Glucose 128 H POC Glucose Calcium 7.4 L 7.7 L Magnesium Total Protein Albumin Crossmatch
[2017-03-04] MEDS: LEVAQUIN PO SCH (14:28)
[2017-03-04] MEDS: ZYVOX PO SCH ×2 (15:07→22:41)
--- NOTE | 2017-03-04 22:42 | Progress Note ---
Assessment and Plan Assessment and plan: 76-year-old AAF with hypertension, asthma and chronic leukocytosis from Leukemia who presented with abdominal pain, found to have ruptured gangrenous retrocecal appendix with abscess formation. 1. Acute peritonitis due to appendix perforation with abscess formation - status post laparotomy and appendectomy; surgery following 2. Sepsis - secondary to #1 ; on broad-spectrum antibiotics per ID recommendation; repeat CT abdomen showed 2 collections that have decreased in size, though one still remains of significant size; ID recommended 2 more weeks of broad-spectrum IV antibiotic therapy 3. Leukocytosis - secondary to sepsis superimposed on chronic leukemia; slowly trending down; no intervention needed per hematology 4. Acute kidney injury - secondary to vasomotor nephropathy/HTN; resolved 5. Hypokalemia - repleted 6. Hypertension 7. Asthma - inhaled BD 8. Anemia - chronic inflammation + blood loss; on iron supplementation 9. DVT - SCDs 10. Patient cleared by surgery for discharge today and eager to go, but she needs 2 weeks of current IV antibiotics which will require insurance approval; porter sample case consulted; explained that this process most likely will not be completed until Sunday morning History Interval history: No complaints, no events; doing well Hospitalist Physical - Constitutional Vitals: Temp Pulse Resp BP Pulse Ox 98.2 F 82 16 164/67 97 03/04/17 20:20 03/04/17 21:10 03/04/17 21:10 03/04/17 20:20 03/04/17 20:20 General appearance: Present: no acute distress, well-nourished - EENT Eyes: Present: PERRL, EOM intact. Absent: scleral icterus, conjunctival injection - Neck Neck: Present: supple, normal ROM. Absent: masses or JVD - Respiratory Respiratory effort: normal Respiratory: bilateral: CTA, negative: rales, rhonchi - Cardiovascular Rhythm: regular Heart Sounds: Present: S1 & S2. Absent: systolic murmur - Extremities Extremities: no ischemia - Abdominal General gastrointestinal: soft, non-tender, non-distended, normal bowel sounds - Psychiatric Psychiatric: cooperative - Neurologic Neurologic: CNII-XII intact, no focal deficits Results - Labs CBC & Chem 7: 03/04/17 04:24 03/04/17 04:24 Labs: Laboratory Last Values WBC 25.9 K/mm3 (4.5-11.0) H 03/04/17 04:24 RBC 3.07 M/mm3 (3.65-5.03) L 03/04/17 04:24 Hgb 8.5 gm/dl (10.1-14.3) L 03/04/17 04:24 Hct 26.4 % (30.3-42.9) L 03/04/17 04:24 MCV 86 fl (79-97) 03/04/17 04:24 MCH 28 pg (28-32) 03/04/17 04:24 MCHC 32 % (30-34) 03/04/17 04:24 RDW 16.4 % (13.2-15.2) H 03/04/17 04:24 Plt Count 416 K/mm3 (140-440) 03/04/17 04:24 Lymph % (Auto) Sales Estimator 03/04/17 04:24 Lymph # Sales Estimator 03/04/17 04:24 Add Manual Diff Complete 03/04/17 04:24 Total Counted 100 03/04/17 04:24 Seg Neutrophils % Sales Estimator 03/04/17 04:24 Seg Neuts % (Manual) 25.0 % (40.0-70.0) L 03/04/17 04:24 Band Neutrophils % 4.0 % 03/04/17 04:24 Lymphocytes % (Manual) 67.0 % (13.4-35.0) H 03/04/17 04:24 Reactive Lymphs % (Man) 0 % 03/04/17 04:24 Monocytes % (Manual) 3.0 % (0.0-7.3) 03/04/17 04:24 Eosinophils % (Manual) 1.0 % (0.0-4.3) 03/04/17 04:24 Basophils % (Manual) 0 % (0.0-1.8) 03/04/17 04:24 Metamyelocytes % 0 % 03/04/17 04:24 Myelocytes % 0 % 03/04/17 04:24 Promyelocytes % 0 % 03/04/17 04:24 Blast Cells % 0 % 03/04/17 04:24 Nucleated RBC % Not Reportable 03/04/17 04:24 Seg Neutrophils # Man 6.5 K/mm3 (1.8-7.7) 03/04/17 04:24 Band Neutrophils # 1.0 K/mm3 03/04/17 04:24 Lymphocytes # (Manual) 17.4 K/mm3 (1.2-5.4) H 03/04/17 04:24 Abs React Lymphs (Man) 0.0 K/mm3 03/04/17 04:24 Monocytes # (Manual) 0.8 K/mm3 (0.0-0.8) 03/04/17 04:24 Eosinophils # (Manual) 0.3 K/mm3 (0.0-0.4) 03/04/17 04:24 Basophils # (Manual) 0.0 K/mm3 (0.0-0.1) 03/04/17 04:24 Metamyelocytes # 0.0 K/mm3 03/04/17 04:24 Myelocytes # 0.0 K/mm3 03/04/17 04:24 Promyelocytes # 0.0 K/mm3 03/04/17 04:24 Blast Cells # 0.0 K/mm3 03/04/17 04:24 Pathologist Review 02/25/17 04:46 WBC Morphology Not Reportable 03/04/17 04:24 Hypersegmented Neuts Not Reportable 03/04/17 04:24 Hyposegmented Neuts Not Reportable 03/04/17 04:24 Hypogranular Neuts Not Reportable 03/04/17 04:24 Smudge Cells Not Reportable 03/04/17 04:24 Toxic Granulation Not Reportable 03/04/17 04:24 Toxic Vacuolation Not Reportable 03/04/17 04:24 Dohle Bodies Not Reportable 03/04/17 04:24 Pelger-Huet Anomaly Not Reportable 03/04/17 04:24 Glo Rods Not Reportable 03/04/17 04:24 Platelet Estimate Consistent w auto 03/04/17 04:24 Clumped Platelets Not Reportable 03/04/17 04:24 Plt Clumps, EDTA Not Reportable 03/04/17 04:24 Large Platelets Not Reportable 03/04/17 04:24 Giant Platelets Not Reportable 03/04/17 04:24 Platelet Satelliting Not Reportable 03/04/17 04:24 Plt Morphology Comment Not Reportable 03/04/17 04:24 RBC Morphology Not Reportable 03/04/17 04:24 Dimorphic RBCs Not Reportable 03/04/17 04:24 Polychromasia Rare 03/04/17 04:24 Hypochromasia Rare 03/04/17 04:24 Poikilocytosis Not Reportable 03/04/17 04:24 Anisocytosis 1+ 03/04/17 04:24 Microcytosis Not Reportable 03/04/17 04:24 Macrocytosis Not Reportable 03/04/17 04:24 Spherocytes Not Reportable 03/04/17 04:24 Pappenheimer Bodies Not Reportable 03/04/17 04:24 Sickle Cells Not Reportable 03/04/17 04:24 Target Cells Not Reportable 03/04/17 04:24 Tear Drop Cells Not Reportable 03/04/17 04:24 Ovalocytes Not Reportable 03/04/17 04:24 Helmet Cells Not Reportable 03/04/17 04:24 Courtney-Culpeper Bodies Not Reportable 03/04/17 04:24 [place] Rings Not Reportable 03/04/17 04:24 Raymond Cells Not Reportable 03/04/17 04:24 Bite Cells Not Reportable 03/04/17 04:24 Crenated Cell Not Reportable 03/04/17 04:24 Elliptocytes Not Reportable 03/04/17 04:24 Acanthocytes (Spur) Not Reportable 03/04/17 04:24 Rouleaux Not Reportable 03/04/17 04:24 Hemoglobin C Crystals Not Reportable 03/04/17 04:24 Schistocytes Not Reportable 03/04/17 04:24 Malaria parasites Not Reportable 03/04/17 04:24 Carrington Bodies Not Reportable 03/04/17 04:24 Hem Pathologist Commnt No 03/04/17 04:24 PT 14.8 Sec. (12.2-14.9) 02/20/17 21:00 INR 1.10 (0.87-1.13) 02/20/17 21:00 APTT 26.4 Sec. (24.2-36.6) 02/20/17 21:00 POC ABG pH 7.493 (7.35-7.45) H 02/25/17 09:21 POC ABG pCO2 34.7 (35-45) L 02/25/17 09:21 POC ABG pO2 63 (80-105) L 02/25/17 09:21 POC ABG HCO3 26.6 02/25/17 09:21 POC ABG Total CO2 28 02/25/17 09:21 POC ABG O2 Sat 94 02/25/17 09:21 POC ABG Base Excess 3 02/25/17 09:21 FiO2 21 % 02/25/17 09:21 Sodium 146 mmol/L (137-145) H D 03/04/17 04:24 Potassium 4.1 mmol/L (3.6-5.0) D 03/04/17 04:24 Chloride 110.5 mmol/L (98-107) H 03/04/17 04:24 Carbon Dioxide 23 mmol/L (22-30) 03/04/17 04:24 Anion Gap 17 mmol/L 03/04/17 04:24 BUN 3 mg/dL (7-17) L 03/04/17 04:24 Creatinine 1.1 mg/dL (0.7-1.2) 03/04/17 04:24 Estimated GFR 59 ml/min 03/04/17 04:24 BUN/Creatinine Ratio 2.72 % 03/04/17 04:24 Glucose 90 mg/dL (65-100) 03/04/17 04:24 POC Glucose 157 (70-105) H 02/28/17 11:56 Lactic Acid 1.00 mmol/L (0.7-2.0) 02/21/17 13:35 Calcium 7.7 mg/dL (8.4-10.2) L 03/04/17 04:24 Phosphorus 2.70 mg/dL (2.5-4.5) 02/26/17 04:08 Magnesium 2.10 mg/dL (1.7-2.3) 03/01/17 04:44 Total Bilirubin 0.60 mg/dL (0.1-1.2) 02/28/17 05:10 AST 16 units/L (5-40) 02/28/17 05:10 ALT 11 units/L (7-56) 02/28/17 05:10 Alkaline Phosphatase 52 units/L (35-129) 02/28/17 05:10 Total Protein 5.2 g/dL (6.3-8.2) L 02/28/17 05:10 Albumin 2.4 g/dL (3.9-5) L 02/28/17 05:10 Albumin/Globulin Ratio 0.9 % 02/28/17 05:10 Lipase 26 units/L (13-60) 02/24/17 15:13 Urine Color Yellow (Yellow) 02/20/17 15:05 Urine Turbidity Slightly-cloudy (Clear) 02/20/17 15:05 Urine pH 5.0 (5.0-7.0) 02/20/17 15:05 Ur Specific [place] 1.016 (1.003-1.030) 02/20/17 15:05 Urine Protein 30 mg/dl mg/dL (Negative) 02/20/17 15:05 Urine Glucose (UA) Neg mg/dL (Negative) 02/20/17 15:05 Urine Ketones Tr mg/dL (Negative) 02/20/17 15:05 Urine Blood Mod (Negative) 02/20/17 15:05 Urine Nitrite Neg (Negative) 02/20/17 15:05 Urine Bilirubin Neg (Negative) 02/20/17 15:05 Urine Urobilinogen 2.0 mg/dL (<2.0) 02/20/17 15:05 Ur Leukocyte Esterase Mod (Negative) 02/20/17 15:05 Urine WBC (Auto) 26.0 /HPF (0.0-6.0) H 02/20/17 15:05 Urine RBC (Auto) 12.0 /HPF (0.0-6.0) 02/20/17 15:05 U Epithel Cells (Auto) 2.0 /HPF (0-13.0) 02/20/17 15:05 Hyaline Casts 1 /LPF 02/20/17 15:05 Urine Mucus Few /HPF 02/20/17 15:05 Blood Type O POSITIVE 02/28/17 08:30 Antibody Screen Negative 02/28/17 08:30 SHARON Antibody Screen Negative 02/20/17 21:10 Crossmatch See Detail 02/28/17 08:30
[2017-03-05] MEDS: APRESOLINE IV PRN (00:45)
[2017-03-05 06:32] LABS: Hematocrit 26.1 % (30.3-42.9); Hemoglobin 8.7 gm/dl (10.1-14.3); Mean Corpuscular HGB Conc 33 % (30-34); Mean Corpuscular Hemoglobin 29 pg (28-32); Mean Corpuscular Volume 85 fl (79-97); Platelet Count 390 K/mm3 (140-440); Red Blood Count 3.06 M/mm3 (3.65-5.03); Red Cell Distribution Width 16.8 % (13.2-15.2)
[2017-03-05 06:33] LABS: White Blood Count 23.6 K/mm3 (4.5-11.0)
[2017-03-05 06:54] LABS: BUN/Creatinine Ratio 4.54; Calcium 8.1 mg/dL (8.4-10.2); Chloride 105.9 mmol/L (98-107); Potassium 3.7 mmol/L (3.6-5.0)
[2017-03-05 07:42] VITALS: BP 158/66
[2017-03-05] MEDS: BROVANA NEBU IH SCH (07:52)
[2017-03-05] MEDS: PULMICORT IH SCH (07:52)
[2017-03-05 08:56] LABS: Anisocytosis 1+; Basophils % (Manual) 0 % (0.0-1.8); Blastocytes % (Manual) 0 %; Eosinophils % (Manual) 0 % (0.0-4.3)
[2017-03-05 08:57] LABS: Polychromasia Rare
[2017-03-05 08:58] LABS: Diff Status Complete
[2017-03-05] MEDS: ZYVOX PO SCH (09:43)
[2017-03-05] MEDS: LEVAQUIN PO SCH (09:43)
[2017-03-05] MEDS: FEOSOL PO SCH (09:43)
[2017-03-05] MEDS: THERAGRAN Tab PO SCH (09:43)
[2017-03-05] MEDS ORDERED: PEPCID PO SCH (10:00)
[2017-03-05] MEDS ORDERED: DIFLUCAN PO SCH (10:00)
--- NOTE | 2017-03-05 12:38 | Discharge Summary ---
Providers - Providers Date of Admission: 02/21/17 00:37 Date of discharge: 03/05/17 Attending physician: JAIMEE VALDES 02/21/17 00:43 Consult to Physician [CONS] Routine Consulting Provider: DAVID BANGURA Reason For Exam: peritonitis perf appy Place consult to:: july nichols Notified:: no Consult to Wound/ET Nurse [CONS] Routine Reason For Exam: wound eval 02/21/17 13:15 Consult to Physician [CONS] Urgent Consulting Provider: JASPER STOREY Reason For Exam: critical care management Place consult to:: Jasper Storey Notified:: yes Was contact made?: Yes If yes, spoke with:: Time called:: 13:12 02/22/17 13:04 Consult to Physician [CONS] Routine Consulting Provider: JCARLOS SORTO Reason For Exam: leukemia Place consult to:: PM Notified:: YES Phone number called:: [phone] If yes, spoke with:: COLEEN Time called:: 14:45 02/27/17 08:42 Physical Therapy Evaluation and Treat [CONS] Routine Comment: Reason For Exam: Abdominal surgery ,post op state 03/03/17 08:27 Consult to Case Management [CONS] Urgent Services Needed at Discharge: Other Notified:: No Additional Physician Instructions: Needs outpatient iv therapy for 14 days starting 03/03/17 (?insurance approval) - Daptomycin 300 mg iv Q24H, Zosyn 2.25 gm Q6H, Fluconazole 400 mg Q24H If iv not possible, even though preferable, will need Linezolid 600 mg po Q12H and Cipro 500 mg po Q12H 03/04/17 13:23 Consult to Case Management [CONS] Routine Services Needed at Discharge: Other Notified:: cm notified Comment:: Prior authorization/ approval of Linezolid prior to discharge; Rx on chart Additional Physician Instructions: Prior authorization/ approval of Linezolid prior to discharge; Rx on chart Primary care physician: OUSMANE SEGOVIA Hospitalization Condition: Fair Hospital course: Patient is 76 yo with history of hypertension, leukemia. She presented with severe abdominal pain. CT Abdomen revealed evidence of ruptured appendicitis with abscess formation. She was started on iv Antibiotics, iv fluids, NPO and admitted. Urgent surgical consultation was done and she was taken to OR urgently. Patient had ruptured appendix with abscess formation. She had emergent exploratory laparotomy and appendectomy done by Dr. Anthony. Patient had a prolonged stay because of multiple intra-abdominal abscesses. After several days of therapy,repeat CT abdomen showed improvement but not complete resolution of abscesses. Consensus was patient may be discharged home and follow as outpatient. She was discharged home on Zyvox, Ciprofloxacin and Fluconazole as ordered by ID Physician. Total time spent on discharge, 37 mins. 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 Leukemia Active/Remission status: L (6) DONN (acute kidney injury) Status: Acute (7) ATN (acute tubular necrosis) Status: Acute (8) Hypomagnesemia Status: Acute (9) Hypokalemia Status: Acute Core Measure Documentation - Palliative Care Palliative Care/ Comfort Measures: Not Applicable - Core Measures Any of the following diagnoses?: none Exam - Physical Exam Narrative exam: Gen appearance: ot in acute distress HEENT: normocephalic, atraumatic Neck:supple, no JVD, Lungs: clear to auscultation bilaterally, no crackles or wheezes Heart :S1 and S2 regular, no murmurs, rubs or gallop Abdomen: Soft, mild tender mid abdomen, no rebound tenderness, bowel sounds present Extremities :no edema no clubbing or cyanosis Neuro: Awake, alert oriented 3, no focal neurological signs Psych: normal mood - Constitutional Vitals: Temp Pulse Resp BP Pulse Ox 98 F 88 18 158/66 98 03/05/17 07:00 03/05/17 08:10 03/05/17 08:10 03/05/17 07:00 03/05/17 07:00 Plan Activity: other (No strenous activity until cleared by Surgeon) Diet: regular Special Instructions: home health RN Additional Instructions: 1.Folllow up with Dr. Ousmane Segovia, PCP in 1 week. 2.Follow up with Dr. Bangura in 1 week. 3.Follow up with Dr. Anthony in 1 week. [address]To repeat [address] abdomen as outpatient. 5.Take Vicodin 1 pill Q6h prn as ordered Follow up with: OUSMANE SEGOVIA MD [Primary Care Provider] - 3-5 Days Prescriptions: Ciprofloxacin HCl [Ciprofloxacin TAB] 500 mg PO Q12HR #28 tab Fluconazole [Diflucan TAB] 100 mg PO BID #28 tablet Linezolid [Zyvox] 600 mg PO Q12HR #28 tablet LORazepam [Ativan] 1 mg PO QHS #3 tab
--- NOTE | 2017-03-05 14:40 | Progress Note ---
Assessment and Plan Patient going home. No complaint of chest pain or shortness of breath or cough.O2 saturation 98% on room air. If any pulmonary help needed can come to my office as outpatient for pulmonary follow up. - Patient Problems (1) History of asthma Current Visit: Yes Status: Acute Plan to address problem: Patient says breathing alright. No complaint of chest pain or shortness of breath. On room air. O2 saturation 98%. Continue advair and albuterol inhalor as she is using at home. (2) Intra-abdominal abscess Current Visit: Yes Status: Acute Plan to address problem: S/P Laparotomy and surgical removal of ruptured and Gangrenous appendex. Patient afebrile, Leukocyte count improving. Patient Going home on linozelid, Cipro and fluconazole. Subjective Date of service: 03/05/17 Principal diagnosis: Appendiceal Abscess; H/O Asthma Interval history: Patient going home. No complaint of chest pain or shortness of breath or cough.O2 saturation 98% on room air. If any pulmonary help needed can come to my office as outpatient for pulmonary follow up. Objective Vital Signs - 12hr 03/05/17 03/05/17 03/05/17 06:22 07:00 07:53 Temperature 98.2 F 98 F Pulse Rate 92 H 85 Pulse Rate [ 85 Anterior Bilateral Throughout] Respiratory 18 18 Rate Respiratory 18 Rate [Anterior Bilateral Throughout] Blood Pressure 158/68 158/66 O2 Sat by Pulse 100 98 Oximetry 03/05/17 08:10 Temperature Pulse Rate Pulse Rate [ 88 Anterior Bilateral Throughout] Respiratory Rate Respiratory 18 Rate [Anterior Bilateral Throughout] Blood Pressure O2 Sat by Pulse Oximetry Constitutional: no acute distress, alert Eyes: non-icteric ENT: oropharynx moist Neck: supple, no lymphadenopathy Effort: normal Ascultation: Bilateral: clear, diminished breath sounds Cardiovascular: regular rate and rhythm Gastrointestinal: normoactive bowel sounds, soft, non-tender, non-distended Integumentary: normal Extremities: no cyanosis, no edema, pulses normal, no ischemia or petechiae Neurologic: normal mental status, non-focal exam Psychiatric: mood appropriate, affect normal CBC and BMP: 03/05/17 05:49 03/05/17 05:49 ABG, PT/INR, D-dimer: ABG POC ABG pH 7.493 (7.35-7.45) H 02/25/17 09:21 POC ABG pCO2 34.7 (35-45) L 02/25/17 09:21 POC ABG pO2 63 (80-105) L 02/25/17 09:21 POC ABG HCO3 26.6 02/25/17 09:21 POC ABG Total CO2 28 02/25/17 09:21 POC ABG O2 Sat 94 02/25/17 09:21 PT/INR, D-dimer PT 14.8 Sec. (12.2-14.9) 02/20/17 21:00 INR 1.10 (0.87-1.13) 02/20/17 21:00 Abnormal lab findings: Abnormal Labs 02/21/17 02/21/17 02/22/17 04:37 04:37 06:10 WBC 26.4 H 45.2 H* RBC Hgb Hct MCH RDW 16.2 H 16.1 H Plt Count Seg Neuts % (Manual) 38.0 L Lymphocytes % (Manual) 37.0 H 39.0 H Basophils % (Manual) Seg Neutrophils # Man 10.0 H 22.1 H Lymphocytes # (Manual) 9.8 H 17.6 H Monocytes # (Manual) 1.1 H 0.9 H Eosinophils # (Manual) Basophils # (Manual) POC ABG pH POC ABG pCO2 POC ABG pO2 Sodium Potassium Chloride Carbon Dioxide 18 L BUN 39 H Creatinine 1.5 H Glucose 177 H POC Glucose Calcium 7.7 L Magnesium Total Protein Albumin 2.9 L Crossmatch 02/22/17 02/23/17 02/23/17 06:10 03:33 03:33 WBC 45.2 H* RBC 3.50 L Hgb 9.8 L Hct 30.1 L MCH RDW 16.1 H Plt Count Seg Neuts % (Manual) Lymphocytes % (Manual) Basophils % (Manual) Seg Neutrophils # Man 19.9 H Lymphocytes # (Manual) 6.8 H Monocytes # (Manual) 2.3 H Eosinophils # (Manual) 0.5 H Basophils # (Manual) 0.5 H POC ABG pH POC ABG pCO2 POC ABG pO2 Sodium 131 L D Potassium 3.0 L Chloride Carbon Dioxide 21 L 18 L BUN 18 H Creatinine Glucose 191 H 747 H* POC Glucose Calcium 7.6 L 6.7 L Magnesium 1.60 L Total Protein 5.7 L 4.9 L Albumin 2.2 L 1.8 L Crossmatch 02/23/17 02/23/17 02/24/17 04:21 04:56 05:40 WBC 62.5 H* RBC Hgb Hct MCH 27 L RDW 15.6 H Plt Count 526 H Seg Neuts % (Manual) 26.0 L Lymphocytes % (Manual) 68.5 H Basophils % (Manual) Seg Neutrophils # Man 16.3 H Lymphocytes # (Manual) 42.8 H Monocytes # (Manual) 1.9 H Eosinophils # (Manual) Basophils # (Manual) POC ABG pH POC ABG pCO2 POC ABG pO2 Sodium Potassium Chloride Carbon Dioxide BUN Creatinine Glucose 190 H POC Glucose 212 H Calcium 7.8 L D Magnesium Total Protein Albumin Crossmatch 02/24/17 02/25/17 02/25/17 05:40 04:46 04:46 WBC 49.5 H* RBC 3.24 L Hgb 9.1 L Hct 27.7 L MCH RDW 15.6 H Plt Count 485 H Seg Neuts % (Manual) Lymphocytes % (Manual) Basophils % (Manual) Seg Neutrophils # Man 33.4 H Lymphocytes # (Manual) 11.6 H Monocytes # (Manual) 2.2 H Eosinophils # (Manual) Basophils # (Manual) 0.2 H POC ABG pH POC ABG pCO2 POC ABG pO2 Sodium Potassium 3.2 L D Chloride Carbon Dioxide BUN Creatinine Glucose 184 H 162 H POC Glucose Calcium 7.9 L 8.0 L Magnesium Total Protein Albumin Crossmatch 02/25/17 02/26/17 02/26/17 09:21 04:08 22:40 WBC RBC Hgb Hct MCH RDW Plt Count Seg Neuts % (Manual) Lymphocytes % (Manual) Basophils % (Manual) Seg Neutrophils # Man Lymphocytes # (Manual) Monocytes # (Manual) Eosinophils # (Manual) Basophils # (Manual) POC ABG pH 7.493 H POC ABG pCO2 34.7 L POC ABG pO2 63 L Sodium Potassium 3.3 L Chloride Carbon Dioxide BUN Creatinine Glucose 138 H POC Glucose 125 H Calcium 7.8 L Magnesium Total Protein Albumin Crossmatch 02/27/17 02/28/17 02/28/17 06:51 01:44 05:10 WBC 36.3 H RBC 2.83 L Hgb 8.2 L Hct 24.5 L MCH RDW 15.9 H Plt Count 455 H Seg Neuts % (Manual) 28.0 L Lymphocytes % (Manual) 65.0 H Basophils % (Manual) Seg Neutrophils # Man 10.2 H Lymphocytes # (Manual) 23.6 H Monocytes # (Manual) 2.2 H Eosinophils # (Manual) Basophils # (Manual) POC ABG pH POC ABG pCO2 POC ABG pO2 Sodium Potassium Chloride Carbon Dioxide BUN Creatinine Glucose POC Glucose 152 H 114 H Calcium Magnesium Total Protein Albumin Crossmatch 02/28/17 02/28/17 02/28/17 05:10 05:10 06:35 WBC RBC Hgb Hct MCH RDW Plt Count Seg Neuts % (Manual) Lymphocytes % (Manual) Basophils % (Manual) Seg Neutrophils # Man Lymphocytes # (Manual) Monocytes # (Manual) Eosinophils # (Manual) Basophils # (Manual) POC ABG pH POC ABG pCO2 POC ABG pO2 Sodium Potassium Chloride Carbon Dioxide BUN 4 L 4 L Creatinine Glucose 105 H 105 H POC Glucose 112 H Calcium 7.7 L 7.7 L Magnesium 1.60 L Total Protein 5.2 L Albumin 2.4 L Crossmatch 02/28/17 02/28/17 03/01/17 08:30 11:56 04:44 WBC 35.7 H RBC 3.04 L Hgb 8.5 L Hct 26.2 L MCH RDW 16.1 H Plt Count 477 H Seg Neuts % (Manual) Lymphocytes % (Manual) Basophils % (Manual) 2.0 H Seg Neutrophils # Man 17.1 H Lymphocytes # (Manual) 10.7 H Monocytes # (Manual) 1.4 H Eosinophils # (Manual) Basophils # (Manual) 0.7 H POC ABG pH POC ABG pCO2 POC ABG pO2 Sodium Potassium Chloride Carbon Dioxide BUN Creatinine Glucose POC Glucose 157 H Calcium Magnesium Total Protein Albumin Crossmatch See Detail 03/01/17 03/02/17 03/03/17 04:44 06:17 06:37 WBC 31.9 H 27.6 H RBC 2.97 L 3.03 L Hgb 8.4 L 8.3 L Hct 25.6 L 26.0 L MCH RDW 16.2 H 15.9 H Plt Count 442 H 441 H Seg Neuts % (Manual) 34.0 L Lymphocytes % (Manual) 53.5 H 59.0 H Basophils % (Manual) Seg Neutrophils # Man 13.7 H 9.4 H Lymphocytes # (Manual) 17.1 H 16.3 H Monocytes # (Manual) Eosinophils # (Manual) Basophils # (Manual) POC ABG pH POC ABG pCO2 POC ABG pO2 Sodium Potassium 3.4 L Chloride Carbon Dioxide BUN 3 L Creatinine Glucose 121 H POC Glucose Calcium 7.5 L Magnesium Total Protein Albumin Crossmatch 03/03/17 03/04/17 03/04/17 06:37 04:24 04:24 WBC 25.9 H RBC 3.07 L Hgb 8.5 L Hct 26.4 L MCH RDW 16.4 H Plt Count Seg Neuts % (Manual) 25.0 L Lymphocytes % (Manual) 67.0 H Basophils % (Manual) Seg Neutrophils # Man Lymphocytes # (Manual) 17.4 H Monocytes # (Manual) Eosinophils # (Manual) Basophils # (Manual) POC ABG pH POC ABG pCO2 POC ABG pO2 Sodium 146 H D Potassium 3.0 L Chloride 110.5 H Carbon Dioxide 21 L BUN 3 L 3 L Creatinine Glucose 128 H POC Glucose Calcium 7.4 L 7.7 L Magnesium Total Protein Albumin Crossmatch 03/05/17 03/05/17 05:49 05:49 WBC 23.6 H RBC 3.06 L Hgb 8.7 L Hct 26.1 L MCH RDW 16.8 H Plt Count Seg Neuts % (Manual) 30.0 L Lymphocytes % (Manual) 64.0 H Basophils % (Manual) Seg Neutrophils # Man Lymphocytes # (Manual) 15.1 H Monocytes # (Manual) Eosinophils # (Manual) Basophils # (Manual) POC ABG pH POC ABG pCO2 POC ABG pO2 Sodium Potassium Chloride Carbon Dioxide BUN 5 L Creatinine Glucose POC Glucose Calcium 8.1 L Magnesium Total Protein Albumin Crossmatch
== END 2017-03-05 16:08 | disposition home or self-care (01) | DRG 853 ==
LOC: ED 14:07 → OR 22:16 → CC1 02-21 00:37 → 2B-SURG 02-21 18:14 → CC2 02-24 12:31 → 2B-SURG 02-28 14:51
PROVIDERS: ADMIT Internal Medicine; ATTEND Internal Medicine
PROC: 0DTJ0ZZ Resection of Appendix, Open Approach (ICD-10-PCS; principal; 2017-02-20)
PROC: 0W9J00Z Drainage of Pelvic Cavity with Drainage Device, Open Approach (ICD-10-PCS; 2017-02-20)
PROC: 4A033R1 Measurement of Arterial Saturation, Peripheral, Percutaneous Approach (ICD-10-PCS; 2017-02-25)
DX: A41.51 Sepsis due to Escherichia coli [E. coli] (principal); K35.3 Acute appendicitis with localized peritonitis; N17.0 Acute kidney failure with tubular necrosis; E43 Unspecified severe protein-calorie malnutrition; C91.10 Chronic lymphocytic leukemia of B-cell type not having achieved remission; D50.0 Iron deficiency anemia secondary to blood loss (chronic); E87.6 Hypokalemia; K59.00 Constipation, unspecified; I10 Essential (primary) hypertension; J45.909 Unspecified asthma, uncomplicated; K63.89 Other specified diseases of intestine; Z90.710 Acquired absence of both cervix and uterus; Z87.891 Personal history of nicotine dependence; Z79.899 Other long term (current) drug therapy; Z68.21 Body mass index [BMI] 21.0-21.9, adult; Z68.25 Body mass index [BMI] 25.0-25.9, adult
CPT/HCPCS: 36415; 36600; 71020; 74000; 74176; 74177; 80048; 80053; 81001; 82140; 82550; 82803; 82962; 83690; 83735; 84100; 85007; 85025; 85610; 85730; 86850; 86900; 86901; 86920; 87040; 87075; 87076; 87086; 87116; 87186; 88304; 93005; 93010; 93970; 94640; 94760; 96361; 96365; 96366; J0360; J0878; J1100; J1170; J1450; J2270; J2370; J2405; J2543; J2704; J2710; J3010; J3475; J3480; J7030; Q9967

== ENCOUNTER 2017-03-28 10:41 | Outpatient (CLI) | payer OTHER, MEDICARE ==
[2017-03-28] MEDS ORDERED: NACL ONE (12:54)
--- NOTE | 2017-03-28 14:40 | Cat Scan Report ---
CT SCAN OF THE ABDOMEN AND PELVIS WITH CONTRAST: HISTORY: Followup intra-abdominal abscess. TECHNIQUE: Helical CT in 1.25mm intervals following IV contrast. Sagittal and coronal reconstructions. FINDINGS: The previously described mesenteric collections in the pelvis have resolved since 03/01/17 exam. No new abscess or acute inflammation. Reactive mesenteric lymph nodes remain. No bulky adenopathy. Scattered liver cysts are unchanged in size and number. The spleen is homogeneous and measures 12 cm in length. The biliary system, pancreas, kidneys and adrenal glands remain unremarkable. Scattered simple renal cysts are noted. The ureters and bladder are unremarkable. The bowel loops are normal caliber and mucosal pattern. No obstruction or focal inflammation. Hysterectomy changes. IMPRESSION: Multiple pelvic fluid collections have resolved since 03/01/17. No new acute process in the abdomen or pelvis.
== END 2017-03-28 10:42 | disposition home or self-care (01) ==
LOC: CT 10:41
PROVIDERS: ATTEND Internal Medicine
DX: K65.1 Peritoneal abscess (principal); N28.1 Cyst of kidney, acquired; K76.89 Other specified diseases of liver; Z90.710 Acquired absence of both cervix and uterus
CPT/HCPCS: 74177; Q9967

== ENCOUNTER 2017-09-23 09:31 | Observation (INO) | payer OTHER, MEDICARE ==
[2017-09-23 10:23] LABS: Basophils # (Auto) 0.1 K/mm3 (0.0-0.1); Eosinophils # (Auto) 0.2 K/mm3 (0.0-0.4); Eosinophils % (Auto) 0.2 % (0.0-4.3); Hematocrit 33.3 % (30.3-42.9); Hemoglobin 10.6 gm/dl (10.1-14.3); Mean Corpuscular HGB Conc 32 % (30-34); Mean Corpuscular Hemoglobin 29 pg (28-32); Mean Corpuscular Volume 91 fl (79-97); Monocytes # (Auto) 1.2 K/mm3 (0.0-0.8); Monocytes % (Auto) 1.2 % (0.0-7.3); Platelet Count 283 K/mm3 (140-440); Red Blood Count 3.68 M/mm3 (3.65-5.03); Red Cell Distribution Width 16.7 % (13.2-15.2)
[2017-09-23 10:32] LABS: Albumin 4.1 g/dL (3.9-5); Calcium 9.1 mg/dL (8.4-10.2)
[2017-09-23 11:03] LABS: INR 0.91 (0.87-1.13)
[2017-09-23 11:04] LABS: Partial Thromboplastin Time 24.1 Sec. (24.2-36.6)
--- NOTE | 2017-09-23 12:51 | Emergency Department Report ---
ED General Adult HPI - General Chief complaint: Rectal Pain Stated complaint: RECTAL BLEEDING Time Seen by Provider: 09/23/17 12:24 Source: patient Mode of arrival: Ambulatory Limitations: No Limitations - History of Present Illness Initial comments: This is a patient with CLL that has never been treated with chemotherapy. She sees Dr. Bean for oncology. The reason why she came to the emergency department today is because she had bright red blood per rectum. She states that Dr. Segovia gave her meloxicam for "cold symptoms" this week which she thought was an antibiotic. She has history of prior colonoscopy and removal of a rectal polyp that was many years ago. She is status post ruptured retrocecal appendix and prolonged hospitalization and antibiotic administration last year which cleared up. Her cold systems did not include fever or chills. She states her rectal bleeding has stopped. It was small in quantity. She had the urge to have a bowel movement and just saw a small amount of bright red blood. She has not had diarrhea. She has not recently been hospitalized. -: Gradual Consistency: other (no complaint of pain) Improves with: none Worsens with: none Associated Symptoms: denies other symptoms Treatments Prior to Arrival: none - Related Data Home Medications Medication Instructions Recorded Confirmed Last Taken Fluticasone/Salmeterol [Advair 1 puff IH BID 02/20/17 02/20/17 Unknown Diskus 100-50 mcg] Losartan [Cozaar] 125 mg PO QDAY 02/20/17 02/20/17 Unknown Previous Rx's Medication Instructions Recorded Last Taken Type Ciprofloxacin HCl [Ciprofloxacin 500 mg PO Q12HR #28 tab 03/05/17 Unknown Rx TAB] Fluconazole [Diflucan TAB] 100 mg PO BID #28 tablet 03/05/17 Unknown Rx LORazepam [Ativan] 1 mg PO QHS #3 tab 03/05/17 Unknown Rx Linezolid [Zyvox] 600 mg PO Q12HR #28 tablet 03/05/17 Unknown Rx Allergies Allergy/AdvReac Type Severity Reaction Status Date / Time No Known Allergies Allergy Verified 02/20/17 17:36 ED Review of Systems ROS: Stated complaint: RECTAL BLEEDING Other details as noted in HPI Constitutional: denies: chills, fever Eyes: denies: eye pain, eye discharge, vision change ENT: denies: ear pain, throat pain Respiratory: other ("cold symptoms"). denies: cough, shortness of breath, wheezing Cardiovascular: denies: chest pain, palpitations Endocrine: no symptoms reported Gastrointestinal: hematochezia. denies: abdominal pain, nausea, vomiting, diarrhea Genitourinary: denies: urgency, dysuria, discharge Musculoskeletal: denies: back pain, joint swelling, arthralgia Skin: denies: rash, lesions Neurological: denies: headache, weakness, paresthesias Psychiatric: denies: anxiety, depression Hematological/Lymphatic: denies: easy bleeding, easy bruising ED Past Medical Hx - Past Medical History Hx Hypertension: Yes Hx Heart Attack/AMI: No Hx Congestive Heart Failure: No Hx Renal Disease: No Hx Seizures: No Hx Kidney Stones: No Hx Asthma: Yes Additional medical history: Leukemia - Surgical History Additional Surgical History: Thyroidectomy, Hysterectomy - Social History Smoking Status: Never Smoker - Medications Home Medications: Home Medications Medication Instructions Recorded Confirmed Last Taken Type Fluticasone/Salmeterol [Advair 1 puff IH BID 02/20/17 02/20/17 Unknown History Diskus 100-50 mcg] Losartan [Cozaar] 125 mg PO QDAY 02/20/17 02/20/17 Unknown History Ciprofloxacin HCl [Ciprofloxacin 500 mg PO Q12HR #28 tab 03/05/17 Unknown Rx TAB] Fluconazole [Diflucan TAB] 100 mg PO BID #28 tablet 03/05/17 Unknown Rx LORazepam [Ativan] 1 mg PO QHS #3 tab 03/05/17 Unknown Rx Linezolid [Zyvox] 600 mg PO Q12HR #28 tablet 03/05/17 Unknown Rx ED Physical Exam - General Limitations: No Limitations General appearance: alert, in no apparent distress - Head Head exam: Present: atraumatic, normocephalic - Eye Eye exam: Present: normal appearance, PERRL, EOMI. Absent: scleral icterus - ENT ENT exam: Present: mucous membranes moist - Neck Neck exam: Present: normal inspection. Absent: tenderness, meningismus - Respiratory Respiratory exam: Present: normal lung sounds bilaterally. Absent: respiratory distress - Cardiovascular Cardiovascular Exam: Present: regular rate, normal rhythm. Absent: systolic murmur, diastolic murmur, rubs, gallop - GI/Abdominal GI/Abdominal exam: Present: soft, normal bowel sounds. Absent: distended, tenderness, guarding, rebound, rigid - Extremities Exam Extremities exam: Present: normal inspection - Back Exam Back exam: Present: normal inspection - Neurological Exam Neurological exam: Present: alert, oriented X3, CN II-XII intact. Absent: motor sensory deficit - Psychiatric Psychiatric exam: Present: normal affect, normal mood - Skin Skin exam: Present: warm, dry, intact, normal color. Absent: rash ED Course Vital Signs 09/23/17 09:48 Temperature 98.4 F Pulse Rate 85 Respiratory 16 Rate Blood Pressure 146/44 O2 Sat by Pulse 100 Oximetry - Reevaluation(s) Reevaluation #1: Patient has a significant leukemoid reaction. She does not appear to have a focus of infection. However, I will order a lactic acid level blood cultures and complete her focus search. She is referred to Dr. Lawrence for further care and hospitalization. We have called Mike, sprinkler irrigation equipment mechanic for Dr. Nuñez. he recommended that we repeat the white blood cell count in the morning but nothing specific RE. Dr. Lawrence will be covering the patient for occult infection. 09/23/17 12:51 09/23/17 13:13 09/23/17 13:14 IV fluids for prerenal azotemia and hopefully the hyperkalemia will correct. Reevaluation #2: Neutrophil 7.2%, lymphs 91.3% calculated ANC 6840. 09/23/17 13:17 ED Medical Decision Making - Lab Data Result diagrams: 09/23/17 09:55 09/23/17 09:55 Laboratory Results - last 24 hr 09/23/17 09/23/17 09/23/17 09:55 09:55 09:55 WBC 96.6 H* RBC 3.68 Hgb 10.6 Hct 33.3 MCV 91 MCH 29 MCHC 32 RDW 16.7 H Plt Count 283 Lymph % (Auto) Hearing Dog Trainer [place] % (Auto) 1.2 Eos % (Auto) 0.2 Lymph # Hearing Dog Trainer [place] # 1.2 H Eos # 0.2 Baso # 0.1 Seg Neutrophils % Hearing Dog Trainer Seg Neutrophils # 6.9 PT 12.7 INR 0.91 APTT 24.1 L Sodium 141 Potassium 5.5 H Chloride 104.5 Carbon Dioxide 25 Anion Gap 17 BUN 29 H Creatinine 1.2 Estimated GFR 53 BUN/Creatinine Ratio 24 Glucose 101 H Calcium 9.1 Total Bilirubin 0.60 AST 21 ALT 11 Alkaline Phosphatase 82 Total Protein 6.6 Albumin 4.1 Albumin/Globulin Ratio 1.6 Lipase 31 Blood Type Antibody Screen 09/23/17 09:55 WBC RBC Hgb Hct MCV MCH MCHC RDW Plt Count Lymph % (Auto) [place] % (Auto) Eos % (Auto) Lymph # [place] # Eos # Baso # Seg Neutrophils % Seg Neutrophils # PT INR APTT Sodium Potassium Chloride Carbon Dioxide Anion Gap BUN Creatinine Estimated GFR BUN/Creatinine Ratio Glucose Calcium Total Bilirubin AST ALT Alkaline Phosphatase Total Protein Albumin Albumin/Globulin Ratio Lipase Blood Type O POSITIVE Antibody Screen Negative - Radiology Data interpreted by me: Chest x-ray shows no acute process chronic changes hyperinflation Critical care attestation.: If time is entered above; I have spent that time in minutes in the direct care of this critically ill patient, excluding procedure time. ED Disposition Clinical Impression: Leukemoid reaction, Hyperkalemia, Prerenal azotemia, Chronic lymphocytic leukemia, Rectal bleeding Disposition: OP ADMIT IP TO THIS HOSP Is pt being admited?: Yes Does the pt Need Aspirin: No (rectal bleeding will hold ASA) Condition: Stable Referrals: LOTUS SEGOVIA MD [Primary Care Provider] - 3-5 Days Time of Disposition: 13:21
--- NOTE | 2017-09-23 12:57 | History and Physical Report ---
History of Present Illness Chief complaint: Im bleeding History of present illness: 77 YO Female with CLL, HTN, Asthma presents to ED for evaluation. Pt states that she went to the restroom, and noticed that she had blood on the tiolet tissue after wiping herself. Pt denies fever, chills, CP, Palpitations, NVD, abdominal pain, flank pain, hematuria, urgency, frequency, prolonged immobility/ travel, leg swelling/calf pain, individual/family history of DVT/PE. Pt acknowledges 20lb unintentional weight loss over the past 3 months. Pt seen and evaluated in ED and found to have evidence of sepsis versus blast crisis. Pt initiated on sepsis protocol. Hematology consulted and recommend repeat CBC, and sepsis protocol. Past History Past Medical History: hypertension Past Surgical History: thyroidectomy, hysterectomy Social history: . denies: smoking, alcohol abuse, prescription drug abuse Family history: no significant family history Medications and Allergies Allergies Allergy/AdvReac Type Severity Reaction Status Date / Time No Known Allergies Allergy Verified 02/20/17 17:36 Home Medications Medication Instructions Recorded Confirmed Last Taken Type Fluticasone/Salmeterol [Advair 1 puff IH BID 02/20/17 02/20/17 Unknown History Diskus 100-50 mcg] Losartan [Cozaar] 125 mg PO QDAY 02/20/17 02/20/17 Unknown History Ciprofloxacin HCl [Ciprofloxacin 500 mg PO Q12HR #28 tab 03/05/17 Unknown Rx TAB] Fluconazole [Diflucan TAB] 100 mg PO BID #28 tablet 03/05/17 Unknown Rx LORazepam [Ativan] 1 mg PO QHS #3 tab 03/05/17 Unknown Rx Linezolid [Zyvox] 600 mg PO Q12HR #28 tablet 03/05/17 Unknown Rx Active Meds: Active Medications Sodium Chloride (Nacl 0.9% 1000 Ml) 1,000 mls @ 125 mls/hr IV ONCE ONE Stop: 09/23/17 20:40 Review of Systems Constitutional: weight loss, no weight gain, no fever, no chills, no sweats Ears, nose, mouth and throat: no ear pain, no ear discharge, no tinnitis, no decreased hearing, no nose pain Breasts: no change in shape, no swelling, no mass Cardiovascular: no chest pain, no orthopnea, no palpitations, no rapid/ irregular heart beat, no edema Respiratory: no cough, no cough with sputum, no excessive sputum, no hemoptysis Gastrointestinal: BRBPR, no nausea, no vomiting, no diarrhea, no constipation, no change in bowel habits, no melena, no hematochezia, no loss of appetite Genitourinary Female: no pelvic pain, no flank pain, no menorrhagia, no dysuria , no urinary frequency, no urgency Rectal: bleeding, no pain, no incontinence, no itching, no hemorrhoids Musculoskeletal: no neck stiffness, no neck pain, no shooting arm pain, no arm numbness/tingling, no shooting leg pain, no leg numbness/tingling Integumentary: no rash, no pruritis, no redness, no sores, no wounds, no jaundice Neurological: no head injury, no transient paralysis, no paralysis, no parathesias, no numbness, no seizures Psychiatric: no anxiety, no memory loss, no change in sleep habits, no sleep disturbances, no insomnia, no hypersomnia, no change in appetite Endocrine: no cold intolerance, no heat intolerance, no polyphagia, no excessive thirst, no polydipsia, no polyuria, no nocturia Hematologic/Lymphatic: no easy bruising, no easy bleeding, no lymphadenopathy, no lymphedema Allergic/Immunologic: no urticaria, no allergic rhinitis, no wheezing Exam - Constitutional Vitals: Temp Pulse Resp BP Pulse Ox 98.4 F 85 16 146/44 100 09/23/17 09:48 09/23/17 09:48 09/23/17 09:48 09/23/17 09:48 09/23/17 09:48 General appearance: Present: mild distress - EENT Eyes: Present: PERRL ENT: hearing intact, clear oral mucosa - Neck Neck: Present: supple, normal ROM - Respiratory Respiratory effort: normal Respiratory: bilateral: CTA - Cardiovascular Heart Sounds: Present: S1 & S2. Absent: rub, click - Extremities Extremities: pulses symmetrical, No edema Peripheral Pulses: abnormal (capillary refill greater than 3.6 seconds.) - Abdominal General gastrointestinal: Present: soft, non-tender, non-distended, normal bowel sounds Female genitourinary: Present: normal - Integumentary Integumentary: Present: clear, dry, clammy, decreased turgor - Musculoskeletal Musculoskeletal: gait normal, strength equal bilaterally - Psychiatric Psychiatric: appropriate mood/affect, intact judgment & insight - Neurologic Neurologic: CNII-XII intact, moves all extremities Results - Labs CBC & Chem 7: 09/23/17 09:55 09/23/17 09:55 Labs: Abnormal lab results 09/23/17 09/23/17 09/23/17 Range/Units 09:55 09:55 09:55 WBC 96.6 H* (4.5-11.0) K/mm3 RDW 16.7 H (13.2-15.2) % [place] # 1.2 H (0.0-0.8) K/mm3 APTT 24.1 L (24.2-36.6) Sec. Potassium 5.5 H (3.6-5.0) mmol/L BUN 29 H (7-17) mg/dL Glucose 101 H (65-100) mg/dL Assessment and Plan - Patient Problems (1) Sepsis Current Visit: Yes Status: Acute Qualifiers: Sepsis type: sepsis due to unspecified organism Qualified Code(s): A41.9 - Sepsis, unspecified organism Plan to address problem: IV abx, IVF resuscitation, monitor uop q shift, serial lactic acid, CBC, Chest X ray, urinalysis, blood cultures, (2) Hyperkalemia Current Visit: Yes Status: Acute Plan to address problem: IVF resuscitation, repeat bmp (3) Hypertension Current Visit: No Status: Acute Qualifiers: Hypertension type: essential hypertension Qualified Code(s): I10 - Essential (primary) hypertension Plan to address problem: monitor bp q shift, resume prehospital medication, (4) Leukemia Current Visit: No Status: Acute Plan to address problem: CLL: Suspected Blast crisis: Hematology consulted. Recommend CBC in AM, B12 level, and Alkaline phosphatase levels ordered in ED. (5) GI bleed Current Visit: Yes Status: Acute Plan to address problem: IV ppi therapy, Hgb stable, suspect secondary to leukemia, repeat cbc in am, GI consult placed in ED. (6) DVT prophylaxis Current Visit: Yes Status: Acute Plan to address problem: SCD to BLE
--- NOTE | 2017-09-23 13:05 | XRay Report ---
AP CHEST: HISTORY: Hypertension Small pleural effusions have resolved since 02/25/17 exam. The lungs are hyperinflated but clear. Heart and mediastinal structures are within normal limits. Scoliosis is noted. IMPRESSION: Hyperinflated lungs. No acute cardiopulmonary process.
[2017-09-23 13:11] LABS: Basophils % (Manual) 0 % (0.0-1.8); Eosinophils % (Manual) 0 % (0.0-4.3); Total Cells Counted 100
[2017-09-23 13:12] LABS: Anisocytosis 1+; Ovalocytes 1+
[2017-09-23] MEDS ORDERED: SODIUM CHLORIDE FLUSH SYRINGE 10 ML IV PRN (13:12)
[2017-09-23] MEDS ORDERED: TYLENOL PO PRN (13:12)
[2017-09-23] MEDS ORDERED: ZOFRAN IV PRN (13:12)
[2017-09-23 13:13] LABS: Smudge Cells 1+; Target Cells Few
[2017-09-23] MEDS ORDERED: NACL 0.9% 1000 ML IV ONE (13:13)
[2017-09-23] MEDS ORDERED: VANCOMYCIN VIAL IV ONE (13:13)
[2017-09-23] MEDS: NACL 0.9% 1000 ML 1,000 ML IV ONE ×2 (13:31→22:15)
[2017-09-23 13:47] LABS: INR 0.92 (0.87-1.13)
[2017-09-23 13:48] LABS: Partial Thromboplastin Time 23.6 Sec. (24.2-36.6)
[2017-09-23] MEDS ORDERED: ZOSYN/NS 3.375GM/50ML 3.375 GM/50 ML BAG IV SCH (14:00)
[2017-09-23] MEDS ORDERED: ZOSYN/NS 4.5GM/100ML 4.5 GM/100 ML VIAL IV SCH (14:00)
[2017-09-23] MEDS ORDERED: VANCOMYCIN/0.45 NS 1 GM/250 ML 1 GM/250 ML BAG IV ONE (14:00)
[2017-09-23] MEDS ORDERED: VANCOMYCIN PHARMACY TO DOSE IV SCH (14:00)
[2017-09-23] MEDS: ZOSYN/NS 2.25 GM/50ML 2.25 GM/50 ML BAG IV SCH ×2 (14:15→22:15)
[2017-09-23 14:35] LABS: Bilirubin,Urine NEG (Negative); Blood,Urine MOD (Negative); Color,Urine Yellow (Yellow); Mucus,Urine FEW /HPF; Protein,Urine <15 mg/dL mg/dL (Negative); Urobilinogen,Urine < 2.0 mg/dL (<2.0)
--- NOTE | 2017-09-23 17:59 | Consultation ---
History of Present Illness - Reason for Consult Consult date: 09/23/17 leukocytosis Requesting physician: PATRICIA BERMUDEZ - History of Present Illness Thank you for this consult, patient seen/examined, record reviewed, case d/w DR Bermudez/Sami earlier today. Patient of DR EVANS, with known CLL, wbc usually in the range of 25,000, except when stressed. No formal tx so far . She presents to the ER this time with WBC of 96.6K of course mostly lymphocytes, consistent with her CLL, probably spicked by some stressor ,ie sepsis syndrome..she is getting w/up for sepsis, and on IV ABX.Will continue to monitor labs, and i will speak with DR EVANS tomorrow about her. So far, peripheral blood review does not reveal any sign of transformation., and clinically she looks stable.see ordered labs. Past History Past Medical History: hypertension Past Surgical History: thyroidectomy, hysterectomy Social history: . denies: smoking, alcohol abuse, prescription drug abuse Family history: no significant family history, cancer Medications and Allergies Allergies Allergy/AdvReac Type Severity Reaction Status Date / Time No Known Allergies Allergy Verified 02/20/17 17:36 Home Medications Medication Instructions Recorded Confirmed Last Taken Type Fluticasone/Salmeterol [Advair 1 puff IH BID 02/20/17 02/20/17 Unknown History Diskus 100-50 mcg] Losartan [Cozaar] 125 mg PO QDAY 02/20/17 02/20/17 Unknown History Ciprofloxacin HCl [Ciprofloxacin 500 mg PO Q12HR #28 tab 03/05/17 Unknown Rx TAB] Fluconazole [Diflucan TAB] 100 mg PO BID #28 tablet 03/05/17 Unknown Rx LORazepam [Ativan] 1 mg PO QHS #3 tab 03/05/17 Unknown Rx Linezolid [Zyvox] 600 mg PO Q12HR #28 tablet 03/05/17 Unknown Rx Active Meds: Active Medications Acetaminophen (Tylenol) 650 mg PO Q4H PRN PRN Reason: Pain MILD(1-3)/Fever >100.5/KEENE Sodium Chloride (Nacl 0.9% 1000 Ml) 1,000 mls @ 125 mls/hr IV ONCE ONE Stop: 09/23/17 20:40 Vancomycin HCl 750 mg/ Sodium (Chloride) 257.5 mls @ 166.667 mls/hr IV Q24H [facility] Piperacillin Sod/Tazobactam Sod (Zosyn/Ns 2.25 Gm/50ml) 2.25 gm in 50 mls @ 100 mls/hr IV Q6H [facility] Last Admin: 09/23/17 14:15 Dose: 100 mls/hr Ondansetron HCl (Zofran) 4 mg IV Q8H PRN PRN Reason: Nausea And Vomiting Sodium Chloride (Sodium Chloride Flush Syringe 10 Ml) 10 ml IV BID [facility] Sodium Chloride (Sodium Chloride Flush Syringe 10 Ml) 10 ml IV PRN PRN PRN Reason: LINE FLUSH Vancomycin HCl (Vancomycin Pharmacy To Dose) 1 each IV PKCONSULT [facility] Review of Systems Breasts: deferred Gastrointestinal: abdominal pain Exam - Constitutional Vitals: Temp Pulse Resp BP Pulse Ox 98.6 F 72 16 128/54 100 09/23/17 16:57 09/23/17 16:57 09/23/17 16:57 09/23/17 16:57 09/23/17 16:57 General appearance: Present: no acute distress, well-nourished - EENT Eyes: Present: PERRL ENT: hearing intact, clear oral mucosa - Neck Neck: Present: supple, normal ROM - Respiratory Respiratory effort: normal Respiratory: bilateral: CTA - Cardiovascular Heart Sounds: Present: S1 & S2. Absent: rub, click - Extremities Extremities: pulses symmetrical, No edema Peripheral Pulses: within normal limits - Abdominal General gastrointestinal: Present: soft, non-tender, non-distended, normal bowel sounds Female genitourinary: Present: deferred - Rectal Rectal Exam: deferred - Integumentary Integumentary: Present: clear, warm, dry - Musculoskeletal Musculoskeletal: gait normal, strength equal bilaterally - Psychiatric Psychiatric: appropriate mood/affect, intact judgment & insight - Neurologic Neurologic: CNII-XII intact, moves all extremities Results - Labs CBC & Chem 7: 09/23/17 09:55 09/23/17 09:55 Labs: Abnormal lab results 09/23/17 09/23/17 09/23/17 Range/Units 09:55 09:55 09:55 WBC 96.6 H* (4.5-11.0) K/mm3 RDW 16.7 H (13.2-15.2) % [place] # 1.2 H (0.0-0.8) K/mm3 Seg Neuts % (Manual) 5.0 L (40.0-70.0) % Lymphocytes % (Manual) 84.0 H (13.4-35.0) % Lymphocytes # (Manual) 81.1 H (1.2-5.4) K/mm3 Monocytes # (Manual) 2.9 H (0.0-0.8) K/mm3 APTT 24.1 L (24.2-36.6) Sec. Potassium 5.5 H (3.6-5.0) mmol/L BUN 29 H (7-17) mg/dL Glucose 101 H (65-100) mg/dL 09/23/17 Range/Units 13:32 WBC (4.5-11.0) K/mm3 RDW (13.2-15.2) % [place] # (0.0-0.8) K/mm3 Seg Neuts % (Manual) (40.0-70.0) % Lymphocytes % (Manual) (13.4-35.0) % Lymphocytes # (Manual) (1.2-5.4) K/mm3 Monocytes # (Manual) (0.0-0.8) K/mm3 APTT 23.6 L (24.2-36.6) Sec. Potassium (3.6-5.0) mmol/L BUN (7-17) mg/dL Glucose (65-100) mg/dL Assessment and Plan - Patient Problems (1) Sepsis Current Visit: Yes Status: Acute Qualifiers: Sepsis type: sepsis due to unspecified organism Qualified Code(s): A41.9 - Sepsis, unspecified organism Plan to address problem: supportive care as you are doing. (2) Hyperkalemia Current Visit: Yes Status: Acute Plan to address problem: follow you.deffer to the primary. (3) CLL (chronic lymphocytic leukemia) Current Visit: Yes Status: Acute Plan to address problem: See notes.
[2017-09-23] MEDS: SODIUM CHLORIDE FLUSH SYRINGE 10 ML IV SCH (22:16)
[2017-09-24] MEDS: ZOSYN/NS 2.25 GM/50ML 2.25 GM/50 ML BAG IV SCH ×3 (02:29→15:10)
[2017-09-24 10:04] LABS: Hematocrit 29.3 % (30.3-42.9); Hemoglobin 9.2 gm/dl (10.1-14.3); Mean Corpuscular HGB Conc 31 % (30-34); Mean Corpuscular Hemoglobin 29 pg (28-32); Mean Corpuscular Volume 92 fl (79-97); Platelet Count 232 K/mm3 (140-440); Red Blood Count 3.19 M/mm3 (3.65-5.03); Red Cell Distribution Width 16.4 % (13.2-15.2)
[2017-09-24 10:11] LABS: Calcium 8.1 mg/dL (8.4-10.2)
[2017-09-24] MEDS: SODIUM CHLORIDE FLUSH SYRINGE 10 ML IV SCH (11:25)
[2017-09-24] MEDS ORDERED: VANCOMYCIN 750 MG in NACL 0.9% 250ML 250 ML IV SCH (14:00)
--- NOTE | 2017-09-24 15:00 | Gastroenterology Consultation ---
<RUSTY PHAM - Last Filed: 09/24/17 15:09> History of Present Illness - Reason for Consult Consult date: 09/24/17 rectal bleeding Requesting physician: PATRICIA BERMUDEZ - History of Present Illness Patient is a 77 y/o female with PMH of CLL, HTN, and asthma who presented to ED with c/o rectal bleeding. Her WBC was noted to be elevated and she was admitted for possible sepsis vs blast crisis. This afternoon pt was resting in bed w/o acute distress or complaints. Tolerating diet. She reports seeing a scant amount of bright red blood on TP after straining to have a BM on Sunday. No hematemesis or melena. She denies any further signs of bleeding overnight or this am and states she had a BM last night with brown non-bloody stool. Denies CP,SOB, dizziness, abd pain, N/V, heartburn, dysphagia, odynophagia, diarrhea, or constipation. Admits to a personal history of colon polyps but reports her last colonoscopy was approximately 5 years ago with normal results. No Fhx of colon cancer. Past History Past Medical History: hypertension, other (CLL, asthma) Past Surgical History: thyroidectomy, hysterectomy Social history: . denies: smoking, alcohol abuse, prescription drug abuse Family history: no significant family history, cancer Medications and Allergies Allergies Allergy/AdvReac Type Severity Reaction Status Date / Time No Known Allergies Allergy Verified 02/20/17 17:36 Home Medications Medication Instructions Recorded Confirmed Last Taken Type Fluticasone/Salmeterol [Advair 1 puff IH BID 02/20/17 09/24/17 Unknown History Diskus 100-50 mcg] Ciprofloxacin HCl [Ciprofloxacin 500 mg PO DAILY #3 tablet 09/24/17 Unknown Rx TAB] amLODIPine [Norvasc] 5 mg PO DAILY #30 tab 09/24/17 Unknown Rx Active Meds: Active Medications Acetaminophen (Tylenol) 650 mg PO Q4H PRN PRN Reason: Pain MILD(1-3)/Fever >100.5/KEENE Vancomycin HCl 750 mg/ Sodium (Chloride) 257.5 mls @ 166.667 mls/hr IV Q24H JO[facility] Piperacillin Sod/Tazobactam Sod (Zosyn/Ns 2.25 Gm/50ml) 2.25 gm in 50 mls @ 100 mls/hr IV Q6H JOSE Last Admin: 09/24/17 11:24 Dose: 100 mls/hr Ondansetron HCl (Zofran) 4 mg IV Q8H PRN PRN Reason: Nausea And Vomiting Sodium Chloride (Sodium Chloride Flush Syringe 10 Ml) 10 ml IV BID [facility] Last Admin: 09/24/17 11:25 Dose: 10 ml Sodium Chloride (Sodium Chloride Flush Syringe 10 Ml) 10 ml IV PRN PRN PRN Reason: LINE FLUSH Vancomycin HCl (Vancomycin Pharmacy To Dose) 1 each IV PKCONSULT [facility] Review of Systems - Review of Systems All systems: negative Gastrointestinal: hematochezia Exam - Constitutional Vital Signs: Temp Pulse Resp BP Pulse Ox 98.8 F 62 18 122/52 97 09/24/17 08:17 09/24/17 10:00 09/24/17 08:17 09/24/17 08:17 09/24/17 08:17 General appearance: no acute distress - EENT Eyes: PERRL, EOM intact ENT: hearing intact - Respiratory Respiratory: bilateral: CTA - Cardiovascular Rhythm: regular Heart Sounds: Present: S1 & S2 - Gastrointestinal General gastrointestinal: Present: soft, non-tender, non-distended, normal bowel sounds - Integumentary Integumentary: Present: warm, dry - Neurologic Neurological: alert and oriented x3 - Labs CBC & Chem 7: 09/24/17 09:12 09/24/17 09:12 Lab Results: Laboratory Results - last 24 hr 09/23/17 09/23/17 09/23/17 09:55 20:06 20:06 WBC RBC Hgb Hct MCV MCH MCHC RDW Plt Count Pathologist Review ESR Sodium Potassium Chloride Carbon Dioxide Anion Gap BUN Creatinine Estimated GFR BUN/Creatinine Ratio Glucose Lactic Acid 1.50 Calcium Lactate Dehydrogenase 303 H C-Reactive Protein 09/23/17 09/23/17 09/24/17 20:06 20:06 09:12 WBC 72.9 H* RBC 3.19 L Hgb 9.2 L Hct 29.3 L MCV 92 MCH 29 MCHC 31 RDW 16.4 H Plt Count 232 Pathologist Review ESR 29 Sodium Potassium Chloride Carbon Dioxide Anion Gap BUN Creatinine Estimated GFR BUN/Creatinine Ratio Glucose Lactic Acid Calcium Lactate Dehydrogenase C-Reactive Protein 0.90 09/24/17 09:12 WBC RBC Hgb Hct MCV MCH MCHC RDW Plt Count Pathologist Review ESR Sodium 143 Potassium 4.0 D Chloride 107.2 H Carbon Dioxide 23 Anion Gap 17 BUN 19 H Creatinine 1.1 Estimated GFR 58 BUN/Creatinine Ratio 17 Glucose 145 H Lactic Acid Calcium 8.1 L Lactate Dehydrogenase C-Reactive Protein Assessment and Plan 1.rectal bleeding -HGB 9.2 -continue to monitor H/H and transfuse as needed -pt reports a scant amount of rectal bleeding with bright red blood on TP only after a BM 2 days ago with no further signs of active bleeding -BM x 1 yesterday with brown stool -HD stable -etiology-most likely anorectal in origin -no recommendations for a colonoscopy at this time, will consider outpatient colonoscopy based on progress -pt may be d/c per GI standpoint with clinic f/u appt in 2 weeks -will sign off, please call if needed <YELENA STEVE - Last Filed: 09/24/17 16:23> Medications and Allergies Active Meds: Active Medications Acetaminophen (Tylenol) 650 mg PO Q4H PRN PRN Reason: Pain MILD(1-3)/Fever >100.5/KEENE Vancomycin HCl 750 mg/ Sodium (Chloride) 257.5 mls @ 166.667 mls/hr IV Q24H [facility] Last Admin: 09/24/17 15:09 Dose: 166.667 mls/hr Piperacillin Sod/Tazobactam Sod (Zosyn/Ns 2.25 Gm/50ml) 2.25 gm in 50 mls @ 100 mls/hr IV Q6H [facility] Last Admin: 09/24/17 15:10 Dose: Not Given Ondansetron HCl (Zofran) 4 mg IV Q8H PRN PRN Reason: Nausea And Vomiting Sodium Chloride (Sodium Chloride Flush Syringe 10 Ml) 10 ml IV BID [facility] Last Admin: 09/24/17 11:25 Dose: 10 ml Sodium Chloride (Sodium Chloride Flush Syringe 10 Ml) 10 ml IV PRN PRN PRN Reason: LINE FLUSH Vancomycin HCl (Vancomycin Pharmacy To Dose) 1 each IV PKCONSULT [facility] Exam - Constitutional Vital Signs: Temp Pulse Resp BP Pulse Ox 99.6 F 87 18 140/56 96 09/24/17 14:55 09/24/17 14:55 09/24/17 14:55 09/24/17 14:55 09/24/17 14:55 - Labs CBC & Chem 7: 09/24/17 09:12 09/24/17 09:12 Lab Results: Laboratory Results - last 24 hr 09/23/17 09/23/17 09/23/17 09:55 20:06 20:06 WBC RBC Hgb Hct MCV MCH MCHC RDW Plt Count Pathologist Review ESR Sodium Potassium Chloride Carbon Dioxide Anion Gap BUN Creatinine Estimated GFR BUN/Creatinine Ratio Glucose Lactic Acid 1.50 Calcium Lactate Dehydrogenase 303 H C-Reactive Protein 09/23/17 09/23/17 09/24/17 20:06 20:06 09:12 WBC 72.9 H* RBC 3.19 L Hgb 9.2 L Hct 29.3 L MCV 92 MCH 29 MCHC 31 RDW 16.4 H Plt Count 232 Pathologist Review ESR 29 Sodium Potassium Chloride Carbon Dioxide Anion Gap BUN Creatinine Estimated GFR BUN/Creatinine Ratio Glucose Lactic Acid Calcium Lactate Dehydrogenase C-Reactive Protein 0.90 09/24/17 09:12 WBC RBC Hgb Hct MCV MCH MCHC RDW Plt Count Pathologist Review ESR Sodium 143 Potassium 4.0 D Chloride 107.2 H Carbon Dioxide 23 Anion Gap 17 BUN 19 H Creatinine 1.1 Estimated GFR 58 BUN/Creatinine Ratio 17 Glucose 145 H Lactic Acid Calcium 8.1 L Lactate Dehydrogenase C-Reactive Protein Assessment and Plan Pt seen and examined. Minimal anorectal blood. Anemia likely Hematologic in origin. No plans for endoscopic evaluation as inpatient. Okay to D/C, with outpatient GI followup. Otherwise, as per Dr. Mckeon.
--- NOTE | 2017-09-24 15:11 | Discharge Summary ---
Providers - Providers Date of Admission: 09/23/17 13:12 Date of discharge: 09/24/17 Attending physician: STEPHEN KEENAN 09/23/17 13:33 Consult to Physician [CONS] Routine Consulting Provider: GIULIANO PAYTON Reason For Exam: rectal bleeding Place consult to:: GI Notified:: Y If yes, spoke with:: Kathia KHAN Time called:: 14:40 09/23/17 17:43 Consult to Physician [CONS] Urgent Consulting Provider: NILSON PENA Reason For Exam: hx of leukemia Place consult to:: hemoc Notified:: y Primary care physician: LOTUS SEGOVIA Hospitalization Condition: Stable Hospital course: Patient is a 77 y/o female with PMH of CLL, HTN, and asthma who presented to ED with c/o rectal bleeding. Her WBC was noted to be elevated and she was admitted for possible sepsis vs blast crisis. She reported seeing a scant amount of bright red blood on TP after straining to have a BM on Sunday. She was monitored o/n, hematology and GI was consulted. Patient was afebrile. She has her own manager star and has f/u set up in one week. She was treated for recent diagnosis of UTI, CBC monitored and was discharged in stable condition to have outpt f/u with her hematologistin one week. Discharge diagnosis and management: //Leukemia, CLL Suspected Blast crisis: Hematology consulted. Ordered repeat CBC - WBC trended down, noted Normal B12 level, and Alkaline phosphatase levels patient remained stable , will f/u with her heamatologist outpt //Hyperkalemia likely from dehydration and ACEI improved with IVF resuscitation hold ACEI //Hypertension Placed on amlodipine //GI bleed cont ppi therapy, Hgb stable, suspect secondary to leukemia, GI consulted, outpt follow up //h/o UTI, cont ciprofloxacin Disposition: DC-01 TO HOME OR SELFCARE Time spent for discharge: 32 minutes Core Measure Documentation - Palliative Care Palliative Care/ Comfort Measures: Not Applicable - Core Measures Any of the following diagnoses?: none Exam - Constitutional Vitals: Temp Pulse Resp BP Pulse Ox 98.8 F 62 18 122/52 97 09/24/17 08:17 09/24/17 10:00 09/24/17 08:17 09/24/17 08:17 09/24/17 08:17 General appearance: Present: no acute distress - EENT Eyes: Present: PERRL ENT: hearing intact, clear oral mucosa - Neck Neck: Present: supple, normal ROM - Respiratory Respiratory effort: normal Respiratory: bilateral: CTA - Cardiovascular Heart Sounds: Present: S1 & S2. Absent: rub, click - Extremities Extremities: pulses symmetrical, No edema Peripheral Pulses: within normal limits - Abdominal General gastrointestinal: Present: soft, non-tender, non-distended, normal bowel sounds - Integumentary Integumentary: Present: clear, warm, dry - Musculoskeletal Musculoskeletal: gait normal, strength equal bilaterally - Psychiatric Psychiatric: appropriate mood/affect, intact judgment & insight - Neurologic Neurologic: CNII-XII intact, moves all extremities Plan Activity: advance as tolerated Weight Bearing Status: Non-Weight Bearing Diet: renal Additional Instructions: f/u with Dr. EVANS in one week. Follow up with: LOTUS SEGOVIA MD [Primary Care Provider] - 3-5 Days Prescriptions: amLODIPine [Norvasc] 5 mg PO DAILY #30 tab Ciprofloxacin HCl [Ciprofloxacin TAB] 500 mg PO DAILY #3 tablet
[2017-09-24 15:42] VITALS: BP 140/56
== END 2017-09-24 17:50 | disposition home or self-care (01) ==
LOC: ED 09:31 → 2B-ACE 13:12 → INTOOBSV 13:12
PROVIDERS: ADMIT Internal Medicine; ATTEND Internal Medicine
DX: A41.9 Sepsis, unspecified organism (principal); E87.5 Hyperkalemia; C91.10 Chronic lymphocytic leukemia of B-cell type not having achieved remission; I10 Essential (primary) hypertension; K92.2 Gastrointestinal hemorrhage, unspecified; J45.909 Unspecified asthma, uncomplicated; E89.0 Postprocedural hypothyroidism
CPT/HCPCS: 36415; 71045; 80048; 80053; 81001; 82140; 82232; 82607; 83615; 83690; 83735; 84075; 85007; 85025; 85027; 85610; 85652; 85730; 86140; 86850; 86900; 86901; 87040; 87086; 96361; 96365; 96366; 96367; 96375; 96376; 99285; G0378; J2543; J3370; J7030; J7050; 96374